=== PATIENT | male | born 1955 | race Caucasian/White ===

== ENCOUNTER 2017-06-10 15:40 | Outpatient (RCR) | payer OTHER, SELFPAY ==
[2017-06-10 17:41] LABS: Hemoglobin 15.2 g/dl (13.0-16.5); Mean Corp Hgb Conc 31.7 g/gl (32-36); Mean Corpuscular Hgb 28.7 pg (27.0-32.0); Mean Corpuscular Volume 90.6 fL (80-94); Mean Platelet Vol. 10.2 fl (6.2-12.0); Platelet Count 168 K/mm3 (150-450); RBC Distribution Width CV 14.7 % (11.6-14.6); RBC Distribution Width SD 48.6 fl (35.1-43.9); White Blood Count 10.4 K/mm3 (4.4-11.0)
[2017-06-10 17:44] LABS: Scan Indicated on CBC? Y/N NO
[2017-06-10 17:53] LABS: International Normalized Ratio 2.1
== END 2017-06-10 16:00 | disposition home or self-care (01) ==
LOC: LAB 15:40
DX: Z79.01 Long term (current) use of anticoagulants (principal)
CPT/HCPCS: 36415; 85027; 85610

== ENCOUNTER 2017-07-30 14:31 | Emergency (ER) | payer OTHER, SELFPAY ==
[2017-07-30 14:32] VITALS: BP 179/97; PULSE 70; RESP 16; TEMP 36.8; O2SAT 98; BMI 35.6
--- NOTE | 2017-07-30 15:18 | ED.DCSUM_ITS ---
- ER Visit Summary Date of Service: 07/30/17 Chief Complaint: Ear wax impaction History of Present Illness: The patient is a 62 M significant past medical history of CVA, CAD, A. fib, PE on Coumadin, cardiac stents, insulin-dependent diabetes and intermittent wax ear impactions. Patient states full of wax and at times it bothers his balance. He has is occur from time to time. He denies any pain. He denies any drainage. Physical Examination: Older male. Vital signs are stable. He is afebrile. He does not look septic or toxic. No acute distress. H EENT exam bilateral ear canals are full with wax. Nose unremarkable. Neck nontender. No lymphadenopathy. Lungs clear to auscultation bilaterally. Heart regular rhythm. No murmur. Abdomen soft nontender. Moving all 4 extremities. Neurologically awake and alert. No focal motor deficits. Test Results: None Emergency Department Course and Treatment: Nurse was able to irrigate a large wax plug out of his right ear and also wax out of his left ear. He is already using eardrops at home. And he will be instructed to follow-up with ENT for further evaluation. Treatment Plan: [] Disposition: dc Impression: Bilateral wax impaction This note was generated with [employer] dictation software. It may contain incorrect words, spelling, and punctuation that were not noted in review of the chart prior to signing ED Disposition - Plan for ED Patient: Chief Complaint: Ear Problem [facility] [facility] [[facility] Care Provider] -
--- NOTE | 2017-07-30 15:27 | ED.DEP ---
ED Disposition - Plan for ED Patient: Disposition: Home or Assisted Living Chief Complaint: Ear Problem Instructions: ED Cerumen Impaction Treated [facility]errals[facility] [Primary Care Provider] - As Needed German Bal MD [STAFF PHYSICIAN] - As Needed Additional Instructions: You use eardrops to keep wax buildup down. Follow-up with ENT as needed.
== END 2017-07-30 15:36 | disposition home or self-care (01) ==
PROVIDERS: Emergency Provider Emergency Medicine
DX: H61.23 Impacted cerumen, bilateral (principal); E11.9 Type 2 diabetes mellitus without complications; I25.10 Atherosclerotic heart disease of native coronary artery without angina pectoris; I48.91 Unspecified atrial fibrillation; I10 Essential (primary) hypertension; Z79.4 Long term (current) use of insulin; Z86.73 Personal history of transient ischemic attack (TIA), and cerebral infarction without residual deficits; Z79.01 Long term (current) use of anticoagulants; Z86.711 Personal history of pulmonary embolism
CPT/HCPCS: 99283

== ENCOUNTER 2017-09-04 15:53 | Outpatient (RCR) | payer OTHER, SELFPAY ==
[2016-07-29 04:04] VITALS: BMI 36.0
[2016-07-29 05:35] VITALS: BP 148/75
[2017-09-04 16:58] LABS: International Normalized Ratio 1.9; Prothrombin Time (Protime)PT. 21.7 SECONDS (11.7-14.9)
== END 2017-09-04 16:00 | disposition home or self-care (01) ==
LOC: LAB 15:53
DX: Z79.01 Long term (current) use of anticoagulants (principal)
CPT/HCPCS: 36415; 85610

== ENCOUNTER 2018-04-16 14:32 | Observation (INO) | payer OTHER, SELFPAY ==
[2018-04-16] VITALS (13 sets, daily range): BP systolic 154–195; BP diastolic 71–114; PULSE 27–54; RESP 10–18; TEMP 36.3–36.6; O2SAT 95–97; BMI 36.1; BMI 37.9
--- NOTE | 2018-04-16 15:19 | RAD_ITS ---
STUDY: X-RAY CHEST REASON FOR EXAM: Male, 63 years old. Chest pain. TECHNIQUE: Single AP portable view of the chest. COMPARISON: Comparison is made with prior study dated July 29, 2016. FINDINGS: EKG lead congestion. The lungs are clear and expanded. There is no demonstrated pleural abnormality. Sternal cerclage wires and vascular clips are present from a prior sternotomy and coronary artery bypass graft procedure (CABG). Moderate cardiomegaly. Normal mediastinum and adithya. Normal visualized pulmonary arteries. Normal visualized aortic arch and descending thoracic aorta. Normal visualized thoracic spine. Normal visualized ribs, clavicles, and shoulders. There is no demonstrated abnormality of the visualized soft tissue structures of the upper abdomen. RAD/Chest 1 View (Portable) IMPRESSION: Cardiomegaly. No acute abnormality is seen. Electronically Signed: Edvin Juarez MD at 15:44 EST Tel [phone], Service support ,
--- NOTE | 2018-04-16 15:19 | EKG12_ITS ---
Test Reason : CP Blood Pressure : / mmHG Vent. Rate : 045 BPM Atrial Rate : 036 BPM P-R Int : 000 ms QRS Dur : 096 ms QT Int : 510 ms P-R-T Axes : 000 095 134 degrees QTc Int : 441 ms Atrial fibrillation with slow ventricular response Rightward axis Nonspecific T wave abnormality Abnormal ECG Confirmed by DAISHA GARCIA, MAURICE ([id number]), medical transcription editor SHAQUILLE LUCERO ([id number]) on 04/20/2018 2:31:36 PM Referred By: HEBER/JIMMY Confirmed By:MAURICE ASHTON MD
--- NOTE | 2018-04-16 15:25 | ED.VISSUMM ---
- ER Visit Summary Date of Service: 04/16/18 Chief Complaint: [] chest pain shortness of breath dyspnea on exertion History of Present Illness: The patient is a 63 M [] CABG, A. fib, CHF, seen at [facility], reports for about 2 days he has had increasing shortness of breath and chest pain worse today comes in for evaluation. No fever no cough has chronic leg edema, he has had no change in bowel or bladder habits other than the report he is been constipated, his urinary habits been normal, he is taking all his medications, chest pain shortness of breath would not go away, he also reports exertional dyspnea he can only walk a few steps across his home he came to the hospital his cardiac status has in general been stable Physical Examination: [] 165/85, his heart rate is 40, he is afebrile General, no distress resting comfortably HEENT is generally unremarkable The neck is supple no adenopathy Cardiovascular, iregular rate and rhythm rate 40-50 Lungs, clear bilateral but diminished Abdomen, soft nontender Extremities, no clubbing cyanosis, chronic edema symmetric he is wearing support stockings with a zipper on them Neurologic, awake alert answering questions appropriately moving all 4 extremities Test Results: [] Emergency Department Course and Treatment: [] All the above screening labs EKG shows A. fib rate about 40 no acute injury pattern The patient's lab studies are generally unremarkable please see those reports, on reevaluation he remained stable in the department, given his chest pain shortness of breath his risk factors the bradycardia I have asked the hospitalist see him for admission and further management Treatment Plan: [] Disposition: [] Admit stable Impression: [] Chest pain, CHF, bradycardia bradycardia A. fib This note was generated with [employer] dictation software. It may contain incorrect words, spelling, and punctuation that were not noted in review of the chart prior to signing ED Disposition - Plan for ED Patient: Chief Complaint: Chest Pain Referrals: [facility] [Primary Care Provider] -
--- NOTE | 2018-04-16 15:28 | ED.DCSUM_ITS ---
- ER Visit Summary Date of Service: 04/16/18 Chief Complaint: [] chest pain shortness of breath dyspnea on exertion History of Present Illness: The patient is a 63 M [] CABG, A. fib, CHF, seen at [facility], reports for about 2 days he has had increasing shortness of breath and chest pain worse today comes in for evaluation. No fever no cough has chronic leg edema, he has had no change in bowel or bladder habits other than the report he is been constipated, his urinary habits been normal, he is taking all his medications, chest pain shortness of breath would not go away, he also reports exertional dyspnea he can only walk a few steps across his home he came to the hospital his cardiac status has in general been stable Physical Examination: [] 165/85, his heart rate is 40, he is afebrile General, no distress resting comfortably HEENT is generally unremarkable The neck is supple no adenopathy Cardiovascular, iregular rate and rhythm rate 40-50 Lungs, clear bilateral but diminished Abdomen, soft nontender Extremities, no clubbing cyanosis, chronic edema symmetric he is wearing support stockings with a zipper on them Neurologic, awake alert answering questions appropriately moving all 4 extremities Test Results: [] Emergency Department Course and Treatment: [] All the above screening labs EKG shows A. fib rate about 40 no acute injury pattern The patient's lab studies are generally unremarkable please see those reports, on reevaluation he remained stable in the department, given his chest pain shortness of breath his risk factors the bradycardia I have asked the hospitalist see him for admission and further management Treatment Plan: [] Disposition: [] Admit stable Impression: [] Chest pain, CHF, bradycardia bradycardia A. fib This note was generated with [employer] dictation software. It may contain incorrect words, spelling, and punctuation that were not noted in review of the chart prior to signing ED Disposition - Plan for ED Patient: Chief Complaint: Chest Pain Referrals: [facility] [Primary Care Provider] -
[2018-04-16 15:40] LABS: Absolute Lymphocyte Count 1.63 X10^3/ul (0.83-4.51); Absolute Neutrophil Count 5.6 X10^3/uL (2.0-7.7); Basophil# 0.04 X10^3/uL; Basophil% 0.5 % (0-1); Eosinophils% 3.6 % (0-5); Hematocrit 43.8 % (40-54); Hemoglobin 13.6 g/dl (13.0-16.5); Lymphocyte # 1.63 X10^3/ul (4.0); Lymphocyte % 19.5 % (19-41); Mean Corp Hgb Conc 31.1 g/gl (32-36); Mean Corpuscular Hgb 28.2 pg (27.0-32.0); Mean Corpuscular Volume 90.9 fL (80-94); Mean Platelet Vol. 9.7 fl (6.2-12.0); Monocyte# 0.79 X10^3/uL; Monocyte% 9.5 % (0-10); Neutrophil # 5.57 X10^3/uL (2.7-7.7); Neutrophil % 66.7 % (47-70); Platelet Count 158 K/mm3 (150-450); RBC Distribution Width CV 16.1 % (11.6-14.6); RBC Distribution Width SD 53.4 fl (35.1-43.9); Red Blood Count 4.82 M/mm3 (4.6-6.2); White Blood Count 8.4 K/mm3 (4.4-11.0)
[2018-04-16] MEDS: morphine 8 MG/ML Syringe IV (15:40)
[2018-04-16] MEDS: Aspirin 81 MG TAB.CHEW 324 MG PO (15:40)
[2018-04-16 15:41] LABS: POSITIVE COUNT NO; POSITIVE DIFFERENTIAL NO; POSITIVE MORPHOLOGY NO
[2018-04-16 15:51] LABS: Prothrombin Time (Protime)PT. 40.2 SECONDS (11.7-14.9)
[2018-04-16 15:55] LABS: Anion Gap 5 (5-15); BUN 30 mg/dL (7-18); BUN/Creat Ratio 20.8 RATIO (10-20); Calcium,Total 8.7 mg/dL (8.5-10.1); Chloride 107 mmol/L (98-107); Creatinine, Serum 1.44 mg/dL (0.70-1.30); EST Glomerular Filtration Rate 53 mL/min (>60); Est Glom Filt Rate - Afr Amer 64 mL/min (>60); Estimated Creatinine Clearance 61.94 ml/min; Glucose 103 mg/dL (74-106); Potassium 4.2 mmol/L (3.5-5.1); Sodium Level 140 mmol/L (136-145)
[2018-04-16 16:06] LABS: BNP,B-Type NATRIURETIC PEPTIDE 104.2 pg/mL (0-100); International Normalized Ratio 4.1
[2018-04-16] MEDS: amLODIPine 10 MG Tablet PO (16:52)
--- NOTE | 2018-04-16 17:49 | PCM.HP.STD ---
History of Present Illness Date of Admission: 04/16/18 Chief Complaint: shortness of breath, chest pain The patient is a 63 year old M with an extensive past medical history which includes diabetes, CAD status post CABG for triple bypass and stents, hyperlipidemia as well as A. fib. He was admitted through the ED on 04/16/2018 with complaint of worsening shortness of breath for the past couple of weeks. Shortness of breath had progressively worsened and he had associated orthopnea and PND. He had assisted mild chest pain which he said was like a baby son gripping his chest. He denied any fever or chills but admitted some lightheadedness but denied dizziness. Should he denied any abdominal pain, diarrhea vomiting. Review of systems otherwise negative. In the ED was noted to have elevated blood pressure with systolic in the 180s but pulse rate of 45. CBC was essentially unremarkable and BMP showed creatinine of 1.44 with a BNP of 104.2. Initial troponin was 0.031. EKG showed afib with rate of 40. He is been admitted to be managed for new onset bradycardia [] Past Medical History Past Medical History (Chronic Problems): Chronic Problems Afib (Chronic) Anticoagulant long-term use (Chronic) CKD (chronic kidney disease) stage 3, GFR 30-59 ml/min (Chronic) CAD (coronary artery disease) (Chronic) stents x 2 cabg x 3 PVD (peripheral vascular disease) (Chronic) s/p bypass bilateral Diabetes (Chronic) Hypertension (Chronic) Obesity (BMI 35.0-39.9 without comorbidity) (Chronic) Allergies No Known Allergies Allergy (Verified 04/16/18 14:36) Home Medications: Ambulatory Orders Medication Instructions Recorded Aspirin E.C. [Ecotrin] 81 mg PO DAILY@0800 04/22/14 Insulin Aspart [Novolog Flexpen] 0 units SC PRN PRN 04/22/14 Isosorbide Mononitrate [Imdur] 120 mg PO DAILY 04/22/14 Metoprolol Tartrate [Lopressor 50 mg PO BID 04/22/14 (beta cosmo)] Warfarin [Coumadin] 5 mg PO MOWEFRSA 04/22/14 Warfarin [Coumadin] 7.5 mg PO SUTUTH 04/22/14 traMADol [Ultram] 50 mg PO Q6H PRN PRN 07/30/17 Amlodipine [Norvasc] 10 mg PO DAILY 04/16/18 Atorvastatin Calcium [Lipitor] mg PO DAILY 04/16/18 Insulin Glargine,Hum.rec.anlog 50 unit SQ BID 04/16/18 [Lantus] Ramipril [Altace] mg PO BID 04/16/18 Surgical History: cholecystectomy, coronary bypass surgery Lives: Spouse/ Significant Other Smoking Status: Never smoker Alcohol: Occasional - *Family History Maternal History Items: - - ESRD, staghorn stone Paternal History Items: No pertinent history Sibling History Items: - - colon cancer in brother, breast cancer is sisters Review of Systems Constitutional: Denies: Chills, Fever, Weight Change Eyes: Denies: Blurred vision HEENT: Denies: Head Aches, Sinus Congestion, Sinus Drainage Cardiovascular: Reports: Chest Pain, Chest Tightness, Heaviness, Orthopnea, Paroxysmal Noc. Dyspnea. Denies: Chest Pressure, Edema Respiratory: Reports: Shortness of Breath, Shortness of breath at rest, Shortness of breath upon exertion. Denies: Cough, Sputum production, Wheezing Gastrointestinal: Denies: Abdominal Pain, Nausea, Vomiting Genitourinary: Denies: Dysuria Musculoskeletal: Denies: Joint Pain, Joint Tenderness Skin: Denies: Rash, Wounds Neurological: Denies: Numbness, Tingling, Focal weakness Psychiatric: Denies: Anxiety, Depression, Homicidal Ideations, Suicidal Ideations Hematologic/ Lymphatic: Denies: Easy Bruising, Easy Bleeding VTE Information - Inpt Only VTE Present on Admission: No - Physical Exam General: Alert, Oriented x3, Cooperative, No apparent distress HEENT: Atraumatic, PERRLA, EOMI, Normocephalic Oral: Moist Mucosa Neck: Supple, No JVD, Negative Carotid Bruits Lungs: - - decreased breath sounds bibasally with very few fine crackles. On 2L of oxygen Cardiovascular: Normal S1, Normal S2, Bradycardic, Irregular Rate Abdomen: Bowel Sounds Present, Soft, Non Tender Extremities: No clubbing, No cyanosis, No edema, Capillary Refill Less than 3 Seconds Skin: No rashes, No breakdown Musculoskeletal: No Tenderness to Palpation of Joints or Extremities Lymphatic: No Cervical, Supraclavicular, or Inguinal Adenopathy Neurological: Cranial nerves II-XII grossly intact Psych/Mental Status: Normal Affect, Appropriate, Alert and oriented to time, place, person, mood and affect Vital Signs Temp Pulse Resp BP Pulse Ox 97.3 F L 45 L 16 185/101 H 96 04/16/18 14:34 04/16/18 17:00 04/16/18 17:00 04/16/18 17:00 04/16/18 17:00 Oxygen Flow Rate (L/min) 2 Oxygen Delivery Method Nasal Cannula Weight: 289 lb Body Mass Index (BMI) 36.1 Finger Stick Blood Glucose 184 Laboratory Tests Past 24 Hrs 04/16/18 04/16/18 04/16/18 14:55 14:55 14:55 WBC 8.4 RBC 4.82 Hgb 13.6 Hct 43.8 MCV 90.9 MCH 28.2 MCHC 31.1 L RDW 16.1 H RDW Differential 53.4 H Plt Count 158 MPV 9.7 Immature Gran % (Auto) 0.200 Neut % (Auto) 66.7 Lymph % (Auto) 19.5 [place] % (Auto) 9.5 Eos % (Auto) 3.6 Baso % (Auto) 0.5 Absolute Neuts (auto) 5.6 Absolute Lymphs (auto) 1.63 Total Counted Not Reportable PT INR Sodium 140 Potassium 4.2 Chloride 107 Carbon Dioxide 28.0 Anion Gap 5 BUN 30 H Creatinine 1.44 H Estim Creat Clear Calc 61.94 Est GFR (MDRD) Af Amer 64 Est GFR (MDRD) Non-Af 53 L BUN/Creatinine Ratio 20.8 H Glucose 103 Calcium 8.7 Troponin I 0.031 B-Natriuretic Peptide 104.2 H 04/16/18 14:55 WBC RBC Hgb Hct MCV MCH MCHC RDW RDW Differential Plt Count MPV Immature Gran % (Auto) Neut % (Auto) Lymph % (Auto) [place] % (Auto) Eos % (Auto) Baso % (Auto) Absolute Neuts (auto) Absolute Lymphs (auto) Total Counted PT 40.2 H INR 4.1 H* Sodium Potassium Chloride Carbon Dioxide Anion Gap BUN Creatinine Estim Creat Clear Calc Est GFR (MDRD) Af Amer Est GFR (MDRD) Non-Af BUN/Creatinine Ratio Glucose Calcium Troponin I B-Natriuretic Peptide 04/16/18 15:19 12 Lead EKG [CVS] Stat Chest 1 View (Portable) [RAD] Stat Assessment/Plan 63 y/o male admitted with a complaint of SOB and chest pain 1. Chest pain and SOB, to rule out ACS Redness of breath has been progressively worsening persistent mild chest pain. Initial troponin is negative but EKG showed new onset bradycardia. Admit to PCU with telemetry Consult cardiology as patient is very high risk and may therefore benefit from a cath. Sublingual nitroglycerin as needed. P.o. aspirin 81 mg daily. Hold metoprolol for now on account of bradycardia. 2. CAD status post stents and CABG (triple bypass) On aspirin, statin and Imdur. Metoprolol held as above. 3. Diabetes mellitus: On insulin Levemir 32 units twice daily. Accu-Cheks AC at bedtime. Insulin sliding scale. 4. A. fib: Currently bradycardic and so metoprolol held. On Coumadin. INR is 4.1. Will hold Coumadin until INR is within therapeutic range of 2-3. 5. Bradycardia: as under 4. metoprolol held 6. CKD 3: Creatinine is 1.44 which is just around his baseline of 1.2-1.4. Will monitor. 7. ASHKAN: on CPAP qhs. 8. Supratherapeutic INR: as under 4. 9. Hypertension: poorly controlled. BP in the 180s on admission. on amlodipine, lisinopril and metoprolol. Metoprolol on hold as above. Hydralazine as needed Prophylaxis: INR was supratherapeutic at 4.1. Will therefore defer prophylaxis for now as he is on Coumadin. Code Status: Full code. Patient and counseled extensively about different types of CODE STATUS including full code, DNR CCA and DNR CCA. Patient elects to be full code. Total [id number] time 17 minutes. Code Visit Inpatient E&M: 35162 Init Hosp L3 Procedures: 46544 Advncd Care Plan 30 Min
--- NOTE | 2018-04-16 17:53 | HP.PCM_ITS ---
History of Present Illness Date of Admission: 04/16/18 Chief Complaint: shortness of breath, chest pain The patient is a 63 year old M with an extensive past medical history which includes diabetes, CAD status post CABG for triple bypass and stents, hyperlipidemia as well as A. fib. He was admitted through the ED on 04/16/2018 with complaint of worsening shortness of breath for the past couple of weeks. Shortness of breath had progressively worsened and he had associated orthopnea and PND. He had assisted mild chest pain which he said was like a baby son gripping his chest. He denied any fever or chills but admitted some lightheadedness but denied dizziness. Should he denied any abdominal pain, hayley rrhea vomiting. Review of systems otherwise negative. In the ED was noted to have elevated blood pressure with systolic in the 180s but pulse rate of 45. CBC was essentially unremarkable and BMP showed creatinine of 1.44 with a BNP of 104.2. Initial troponin was 0.031. EKG showed afib with rate of 40. He is been admitted to be managed for new onset bradycardia [] Past Medical History Past Medical History (Chronic Problems): Chronic Problems Afib (Chronic) Anticoagulant long-term use (Chronic) CKD (chronic kidney disease) stage 3, GFR 30-59 ml/min (Chronic) CAD (coronary artery disease) (Chronic) stents x 2 cabg x 3 PVD (peripheral vascular disease) (Chronic) s/p bypass bilateral Diabetes (Chronic) Hypertension (Chronic) Obesity (BMI 35.0-39.9 without comorbidity) (Chronic) Allergies No Known Allergies Allergy (Verified 04/16/18 14:36) Home Medications: Ambulatory Orders Medication Instructions Recorded Aspirin E.C. [Ecotrin] 81 mg PO DAILY@0800 04/22/14 Insulin Aspart [Novolog Flexpen] 0 units SC PRN PRN 04/22/14 Isosorbide Mononitrate [Imdur] 120 mg PO DAILY 04/22/14 Metoprolol Tartrate [Lopressor 50 mg PO BID 04/22/14 (beta cosmo)] Warfarin [Coumadin] 5 mg PO MOWEFRSA 04/22/14 Warfarin [Coumadin] 7.5 mg PO SUTUTH 04/22/14 traMADol [Ultram] 50 mg PO Q6H PRN PRN 07/30/17 Amlodipine [Norvasc] 10 mg PO DAILY 04/16/18 Atorvastatin Calcium [Lipitor] mg PO DAILY 04/16/18 Insulin Glargine,Hum.rec.anlog 50 unit SQ BID 04/16/18 [Lantus] Ramipril [Altace] mg PO BID 04/16/18 Surgical History: cholecystectomy, coronary bypass surgery Lives: Spouse/ Significant Other Smoking Status: Never smoker Alcohol: Occasional - *Family History Maternal History Items: - - ESRD, staghorn stone Paternal History Items: No pertinent history Sibling History Items: - - colon cancer in brother, breast cancer is sisters Review of Systems Constitutional: Denies: Chills, Fever, Weight Change Eyes: Denies: Blurred vision HEENT: Denies: Head Aches, Sinus Congestion, Sinus Drainage Cardiovascular: Reports: Chest Pain, Chest Tightness, Heaviness, Orthopnea, Paroxysmal Noc. Dyspnea. Denies: Chest Pressure, Edema Respiratory: Reports: Shortness of Breath, Shortness of breath at rest, Shortness of breath upon exertion. Denies: Cough, Sputum production, Wheezing Gastrointestinal: Denies: Abdominal Pain, Nausea, Vomiting Genitourinary: Denies: Dysuria Musculoskeletal: Denies: Joint Pain, Joint Tenderness Skin: Denies: Rash, Wounds Neurological: Denies: Numbness, Tingling, Focal weakness Psychiatric: Denies: Anxiety, Depression, Homicidal Ideations, Suicidal Ideations Hematologic/ Lymphatic: Denies: Easy Bruising, Easy Bleeding VTE Information - Inpt Only VTE Present on Admission: No - Physical Exam General: Alert, Oriented x3, Cooperative, No apparent distress HEENT: Atraumatic, PERRLA, EOMI, Normocephalic Oral: Moist Mucosa Neck: Supple, No JVD, Negative Carotid Bruits Lungs: - - decreased breath sounds bibasally with very few fine crackles. On 2L of oxygen Cardiovascular: Normal S1, Normal S2, Bradycardic, Irregular Rate Abdomen: Bowel Sounds Present, Soft, Non Tender Extremities: No clubbing, No cyanosis, No edema, Capillary Refill Less than 3 Seconds Skin: No rashes, No breakdown Musculoskeletal: No Tenderness to Palpation of Joints or Extremities Lymphatic: No Cervical, Supraclavicular, or Inguinal Adenopathy Neurological: Cranial nerves II-XII grossly intact Psych/Mental Status: Normal Affect, Appropriate, Alert and oriented to time, place, person, mood and affect Vital Signs Temp Pulse Resp BP Pulse Ox 97.3 F L 45 L 16 185/101 H 96 04/16/18 14:34 04/16/18 17:00 04/16/18 17:00 04/16/18 17:00 04/16/18 17:00 Oxygen Flow Rate (L/min) 2 Oxygen Delivery Method Nasal Cannula Weight: 289 lb Body Mass Index (BMI) 36.1 Finger Stick Blood Glucose 184 Laboratory Tests Past 24 Hrs 04/16/18 04/16/18 04/16/18 14:55 14:55 14:55 WBC 8.4 RBC 4.82 Hgb 13.6 Hct 43.8 MCV 90.9 MCH 28.2 MCHC 31.1 L RDW 16.1 H RDW Differential 53.4 H Plt Count 158 MPV 9.7 Immature Gran % (Auto) 0.200 Neut % (Auto) 66.7 Lymph % (Auto) 19.5 [place] % (Auto) 9.5 Eos % (Auto) 3.6 Baso % (Auto) 0.5 Absolute Neuts (auto) 5.6 Absolute Lymphs (auto) 1.63 Total Counted Not Reportable PT INR Sodium 140 Potassium 4.2 Chloride 107 Carbon Dioxide 28.0 Anion Gap 5 BUN 30 H Creatinine 1.44 H Estim Creat Clear Calc 61.94 Est GFR (MDRD) Af Amer 64 Est GFR (MDRD) Non-Af 53 L BUN/Creatinine Ratio 20.8 H Glucose 103 Calcium 8.7 Troponin I 0.031 B-Natriuretic Peptide 104.2 H 04/16/18 14:55 WBC RBC Hgb Hct MCV MCH MCHC RDW RDW Differential Plt Count MPV Immature Gran % (Auto) Neut % (Auto) Lymph % (Auto) [place] % (Auto) Eos % (Auto) Baso % (Auto) Absolute Neuts (auto) Absolute Lymphs (auto) Total Counted PT 40.2 H INR 4.1 H* Sodium Potassium Chloride Carbon Dioxide Anion Gap BUN Creatinine Estim Creat Clear Calc Est GFR (MDRD) Af Amer Est GFR (MDRD) Non-Af BUN/Creatinine Ratio Glucose Calcium Troponin I B-Natriuretic Peptide 04/16/18 15:19 12 Lead EKG [CVS] Stat Chest 1 View (Portable) [RAD] Stat Assessment/Plan 63 y/o male admitted with a complaint of SOB and chest pain 1. Chest pain and SOB, to rule out ACS * Redness of breath has been progressively worsening persistent mild chest pain. * Initial troponin is negative but EKG showed new onset bradycardia. * Admit to PCU with telemetry * Consult cardiology as patient is very high risk and may therefore benefit from a cath. * Sublingual nitroglycerin as needed. P.o. aspirin 81 mg daily. * Hold metoprolol for now on account of bradycardia. * 2. CAD status post stents and CABG (triple bypass) * On aspirin, statin and Imdur. Metoprolol held as above. * 3. Diabetes mellitus: On insulin Levemir 32 units twice daily. Accu-Cheks AC at bedtime. Insulin sliding scale. 4. A. fib: Currently bradycardic and so metoprolol held. On Coumadin. INR is 4.1. Will hold Coumadin until INR is within therapeutic range of 2-3. 5. Bradycardia: as under 4. metoprolol held 6. CKD 3: Creatinine is 1.44 which is just around his baseline of 1.2-1.4. Will monitor. 7. ASHKAN: on CPAP qhs. 8. Supratherapeutic INR: as under 4. 9. Hypertension: * poorly controlled. BP in the 180s on admission. * on amlodipine, lisinopril and metoprolol. Metoprolol on hold as above. * Hydralazine as needed * Prophylaxis: INR was supratherapeutic at 4.1. Will therefore defer prophylaxis for now as he is on Coumadin. Code Status: Full code. Patient and counseled extensively about different types of CODE STATUS including full code, DNR CCA and DNR CCA. Patient elects to be full code. Total [id number] time 17 minutes. Code Visit Inpatient E&M: 31370 Init Hosp L3 Procedures: 30710 Advncd Care Plan 30 Min
--- NOTE | 2018-04-16 17:57 | ECHOCS_ITS ---
Reason For Study: CHF Procedure This was a 2D Doppler, Color Flow transthoracic echocardiogram. The study was technically difficult. Due to body habitus. Contrast injection was performed. Exam performed in department. Left Ventricle Normal LV size. Mild concentric left ventricular hypertrophy. The estimated ejection fraction is 40 %. No regional wall motion abnormalities noted. Right Ventricle Normal RV size. Normal systolic function. Atria The left atrium is mildly enlarged. The right atrium is mildly enlarged. Mitral Valve Mitral valve not well visualized. Tricuspid Valve The tricuspid valve is not well visualized. Moderate (2+) tricuspid valve insufficiency. Pulmonary artery systolic pressure is 56 mmHg. Moderate pulmonary hypertension. Aortic Valve Trisinus/trileaflet aortic valve. Pulmonic Valve Normal pulmonic valve. Great Vessels Normal aortic root. The pulmonary artery is normal size. Normal inferior vena cava. Pericardium/Pleural No pericardial effusion. Medication Diluted definity 2.0ml given slow IV push to enhance endocardial definition. MMode/2D Measurements & Calculations LVIDd: 5.2 cm IVSd: 1.3 cm Ao root diam: 3.7 cm LVIDs: 4.0 cm LVPWd: 1.3 cm RVDd: 4.1 cm FS: 21.9 % LAV(MOD-bp): 71.4 ml LA A4 area: 21.9 cm2 LA dimension(2D): 5.6 cm LAV(MOD-bp) Indexed: 27.9 ml/m2 LAV(MOD-sp2): 75.0 ml LAV(MOD-sp4): 65.8 ml RA A4 area: 20.9 cm2 Doppler Measurements & Calculations MV E max bernadine: 126.5 cm/sec Ao V2 max: 86.9 cm/sec PA V2 max: 76.0 cm/sec Ao max P.0 mmHg TR max bernadine: 358.2 cm/sec TR max P.3 mmHg Interpretation Summary Normal LV size. Mild concentric left ventricular hypertrophy. The estimated ejection fraction is 40 %. Pulmonary artery systolic pressure is 56 mmHg. Moderate pulmonary hypertension. Contrast injection was performed. Ordering Physician: Fermin Lozada Referring Physician: [facility] Performed By: Amy Dawn RDCS, RVT
--- NOTE | 2018-04-16 17:59 | PCM.CONS.C ---
Reason for Consult Date of Consultation: 04/16/18 Reason for Consultation: Shortness of breath and chest pain History of Present Illness: The patient is a 63 year old M with an extensive past medical history which includes diabetes, CAD status post CABG for triple bypass and stents, hyperlipidemia as well as A. fib. He was admitted through the ED on 04/16/2018 with complaint of worsening shortness of breath for the past couple of weeks. Shortness of breath had progressively worsened and he had associated orthopnea and paroxysmal nocturnal dyspnea. He had assisted mild chest pain which he said was like a someone gripping his chest. He had undergone a cardiac catheterization at the [facility] within the last 6-9 months which demonstrated an occluded vessel but to bypass grafts were noted to be patent. Medical therapy was apparently recommended. He denied any fever or chills but admitted some lightheadedness but denied dizziness. He also denied any abdominal discomfort. He has had some neck discomfort no mark syncope or presyncope. He was evaluated in the emergency room he was noted to be hypertensive, and EKG was evaluated to be demonstrated atrial fibrillation with a rate of approximately 45 bpm no acute changes were noted. Troponin was minimally elevated and natruretic peptide was also minimally elevated at 104. He usually receives all his care at the [facility]. Past Medical History Allergies/Adverse Reactions: Allergies No Known Allergies Allergy (Verified 04/16/18 14:36) Home Medications: Ambulatory Orders Medication Instructions Recorded Aspirin E.C. [Ecotrin] 81 mg PO DAILY@0800 04/22/14 Insulin Aspart [Novolog Flexpen] 0 units SC PRN PRN 04/22/14 Isosorbide Mononitrate [Imdur] 120 mg PO DAILY 04/22/14 Metoprolol Tartrate [Lopressor 50 mg PO BID 04/22/14 (beta cosmo)] Warfarin [Coumadin] 5 mg PO MOWEFRSA 04/22/14 Warfarin [Coumadin] 7.5 mg PO SUTUTH 04/22/14 Amlodipine [Norvasc] 10 mg PO DAILY #30 tablet 04/26/14 Atorvastatin Calcium [Lipitor] 40 mg PO DAILY@2200 #30 tablet 01/11/15 Insulin Detemir [Levemir FlexPen] 32 units SC BID 01/11/15 Oxycodone HCl/Acetaminophen 1 tablet PO Q6H PRN PRN #10 tablet 07/29/16 [Percocet 5/325] traMADol [Ultram] 50 mg PO Q6H PRN PRN 07/30/17 Past Medical History (Chronic Problems): Chronic Problems Afib (Chronic) Anticoagulant long-term use (Chronic) CKD (chronic kidney disease) stage 3, GFR 30-59 ml/min (Chronic) CAD (coronary artery disease) (Chronic) stents x 2 cabg x 3 PVD (peripheral vascular disease) (Chronic) s/p bypass bilateral Diabetes (Chronic) Hypertension (Chronic) Obesity (BMI 35.0-39.9 without comorbidity) (Chronic) Surgical History: cholecystectomy, coronary bypass surgery - *Family History Maternal History Items: - - ESRD, staghorn stone Paternal History Items: No pertinent history Sibling History Items: - - colon cancer in brother, breast cancer is sisters Lives: Spouse/ Significant Other Smoking Status: Never smoker Alcohol: Occasional Drugs: None Review of Systems - Review of Systems General: Denies: Fever, Night Sweats, Fatigue HEENT: Denies: Vision Change Cardiovascular: Reports: Chest Discomfort, Chest Discomfort with Exertion, Shortness of Breath. Denies: Orthopnea, PND, Peripheral Edema, Palpitations, Lightheadedness, Dizziness, Near Syncope, Syncope Respiratory: Denies: Cough Gastrointestinal: Denies: Indigestion Genitourinary: Denies: Dysuria, Hematuria Muscoloskeletal: Denies: Myalgias Skin: Denies: Rash Neurological: Denies: Dizziness Psychiatric: Denies: Anxiety Endocrine: Denies: Heat Intolerance Hematologic/ Lymphatic: Denies: Lymph Node Enlargement Subjectve: Pleasant gentleman in no apparent distress Objective: Vital Signs Temp Pulse Resp BP Pulse Ox 97.3 F L 45 L 16 185/101 H 96 04/16/18 14:34 04/16/18 17:00 04/16/18 17:00 04/16/18 17:00 04/16/18 17:00 Oxygen Flow Rate (L/min) 2 Oxygen Delivery Method Nasal Cannula Weight: 289 lb Body Mass Index (BMI) 36.1 Finger Stick Blood Glucose 184 General: Awake, Alert, Oriented x 3 HEENT: PERRL, EOMI, Sclera Non Icteric Neck: Supple, Good ROM, No Lymph Node Enlargement Lungs: Clear to auscultation Cardiovascular: Irregular Rhythm, Normal S1, Normal S2, No Murmurs, No Rubs, No Gallops Vascular: No Carotid Bruits, Normal Femoral Pulses, Normal Radial Pulses, Normal Dorsalis Pedal Pulse, Normal Posterior Tibial Pulses Abdomen: Bowel Sounds Present, Soft, Non Tender, No HSM, No Organomegaly Extremities: No Cyanosis, No Clubbing, No edema Musculoskeletal: No Muscle Wasting Skin: No Rashes Lymphatic: No Lymph Node Enlargement Neurological: No Focal Motor or Sensory Deficit Psych/Mental Status: Appropriate 04/16/18 14:55: WBC 8.4, RBC 4.82, Hgb 13.6, Hct 43.8, MCV 90.9, MCH 28.2, MCHC 31.1 L, RDW 16.1 H, RDW Differential 53.4 H, Plt Count 158, MPV 9.7, Immature Gran % (Auto) 0.200, Neut % (Auto) 66.7, Lymph % (Auto) 19.5, [place] % (Auto) 9.5, Eos % (Auto) 3.6, Baso % (Auto) 0.5, Absolute Neuts (auto) 5.6, Total Counted Not Reportable 04/16/18 14:55: Sodium 140, Potassium 4.2, Chloride 107, Carbon Dioxide 28.0, Anion Gap 5, BUN 30 H, Creatinine 1.44 H, Est GFR (MDRD) Af Amer 64, Est GFR (MDRD) Non-Af 53 L, BUN/Creatinine Ratio 20.8 H, Glucose 103, Calcium 8.7, Troponin I 0.031 04/16/18 14:55: B-Natriuretic Peptide 104.2 H 04/16/18 14:55: PT 40.2 H, INR 4.1 H* Rhythm: EKG: Atrial fibrillation with a controlled ventricular response rate of 45 bpm. Assessment/Plan 1. 1. Chest pain and SOB, to rule out ACS Patient has chest discomfort which is concerning for an acute coronary syndrome. He recently underwent a cardiac catheterization and would attempt to obtain those films. Would continue cardiac enzyme profile Obtain echocardiogram in a.m. to assess left ventricular function Recommend a pharmacologic myocardial perfusion stress test. Depending on the results of that test further recommendations will be made. This is especially because patient has known coronary artery disease and medical therapy was recommended. Depending on the results of the above further recommendations will be made. 2. CAD status post stents and CABG (triple bypass) On aspirin, statin and Imdur. Metoprolol held as above. May need to restart the beta-cosmo at a lower dose 3. Atrial fibrillation He appears to have atrial fibrillation which is chronic especially since he is anticoagulated. His rate is well controlled albeit some what slow. He is super anticoagulated and his warfarin will be adjusted appropriately 4. Hypertension: poorly controlled. BP in the 180s on admission. on amlodipine, lisinopril and metoprolol. Metoprolol on hold as above. Hydralazine as needed Thank you for allowing me to participate in the care of your patient. Please don't hesitate to call if any issues arise
--- NOTE | 2018-04-16 18:03 | CON.PCM_ITS ---
Reason for Consult Date of Consultation: 04/16/18 Reason for Consultation: Shortness of breath and chest pain History of Present Illness: The patient is a 63 year old M with an extensive past medical history which includes diabetes, CAD status post CABG for triple bypass and stents, h yperlipidemia as well as A. fib. He was admitted through the ED on 04/16/2018 with complaint of worsening shortness of breath for the past couple of weeks. Shortness of breath had progressively worsened and he had associated orthopnea and paroxysmal nocturnal dyspnea. He had assisted mild chest pain which he said was like a someone gripping his chest. He had undergone a cardiac catheterization at the [facility] within the last 6-9 months which demonstrated an occluded vessel but to bypass grafts were noted to be patent. Medical therapy was apparently recommended. He denied any fever or chills but admitted some lightheadedness but denied dizziness. He also denied any abdominal discomfort. He has had some neck discomfort no mark syncope or presyncope. He was evaluated in the emergency room he was noted to be hypertensive, and EKG was evaluated to be demonstrated atrial fibrillation with a rate of approximately 45 bpm no acute changes were noted. Troponin was minimally elevated and natruretic peptide was also minimally elevated at 104. He usually receives all his care at the [facility]. Past Medical History Allergies/Adverse Reactions: Allergies No Known Allergies Allergy (Verified 04/16/18 14:36) Home Medications: Ambulatory Orders Medication Instructions Recorded Aspirin E.C. [Ecotrin] 81 mg PO DAILY@0800 04/22/14 Insulin Aspart [Novolog Flexpen] 0 units SC PRN PRN 04/22/14 Isosorbide Mononitrate [Imdur] 120 mg PO DAILY 04/22/14 Metoprolol Tartrate [Lopressor 50 mg PO BID 04/22/14 (beta cosmo)] Warfarin [Coumadin] 5 mg PO MOWEFRSA 04/22/14 Warfarin [Coumadin] 7.5 mg PO SUTUTH 04/22/14 Amlodipine [Norvasc] 10 mg PO DAILY #30 tablet 04/26/14 Atorvastatin Calcium [Lipitor] 40 mg PO DAILY@2200 #30 tablet 01/11/15 Insulin Detemir [Levemir FlexPen] 32 units SC BID 01/11/15 Oxycodone HCl/Acetaminophen 1 tablet PO Q6H PRN PRN #10 tablet 03/20/17 [Percocet 5/325] traMADol [Ultram] 50 mg PO Q6H PRN PRN 07/30/17 Past Medical History (Chronic Problems): Chronic Problems Afib (Chronic) Anticoagulant long-term use (Chronic) CKD (chronic kidney disease) stage 3, GFR 30-59 ml/min (Chronic) CAD (coronary artery disease) (Chronic) stents x 2 cabg x 3 PVD (peripheral vascular disease) (Chronic) s/p bypass bilateral Diabetes (Chronic) Hypertension (Chronic) Obesity (BMI 35.0-39.9 without comorbidity) (Chronic) Surgical History: cholecystectomy, coronary bypass surgery - *Family History Maternal History Items: - - ESRD, staghorn stone Paternal History Items: No pertinent history Sibling History Items: - - colon cancer in brother, breast cancer is sisters Lives: Spouse/ Significant Other Smoking Status: Never smoker Alcohol: Occasional Drugs: None Review of Systems - Review of Systems General: Denies: Fever, Night Sweats, Fatigue HEENT: Denies: Vision Change Cardiovascular: Reports: Chest Discomfort, Chest Discomfort with Exertion, Shortness of Breath. Denies: Orthopnea, PND, Peripheral Edema, Palpitations, Lightheadedness, Dizziness, Near Syncope, Syncope Respiratory: Denies: Cough Gastrointestinal: Denies: Indigestion Genitourinary: Denies: Dysuria, Hematuria Muscoloskeletal: Denies: Myalgias Skin: Denies: Rash Neurological: Denies: Dizziness Psychiatric: Denies: Anxiety Endocrine: Denies: Heat Intolerance Hematologic/ Lymphatic: Denies: Lymph Node Enlargement Subjectve: Pleasant gentleman in no apparent distress Objective: Vital Signs Temp Pulse Resp BP Pulse Ox 97.3 F L 45 L 16 185/101 H 96 04/16/18 14:34 04/16/18 17:00 04/16/18 17:00 04/16/18 17:00 04/16/18 17:00 Oxygen Flow Rate (L/min) 2 Oxygen Delivery Method Nasal Cannula Weight: 289 lb Body Mass Index (BMI) 36.1 Finger Stick Blood Glucose 184 General: Awake, Alert, Oriented x 3 HEENT: PERRL, EOMI, Sclera Non Icteric Neck: Supple, Good ROM, No Lymph Node Enlargement Lungs: Clear to auscultation Cardiovascular: Irregular Rhythm, Normal S1, Normal S2, No Murmurs, No Rubs, No Gallops Vascular: No Carotid Bruits, Normal Femoral Pulses, Normal Radial Pulses, Normal Dorsalis Pedal Pulse, Normal Posterior Tibial Pulses Abdomen: Bowel Sounds Present, Soft, Non Tender, No HSM, No Organomegaly Extremities: No Cyanosis, No Clubbing, No edema Musculoskeletal: No Muscle Wasting Skin: No Rashes Lymphatic: No Lymph Node Enlargement Neurological: No Focal Motor or Sensory Deficit Psych/Mental Status: Appropriate 04/16/18 14:55: WBC 8.4, RBC 4.82, Hgb 13.6, Hct 43.8, MCV 90.9, MCH 28.2, MCHC 31.1 L, RDW 16.1 H, RDW Differential 53.4 H, Plt Count 158, MPV 9.7, Immature Gran % (Auto) 0.200, Neut % (Auto) 66.7, Lymph % (Auto) 19.5, [place] % (Auto) 9.5, Eos % (Auto) 3.6, Baso % (Auto) 0.5, Absolute Neuts (auto) 5.6, Total Counted Not Reportable 04/16/18 14:55: Sodium 140, Potassium 4.2, Chloride 107, Carbon Dioxide 28.0, Anion Gap 5, BUN 30 H, Creatinine 1.44 H, Est GFR (MDRD) Af Amer 64, Est GFR (MDRD) Non-Af 53 L, BUN/Creatinine Ratio 20.8 H, Glucose 103, Calcium 8.7, Troponin I 0.031 04/16/18 14:55: B-Natriuretic Peptide 104.2 H 04/16/18 14:55: PT 40.2 H, INR 4.1 H* Rhythm: EKG: Atrial fibrillation with a controlled ventricular response rate of 45 bpm. Assessment/Plan 1. 1. Chest pain and SOB, to rule out ACS * Patient has chest discomfort which is concerning for an acute coronary syndrome. He recently underwent a cardiac catheterization and would attempt to obtain those films. * Would continue cardiac enzyme profile * Obtain echocardiogram in a.m. to assess left ventricular function * Recommend a pharmacologic myocardial perfusion stress test. Depending on the results of that test further recommendations will be made. This is especially because patient has known coronary artery disease and medical therapy was re commended. * Depending on the results of the above further recommendations will be made. 2. CAD status post stents and CABG (triple bypass) * On aspirin, statin and Imdur. Metoprolol held as above. * May need to restart the beta-cosmo at a lower dose 3. Atrial fibrillation * He appears to have atrial fibrillation which is chronic especially since he is anticoagulated. * His rate is well controlled albeit some what slow. * He is super anticoagulated and his warfarin will be adjusted appropriately 4. Hypertension: * poorly controlled. BP in the 180s on admission. * on amlodipine, lisinopril and metoprolol. Metoprolol on hold as above. * Hydralazine as needed * Thank you for allowing me to participate in the care of your patient. Please don't hesitate to call if any issues arise
[2018-04-16] MEDS: oxyCODONE 5 MG Tablet PO (20:13)
[2018-04-16 21:58] LABS: Hemoglobin A1c 8.3 % (4.2-6.3)
[2018-04-16] MEDS: Atorvastatin Calcium 40 MG Tablet PO (22:15)
[2018-04-16 22:20] LABS: Bedside Glucose 108 mg/dL (70-110)
[2018-04-17] VITALS (16 sets, daily range): BP systolic 111–152; BP diastolic 49–112; PULSE 29–64; RESP 16–18; TEMP 36.4–36.9; O2SAT 93–98
--- NOTE | 2018-04-17 00:23 | NURSING ---
Report given to Michelle Olvera RN. She will resume care of pt.
[2018-04-17 03:56] LABS: Absolute Lymphocyte Count 1.44 X10^3/ul (0.83-4.51); Absolute Neutrophil Count 5.8 X10^3/uL (2.0-7.7); Basophil# 0.05 X10^3/uL; Basophil% 0.6 % (0-1); Eosinophil# 0.28 X10^3/uL; Eosinophils% 3.3 % (0-5); Hematocrit 41.3 % (40-54); Hemoglobin 13.2 g/dl (13.0-16.5); Lymphocyte # 1.44 X10^3/ul (4.0); Lymphocyte % 16.7 % (19-41); Mean Corpuscular Hgb 28.9 pg (27.0-32.0); Mean Corpuscular Volume 90.6 fL (80-94); Monocyte# 0.99 X10^3/uL; Monocyte% 11.5 % (0-10); Neutrophil # 5.81 X10^3/uL (2.7-7.7); Neutrophil % 67.6 % (47-70); Platelet Count 148 K/mm3 (150-450); RBC Distribution Width CV 15.9 % (11.6-14.6); RBC Distribution Width SD 52.2 fl (35.1-43.9); Red Blood Count 4.56 M/mm3 (4.6-6.2); White Blood Count 8.6 K/mm3 (4.4-11.0)
--- NOTE | 2018-04-17 04:00 | EKG12_ITS ---
Test Reason : AM EKG Blood Pressure : / mmHG Vent. Rate : 047 BPM Atrial Rate : 300 BPM P-R Int : 000 ms QRS Dur : 098 ms QT Int : 524 ms P-R-T Axes : 000 100 150 degrees QTc Int : 463 ms Atrial fibrillation with slow ventricular response Rightward axis Septal infarct , age undetermined Abnormal ECG When compared with ECG of 16-APR-2018 14:43, MANUAL COMPARISON REQUIRED, DATA IS UNCONFIRMED Confirmed by DAISHA GARCIA, MAURICE ([id number]), development editor SHAQUILLE LUCERO ([id number]) on 04/20/2018 2:54:11 PM Referred By: CARO Confirmed By:MAURICE ASHTON MD
[2018-04-17 04:01] LABS: Prothrombin Time (Protime)PT. 41.7 SECONDS (11.7-14.9)
[2018-04-17 04:02] LABS: Partial Thromboplast Time 53.7 Seconds (24.1-36.2)
[2018-04-17 04:06] LABS: POSITIVE COUNT NO; POSITIVE DIFFERENTIAL NO; POSITIVE MORPHOLOGY NO
[2018-04-17 04:07] LABS: Anion Gap 6 (5-15); BUN 28 mg/dL (7-18); BUN/Creat Ratio 22.4 RATIO (10-20); Calcium,Total 8.3 mg/dL (8.5-10.1); Chloride 106 mmol/L (98-107); Creatinine, Serum 1.25 mg/dL (0.70-1.30); EST Glomerular Filtration Rate 62 mL/min (>60); Est Glom Filt Rate - Afr Amer 75 mL/min (>60); Estimated Creatinine Clearance 71.36 ml/min; Glucose 134 mg/dL (74-106); Sodium Level 137 mmol/L (136-145)
[2018-04-17 04:10] LABS: International Normalized Ratio 4.3
[2018-04-17] MEDS: oxyCODONE 5 MG Tablet PO ×2 (05:43→11:49)
[2018-04-17] MEDS: Aspirin E.C. 81 MG Tablet PO (05:43)
[2018-04-17] MEDS: amLODIPine 5 MG Tablet PO (05:44)
[2018-04-17 06:55] LABS: Bedside Glucose 115 mg/dL (70-110)
--- NOTE | 2018-04-17 10:47 | STRESSREP ---
Stress Test Report Pharmacologic myocardial perfusion stress test. 63-year-old man with a history of known coronary artery disease and atrial fibrillation. Stress protocol: Resting EKG demonstrates atrial fibrillation with a rate of 54 bpm blood pressure 188/111 mmHg. 0.4 mg of regadenoson was infused per usual protocol followed by rapid intravenous saline flush injection continuous EKG monitoring was performed. The patient maintained atrial fibrillation throughout the recording. The maximum heart rate attained was 64 bpm which was 41% of maximum predicted heart rate the maximum workload was 1 metabolic equivalent. At rest there were no ST or T wave changes noted suggest abnormal flow reserve at peak infusion no ST or T wave changes were noted suggest abnormal flow reserve. The resting blood pressure was 188/111 with a final blood pressure 180/86. Myocardial perfusion protocol. 13.0 mCi of technetium 99m sestamibi was injected at rest. 0.4 mg of regadenoson was infused per usual protocol peak infusion 42.8 mCi of technetium 99m sestamibi was injected stress images were obtained stress and rest images were reconstructed and compared in the short axis vertical long horizontal long axis. Gated images were also obtained Perfusion SPECT analysis. Review of the stress images demonstrate a normal cardiac silhouette size. The septum appears to be well perfused on the stress imaging. There is mild reduction of perfusion noted in the distal anterolateral wall, which appears to mildly improved on the resting images. The lateral wall appears to be well perfused on the stress and resting images to a similar extent. The apex has a small defect which is persistent. The inferior wall has moderately reduced perfusion on the stress and resting images with minimal improvement on the resting images. The above is suggestive of mild anterolateral ischemia and a previous inferior infarct with mild inferior ischemia. Gated SPECT analysis: Gated ejection fraction is 41% with segmental wall motion abnormalities with severe hypokinesis of the mid inferior wall and the mid anterior wall. Conclusion: Abnormal myocardial perfusion stress test with evidence of mild distal anterolateral ischemia. Mild mid inferior ischemia. Previous inferior infarct. Mild cardiomyopathy.
--- NOTE | 2018-04-17 10:59 | PN.CARD_ITS ---
Subjectve: Patient seen and evaluated. Appears to be stable this morning. Objective: Vital Signs Temp Pulse Resp BP Pulse Ox 97.6 F L 52 L 18 152/83 H 94 04/17/18 05:37 04/17/18 07:02 04/17/18 08:25 04/17/18 05:37 04/17/18 06:45 Oxygen Flow Rate (L/min) 2 Oxygen Delivery Method Room Air Weight: 303 lb 9.224 oz Body Mass Index (BMI) 37.9 Finger Stick Blood Glucose 184 Intake and Output for Last 24 Hours 04/15/18 04/16/18 04/17/18 23:59 23:59 23:59 Intake Total 200 / 200 Output Total 300 / 300 350 / 350 Balance -100 / -100 -350 / -350 General: Awake, Alert, Oriented x 3 HEENT: PERRL, EOMI, Sclera Non Icteric Neck: Supple, Good ROM, No Lymph Node Enlargement Lungs: Clear to auscultation Cardiovascular: Regular Rhythm, Normal S1, Normal S2, No Murmurs, No Rubs, No Gallops Vascular: No Carotid Bruits, Normal Femoral Pulses, Normal Radial Pulses, Normal Dorsalis Pedal Pulse, Normal Posterior Tibial Pulses Abdomen: Bowel Sounds Present, Soft, Non Tender, No HSM, No Organomegaly Extremities: No Cyanosis, No Clubbing, No edema Lymphatic: No Lymph Node Enlargement Neurological: No Focal Motor or Sensory Deficit Psych/Mental Status: Appropriate 04/16/18 14:55: WBC 8.4, RBC 4.82, Hgb 13.6, Hct 43.8, MCV 90.9, MCH 28.2, MCHC 31.1 L, RDW 16.1 H, RDW Differential 53.4 H, Plt Count 158, MPV 9.7, Immature Gran % (Auto) 0.200, Neut % (Auto) 66.7, Lymph % (Auto) 19.5, [place] % (Auto) 9.5, Eos % (Auto) 3.6, Baso % (Auto) 0.5, Absolute Neuts (auto) 5.6, Total Counted Not Reportable 04/16/18 14:55: Sodium 140, Potassium 4.2, Chloride 107, Carbon Dioxide 28.0, Anion Gap 5, BUN 30 H, Creatinine 1.44 H, Est GFR (MDRD) Af Amer 64, Est GFR (MDRD) Non-Af 53 L, BUN/Creatinine Ratio 20.8 H, Glucose 103, Calcium 8.7, Troponin I 0.031 04/16/18 14:55: B-Natriuretic Peptide 104.2 H 04/16/18 14:55: PT 40.2 H, INR 4.1 H* 04/16/18 18:50: Troponin I 0.038 04/16/18 21:21: Hemoglobin A1c 8.3 H 04/16/18 21:21: Troponin I 0.034 04/17/18 03:44: Sodium 137, Potassium 4.0, Chloride 106, Carbon Dioxide 25.0, Anion Gap 6, BUN 28 H, Creatinine 1.25, Est GFR (MDRD) Af Amer 75, Est GFR (MDRD) Non-Af 62, BUN/Creatinine Ratio 22.4 H, Glucose 134 H, Calcium 8.3 L 04/17/18 03:44: WBC 8.6, RBC 4.56 L, Hgb 13.2, Hct 41.3, MCV 90.6, MCH 28.9, MCHC 32.0, RDW 15.9 H, RDW Differential 52.2 H, Plt Count 148 L, MPV 10.0, Immature Gran % (Auto) 0.300, Neut % (Auto) 67.6, Lymph % (Auto) 16.7 L, [place] % (Auto) 11.5 H, Eos % (Auto) 3.3, Baso % (Auto) 0.6, Absolute Neuts (auto) 5.8, Total Counted Not Reportable 04/17/18 03:44: PT 41.7 H, INR 4.3 H*, APTT 53.7 H Rhythm: EKG: ECHO: Stress Test: Cardiac Cath: PCI: CT Surgery: Holter monitor: EPS: PPM: CXR: Chest CT Scan: Medical Necessity - Tobacco Use Smoking Status: Never smoker Assessment/Plan 1. 1. Chest pain and SOB, to rule out ACS * Patient has chest discomfort which is concerning for an acute coronary syndrome. He recently underwent a cardiac catheterization and would attempt to obtain those films. * Would continue cardiac enzyme profile * Obtain echocardiogram in a.m. to assess left ventricular function * His myocardial perfusion stress test this morning demonstrated mild distal anterolateral ischemia as well as mild mid inferior ischemia. We will obtain the last cardiac catheterization from the [facility] to determine whether the patient will be a candidate for a repeat cardiac catheterization. 2. CAD status post stents and CABG (triple bypass) * On aspirin, statin and Imdur. Metoprolol held as above. * May need to restart the beta-cosmo at a lower dose 3. Atrial fibrillation * He appears to have atrial fibrillation which is chronic especially since he is anticoagulated. * His rate is well controlled albeit some what slow. * He is super anticoagulated and his warfarin will be adjusted appropriately 4. Hypertension: * poorly controlled. BP in the 180s on admission. * on amlodipine, lisinopril and metoprolol. * Will resume metoprolol at a lower dose * * Addendum Cardiac catheterization report reviewed from the [facility]. It demonstrated the following: Normal left main coronary artery. Left anterior descending artery which is totally occluded. Left internal mammary artery to the left anterior descending artery which is patent with moderate to severe distal disease in the left anterior descending artery. Left circumflex artery and 100% occluded Right coronary artery 100% occluded Saphenous vein graft to the posterior descending artery 100% occluded. Saphenous vein graft to obtuse marginal branch mild disease. Appears that the stress test today corroborated the above findings. It demonstrates mild distal anterolateral ischemia as well as mild mid inferior ischemia. Based on the above I do not think that there is a reason to repeat a cardiac catheterization at this time. As noted previously would maximize medical therapy and have patient follow-up at the [facility]. Thank you for allowing me to participate in the care of your patient. Please don't hesitate to call if any issues arise
--- NOTE | 2018-04-17 11:00 | CASEMGMT ---
Addendum entered by Flaquita Terry 04/17/18 11:51: Message left for [facility] at this time to make them aware of pt admission. Leandro BUSCH CM Original Note: Updated clinicals [facility] transfer [facility] at [facility] time. Leandro BUSCH CM
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
[2018-04-17] MEDS: amLODIPine 10 MG Tablet PO (11:49)
[2018-04-17] MEDS: Isosorbide Mononitrate 60 MG Tablet 90 MG PO (11:49)
[2018-04-17] MEDS: Lisinopril 40 MG Tablet PO (11:49)
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
[2018-04-17 12:06] LABS: Bedside Glucose 132 mg/dL (70-110)
--- NOTE | 2018-04-17 13:13 | CASEMGMT ---
Pt verifies to this RN CM that [facility] at this time. SStaten RN CM
[2018-04-17 16:21] LABS: Bedside Glucose 220 mg/dL (70-110)
[2018-04-17] MEDS: Insulin Lispro 100 UNIT/ML INSULN.PEN SQ ×2 (16:56→21:39)
[2018-04-17] MEDS: Metoprolol Tartrate 25 MG Tablet PO (21:41)
[2018-04-17] MEDS: Atorvastatin Calcium 40 MG Tablet PO (21:41)
[2018-04-17 21:55] LABS: Bedside Glucose 216 mg/dL (70-110)
--- NOTE | 2018-04-17 23:54 | CPS ---
pt declined use of hospital cpap, said he's woken up all night and only will sleep an hour, o2 via cannula 2l made available to pt.
[2018-04-18] VITALS (11 sets, daily range): BP systolic 141–153; BP diastolic 65–79; PULSE 28–60; RESP 18–20; TEMP 36.3–37.1; O2SAT 92–96
--- NOTE | 2018-04-18 02:39 | NURSING ---
Pt woke c/o SOB, was placed on 2L NC sats at 94%. Patient has hx of sleep apnea but refused hospital CPAP as he did not bring his own. After pt rested his dyspnea improved. Pt then agreed to have RT place on CPAP.
[2018-04-18] MEDS: oxyCODONE 5 MG Tablet PO (04:09)
--- NOTE | 2018-04-18 04:24 | NURSING ---
RN in to check on patient, he was found to be awake in bed without CPAP on. Pt had removed it himself and turned off machine himself. Currently he denies the need for CPAP and denies being dyspneic or SOB while on RA.
[2018-04-18 06:26] LABS: Absolute Lymphocyte Count 1.26 X10^3/ul (0.83-4.51); Absolute Neutrophil Count 6.5 X10^3/uL (2.0-7.7); Basophil# 0.04 X10^3/uL; Basophil% 0.4 % (0-1); Eosinophil# 0.24 X10^3/uL; Eosinophils% 2.6 % (0-5); Hematocrit 40.5 % (40-54); Hemoglobin 12.8 g/dl (13.0-16.5); Lymphocyte # 1.26 X10^3/ul (4.0); Lymphocyte % 13.9 % (19-41); Mean Corp Hgb Conc 31.6 g/gl (32-36); Mean Corpuscular Hgb 28.6 pg (27.0-32.0); Mean Corpuscular Volume 90.6 fL (80-94); Mean Platelet Vol. 9.9 fl (6.2-12.0); Monocyte# 1.03 X10^3/uL; Monocyte% 11.3 % (0-10); Neutrophil # 6.47 X10^3/uL (2.7-7.7); Neutrophil % 71.4 % (47-70); Platelet Count 156 K/mm3 (150-450); RBC Distribution Width CV 16.1 % (11.6-14.6); Red Blood Count 4.47 M/mm3 (4.6-6.2); White Blood Count 9.1 K/mm3 (4.4-11.0)
[2018-04-18 06:29] LABS: POSITIVE COUNT NO; POSITIVE DIFFERENTIAL NO; POSITIVE MORPHOLOGY NO
--- NOTE | 2018-04-18 06:38 | CPS ---
pt states cpap is too loud, cpap removed per pt
[2018-04-18 06:45] LABS: Anion Gap 9 (5-15); BUN 26 mg/dL (7-18); Calcium,Total 8.4 mg/dL (8.5-10.1); Chloride 107 mmol/L (98-107); Cholesterol 70 mg/dL (200); EST Glomerular Filtration Rate 59 mL/min (>60); Est Glom Filt Rate - Afr Amer 71 mL/min (>60); Estimated Creatinine Clearance 68.61 ml/min; Glucose 144 mg/dL (74-106); High Density Lipoprotein 35 mg/dL; Potassium 4.4 mmol/L (3.5-5.1); Sodium Level 140 mmol/L (136-145); Triglycerides 64 mg/dL; Very Low Density Lipoprotein 13 mg/dL (5-40)
[2018-04-18 06:55] LABS: Bedside Glucose 121 mg/dL (70-110)
[2018-04-18] MEDS: Aspirin E.C. 81 MG Tablet PO (08:21)
[2018-04-18] MEDS: Isosorbide Mononitrate 60 MG Tablet 90 MG PO (08:22)
[2018-04-18] MEDS: Lisinopril 40 MG Tablet PO (08:23)
[2018-04-18] MEDS: amLODIPine 10 MG Tablet PO (08:23)
--- NOTE | 2018-04-18 10:21 | PCM.PN.CARD ---
Subjectve: Patient seen and evaluated. Apparently developed some shortness of breath in the night and required BiPAP treatment Objective: Vital Signs Temp Pulse Resp BP Pulse Ox 98.7 F 28 L 18 141/79 H 94 04/18/18 02:23 04/18/18 07:45 04/18/18 02:36 04/18/18 02:23 04/18/18 08:11 Oxygen Flow Rate (L/min) 2 Oxygen Delivery Method Nasal Cannula Weight: 303 lb 9.224 oz Body Mass Index (BMI) 37.9 Finger Stick Blood Glucose 184 Intake and Output for Last 24 Hours 04/16/18 04/17/18 04/18/18 23:59 23:59 23:59 Intake Total 200 / 200 840 / 840 Output Total 300 / 300 350 / 350 Balance -100 / -100 490 / 490 General: Awake, Alert, Oriented x 3 HEENT: PERRL, EOMI, Sclera Non Icteric Neck: Supple, Good ROM, No Lymph Node Enlargement Lungs: Diminished Elijah Bases Cardiovascular: Irregular Rhythm, Normal S1, Normal S2, No Murmurs, No Rubs, No Gallops Vascular: No Carotid Bruits, Normal Femoral Pulses, Normal Radial Pulses, Normal Dorsalis Pedal Pulse, Normal Posterior Tibial Pulses Abdomen: Bowel Sounds Present, Soft, Non Tender, No HSM, No Organomegaly Extremities: No Cyanosis, No Clubbing, No edema Lymphatic: No Lymph Node Enlargement Neurological: No Focal Motor or Sensory Deficit Psych/Mental Status: Appropriate 04/17/18 03:44: Magnesium 2.0 04/18/18 05:40: WBC 9.1, RBC 4.47 L, Hgb 12.8 L, Hct 40.5, MCV 90.6, MCH 28.6, MCHC 31.6 L, RDW 16.1 H, RDW Differential 52.0 H, Plt Count 156, MPV 9.9, Immature Gran % (Auto) 0.400, Neut % (Auto) 71.4 H, Lymph % (Auto) 13.9 L, [place] % (Auto) 11.3 H, Eos % (Auto) 2.6, Baso % (Auto) 0.4, Absolute Neuts (auto) 6.5, Total Counted Not Reportable 04/18/18 05:40: Sodium 140, Potassium 4.4, Chloride 107, Carbon Dioxide 24.0, Anion Gap 9, BUN 26 H, Creatinine 1.30, Est GFR (MDRD) Af Amer 71, Est GFR (MDRD) Non-Af 59 L, BUN/Creatinine Ratio 20.0, Glucose 144 H, Calcium 8.4 L, Triglycerides 64, Cholesterol 70, LDL Cholesterol 22, VLDL Cholesterol 13, HDL Cholesterol 35 L Rhythm: EKG: ECHO: Stress Test: Cardiac Cath: PCI: CT Surgery: Holter monitor: EPS: PPM: CXR: Chest CT Scan: Medical Necessity - Tobacco Use Smoking Status: Never smoker Assessment/Plan 1. 1. Chest pain and SOB, to rule out ACS Patient has chest discomfort which is concerning for an acute coronary syndrome. Cardiac catheterization report reviewed from the [facility]. It demonstrated the following: Normal left main coronary artery. Left anterior descending artery which is totally occluded. Left internal mammary artery to the left anterior descending artery which is patent with moderate to severe distal disease in the left anterior descending artery. Left circumflex artery and 100% occluded Right coronary artery 100% occluded Saphenous vein graft to the posterior descending artery 100% occluded. Saphenous vein graft to obtuse marginal branch mild disease. His myocardial perfusion stress test this morning demonstrated mild distal anterolateral ischemia as well as mild mid inferior ischemia. Appears that the stress test today corroborated the above findings. It demonstrates mild distal anterolateral ischemia as well as mild mid inferior ischemia. Based on the above I do not think that there is a reason to repeat a cardiac catheterization at this time. As noted previously would maximize medical therapy and have patient follow-up at the [facility]. 2. CAD status post stents and CABG (triple bypass) On aspirin, statin and Imdur. Metoprolol held as above. May need to restart the beta-cosmo at a lower dose 3. Atrial fibrillation He appears to have atrial fibrillation which is chronic especially since he is anticoagulated. His rate is well controlled albeit some what slow. He is super anticoagulated and his warfarin will be adjusted appropriately 4. Hypertension: poorly controlled. BP in the 180s on admission. on amlodipine, lisinopril and metoprolol. Will resume metoprolol at a lower dose 5. Shortness of breath He appears to have developed congestive heart failure overnight the etiology is not entirely clear. He had been bradycardic as well and this may have contributed. Start Lasix 40 mg twice a day Will recommend observation in the hospital overnight at least
--- NOTE | 2018-04-18 10:25 | PN.CARD_ITS ---
Subjectve: Patient seen and evaluated. Apparently developed some shortness of breath in the night and required BiPAP treatment Objective: Vital Signs Temp Pulse Resp BP Pulse Ox 98.7 F 28 L 18 141/79 H 94 04/18/18 02:23 04/18/18 07:45 04/18/18 02:36 04/18/18 02:23 04/18/18 08:11 Oxygen Flow Rate (L/min) 2 Oxygen Delivery Method Nasal Cannula Weight: 303 lb 9.224 oz Body Mass Index (BMI) 37.9 Finger Stick Blood Glucose 184 Intake and Output for Last 24 Hours 04/16/18 04/17/18 04/18/18 23:59 23:59 23:59 Intake Total 200 / 200 840 / 840 Output Total 300 / 300 350 / 350 Balance -100 / -100 490 / 490 General: Awake, Alert, Oriented x 3 HEENT: PERRL, EOMI, Sclera Non Icteric Neck: Supple, Good ROM, No Lymph Node Enlargement Lungs: Diminished Elijah Bases Cardiovascular: Irregular Rhythm, Normal S1, Normal S2, No Murmurs, No Rubs, No Gallops Vascular: No Carotid Bruits, Normal Femoral Pulses, Normal Radial Pulses, Normal Dorsalis Pedal Pulse, Normal Posterior Tibial Pulses Abdomen: Bowel Sounds Present, Soft, Non Tender, No HSM, No Organomegaly Extremities: No Cyanosis, No Clubbing, No edema Lymphatic: No Lymph Node Enlargement Neurological: No Focal Motor or Sensory Deficit Psych/Mental Status: Appropriate 04/17/18 03:44: Magnesium 2.0 04/18/18 05:40: WBC 9.1, RBC 4.47 L, Hgb 12.8 L, Hct 40.5, MCV 90.6, MCH 28.6, MCHC 31.6 L, RDW 16.1 H, RDW Differential 52.0 H, Plt Count 156, MPV 9.9, Immature Gran % (Auto) 0.400, Neut % (Auto) 71.4 H, Lymph % (Auto) 13.9 L, [place] % (Auto) 11.3 H, Eos % (Auto) 2.6, Baso % (Auto) 0.4, Absolute Neuts (auto) 6.5, Total Counted Not Reportable 04/18/18 05:40: Sodium 140, Potassium 4.4, Chloride 107, Carbon Dioxide 24.0, Anion Gap 9, BUN 26 H, Creatinine 1.30, Est GFR (MDRD) Af Amer 71, Est GFR (MDRD) Non-Af 59 L, BUN/Creatinine Ratio 20.0, Glucose 144 H, Calcium 8.4 L, Triglycerides 64, Cholesterol 70, LDL Cholesterol 22, VLDL Cholesterol 13, HDL Cholesterol 35 L Rhythm: EKG: ECHO: Stress Test: Cardiac Cath: PCI: CT Surgery: Holter monitor: EPS: PPM: CXR: Chest CT Scan: Medical Necessity - Tobacco Use Smoking Status: Never smoker Assessment/Plan 1. 1. Chest pain and SOB, to rule out ACS * Patient has chest discomfort which is concerning for an acute coronary syndrome. Cardiac catheterization report reviewed from the [facility]. It demonstrated the following: Normal left main coronary artery. Left anterior descending artery which is totally occluded. Left internal mammary artery to the left anterior descending artery which is patent with moderate to severe distal disease in the left anterior descending artery. Left circumflex artery and 100% occluded Right coronary artery 100% occluded Saphenous vein graft to the posterior descending artery 100% occluded. Saphenous vein graft to obtuse marginal branch mild disease. * His myocardial perfusion stress test this morning demonstrated mild distal anterolateral ischemia as well as mild mid inferior ischemia. Appears that the stress test today corroborated the above findings. It demonstrates mild distal anterolateral ischemia as well as mild mid inferior ischemia. Based on the above I do not think that there is a reason to repeat a cardiac catheterization at this time. As noted previously would maximize medical therapy and have patient follow-up at the [facility]. 2. CAD status post stents and CABG (triple bypass) * On aspirin, statin and Imdur. Metoprolol held as above. * May need to restart the beta-cosmo at a lower dose 3. Atrial fibrillation * He appears to have atrial fibrillation which is chronic especially since he is anticoagulated. * His rate is well controlled albeit some what slow. * He is super anticoagulated and his warfarin will be adjusted appropriately 4. Hypertension: * poorly controlled. BP in the 180s on admission. * on amlodipine, lisinopril and metoprolol. * Will resume metoprolol at a lower dose * * 5. Shortness of breath * He appears to have developed congestive heart failure overnight the etiology is not entirely clear. He had been bradycardic as well and this may have contributed. * Start Lasix 40 mg twice a day * * Will recommend observation in the hospital overnight at least
--- NOTE | 2018-04-18 11:28 | PCM.DC ---
- Discharge Diagnoses Current Active Problems: (1) Chest Pain, Pressure, Dyspnea, RULED OUT ACS, Likely secondary to underlying CAD w/ medical management route w/ recent cardiac catheterization [place] (2) PAF w/ Supratherapeutic INR (recommended hold on coumadin 04/18/18 and repeat INR 12. (3) CAD s/p CABG x 3, PCI x 2 (4) Diabetes mellitus type II (5) Hypertension, Uncontrolled (6) Hyperlipidemia (7) CKD stage III (8) Central Sleep Apnea (9) PVD You will use the following diet at home:: Calorie/Carbohydrate Controlled (specify 1200, 1400, etc) - 1800 ADA/cardiac diet encouraged. Your food should be the consistency of: Regular Your liquids should be the consistency of: Regular/Thin Discharge Activity: - - Advise continued mild to moderate activity only until re-evaluation per your primary care/cardiology [place]. Weight Bearing Status: Weight bearing as tolerated Call your doctor if you observe: Fever of 101 or Higher, Inability to urinate, Inability to have a bowel movement, Shortness of breath, Dizziness, Fainting spells, Chest pain, Uncontrolled pain Instructions: Understanding Coronary Artery Disease (CAD), What Is High Blood Pressure? Additional Instructions: During the admission your cardiac stress testing performed had abnormal findings that were consistent per Cardiology review with your most recent cardiac catheterization. Dr. Lozada, Cardiology, felt repeat cardiac catheterization was not appropriate at this time and recommended continued medical management only. Your shortness of breath was felt likely secondary to the recent metoprolol higher dose regimen as initially upon admission your beta-cosmo therapy was though to be higher. The metoprolol regimen was decreased to 12.5 mg daily. If you have continued dyspnea we recommend consideration for primary care directed pulmonary function testing. Your blood pressure was elevated during admission, therefore new medications have been added and your ACEI increased. Please have repeat basic metabolic panel testing at follow-up with your primary care physician given these regimen changes that can affect renal function. Please hold restart off your coumadin, which has been decreased to 5 mg daily from prior regimen until INR <2.5 with then continued INR close trending and further coumadin regimen changes as needed. Please also have re-assessment of your CPAP machine to assure appropriate function including face mask replacement. Allergies/Adverse Reactions: Allergies No Known Allergies Allergy (Verified 04/16/18 14:36) Medications to take at Discharge Isosorbide Mononitrate [Imdur] 90 mg PO DAILY 04/22/14 traMADol [Ultram] 50 mg PO TID PRN 07/30/17 Rosuvastatin Calcium [Crestor] 40 mg PO DAILY 04/16/18 Amlodipine [Norvasc] 10 mg PO DAILY #30 tab 04/18/18 Aspirin E.C. [Ecotrin] 81 mg PO DAILY@0800 #30 tab 04/18/18 Furosemide [Lasix] 40 mg PO BID@1000,1800 #60 tab 04/18/18 Insulin Glargine [Lantus SoloStar Pen] 25 units SUBCUT BID #1 pen 04/18/18 Lisinopril [Zestril] 40 mg PO DAILY #30 tab 04/18/18 Metoprolol Tartrate [Lopressor (beta cosmo)] 12.5 mg PO DAILY #30 tab 04/18/18 Warfarin [Coumadin ([facility])] 5 mg PO DAILY #30 tab 04/18/18 The following prescriptions were given: Amlodipine [Norvasc] 10 mg PO DAILY #30 tab Aspirin E.C. [Ecotrin] 81 mg PO DAILY@0800 #30 tab Furosemide [Lasix] 40 mg PO BID@1000,1800 #60 tab Lisinopril [Zestril] 40 mg PO DAILY #30 tab Metoprolol Tartrate [Lopressor (beta cosmo)] 12.5 mg PO DAILY #30 tab Insulin Glargine [Lantus SoloStar Pen] 25 units SUBCUT BID #1 pen Primary Care Physician: [facility] [Primary Care Provider] - Please follow up with your Primary Care Physician in: Follow-up within 2-3 days, repeat INR in interim. Test Results: Test results from this visit will be discussed in further detail at your follow-up appointment, if applicable. Please Follow Up With: [facility] - Dr. Lozada office [phone] When: Follow-up / [facility] in 1-[address] Lozada office if issue Proposed Discharge Date: 04/18/18
--- NOTE | 2018-04-18 11:34 | DCINST_ITS ---
- Discharge Diagnoses Current Active Problems: (1) Chest Pain, Pressure, Dyspnea, RULED OUT ACS, Likely secondary to underlying CAD w/ medical management route w/ recent cardiac catheterization [place] (2) PAF w/ Supratherapeutic INR (recommended hold on coumadin 04/18/18 and repeat INR 12. (3) CAD s/p CABG x 3, PCI x 2 (4) Diabetes mellitus type II (5) Hypertension, Uncontrolled (6) Hyperlipidemia (7) CKD stage III (8) Central Sleep Apnea (9) PVD You will use the following diet at home:: Calorie/Carbohydrate Controlled ( specify 1200, 1400, etc) - 1800 ADA/cardiac diet encouraged. Your food should be the consistency of: Regular Your liquids should be the consistency of: Regular/Thin Discharge Activity: - - Advise continued mild to moderate activity only until re-evaluation per your primary care/cardiology at [place]. Weight Bearing Status: Weight bearing as tolerated Call your doctor if you observe: Fever of 101 or Higher, Inability to urinate, Inability to have a bowel movement, Shortness of breath, Dizziness, Fainting spells, Chest pain, Uncontrolled pain Instructions: Understanding Coronary Artery Disease (CAD), What Is High Blood Pressure? Additional Instructions: During the admission your cardiac stress testing performed had abnormal findings that were consistent per Cardiology review with your most recent cardiac catheterization. Dr. Lozada, Cardiology, felt repeat cardiac catheterization was not appropriate at this time and recommended continued medical management only. Your shortness of breath was felt likely secondary to the recent metoprolol higher dose regimen as initially upon admission your beta-cosmo therapy was though to be higher. The metoprolol regimen was decreased to 12.5 mg daily. If you have continued dyspnea we recommend consideration for primary care directed pulmonary function testing. Your blood pressure was elevated during admission, therefore new medications have been added and your ACEI increased. Please have repeat basic metabolic panel testing at follow-up with your primary care physician given these regimen changes that can affect renal function. Please hold restart off your coumadin, which has been decreased to 5 mg daily from prior regimen until INR <2.5 with then continued INR close trending and further coumadin regimen changes as needed. Please also have re-assessment of your CPAP machine to assure appropriate function including face mask replacement. Allergies/Adverse Reactions: Allergies No Known Allergies Allergy (Verified 04/16/18 14:36) Medications to take at Discharge Isosorbide Mononitrate [Imdur] 90 mg PO DAILY 04/22/14 traMADol [Ultram] 50 mg PO TID PRN 07/30/17 Rosuvastatin Calcium [Crestor] 40 mg PO DAILY 04/16/18 Amlodipine [Norvasc] 10 mg PO DAILY #30 tab 04/18/18 Aspirin E.C. [Ecotrin] 81 mg PO DAILY@0800 #30 tab 04/18/18 Furosemide [Lasix] 40 mg PO BID@1000,1800 #60 tab 04/18/18 Insulin Glargine [Lantus SoloStar Pen] 25 units SUBCUT BID #1 pen 04/18/18 Lisinopril [Zestril] 40 mg PO DAILY #30 tab 04/18/18 Metoprolol Tartrate [Lopressor (beta cosmo)] 12.5 mg PO DAILY #30 tab 04/18/18 Warfarin [Coumadin ([facility])] 5 mg PO DAILY #30 tab 04/18/18 The following prescriptions were given: Amlodipine [Norvasc] 10 mg PO DAILY #30 tab Aspirin E.C. [Ecotrin] 81 mg PO DAILY@0800 #30 tab Furosemide [Lasix] 40 mg PO BID@1000,1800 #60 tab Lisinopril [Zestril] 40 mg PO DAILY #30 tab Metoprolol Tartrate [Lopressor (beta cosmo)] 12.5 mg PO DAILY #30 tab Insulin Glargine [Lantus SoloStar Pen] 25 units SUBCUT BID #1 pen [facility] Care Physician: [facility] [Primary Care Provider] - Please follow up with your Primary Care Physician in: Follow-up within 2-3 days, repeat INR in interim. Test Results: Test results from this visit will be discussed in further detail at your follow- up appointment, if applicable. Please Follow Up With: [place] [facility] - Dr. Lozada office [phone] When: Follow-up / [place] [facility] in 1-[address] Lozada office if issue Proposed Discharge Date: 04/18/18
[2018-04-18 11:39] LABS: International Normalized Ratio 2.9; Prothrombin Time (Protime)PT. 30.7 SECONDS (11.7-14.9)
[2018-04-18] MEDS: Metoprolol Tartrate 25 MG Tablet 12.5 MG PO (11:40)
[2018-04-18] MEDS: 0.9% NaCl Peripheral Flush Adult/Peds IV (11:41)
[2018-04-18] MEDS: Furosemide 40 MG/4 ML Vial IV (11:41)
--- NOTE | 2018-04-18 11:51 | PCM.DC.SUM ---
Discharge Date and Diagnosis Date of Admission: 04/16/18 Date of Discharge: 04/18/18 - Primary Discharge Diagnosis (1) Chest Pain, Pressure, Dyspnea, RULED OUT ACS, Likely secondary to underlying CAD w/ medical management route w/ recent cardiac catheterization [place] (2) PAF w/ Supratherapeutic INR (recommended hold on coumadin 04/18/18 and repeat INR <2.5, INR 2.9 on day of discharge). (3) CAD s/p CABG x 3, PCI x 2 (4) Diabetes mellitus type II (5) Hypertension, Uncontrolled (6) Hyperlipidemia (7) CKD stage III (8) Central Sleep Apnea (9) Bradycardia, medication related (10) PVD - Secondary Discharge Diagnosis Chronic Problems Afib (Chronic) Anticoagulant long-term use (Chronic) CKD (chronic kidney disease) stage 3, GFR 30-59 ml/min (Chronic) CAD (coronary artery disease) (Chronic) stents x 2 cabg x 3 PVD (peripheral vascular disease) (Chronic) s/p bypass bilateral Diabetes (Chronic) Hypertension (Chronic) Obesity (BMI 35.0-39.9 without comorbidity) (Chronic) Hospital Course and Treatment Dr. Lozada Cardiology Operations: None Procedures: 2-D Echocardiogram, EKG, Stress test Summary of Care Provided: The patient is a 63 y/o M w/ PMHx: PAF, CAD s/p CABG x 3 and PCI x 2, CKD stage III, PVD, Obesity, Diabetes mellitus type II, HTN, HLD who presented to the [facility] ED on 04/16/18 with ongoing progressively worsening dyspnea, orthopnea and PND with additionally mild chest discomfort, described as pressure with associated lightheadedness. EKG in ED with notable bradycardia, CXR w/ cardiomegaly, no evidence congestion, initial trop 0.031. Admitted to PCU, placed on a monitored bed to assure no acute myocardial infarction with serial cardiac enzymes and EKGs. Cardiac enzymes remain stable, 0.031-->0.038-->0.034. BNP 104.2, minimally elevated. Nuclear stress testing 04/17/18 AM abnormal w/ mild distal anterolateral ischemia as well as mild mid inferior ischemia which corroborated the most recent cardiac catheterization performed at the [place] normal left main coronary artery, LAD totally occluded, L internal mammary artery to the LAD artery patent with moderate to severe distal disease in the LAD, L circumflex artery and 100% occluded, RCA 100% occluded, Saphenous vein graft to the posterior descending artery 100% occluded, Saphenous vein graft to obtuse marginal branch mild disease. Given these findings decision for continued medical management w/ medication optimization at discharge w/ increase ACEI, decrease BB given bradycardia and dyspnea, increase norvasc, addition lasix with requested PCP, Cardiology follow-up upon discharge in addition to repeat INR in 1 day with restart decreased coumadin if < 2.5 as supratherapeutic upon presentation. Admission BUN/Cr 30/1.44, 04/18/18 repeat function 26/1.30, baseline Cr 1.3-1.5, stable. Requested repeat BMP with PCP follow-up given changes to his BP regimen w/ increased ACEI, additional lasix. Additionally, encouraged follow-up for CPAP and mask re-assessment to improve usage. DAY OF DISCHARGE PROGRESS NOTE: Subjective: Patient without acute event overnight per self and nursing report aside noted bradycardia on telemetry. He did note increased dyspnea suspected secondary to patient increased BB therapy as initially upon admission reconciliation with metoprolol 50 mg BID decreased to 25 mg BID, but had been on 12.5 mg, thus Cardiology recommended reduction BB to prior and felt dyspnea likely associated. Patient denies fever, chills, nausea, emesis, abdominal pain, chest pain. Patient agreeable to discharge to home w/ medication changes as noted. Patient will be discharged with follow-up with primary care physician within 3-5 days in addition to [facility] within 1-2 weeks. Objective: T 98.7, heart rate 54, BP 141/79, respiratory rate 18, 96% on 2 L nasal cannula. Physical Examination: General: awake, alert, oriented x 3 and cooperative, seated upright in bed in no apparent distress. Skin: normal color, turgor, no icterus, cyanosis except notable BL LE chronic venous stasis skin changes. HEENT: AT/NC, EOMI, PERRLA, MMM. Lungs: CTA bilaterally, moderate effort, mild decrease BL bases, no rales, ronchi or wheezing. Heart: Bradycardic; no gallop, rub audible. Abdomen: soft, obese, NTTP, ND, normal BS. Extremities: no cyanosis, clubbing, see skin, BL LE pedal to distal lyles 1+ edema. Neurological: patient awake, alert, oriented x 3; cognitive function intact; pupils equally reactive to light and accomodation; cranial nerves II-XII grossly normal, moving all 4 extremities, no focal deficits, strength mildly globally decreased. Psychiatric: affect appears normal, no acute evidence of depressive or anxiety feelings. Assessment and Plan: Please see hospital summary above. - Physical Exam Vital Signs Temp Pulse Resp BP Pulse Ox 98.7 F 50 L 18 141/79 H 94 04/18/18 02:23 04/18/18 11:40 04/18/18 02:36 04/18/18 02:23 04/18/18 08:11 Oxygen Flow Rate (L/min) 2 Oxygen Delivery Method Nasal Cannula Weight: 303 lb 9.224 oz Body Mass Index (BMI) 37.9 Finger Stick Blood Glucose 184 Intake and Output for Last 24 Hours 04/16/18 04/17/18 04/18/18 23:59 23:59 23:59 Intake Total 200 / 200 840 / 840 Output Total 300 / 300 350 / 350 Balance -100 / -100 490 / 490 Laboratory Tests Past 24 Hrs 04/17/18 04/18/18 04/18/18 03:44 05:40 05:40 WBC 9.1 RBC 4.47 L Hgb 12.8 L Hct 40.5 MCV 90.6 MCH 28.6 MCHC 31.6 L RDW 16.1 H RDW Differential 52.0 H Plt Count 156 MPV 9.9 Immature Gran % (Auto) 0.400 Neut % (Auto) 71.4 H Lymph % (Auto) 13.9 L [place] % (Auto) 11.3 H Eos % (Auto) 2.6 Baso % (Auto) 0.4 Absolute Neuts (auto) 6.5 Absolute Lymphs (auto) 1.26 Total Counted Not Reportable PT INR Sodium 140 Potassium 4.4 Chloride 107 Carbon Dioxide 24.0 Anion Gap 9 BUN 26 H Creatinine 1.30 Estim Creat Clear Calc 68.61 Est GFR (MDRD) Af Amer 71 Est GFR (MDRD) Non-Af 59 L BUN/Creatinine Ratio 20.0 Glucose 144 H Calcium 8.4 L Magnesium 2.0 Triglycerides 64 Cholesterol 70 LDL Cholesterol 22 VLDL Cholesterol 13 HDL Cholesterol 35 L 04/18/18 11:25 WBC RBC Hgb Hct MCV MCH MCHC RDW RDW Differential Plt Count MPV Immature Gran % (Auto) Neut % (Auto) Lymph % (Auto) [place] % (Auto) Eos % (Auto) Baso % (Auto) Absolute Neuts (auto) Absolute Lymphs (auto) Total Counted PT 30.7 H INR 2.9 Sodium Potassium Chloride Carbon Dioxide Anion Gap BUN Creatinine Estim Creat Clear Calc Est GFR (MDRD) Af Amer Est GFR (MDRD) Non-Af BUN/Creatinine Ratio Glucose Calcium Magnesium Triglycerides Cholesterol LDL Cholesterol VLDL Cholesterol HDL Cholesterol POC Glucose 04/18/18 04/17/18 04/17/18 06:48 21:37 16:11 POC Glucose 121 H 216 H 220 H 04/17/18 11:54 POC Glucose 132 H Discharge Activity: - - Advise continued mild to moderate activity only until re-evaluation per your primary care/cardiology at [place]. Weight Bearing Status: Weight bearing as tolerated Call your doctor if you observe: Fever of 101 or Higher, Inability to urinate, Inability to have a bowel movement, Shortness of breath, Dizziness, Fainting spells, Chest pain, Uncontrolled pain Home Medications: Medications to take at Discharge Isosorbide Mononitrate [Imdur] 90 mg PO DAILY 04/22/14 traMADol [Ultram] 50 mg PO TID PRN 07/30/17 Rosuvastatin Calcium [Crestor] 40 mg PO DAILY 04/16/18 Amlodipine [Norvasc] 10 mg PO DAILY #30 tab 04/18/18 Aspirin E.C. [Ecotrin] 81 mg PO DAILY@0800 #30 tab 04/18/18 Furosemide [Lasix] 40 mg PO BID@1000,1800 #60 tab 04/18/18 Insulin Glargine [Lantus ([facility])] 35 units SUBCUT BID #1 pen 04/18/18 Lisinopril [Zestril] 40 mg PO DAILY #30 tab 04/18/18 Metoprolol Tartrate [Lopressor (beta cosmo)] 12.5 mg PO DAILY #30 tab 04/18/18 Warfarin [Coumadin ([facility])] 5 mg PO DAILY #30 tab 04/18/18 Following Prescrptions Were Given to Patient: Amlodipine [Norvasc] 10 mg PO DAILY #30 tab Aspirin E.C. [Ecotrin] 81 mg PO DAILY@0800 #30 tab Furosemide [Lasix] 40 mg PO BID@1000,1800 #60 tab Lisinopril [Zestril] 40 mg PO DAILY #30 tab Metoprolol Tartrate [Lopressor (beta cosmo)] 12.5 mg PO DAILY #30 tab Warfarin [Coumadin ([facility])] 5 mg PO DAILY #30 tab Insulin Glargine [Lantus ([facility])] 35 units SUBCUT BID #1 pen Primary Care Physician: [facility] [Primary Care Provider] - Please follow up with your Primary Care Physician in: Follow-up within 2-3 days, repeat INR in interim. Please Follow Up With: [place] [facility] - Dr. Lozada office [phone] When: Follow-up w/ [facility] in 1-[address] Lozada office if issue Patient Instructions: Understanding Coronary Artery Disease (CAD), What Is High Blood Pressure? Disposition: Home Minutes spent on discharge:: 35 Patient Condition:: Fair Medical Necessity - Tobacco Use Smoking Status: Never smoker Meaningful Use Info Meaningful Use Diagnoses (Choose all that apply): None applicable Code Visit Inpatient E&M: 44929 Disch Hosp
[2018-04-18 11:56] LABS: Bedside Glucose 204 mg/dL (70-110)
--- NOTE | 2018-04-18 12:01 | DS.PCM_ITS ---
Discharge Date and Diagnosis Date of Admission: 04/16/18 Date of Discharge: 04/18/18 - Primary Discharge Diagnosis (1) Chest Pain, Pressure, Dyspnea, RULED OUT ACS, Likely secondary to underlying CAD w/ medical management route w/ recent cardiac catheterization [place] (2) PAF w/ Supratherapeutic INR (recommended hold on coumadin 04/18/18 and repeat INR <2.5, INR 2.9 on day of discharge). (3) CAD s/p CABG x 3, PCI x 2 (4) Diabetes mellitus type II (5) Hypertension, Uncontrolled (6) Hyperlipidemia (7) CKD stage III (8) Central Sleep Apnea (9) Bradycardia, medication related (10) PVD - Secondary Discharge Diagnosis Chronic Problems Afib (Chronic) Anticoagulant long-term use (Chronic) CKD (chronic kidney disease) stage 3, GFR 30-59 ml/min (Chronic) CAD (coronary artery disease) (Chronic) stents x 2 cabg x 3 PVD (peripheral vascular disease) (Chronic) s/p bypass bilateral Diabetes (Chronic) Hypertension (Chronic) Obesity (BMI 35.0-39.9 without comorbidity) (Chronic) Hospital Course and Treatment Dr. Lozada Cardiology Operations: None Procedures: 2-D Echocardiogram, EKG, Stress test Summary of Care Provided: The patient is a 63 y/o M w/ PMHx: PAF, CAD s/p CABG x 3 and PCI x 2, CKD stage III, PVD, Obesity, Diabetes mellitus type II, HTN, HLD who presented to the [facility] ED on 04/16/18 with ongoing progressively worsening dyspnea, orthopnea and PND with additionally mild chest discomfort, described as pressure with associated lightheadedness. EKG in ED with notable bradycardia, CXR w/ cardiomegaly, no evidence congestion, initial trop 0.031. Admitted to PCU, placed on a monitored bed to assure no acute myocardial infarction with serial cardiac enzymes and EKGs. Cardiac enzymes remain stable, 0.031-->0.038-->0.034. BNP 104.2, minimally elevated. Nuclear stress testing 04/17/18 AM abnormal w/ mild distal anterolateral ischemia as well as mild mid inferior ischemia which corroborated the most recent cardiac catheterization performed at the [place] normal left main coronary artery, LAD totally occluded, L internal mammary artery to the LAD artery patent with moderate to severe distal disease in the LAD, L circumflex artery and 100% occluded, RCA 100% occluded, Saphenous vein graft to the posterior descending artery 100% occluded, Saphenous vein graft to obtuse marginal branch mild disease. Given these findings decision for continued m edical management w/ medication optimization at discharge w/ increase ACEI, decrease BB given bradycardia and dyspnea, increase norvasc, addition lasix with requested PCP, Cardiology follow-up upon discharge in addition to repeat INR in 1 day with restart decreased coumadin if < 2.5 as supratherapeutic upon presentation. Admission BUN/Cr 30/1.44, 04/18/18 repeat function 26/1.30, baseline Cr 1.3-1.5, stable. Requested repeat BMP with PCP follow-up given changes to his BP regimen w/ increased ACEI, additional lasix. Additionally, encouraged follow-up for CPAP and mask re-assessment to improve usage. DAY OF DISCHARGE PROGRESS NOTE: Subjective: Patient without acute event overnight per self and nursing report aside noted bradycardia on telemetry. He did note increased dyspnea suspected secondary to patient increased BB therapy as initially upon admission reconciliation with metoprolol 50 mg BID decreased to 25 mg BID, but had been on 12.5 mg, thus Cardiology recommended reduction BB to prior and felt dyspnea likely associated. Patient denies fever, chills, nausea, emesis, abdominal pain, chest pain. Patient agreeable to discharge to home w/ medication changes as noted. Patient will be discharged with follow-up with primary care physician within 3-5 days [facility]. Objective: T 98.7, heart rate 54, BP 141/79, respiratory rate 18, 96% on 2 L na naif cannula. Physical Examination: General: awake, alert, oriented x 3 and cooperative, seated upright in bed in no apparent distress. Skin: normal color, turgor, no icterus, cyanosis except notable BL LE chronic venous stasis skin changes. HEENT: AT/NC, EOMI, PERRLA, MMM. Lungs: CTA bilaterally, moderate effort, mild decrease BL bases, no rales, ronchi or wheezing. Heart: Bradycardic; no gallop, rub audible. Abdomen: soft, obese, NTTP, ND, normal BS. Extremities: no cyanosis, clubbing, see skin, BL LE pedal to distal lyles 1+ edema. Neurological: patient awake, alert, oriented x 3; cognitive function intact; pupils equally reactive to light and accomodation; cranial nerves II-XII grossly normal, moving all 4 extremities, no focal deficits, strength mildly globally decreased. Psychiatric: affect appears normal, no acute evidence of depressive or anxiety feelings. Assessment and Plan: Please see hospital summary above. - Physical Exam Vital Signs Temp Pulse Resp BP Pulse Ox 98.7 F 50 L 18 141/79 H 94 04/18/18 02:23 04/18/18 11:40 04/18/18 02:36 04/18/18 02:23 04/18/18 08:11 Oxygen Flow Rate (L/min) 2 Oxygen Delivery Method Nasal Cannula Weight: 303 lb 9.224 oz Body Mass Index (BMI) 37.9 Finger Stick Blood Glucose 184 Intake and Output for Last 24 Hours 04/16/18 04/17/18 04/18/18 23:59 23:59 23:59 Intake Total 200 / 200 840 / 840 Output Total 300 / 300 350 / 350 Balance -100 / -100 490 / 490 Laboratory Tests Past 24 Hrs 04/17/18 04/18/18 04/18/18 03:44 05:40 05:40 WBC 9.1 RBC 4.47 L Hgb 12.8 L Hct 40.5 MCV 90.6 MCH 28.6 MCHC 31.6 L RDW 16.1 H RDW Differential 52.0 H Plt Count 156 MPV 9.9 Immature Gran % (Auto) 0.400 Neut % (Auto) 71.4 H Lymph % (Auto) 13.9 L [place] % (Auto) 11.3 H Eos % (Auto) 2.6 Baso % (Auto) 0.4 Absolute Neuts (auto) 6.5 Absolute Lymphs (auto) 1.26 Total Counted Not Reportable PT INR Sodium 140 Potassium 4.4 Chloride 107 Carbon Dioxide 24.0 Anion Gap 9 BUN 26 H Creatinine 1.30 Estim Creat Clear Calc 68.61 Est GFR (MDRD) Af Amer 71 Est GFR (MDRD) Non-Af 59 L BUN/Creatinine Ratio 20.0 Glucose 144 H Calcium 8.4 L Magnesium 2.0 Triglycerides 64 Cholesterol 70 LDL Cholesterol 22 VLDL Cholesterol 13 HDL Cholesterol 35 L 04/18/18 11:25 WBC RBC Hgb Hct MCV MCH MCHC RDW RDW Differential Plt Count MPV Immature Gran % (Auto) Neut % (Auto) Lymph % (Auto) [place] % (Auto) Eos % (Auto) Baso % (Auto) Absolute Neuts (auto) Absolute Lymphs (auto) Total Counted PT 30.7 H INR 2.9 Sodium Potassium Chloride Carbon Dioxide Anion Gap BUN Creatinine Estim Creat Clear Calc Est GFR (MDRD) Af Amer Est GFR (MDRD) Non-Af BUN/Creatinine Ratio Glucose Calcium Magnesium Triglycerides Cholesterol LDL Cholesterol VLDL Cholesterol HDL Cholesterol POC Glucose 04/18/18 04/17/18 04/17/18 06:48 21:37 16:11 POC Glucose 121 H 216 H 220 H 04/17/18 11:54 POC Glucose 132 H Discharge Activity: - - Advise continued mild to moderate activity only until re-evaluation per your primary care/cardiology at [place]. Weight Bearing Status: Weight bearing as tolerated Call your doctor if you observe: Fever of 101 or Higher, Inability to urinate, Inability to have a bowel movement, Shortness of breath, Dizziness, Fainting spells, Chest pain, Uncontrolled pain Home Medications: Medications to take at Discharge Isosorbide Mononitrate [Imdur] 90 mg PO DAILY 04/22/14 traMADol [Ultram] 50 mg PO TID PRN 07/30/17 Rosuvastatin Calcium [Crestor] 40 mg PO DAILY 04/16/18 Amlodipine [Norvasc] 10 mg PO DAILY #30 tab 04/18/18 Aspirin E.C. [Ecotrin] 81 mg PO DAILY@0800 #30 tab 04/18/18 Furosemide [Lasix] 40 mg PO BID@1000,1800 #60 tab 04/18/18 Insulin Glargine [Lantus (BKC)] 35 units SUBCUT BID #1 pen 04/18/18 Lisinopril [Zestril] 40 mg PO DAILY #30 tab 04/18/18 Metoprolol Tartrate [Lopressor (beta cosmo)] 12.5 mg PO DAILY #30 tab 04/18/18 Warfarin [Coumadin (PBKC)] 5 mg PO DAILY #30 tab 04/18/18 Following Prescrptions Were Given to Patient: Amlodipine [Norvasc] 10 mg PO DAILY #30 tab Aspirin E.C. [Ecotrin] 81 mg PO DAILY@0800 #30 tab Furosemide [Lasix] 40 mg PO BID@1000,1800 #60 tab Lisinopril [Zestril] 40 mg PO DAILY #30 tab Metoprolol Tartrate [Lopressor (beta cosmo)] 12.5 mg PO DAILY #30 tab Warfarin [Coumadin (PBKC)] 5 mg PO DAILY #30 tab Insulin Glargine [Lantus (BKC)] 35 units SUBCUT BID #1 pen [facility] [[facility] - Please follow up with your Primary Care Physician in: Follow-up within 2-3 days, repeat INR in interim. Please Follow Up With: [place] [facility] - Dr. Lozada office [phone] When: Follow-up w/ [place] [facility] in 1-[address] Lozada office if issue Patient Instructions: Understanding Coronary Artery Disease (CAD), What Is High Blood Pressure? Disposition: Home Minutes spent on discharge:: 35 Patient Condition:: Fair Medical Necessity - Tobacco Use Smoking Status: Never smoker Meaningful Use Info Meaningful Use Diagnoses (Choose all that apply): None applicable Code Visit Inpatient E&M: 76900 Disch Hosp
[2018-04-18] MEDS: Insulin Lispro 100 UNIT/ML INSULN.PEN SQ (12:48)
== END 2018-04-18 11:40 | disposition home or self-care (01) ==
LOC: ED 16:04 → PCU 18:06
PROVIDERS: Admitting Provider Student in an Organized Health Care Education/Training Program; Emergency Provider Emergency Medicine; Visit Provider Family Medicine
DX: R07.89 Other chest pain (principal); R06.00 Dyspnea, unspecified; I48.0 Paroxysmal atrial fibrillation; Z79.899 Other long term (current) drug therapy; Z79.01 Long term (current) use of anticoagulants; Z79.4 Long term (current) use of insulin; I25.10 Atherosclerotic heart disease of native coronary artery without angina pectoris; Z95.1 Presence of aortocoronary bypass graft; G47.31 Primary central sleep apnea; E11.22 Type 2 diabetes mellitus with diabetic chronic kidney disease; I13.0 Hypertensive heart and chronic kidney disease with heart failure and stage 1 through stage 4 chronic kidney disease, or unspecified chronic kidney disease; I50.9 Heart failure, unspecified; N18.3 Chronic kidney disease, stage 3 (moderate); E78.5 Hyperlipidemia, unspecified; I73.9 Peripheral vascular disease, unspecified; E66.9 Obesity, unspecified; Z68.37 Body mass index [BMI] 37.0-37.9, adult; Z71.3 Dietary counseling and surveillance
CPT/HCPCS: 36415; 71045; 78452; 80048; 80061; 82962; 83036; 83735; 83880; 84484; 85025; 85610; 85730; 93005; 93017; 93306; 94660; 96374; 96376; 99218; 99284; A9500; Q9957; A4216; C8929; G0378; J1940; J2405; J2785

== ENCOUNTER → 2018-05-07 10:14 | Outpatient (CLI) | payer OTHER, SELFPAY ==
[2018-04-16 18:19] VITALS: BMI 37.9
[2018-05-07 10:46] LABS: Hemoglobin 13.9 g/dl (13.0-16.5); Mean Corp Hgb Conc 31.6 g/gl (32-36); Mean Corpuscular Hgb 28.4 pg (27.0-32.0); Mean Corpuscular Volume 89.8 fL (80-94); Mean Platelet Vol. 9.8 fl (6.2-12.0); Platelet Count 165 K/mm3 (150-450); RBC Distribution Width CV 15.7 % (11.6-14.6); RBC Distribution Width SD 51.1 fl (35.1-43.9); White Blood Count 8.1 K/mm3 (4.4-11.0)
[2018-05-07 10:48] LABS: Scan Indicated on CBC? Y/N NO
[2018-05-07 10:55] LABS: International Normalized Ratio 1.2; Prothrombin Time (Protime)PT. 14.7 SECONDS (11.7-14.9)
== END ==
DX: Z79.01 Long term (current) use of anticoagulants (principal)
CPT/HCPCS: 36415; 85027; 85610

== ENCOUNTER → 2018-06-23 13:24 | Outpatient (CLI) | payer OTHER, SELFPAY ==
[2018-04-16 18:19] VITALS: BMI 37.9
[2018-06-23 15:16] LABS: International Normalized Ratio 2.8; Prothrombin Time (Protime)PT. 29.4 SECONDS (11.7-14.9)
== END ==
DX: Z79.01 Long term (current) use of anticoagulants (principal)
CPT/HCPCS: 36415; 85610

== ENCOUNTER 2018-11-09 12:54 | Outpatient (RCR) | payer OTHER, SELFPAY ==
[2018-04-16 18:19] VITALS: BMI 37.9
[2018-11-09 13:21] LABS: Hematocrit 42.8 % (40-54); Hemoglobin 13.6 g/dl (13.0-16.5); Mean Corp Hgb Conc 31.8 g/gl (32-36); Mean Corpuscular Hgb 28.9 pg (27.0-32.0); Mean Corpuscular Volume 91.1 fL (80-94); Mean Platelet Vol. 10.4 fl (6.2-12.0); Platelet Count 168 K/mm3 (150-450); RBC Distribution Width CV 15.5 % (11.6-14.6); RBC Distribution Width SD 51.7 fl (35.1-43.9); Scan Indicated on CBC? Y/N NO; White Blood Count 8.9 K/mm3 (4.4-11.0)
[2018-11-09 13:40] LABS: International Normalized Ratio 1.4
== END 2018-12-09 17:51 | disposition home or self-care (01) ==
LOC: LAB 12:54
DX: Z79.01 Long term (current) use of anticoagulants (principal)
CPT/HCPCS: 36415; 85027; 85610

== ENCOUNTER 2018-11-10 15:26 | Inpatient (IN) | payer MEDICARE, OTHER, SELFPAY ==
[2018-04-16 18:19] VITALS: BMI 37.9
[2018-11-10] VITALS (10 sets, daily range): BP systolic 156–187; BP diastolic 71–91; PULSE 54–67; RESP 16–24; TEMP 36.5–36.8; O2SAT 95–97; BMI 41.0; BMI 38.2; BMI 38.3
--- NOTE | 2018-11-10 15:44 | EKG12_ITS ---
Test Reason : CP AND SOB Blood Pressure : / mmHG Vent. Rate : 062 BPM Atrial Rate : 060 BPM P-R Int : 000 ms QRS Dur : 094 ms QT Int : 388 ms P-R-T Axes : 000 103 216 degrees QTc Int : 393 ms Atrial fibrillation Rightward axis Septal infarct (cited on or before 17-APR-2018), age undetermined Abnormal ECG Confirmed by ABISAI PETERSEN ([id number]), primer expeditor and drier TATIANA DU ([id number]) on 11/16/2018 1:03:33 PM Referred By: MR Confirmed By:ABISAI PETERSEN
--- NOTE | 2018-11-10 15:44 | RAD_ITS ---
STUDY: X-RAY CHEST REASON FOR EXAM: Male, 63 years old. Chest pain and shortness of breath for one week. TECHNIQUE: Single AP portable view of the chest. COMPARISON: April 16, 2018. FINDINGS: The lungs are mildly hypoexpanded. There is no new infiltrate or mass. Left cardiophrenic angle is poorly visualized due to cardiomegaly and a pleural effusion cannot be definitively ruled out. The heart is mildly moderately enlarged. There is evidence of median sternotomy. Normal mediastinum and adithya. Normal visualized pulmonary arteries. Normal visualized aortic arch and descending thoracic aorta. The thoracic spine is obscured by the mediastinum. Normal visualized ribs, clavicles, and shoulders. There is no demonstrated abnormality of the visualized soft tissue structures of the upper abdomen. RAD/Chest 1 View (Portable) IMPRESSION: Cardiomegaly with evidence of median sternotomy. There is no acute pulmonary disease or interval change. Electronically Signed: Ishmael Paiz DO at 16:11 EDT Tel [phone], Service support ,
--- NOTE | 2018-11-10 15:45 | ED.DCSUM_ITS ---
- ER Visit Summary Date of Service: 11/10/18 Chief Complaint: Cough pain no shortness of breath History of Present Illness: The patient is a 63 M who presents with comes on with any activity of breath resolved with complete rest. Patient admits to a slight cough and some postnasal drainage. Patient also admits to some lightheadedness with sitting and standing. Patient states the pain is a stabbing pain over both sides of his chest. Patient does have a history of coronary artery disease with stents and bypass. Patient also has a history of diabetes and hypertension. Denies any nausea or vomiting. Patient denies any diaphoresis. Patient denies any PE risk factors. Physical Examination: Vital signs are stable. Patient is afebrile. Patient is in no acute distress. Oromucosa is pink and moist. Neck is supple. Trachea is midline. There is no JVD noted. Heart was irregularly irregular. Lungs are clear and equal bilaterally. Abdomen is soft. Bowel sounds are normal. There is no tenderness. Extremities are intact. There is trace edema of the lower extremities bilaterally. Cranial nerves II through XII are intact. There are no focal motor or sensory deficits noted. Test Results: EKG showed atrial fibrillation with a rate of 62. There are no acute ST or T wave changes noted. Chest x-ray does not show any acute cardiopulmonary process. CBC showed platelets were slightly low at 140. INR was 1.5. Troponin was 0.053. Emergency Department Course and Treatment: Patient was given aspirin here. Patient is pain-free on reevaluation. Patient was advised of his lab results. This was discussed with Dr. Grigsby, hospitalist. Patient will be admitted for observation to the PCU. Patient understood and was agreeable with the plan. All questions were answered. Disposition: Admit for observation Impression: 1. Chest pain 2. Elevated troponin This note was generated with [employer] dictation software. It may contain incorrect words, spelling, and punctuation that were not noted in review of the chart prior to signing ED Disposition - Plan for ED Patient: Disposition: Home or Assisted Living Diagnosis: Chest pain, Elevated troponin [facility]: [facility] [[facility] Care Provider] -
[2018-11-10] MEDS: Aspirin 81 MG TAB.CHEW 324 MG PO (15:59)
[2018-11-10] MEDS: Acetaminophen 500 MG Tablet 1000 MG PO (16:10)
[2018-11-10 16:14] LABS: Absolute Lymphocyte Count 1.31 X10^3/ul (0.83-4.51); Absolute Neutrophil Count 5.8 X10^3/uL (2.0-7.7); Basophil# 0.02 X10^3/uL; Basophil% 0.2 % (0-1); Eosinophil# 0.21 X10^3/uL; Eosinophils% 2.6 % (0-5); Hematocrit 41.5 % (40-54); Hemoglobin 13.2 g/dl (13.0-16.5); Lymphocyte # 1.31 X10^3/ul (4.0); Mean Corp Hgb Conc 31.8 g/gl (32-36); Mean Corpuscular Hgb 28.7 pg (27.0-32.0); Mean Corpuscular Volume 90.2 fL (80-94); Mean Platelet Vol. 9.4 fl (6.2-12.0); Monocyte# 0.81 X10^3/uL; Monocyte% 9.9 % (0-10); Neutrophil # 5.83 X10^3/uL (2.7-7.7); Neutrophil % 70.9 % (47-70); Platelet Count 140 K/mm3 (150-450); RBC Distribution Width CV 15.3 % (11.6-14.6); RBC Distribution Width SD 50.6 fl (35.1-43.9); White Blood Count 8.2 K/mm3 (4.4-11.0)
[2018-11-10 16:18] LABS: POSITIVE COUNT NO; POSITIVE DIFFERENTIAL NO; POSITIVE MORPHOLOGY NO
[2018-11-10 16:31] LABS: Anion Gap 6 (5-15); BUN 23 mg/dL (7-18); BUN/Creat Ratio 17.7 RATIO (10-20); Calcium,Total 8.5 mg/dL (8.5-10.1); Chloride 105 mmol/L (98-107); EST Glomerular Filtration Rate 59 mL/min (>60); Est Glom Filt Rate - Afr Amer 71 mL/min (>60); Estimated Creatinine Clearance 68.61 ml/min; Glucose 187 mg/dL (74-106); Potassium 3.8 mmol/L (3.5-5.1); Sodium Level 138 mmol/L (136-145)
[2018-11-10 16:44] LABS: International Normalized Ratio 1.5; Prothrombin Time (Protime)PT. 18.4 SECONDS (11.7-14.9)
--- NOTE | 2018-11-10 18:17 | HP.PCM_ITS ---
Problem List (1) Exertional angina Status: Acute History of Present Illness Date of Admission: 11/10/18 Chief Complaint: chest pain The patient is a 63 year old M who was in his normal state of health up until yesterday where he started having midsternal chest pain. Said the chest pain was more exertional and when he would stop and rest, it would resolve. Associated with that, patient was also having shortness of breath. Patient presented to the emergency room for evaluation. He had a troponin that was 0.05. The hospital service was asked to evaluate this patient for admission for further chest pain evaluation. [] Past Medical History Past Medical History (Chronic Problems): Chronic Problems Afib (Chronic) Anticoagulant long-term use (Chronic) CKD (chronic kidney disease) stage 3, GFR 30-59 ml/min (Chronic) CAD (coronary artery disease) (Chronic) stents x 2 cabg x 3 PVD (peripheral vascular disease) (Chronic) s/p bypass bilateral Diabetes (Chronic) Hypertension (Chronic) Obesity (BMI 35.0-39.9 without comorbidity) (Chronic) Allergies perfume Adverse Reaction (Verified 11/10/18 15:29) Shortness of breath Home Medications: Ambulatory Orders Medication Instructions Recorded traMADol [Ultram] 50 mg PO TID PRN 07/30/17 Aspirin E.C. [Ecotrin] 81 mg PO DAILY@0800 #30 tab 04/18/18 Amlodipine [Norvasc] 5 mg PO DAILY 11/10/18 Insulin Aspart [Novolog Flexpen 0 units SUBCUT TIDCM 11/10/18 ([facility])] Insulin Glargine,Hum.rec.anlog 45 unit SQ BID 11/10/18 [Lantus Solostar] Isosorbide Mononitrate [Imdur] 30 mg PO DAILY 11/10/18 Ramipril 2.5 mg PO BID 11/10/18 Warfarin [Coumadin (PBKC)] 2.5 mg PO SUTUTH 11/10/18 Warfarin [Coumadin (PBKC)] 5 mg PO DAILY 11/10/18 Surgical History: cholecystectomy, coronary bypass surgery Psychiatric History: No pertinent psych hx Smoking Status: Never smoker - *Family History Maternal History Items: - - ESRD, staghorn stone Paternal History Items: No pertinent history Sibling History Items: - - colon cancer in brother, breast cancer is sisters Review of Systems Constitutional: Denies: Chills, Fever, Weight Change Eyes: Reports: Blurred vision - Has impaired vision in his left eye due to retinal injury. Has slightly decreased vision in his right eye which she has a follow-up appointment soon.. Denies: Double vision HEENT: Denies: Head Aches, Sinus Congestion, Sinus Drainage Cardiovascular: Reports: Chest Pain, Edema Respiratory: Denies: Cough, Shortness of breath at rest, Sputum production Gastrointestinal: Denies: Abdominal Pain, Nausea, Vomiting Genitourinary: Denies: Dysuria Musculoskeletal: Denies: Joint Pain, Joint Tenderness Skin: Denies: Rash, Wounds Neurological: Reports: Blurred vision. Denies: Balance problems Psychiatric: Denies: Anxiety, Depression Endocrine: Reports: Change in Body Habitus - Recent weight change the patient is not weighing himself daily. Hematologic/ Lymphatic: Denies: Easy Bruising, Easy Bleeding, Hx of blood clot Comment: A 10 point review systems otherwise negative except for as mentioned above and review of systems as well as in the HPI. VTE Information - Inpt Only VTE Present on Admission: No VTE Mechan Device Prophylaxis: None VTE Pharm Prophylaxis ordered?: No Reason prophylaxis not ordered:: Procedure Not Indicated Patient Problems: Active and Suspected Problems Chest pain (Acute) Elevated troponin (Acute) Exertional angina (Acute) - Physical Exam General: Alert, Cooperative, No apparent distress HEENT: Atraumatic, Normocephalic Oral: Moist Mucosa, No Gingival or Mucosal Lesions/ Ulcerations Neck: No Nodes, Thyroid Normal Size and Texture Lungs: Clear to auscultation, Normal air movement, No rhonchi, No wheeze, No rales Cardiovascular: Regular rate, Regular Rhythm, Normal S1, Normal S2 Abdomen: Bowel Sounds Present, Soft, Non Tender, Non-Distended, No Hepato- splenomegaly, Obese Extremities: No Calf Tenderness, Edema Skin: No rashes, No breakdown Musculoskeletal: No Tenderness to Palpation of Joints or Extremities, No Muscle Wasting Neurological: Muscle tone normal, Sensory exam intact to light touch and pain, Coordination normal Psych/Mental Status: Normal Affect, Appropriate Vital Signs Temp Pulse Resp BP Pulse Ox 36.8 C 60 16 170/82 H 95 11/10/18 15:27 11/10/18 15:58 11/10/18 15:58 11/10/18 16:00 07/02/19 15:58 Oxygen Delivery Method Room Air Weight: 149 kg Body Mass Index (BMI) 41.0 Finger Stick Blood Glucose 184 Laboratory Tests Past 24 Hrs 11/10/18 11/10/18 11/10/18 16:00 16:00 16:00 WBC 8.2 RBC 4.60 Hgb 13.2 Hct 41.5 MCV 90.2 MCH 28.7 MCHC 31.8 L RDW 15.3 H RDW Differential 50.6 H Plt Count 140 L MPV 9.4 Immature Gran % (Auto) 0.400 Neut % (Auto) 70.9 H Lymph % (Auto) 16.0 L [place] % (Auto) 9.9 Eos % (Auto) 2.6 Baso % (Auto) 0.2 Absolute Neuts (auto) 5.8 Absolute Lymphs (auto) 1.31 Total Counted Not Reportable PT 18.4 H INR 1.5 Sodium 138 Potassium 3.8 Chloride 105 Carbon Dioxide 27.0 Anion Gap 6 BUN 23 H Creatinine 1.30 Estim Creat Clear Calc 68.61 Est GFR (MDRD) Af Amer 71 Est GFR (MDRD) Non-Af 59 L BUN/Creatinine Ratio 17.7 Glucose 187 H Calcium 8.5 Troponin I 0.053 H Assessment/Plan All Active Problems Chest pain (Acute) Elevated troponin (Acute) Exertional angina (Acute) 1. Angina * Concern for being cardiac given the patient's symptoms and so elevated troponin * Heart score of 6, NATE score of 4 * Cycle troponins * Chemical nuclear scan on the third * If troponins do go up considerably, then would hold off on stress test and co nsult cardiology 2. Atrial fibrillation * Chronic * Continue Coumadin 3. Diabetes mellitus type 2 * Continue his basal insulin as well as sliding scale 4. VTE prophylaxis: Not indicated as patient is currently observation status anticipate length of stay is less than 24 hours 5. Advanced care planning: Discussed with the patient about CPR, intubation and PEG tube. Patient would want those if became medically necessary. Therefore, patient is full CODE STATUS. Patient stating that he prefers to stay at [facility] rather than going to the [place] for evaluation. Code Visit OBSV E&M: [id number] Initial observation care L3
--- NOTE | 2018-11-10 18:17 | CASEMGMT ---
RN CM Assessment Introduced role of RN CM to patient and sig. other Perez at bedside.? Patient is alert, oriented and able?to participate in RN CM Assessment. ?Care providers, pharmacy, and demographics verified. Presentation: CP w/activity, resolved at rest. +SOB. Lightheaded with sitting or standing. H/o CAD w/stents and bypass. Admit Dx: CP Re-Admit: No Barriers/Issues: Patient states that he is [facility], states does not wish to transfer as it is taxing on sig. other to go out that far, states told there was a new law change this past August that [facility] patients can go to any hospital and stay not requiring transfer. [facility] wants to inform everyone as last time he received a bunch of paperwork/billing that [facility]. This CM explained VA Transfer Criteria for stay to be covered and aware has not been notified of any new law changes, Cm to f/u during this hospital stay. PCP: [facility] luzmaria Harrison NP at [facility] Specialists: Ophth (Had Lt eye surgery in May 2018-retina, wears patch to help with not seeing dbl vision while watching tv/reading), Cardio, Vasc, Endo. Preferred Pharmacy: [facility] [place], [place] Insurance: [facility] Rx Benefit:?Yes-[facility] LNOK: Sig. Other Perez Echeverria LW/HPOA: No, Declines information Living Arrangements:?Lives with Sig. Other Perez in a Lower Level apartment with ramp to enter ADL?s: Ambulated with cane, Rollator or uses electric scooter. Sig. Other assists with compression stockings, otherwise can perform ADLs Independently. Transportation: Patient drives, Sig. Other to transport on DC DME: Electric Scooter, Rollator, Cane, CPAP, Shower Chair, Glucometer HHC: Past SNF: None, Does not ever want to go to SNF Goal: Home, unsure of any needs. Denies questions/concerns. Aware CM remains available for any emerging needs. DC PLAN: Home with no anticipated needs identified at this time. ROSANGELA Hdez
--- NOTE | 2018-11-10 18:36 | EKG12_ITS ---
Test Reason : AM Blood Pressure : / mmHG Vent. Rate : 056 BPM Atrial Rate : 053 BPM P-R Int : 000 ms QRS Dur : 100 ms QT Int : 452 ms P-R-T Axes : 000 097 159 degrees QTc Int : 436 ms Atrial fibrillation with slow ventricular response Rightward axis Nonspecific T wave abnormality Abnormal ECG Confirmed by ESTUARDO GARCIA, FANNY ([id number]), staff editor TATIAAN DU ([id number]) on 11/16/2018 1:53:20 PM Referred By: JOSUE Confirmed By:FANNY MARTE MD
[2018-11-10] MEDS: oxyCODONE 5 MG Tablet PO ×2 (18:53→22:58)
--- NOTE | 2018-11-10 19:42 | CPS ---
pt has own cpap machine-set up in room
[2018-11-10] MEDS: Ramipril 2.5 MG Capsule PO (21:51)
[2018-11-10 22:01] LABS: Bedside Glucose 208 mg/dL (70-110)
[2018-11-11] VITALS (14 sets, daily range): BP systolic 148–199; BP diastolic 65–94; PULSE 38–73; RESP 16–20; TEMP 36.3–36.4; O2SAT 94–96
[2018-11-11 05:13] LABS: Absolute Lymphocyte Count 1.43 X10^3/ul (0.83-4.51); Absolute Neutrophil Count 4.4 X10^3/uL (2.0-7.7); Basophil# 0.05 X10^3/uL; Basophil% 0.7 % (0-1); Eosinophil# 0.23 X10^3/uL; Eosinophils% 3.3 % (0-5); Hematocrit 42.8 % (40-54); Hemoglobin 13.6 g/dl (13.0-16.5); Lymphocyte # 1.43 X10^3/ul (4.0); Lymphocyte % 20.5 % (19-41); Mean Corp Hgb Conc 31.8 g/gl (32-36); Mean Corpuscular Hgb 28.2 pg (27.0-32.0); Mean Corpuscular Volume 88.8 fL (80-94); Mean Platelet Vol. 10.1 fl (6.2-12.0); Monocyte# 0.88 X10^3/uL; Monocyte% 12.6 % (0-10); Neutrophil # 4.36 X10^3/uL (2.7-7.7); Neutrophil % 62.5 % (47-70); Platelet Count 153 K/mm3 (150-450); RBC Distribution Width CV 15.3 % (11.6-14.6); RBC Distribution Width SD 49.9 fl (35.1-43.9); Red Blood Count 4.82 M/mm3 (4.6-6.2)
[2018-11-11 05:14] LABS: International Normalized Ratio 1.6
[2018-11-11 05:16] LABS: Anion Gap 9 (5-15); BUN 21 mg/dL (7-18); BUN/Creat Ratio 17.8 RATIO (10-20); Calcium,Total 8.5 mg/dL (8.5-10.1); Chloride 106 mmol/L (98-107); Cholesterol 75 mg/dL (200); Creatinine, Serum 1.18 mg/dL (0.70-1.30); EST Glomerular Filtration Rate 66 mL/min (>60); Est Glom Filt Rate - Afr Amer 80 mL/min (>60); Estimated Creatinine Clearance 75.59 ml/min; Glucose 102 mg/dL (74-106); High Density Lipoprotein 44 mg/dL; Partial Thromboplast Time 37.6 Seconds (24.1-36.2); Potassium 3.7 mmol/L (3.5-5.1); Sodium Level 140 mmol/L (136-145); Triglycerides 41 mg/dL; Very Low Density Lipoprotein 8 mg/dL (5-40)
[2018-11-11 05:17] LABS: POSITIVE COUNT NO; POSITIVE DIFFERENTIAL NO; POSITIVE MORPHOLOGY NO
--- NOTE | 2018-11-11 05:55 | EKG12_ITS ---
Test Reason : ADMIT Blood Pressure : / mmHG Vent. Rate : 059 BPM Atrial Rate : 312 BPM P-R Int : 000 ms QRS Dur : 100 ms QT Int : 452 ms P-R-T Axes : 000 104 264 degrees QTc Int : 447 ms Atrial fibrillation with slow ventricular response Rightward axis Septal infarct , age undetermined Abnormal ECG Confirmed by ESTUARDO GARCIA, FANNY ([id number]), desk editor TATIANA DU ([id number]) on 11/16/2018 1:54:04 PM Referred By: JOSUE Confirmed By:FANNY MARTE MD
[2018-11-11] MEDS: Aspirin E.C. 81 MG Tablet PO (06:27)
[2018-11-11] MEDS: Ramipril 2.5 MG Capsule PO ×2 (06:27→21:34)
[2018-11-11] MEDS: Dextrose 50%-Water 25 GM/50 ML DISP.SYRIN IV ×2 (06:35→11:28)
[2018-11-11 06:55] LABS: Bedside Glucose 120 mg/dL (70-110)
[2018-11-11 06:55] LABS: Bedside Glucose 63 mg/dL (70-110)
--- NOTE | 2018-11-11 08:57 | STRESSREP ---
Stress Test Report Date: Procedure: Pharmacologic stress nuclear imaging study Indications: Chest pain; CAD; PCI; CABG Consent: Per the patient Procedure: The patient underwent pharmacologic (Regadenoson) evaluation with a peak heart rate of 64 beats per minute (41 %predicted maximal heart rate) and a peak blood pressure of 150/72 mmHg. The baseline ECG demonstrated atrial fibrillation; poor R wave progression; anteroseptal VA of indeterminate age cannot be excluded. The peak pharmacologic ECG demonstrated no obvious ECG changes. There was a rare PVC during recovery. There was no complaint of chest discomfort during pharmacologic infusion or recovery. The examination was discontinued secondary to completion of protocol. Impression: 1. Pharmacologic (Regadenoson) evaluation 2. Peak pharmacologic ECG with no obvious ECG changes. 3. Was a rare PVC during recovery. 4. Nuclear images pending Myocardial perfusion imaging study: Technique: The patient was injected with 14.8 millicuries of technetium 99m Cardiolite and subsequently rest SPECT Cardiolite nuclear imaging was obtained in the horizontal long, vertical long, and short axis views. The patient underwent pharmacologic (Regadenoson) evaluation with a peak heart rate of 64 beats per minute (41 % percent predicted maximal heart rate) and a peak blood pressure of 150/72 mmHg. The patient was injected with 44.7 millicuries of technetium 99m Cardiolite and subsequently stress SPECT Cardiolite nuclear imaging was obtained in the horizontal long, vertical long, and short axis views. A gated Cardiolite study at peak stress was obtained. Interpretation: Rest and stress SPECT Cardiolite nuclear imaging status post realignment, normalization, and attenuation correction demonstrate areas of diminished myocardial perfusion/tracer uptake in portions of the basal to mid inferoseptal and inferior segments and status post stress small area diminished myocardial perfusion/tracer uptake in portions of the inferior apical segment. There is diminished end systolic thickening and brightening in the aforementioned areas. The gated Cardiolite study demonstrates myocardial thickening and inward wall motion. The reported LVEF is 42 %. Impression: 1. Rest and stress SPECT currently nuclear imaging demonstrate myocardial perfusion changes appearing compatible with an area of previous myocardial injury/infarction involving portions of the basal to mid inferior septal and inferior segments with post stress myocardial perfusion changes appearing compatible with an area of mild lexie-infarct related myocardial ischemia in the inferior apical segments. 2. The gated Cardiolite study reports an LVEF of 42 %. This note was generated with Dick or [employer]ation software. It may contain incorrect words, spelling, and punctuation that were not noted in checking the note before signing.
--- NOTE | 2018-11-11 10:03 | PCM.PN.HOSP ---
Patient Problems: Active and Suspected Problems Chest pain (Acute) Elevated troponin (Acute) Exertional angina (Acute) Subjective: Patient is a 63-year-old gentleman with past medical history significant for coronary artery disease with previous CABG and subsequent stent placement who presented with dyspnea chest pain and dyspnea. Patient underwent nuclear stress test on 11/11/2018 which demonstrated reversible ischemia in the inferior regions. Consult subsequently placed cardiology Objective: GENERAL: cooperative HEENT: Atraumatic; EYES; Anicteric, Normal Conjunctiva NECK; supple, normal thyroid, RESPIRATORY: Diminished to auscultation CARDIOVASCULAR: Regular S1 S2, GI: soft, non-tender, normoactive bowel sounds, : No Renal angle tenderness; EXTREMITIES: No edema, no clubbing, MUSCULOSKELETAL: No Joint Tenderness; NEURO: Awake; no lateralizing signs. SKIN: No Rash PSYCH; Normal affect Vitals/I&O's: Vital Signs Temp Pulse Resp BP Pulse Ox 97.4 F L 56 L 18 157/80 H 95 11/11/18 06:17 11/11/18 06:17 11/11/18 06:17 11/11/18 06:17 11/11/18 06:17 Oxygen Delivery Method Room Air Weight: 138.9 kg Body Mass Index (BMI) 38.2 Finger Stick Blood Glucose 184 Intake and Output for Last 24 Hours 11/09/18 11/10/18 11/11/18 23:59 23:59 23:59 Intake Total 720 / 720 Output Total 425 / 425 Balance 295 / 295 Laboratory Results 11/10/18 16:00: WBC 8.2, RBC 4.60, Hgb 13.2, Hct 41.5, MCV 90.2, MCH 28.7, MCHC 31.8 L, RDW 15.3 H, RDW Differential 50.6 H, Plt Count 140 L, MPV 9.4, Immature Gran % (Auto) 0.400, Neut % (Auto) 70.9 H, Lymph % (Auto) 16.0 L, [place] % (Auto) 9.9, Eos % (Auto) 2.6, Baso % (Auto) 0.2, Absolute Neuts (auto) 5.8, Absolute Lymphs (auto) 1.31, Total Counted Not Reportable 11/10/18 16:00: PT 18.4 H, INR 1.5 11/10/18 16:00: Sodium 138, Potassium 3.8, Chloride 105, Carbon Dioxide 27.0, Anion Gap 6, BUN 23 H, Creatinine 1.30, Estim Creat Clear Calc 68.61, Est GFR (MDRD) Af Amer 71, Est GFR (MDRD) Non-Af 59 L, BUN/Creatinine Ratio 17.7, Glucose 187 H, Calcium 8.5, Troponin I 0.053 H 11/10/18 19:17: Troponin I 0.048 H 11/10/18 21:44: POC Glucose 208 H 11/10/18 23:14: Troponin I 0.041 11/11/18 04:40: Sodium 140, Potassium 3.7, Chloride 106, Carbon Dioxide 25.0, Anion Gap 9, BUN 21 H, Creatinine 1.18, Estim Creat Clear Calc 75.59, Est GFR (MDRD) Af Amer 80, Est GFR (MDRD) Non-Af 66, BUN/Creatinine Ratio 17.8, Glucose 102, Calcium 8.5, Triglycerides 41, Cholesterol 75, LDL Cholesterol 23, VLDL Cholesterol 8, HDL Cholesterol 44 11/11/18 04:40: PT 19.0 H, INR 1.6, APTT 37.6 H 11/11/18 04:40: WBC 7.0, RBC 4.82, Hgb 13.6, Hct 42.8, MCV 88.8, MCH 28.2, MCHC 31.8 L, RDW 15.3 H, RDW Differential 49.9 H, Plt Count 153, MPV 10.1, Immature Gran % (Auto) 0.400, Neut % (Auto) 62.5, Lymph % (Auto) 20.5, [place] % (Auto) 12.6 H, Eos % (Auto) 3.3, Baso % (Auto) 0.7, Absolute Neuts (auto) 4.4, Absolute Lymphs (auto) 1.43, Total Counted Not Reportable 11/11/18 06:28: POC Glucose 63 L 11/11/18 06:47: POC Glucose 120 H Current Medications Acetaminophen (Tylenol) 650 mg PO Q6H PRN PRN PRN Reason: Mild pain 1-3/Temp > 100.7 F Amlodipine Besylate (Norvasc) 5 mg PO DAILY [facility] Aspirin (Ecotrin) 81 mg PO DAILY@0800 [facility] Last Admin: 11/11/18 06:27 Dose: 81 mg Documented by: Dextrose (D50w Syringe) 0 gm IV X1 PRN; Protocol PRN Reason: Hypoglycemia Last Admin: 11/11/18 06:35 Dose: 12.5 gm Documented by: Glucagon () 1 mg IM .X1 PRN PRN Reason: Hypoglycemia Insulin Glargine (Lantus (Bk)) 45 units SC BID [facility] Last Admin: 11/10/18 21:51 Dose: 45 u Documented by: Insulin Human Lispro (Humalog Kwikpen ([facility])) 0 unit SC TIDAC [facility]; Protocol Last Admin: 11/11/18 07:18 Dose: Not Given Documented by: Isosorbide Mononitrate (Imdur) 30 mg PO DAILY [facility] Melatonin (Melatonin) 3 mg PO QHS PRN PRN PRN Reason: INSOMNIA Morphine Sulfate () 2 mg IV Q3H PRN PRN PRN Reason: Severe Pain (7-10/10) Nitroglycerin (Nitrostat) 0.4 mg SUBLINGUAL Q5M PRN PRN Reason: CARDIAC/CHEST PAIN Ondansetron HCl (Zofran) 4 mg IV Q8H PRN PRN PRN Reason: NAUSEA/VOMITING Oxycodone HCl (Oxyir) 5 mg PO Q4H PRN PRN PRN Reason: Moderate Pain (4-6/10) Last Admin: 11/10/18 22:58 Dose: 5 mg Documented by: Ramipril (Altace) 2.5 mg PO BID [facility] Last Admin: 11/11/18 06:27 Dose: 2.5 mg Documented by: Sodium Chloride () 10 - 40 ml IV UD PRN PRN Reason: SALINE FLUSH Tramadol HCl (Ultram) 50 mg PO TID PRN PRN PRN Reason: PAIN Warfarin Sodium (Coumadin (Pbkc)) 2.5 mg PO SuTuTh@1700 [facility] Warfarin Sodium (Coumadin (Pbkc)) 5 mg PO DAILY@1700 [facility] Medical Necessity - Tobacco Use Smoking Status: Never smoker Tobacco Use: Non-smoker Assessment/Plan All Active Problems Chest pain (Acute) Elevated troponin (Acute) Exertional angina (Acute) Patient is a 63-year-old gentleman with past medical history significant for coronary artery disease with previous CABG and subsequent stent placement who presented with dyspnea chest pain and dyspnea. Patient underwent nuclear stress test on 11/11/2018 which demonstrated reversible ischemia in the inferior regions. Consult subsequently placed cardiology 1. Exertional chest pain and dyspnea with a positive stress test. Given patient's exam past cardiac history consultation was placed to radiology Dr. Elias Case was discussed with him recommended for patient to be started on Brilinta 180 mg with possible plans for patient to undergo diagnostic cardiac catheterization 2. Coronary artery disease with previous CABG and subsequent stent placement 3. Paroxysmal atrial fibrillation patient is on Coumadin INR was subtherapeutic on admission 4. Hypertension-blood pressure controlled, home medications continued with dose adjustment as needed 5. Peripheral arterial disease with previous lower extremity bypass and toe amputations 6. Diabetes mellitus type 2: We will continue with home dose of long-acting insulin in addition to Accu-Cheks before meals and at bedtime with correction sliding scale 7. Obstructive sleep apnea: On CPAP at night 8. Dyslipidemia managed with diet 9. Obesity with BMI of 30.3 weight loss advised 10. DVT prophylaxis patient is on systemic anticoagulation no additional measures warranted Active Medications Acetaminophen (Tylenol) 650 mg PO Q6H PRN PRN PRN Reason: Mild pain 1-3/Temp > 100.7 F Last Admin: 11/11/18 10:41 Dose: 650 mg Documented by: Aspirin (Ecotrin) 81 mg PO DAILY@0800 [facility] Last Admin: 11/11/18 06:27 Dose: 81 mg Documented by: Dextrose (D50w Syringe) 0 gm IV X1 PRN; Protocol PRN Reason: Hypoglycemia Last Admin: 11/11/18 06:35 Dose: 12.5 gm Documented by: Enoxaparin Sodium (Lovenox) 70 mg SC Q12@0600,1800 [facility] Furosemide (Lasix) 40 mg IV BID@1000,1800 [facility] Glucagon () 1 mg IM .X1 PRN PRN Reason: Hypoglycemia Insulin Glargine (Lantus (Bkc)) 45 units SC BID [facility] Last Admin: 11/11/18 10:32 Dose: Not Given Documented by: Insulin Human Lispro (Humalog Kwikpen (Bkc)) 0 unit SC TIDAC [facility]; Protocol Last Admin: 11/11/18 10:44 Dose: Not Given Documented by: Isosorbide Mononitrate (Imdur) 30 mg PO BID [facility] Melatonin (Melatonin) 3 mg PO QHS PRN PRN PRN Reason: INSOMNIA Morphine Sulfate () 2 mg IV Q3H PRN PRN PRN Reason: Severe Pain (7-10/10) Nitroglycerin (Nitrostat) 0.4 mg SUBLINGUAL Q5M PRN PRN Reason: CARDIAC/CHEST PAIN Ondansetron HCl (Zofran) 4 mg IV Q8H PRN PRN PRN Reason: NAUSEA/VOMITING Oxycodone HCl (Oxyir) 5 mg PO Q4H PRN PRN PRN Reason: Moderate Pain (4-6/10) Last Admin: 11/11/18 10:41 Dose: 5 mg Documented by: Ramipril (Altace) 2.5 mg PO BID [facility] Last Admin: 11/11/18 06:27 Dose: 2.5 mg Documented by: Sodium Chloride () 10 - 40 ml IV UD PRN PRN Reason: SALINE FLUSH Spironolactone (Aldactone) 25 mg PO DAILY [facility] Tramadol HCl (Ultram) 50 mg PO TID PRN PRN PRN Reason: PAIN Code Visit OBSV E&M: 19473 Subsequent observation care L3
[2018-11-11] MEDS: oxyCODONE 5 MG Tablet PO (10:41)
[2018-11-11] MEDS: Acetaminophen 325 MG Tablet 650 MG PO (10:41)
[2018-11-11] MEDS: amLODIPine 5 MG Tablet PO (10:41)
[2018-11-11] MEDS: Isosorbide Mononitrate 30 MG Tablet PO ×2 (10:41→21:34)
[2018-11-11] MEDS: TICAGRELOR 90 MG TABLET 180 MG PO (10:54)
[2018-11-11 11:01] LABS: Bedside Glucose 96 mg/dL (70-110)
--- NOTE | 2018-11-11 12:18 | CON.PCM_ITS ---
Problem List (1) Chest pain Status: Acute (2) Elevated troponin Status: Acute (3) Exertional angina Status: Acute (4) Afib Status: Chronic (5) CKD (chronic kidney disease) stage 3, GFR 30-59 ml/min Status: Chronic (6) CAD (coronary artery disease) Status: Chronic Comment: stents x 2 cabg x 3 (7) PVD (peripheral vascular disease) Status: Chronic Comment: s/p bypass bilateral (8) Diabetes Status: Chronic (9) Hypertension Status: Chronic (10) Obesity (BMI 35.0-39.9 without comorbidity) Status: Chronic Reason for Consult Date of Consultation: 11/11/18 Reason for Consultation: Dyspnea on exertion, coronary artery disease status pos t bypass, peripheral vascular disease, hypertension, diabetes, obesity, obstructive sleep apnea, chronic renal insufficiency. History of Present Illness: The patient is a 63 year old M with obesity, hypertension, hypercholesterolemia, obstructive sleep apnea, chronic atrial fibrillation on Coumadin therapy, unknown pulmonary pressures, coronary artery disease status post three-vessel bypass surgery 1993 at the [facility]. His most recent catheterization he believes took place in the last 1 to 2 years at the [facility] at which time they told him at 2 out of his 3 bypass grafts were open and the third graft had some disease in it but it was not amenable to PCI. In addition he has had subsequent stents in 1998 in 2000, the location of which is unknown. In addition the patient has chronic renal insufficiency, peripheral vascular disease status post right lower extremity bypass surgery x2, first with a Rupert- David graft, and then later with his right radial artery. He is also had subsequent amputations of several toes on both feet. Patient was admitted in April 2018 with shortness of breath and dyspnea on exertion as well as substernal chest pressure similar to his previous anginal symptoms. His catheterization report from the [facility] most recently is as follows: Normal left main coronary artery. Left anterior descending artery which is totally occluded. Left internal mammary artery to the left anterior descending artery which is patent with moderate to severe distal disease in the left anterior descending artery. Left circumflex artery and 100% occluded Right coronary artery 100% occluded Saphenous vein graft to the posterior descending artery 100% occluded. Saphenous vein graft to obtuse marginal branch mild disease. At that time he underwent a non-walking nuclear stress test and was seen by Dr. Lozada. The results are as follows: His myocardial perfusion stress test this morning demonstrated mild distal anterolateral ischemia as well as mild mid inferior ischemia. Appears that the stress test corroborated the above findings and based on the above it was felt that the patient would not benefit from repeat peak catheterization. In addition he underwent an echocardiogram on 04/18/2018 which showed the following: Interpretation Summary Normal LV size. Mild concentric left ventricular hypertrophy. The estimated ejection fraction is 40 %. Pulmonary artery systolic pressure is 56 mmHg. Moderate pulmonary hypertension. Contrast injection was performed. Patient did okay over the winter, until around 2 weeks ago when he developed recurrent dyspnea on exertion, shortness of breath, and substernal chest pressure. He states that he cannot walk between his bathroom in his front porch without becoming severely short of breath with dyspnea. Patient sought medical attention at [facility]. His peak troponin was 0.048. EKG showed atrial fibrillation with controlled ventricular response, old anteroseptal wall myocardial infarction, no acute changes. 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 He is never been evaluated for asbestosis. He reports that he is taking and tolerating his medicines well. His INR today is 1.6. Telemetry has been negative except for A. fib with controlled ventricular response. Patient had yet another non-walking nuclear imaging test today 11/11/2018 which showed the followin. Rest and stress SPECT currently nuclear imaging demonstrate myocardial perfusion changes appearing compatible with an area of previous myocardial injury/infarction involving portions of the basal to mid inferior septal and inferior segments with post stress myocardial perfusion changes appearing compatible with an area of mild lexie-infarct related myocardial ischemia in the inferior apical segments. 2. The gated Cardiolite study reports an LVEF of 42 %. In addition the patient is very concerned about healthcare cost with respect to [facility], but he is very concerned that his cannot travel on the free[place] to visit him [place] should he be transferred there. Patient is currently stable and convalescing well. Past Medical History Allergies/Adverse Reactions: Allergies perfume Adverse Reaction (Verified 11/10/18 15:29) Shortness of breath Home Medications: Ambulatory Orders Medication Instructions Recorded traMADol [Ultram] 50 mg PO TID PRN 07/30/17 Aspirin E.C. [Ecotrin] 81 mg PO DAILY@0800 #30 tab 04/18/18 Amlodipine [Norvasc] 5 mg PO DAILY 11/10/18 Insulin Aspart [Novolog Flexpen 0 units SUBCUT TIDCM 11/10/18 ([facility])] Insulin Glargine,Hum.rec.anlog 45 unit SQ BID 11/10/18 [Lantus Solostar] Isosorbide Mononitrate [Imdur] 30 mg PO DAILY 11/10/18 Ramipril 2.5 mg PO BID 11/10/18 Warfarin [Coumadin (PBKC)] 2.5 mg PO SUTUTH 11/10/18 Warfarin [Coumadin (PBKC)] 5 mg PO DAILY 11/10/18 Past Medical History (Chronic Problems): Chronic Problems Afib (Chronic) Anticoagulant long-term use (Chronic) CKD (chronic kidney disease) stage 3, GFR 30-59 ml/min (Chronic) CAD (coronary artery disease) (Chronic) stents x 2 cabg x 3 PVD (peripheral vascular disease) (Chronic) s/p bypass bilateral Diabetes (Chronic) Hypertension (Chronic) Obesity (BMI 35.0-39.9 without comorbidity) (Chronic) Surgical History: cholecystectomy, coronary bypass surgery Psychiatric History: No pertinent psych hx - *Family History Maternal History Items: - - ESRD, staghorn stone Paternal History Items: No pertinent history Sibling History Items: - - colon cancer in brother, breast cancer is sisters Smoking Status: Never smoker Tobacco Use: Non-smoker Review of Systems - Review of Systems General: Denies: Fever, Night Sweats, Fatigue Cardiovascular: Reports: Chest Discomfort, Chest Discomfort at Rest, Chest Discomfort with Exertion, Shortness of Breath, Shortness of Breath at Rest, Shortness of Breath with Exertion, Peripheral Edema. Denies: Orthopnea, PND, Palpitations, Lightheadedness, Dizziness, Near Syncope, Syncope Respiratory: Denies: Cough, Sputum Production, Hemoptysis Gastrointestinal: Denies: Hematemesis, Hematochezia, Melena Genitourinary: Denies: Dysuria, Hematuria Skin: Denies: Rash Subjectve: Patient laying in bed, no acute distress. Objective: Vital Signs Temp Pulse Resp BP Pulse Ox 97.5 F L 73 19 H 185/76 H 95 07/03/19 10:36 11/11/18 11:57 11/11/18 10:36 11/11/18 10:36 11/11/18 10:36 Oxygen Delivery Method Room Air Weight: 306 lb 3.553 oz Body Mass Index (BMI) 38.2 Finger Stick Blood Glucose 184 Intake and Output for Last 24 Hours 11/09/18 11/10/18 11/11/18 23:59 23:59 23:59 Intake Total 970 / 970 Output Total 425 / 425 Balance 545 / 545 General: Awake, Alert, Oriented x 3 HEENT: PERRL, EOMI, Sclera Non Icteric Neck: Supple, Good ROM, No Lymph Node Enlargement Lungs: Clear to auscultation Cardiovascular: Regular Rhythm, Normal S1, Normal S2, No Murmurs, No Rubs, No Gallops 11/10/18 16:00: WBC 8.2, RBC 4.60, Hgb 13.2, Hct 41.5, MCV 90.2, MCH 28.7, MCHC 31.8 L, RDW 15.3 H, RDW Differential 50.6 H, Plt Count 140 L, MPV 9.4, Immature Gran % (Auto) 0.400, Neut % (Auto) 70.9 H, Lymph % (Auto) 16.0 L, [place] % (Auto) 9.9, Eos % (Auto) 2.6, Baso % (Auto) 0.2, Absolute Neuts (auto) 5.8, Total Counted Not Reportable 11/10/18 16:00: PT 18.4 H, INR 1.5 11/10/18 16:00: Sodium 138, Potassium 3.8, Chloride 105, Carbon Dioxide 27.0, Anion Gap 6, BUN 23 H, Creatinine 1.30, Est GFR (MDRD) Af Amer 71, Est GFR (MDRD) Non-Af 59 L, BUN/Creatinine Ratio 17.7, Glucose 187 H, Calcium 8.5, Troponin I 0.053 H 11/10/18 19:17: Troponin I 0.048 H 11/10/18 23:14: Troponin I 0.041 11/11/18 04:40: Sodium 140, Potassium 3.7, Chloride 106, Carbon Dioxide 25.0, Anion Gap 9, BUN 21 H, Creatinine 1.18, Est GFR (MDRD) Af Amer 80, Est GFR (MDRD) Non-Af 66, BUN/Creatinine Ratio 17.8, Glucose 102, Calcium 8.5, Triglycerides 41, Cholesterol 75, LDL Cholesterol 23, VLDL Cholesterol 8, HDL Cholesterol 44 11/11/18 04:40: PT 19.0 H, INR 1.6, APTT 37.6 H 11/11/18 04:40: WBC 7.0, RBC 4.82, Hgb 13.6, Hct 42.8, MCV 88.8, MCH 28.2, MCHC 31.8 L, RDW 15.3 H, RDW Differential 49.9 H, Plt Count 153, MPV 10.1, Immature Gran % (Auto) 0.400, Neut % (Auto) 62.5, Lymph % (Auto) 20.5, [place] % (Auto) 12.6 H, Eos % (Auto) 3.3, Baso % (Auto) 0.7, Absolute Neuts (auto) 4.4, Total Counted Not Reportable Rhythm: EKG: ECHO: Stress Test: Cardiac Cath: PCI: CT Surgery: Holter monitor: EPS: PPM: CXR: Chest CT Scan: Assessment/Plan 1. Dyspnea on exertion: The patient has several reasons for dyspnea on exertion including possible pulmonary hypertension which is under appreciated and not diagnosed, obesity, coronary artery disease, significant systemic hypertension which is not well controlled, as well as atrial fibrillation with slow ventricular response. Patient has had an extensive work-up in the last 6 months with several stress test, and previous catheterization at the [facility] which showed severe multivessel coronary disease, occluded saphenous vein grafts, and patent PALACIO to the LAD with diffuse LAD disease distally after the touchdown site. His EF is estimated to be between 40 and 45%, with at least moderate 1 hypertension with an RVSP of 56 mmHg. In addition the patient has significant peripheral vascular disease making access via the right radial and possible as it was used for right lower extremity bypass, making access in the right groin area somewhat problematic given his previous bypass, as well as his chronic renal insufficiency. In addition the patient is concerned about possibly incurring a large medical bill versus going to the [facility] in [facility]. At this point I would recommend obtaining the actual catheterization films from the [facility] from his last catheterization. This will assist us as to what his burden of disease is at that was at that time, and guide us with repeat catheterization therapy. Should catheterization be performed I would recommend view of the left femoral artery. In addition I would recommend a right heart catheterization to confirm/deny the presence of significant pulmonary hypertension. In the meantime I recommended the patient continue baby aspirin, Brilinta 90 mg p.o. twice daily in the event that he may require a diagnostic coronary angiogram possible intervention, holding his Coumadin therapy until he received his cath film or at least his report, starting him on Lasix 40 mg IV twice daily for gentle diuresis. In addition we will start him on spironolactone 25 mg p.o. daily. In addition I recommend discontinuation of his amlodipine as this may be making his lower extremity edema worse. In its place I would increase Imdur to 30 mg p.o. twice daily and titrate up from there, he is not a good candidate for beta- blockers given his baseline bradycardia. In addition we will asked social work to see whether the patient can undergo a left heart catheterization and angioplasty here at our facility or he would need to be transferred up to [facility]. We do not wish to incur a large medical bill burden on the patient. 2. Atrial fibrillation: The patient was on previous Coumadin therapy was subtherapeutic. Recommend bridging him with Lovenox 70 mg subcu twice daily. 3. Obstructive sleep apnea: Continue CPAP mask provided by the patient. 4. Peripheral vascular disease: The patient has a significant amount of peripheral vascular disease with several toes which have been amputated in 2 right lower extremity bypasses. The patient has excellent pulses in bilateral groins, but would recommend left groin access as he appears to have had no bypasses on that side. 5. Hyperlipidemia: His LDL and HDL cholesterol appear to be well controlled on no antilipid therapy. 6. Thank you very much for the opportunity to participate in the cardiac care of your patient. Patient may eat this afternoon while we are accumulating data with respect to his coronary artery disease. Discussed with Dr. Scott. Code Visit Inpatient E&M: 07850 Init Hosp L3
--- NOTE | 2018-11-11 12:37 | CASEMGMT ---
JO-ANN SANCHEZ NOTE: Stress test has been completed and is positive. Dr Elias, cardiology, has been consulted. Clinical information including H/P, updated clinicals, labs, vs's, and medications all faxed to [facility]. To room to talk with pt to discuss transfer to [facility] if a bed is available as there is no insurance listed for pt except having [facility] benefits. Pt states he does not want to be transferred, that he wishes to stay @ [facility]. Pt states he has MCR A and he gave this JO-ANN SANCHEZ MCR A card. Card faxed to Registration. Pt signed [facility] Declination to Transfer form and form faxed to [facility]. Pt given original and copy of form placed on chart. Call placed to Namrata @ [facility]/Transfer Center line and she was made aware of above. Kulwant MANRIQUE RN, CM
--- NOTE | 2018-11-11 12:56 | CASEMGMT ---
JO-ANN Note: Call to barbie Couch to notify pt has MCR benefits, part A. Iza verified pt does have MCR A benefits. If pt is Observation, billing would be under [place] [facility] Benefits. Jayleen MANRIQUE RN AC
--- NOTE | 2018-11-11 15:29 | EKG12_ITS ---
Test Reason : CP Blood Pressure : / mmHG Vent. Rate : 064 BPM Atrial Rate : 066 BPM P-R Int : 000 ms QRS Dur : 094 ms QT Int : 446 ms P-R-T Axes : 000 098 162 degrees QTc Int : 460 ms Atrial fibrillation with premature ventricular or aberrantly conducted complexes Rightward axis Septal infarct , age undetermined Abnormal ECG Confirmed by ESTUARDO GARCIA, FANNY ([id number]), assistant film editor SHAQUILLE LUCERO ([id number]) on 11/19/2018 1:24:38 PM Referred By: JOSUE Confirmed By:FANNY MARTE MD
[2018-11-11] MEDS: Nitroglycerin (INPATIENT USE) 0.4 MG TAB.SUBL SUBLINGUAL ×3 (15:33→15:44)
[2018-11-11 15:35] LABS: Bedside Glucose 171 mg/dL (70-110)
[2018-11-11] MEDS: Morphine 2 MG/ML Syringe IV ×3 (16:06→22:40)
[2018-11-11] MEDS: Furosemide 40 MG/4 ML Vial IV (16:07)
[2018-11-11] MEDS: 0.9% NaCl Peripheral Flush Adult/Peds IV ×3 (16:14→22:40)
[2018-11-11] MEDS: Enoxaparin 80 MG/0.8 ML Syringe 70 MG SC (17:00)
[2018-11-11] MEDS: Insulin Lispro 100 UNIT/ML INSULN.PEN SC (17:01)
[2018-11-11 17:11] LABS: Bedside Glucose 203 mg/dL (70-110)
[2018-11-11 22:06] LABS: Bedside Glucose 213 mg/dL (70-110)
[2018-11-12] VITALS (14 sets, daily range): BP systolic 155–170; BP diastolic 71–108; PULSE 46–69; RESP 16–20; TEMP 36.5–36.8; O2SAT 94–98
[2018-11-12] MEDS: Enoxaparin 80 MG/0.8 ML Syringe 70 MG SC ×2 (06:20→17:18)
[2018-11-12] MEDS: Insulin Lispro 100 UNIT/ML INSULN.PEN SC ×3 (06:21→17:46)
[2018-11-12] MEDS: Acetaminophen 325 MG Tablet 650 MG PO ×2 (06:36→22:36)
[2018-11-12] MEDS: Morphine 2 MG/ML Syringe IV ×3 (06:36→20:41)
[2018-11-12 06:55] LABS: Bedside Glucose 163 mg/dL (70-110)
[2018-11-12] MEDS: Aspirin E.C. 81 MG Tablet PO (08:37)
[2018-11-12] MEDS: Isosorbide Mononitrate 30 MG Tablet PO (08:37)
[2018-11-12] MEDS: Ramipril 2.5 MG Capsule PO ×2 (08:37→20:48)
[2018-11-12] MEDS: Spironolactone 25 MG Tablet PO (08:38)
[2018-11-12] MEDS: Furosemide 40 MG/4 ML Vial IV ×2 (08:38→17:14)
[2018-11-12] MEDS: 0.9% NaCl Peripheral Flush Adult/Peds IV ×3 (08:39→20:42)
--- NOTE | 2018-11-12 09:28 | PN_ITS ---
Patient Problems: Active and Suspected Problems Chest pain (Acute) Elevated troponin (Acute) Exertional angina (Acute) Subjective: Patient seen continues to experience intermittent chest pain. Patient was seen in consultation by Dr. Elias with cardiology patient old records regarding his [facility] Patient was started on Lasix breathing is improved. He complains of being constipated Objective: GENERAL: cooperative HEENT: Atraumatic; EYES; Anicteric, Normal Conjunctiva NECK; supple, normal thyroid, RESPIRATORY: Diminished to auscultation CARDIOVASCULAR: Regular S1 S2, GI: soft, non-tender, normoactive bowel sounds, : No Renal angle tenderness; EXTREMITIES: Bilateral stasis dermatitis with some edema MUSCULOSKELETAL: No Joint Tenderness; NEURO: Awake; no lateralizing signs. SKIN: No Rash PSYCH; Normal affect Vitals/I&O's: Vital Signs Temp Pulse Resp BP Pulse Ox 97.7 F L 61 17 170/79 H 98 11/12/18 08:23 11/12/18 08:23 11/12/18 08:23 11/12/18 08:23 11/12/18 08:23 Oxygen Flow Rate (L/min) 2 Oxygen Delivery Method Room Air Weight: 136 kg Body Mass Index (BMI) 38.2 Finger Stick Blood Glucose 184 Intake and Output for Last 24 Hours 11/10/18 11/11/18 11/12/18 23:59 23:59 23:59 Intake Total 1420 / 1640 280 / 280 Output Total 1025 / 2575 2750 / 2750 Balance 395 / -935 -2470 / -2470 Laboratory Results 11/11/18 10:44: POC Glucose 96 11/11/18 15:30: POC Glucose 171 H 11/11/18 16:58: POC Glucose 203 H 11/11/18 21:34: POC Glucose 213 H 11/12/18 06:18: POC Glucose 163 H Current Medications Acetaminophen (Tylenol) 650 mg PO Q6H PRN PRN PRN Reason: Mild pain 1-3/Temp > 100.7 F Last Admin: 11/12/18 06:36 Dose: 650 mg Documented by: Aspirin (Ecotrin) 81 mg PO DAILY@0800 [facility] Last Admin: 11/12/18 08:37 Dose: 81 mg Documented by: Dextrose (D50w Syringe) 0 gm IV X1 PRN; Protocol PRN Reason: Hypoglycemia Last Admin: 11/11/18 06:35 Dose: 12.5 gm Documented by: Enoxaparin Sodium (Lovenox) 70 mg SC Q12@0600,1800 [facility] Last Admin: 11/12/18 06:20 Dose: 70 mg Documented by: Furosemide (Lasix) 40 mg IV BID@1000,1800 [facility] Last Admin: 11/12/18 08:38 Dose: 40 mg Documented by: Glucagon () 1 mg IM .X1 PRN PRN Reason: Hypoglycemia Insulin Glargine (Lantus (Bk)) 45 units SC BID [facility] Last Admin: 11/12/18 08:39 Dose: 45 u Documented by: Insulin Human Lispro (Humalog Kwikpen ([facility])) 0 unit SC TIDAC [facility]; Protocol Last Admin: 11/12/18 06:21 Dose: 1 units Documented by: Isosorbide Mononitrate (Imdur) 30 mg PO BID [facility] Last Admin: 11/12/18 08:37 Dose: 30 mg Documented by: Melatonin (Melatonin) 3 mg PO QHS PRN PRN PRN Reason: INSOMNIA Morphine Sulfate () 2 mg IV Q3H PRN PRN PRN Reason: Severe Pain (7-10/10) Last Admin: 11/12/18 06:36 Dose: 2 mg Documented by: Nitroglycerin (Nitrostat) 0.4 mg SUBLINGUAL Q5M PRN PRN Reason: CARDIAC/CHEST PAIN Last Admin: 11/11/18 15:44 Dose: 1 tab Documented by: Ondansetron HCl (Zofran) 4 mg IV Q8H PRN PRN PRN Reason: NAUSEA/VOMITING Oxycodone HCl (Oxyir) 5 mg PO Q4H PRN PRN PRN Reason: Moderate Pain (4-6/10) Last Admin: 11/11/18 10:41 Dose: 5 mg Documented by: Ramipril (Altace) 2.5 mg PO BID [facility] Last Admin: 11/12/18 08:37 Dose: 2.5 mg Documented by: Sodium Chloride () 10 - 40 ml IV UD PRN PRN Reason: SALINE FLUSH Last Admin: 11/12/18 08:39 Dose: 10 ml Documented by: Spironolactone (Aldactone) 25 mg PO DAILY [facility] Last Admin: 11/12/18 08:38 Dose: 25 mg Documented by: Tramadol HCl (Ultram) 50 mg PO TID PRN PRN PRN Reason: PAIN Medical Necessity - Tobacco Use Smoking Status: Never smoker Tobacco Use: Non-smoker Assessment/Plan All Active Problems Chest pain (Acute) Elevated troponin (Acute) Exertional angina (Acute) Patient is a 63-year-old gentleman with past medical history significant for coronary artery disease with previous CABG and subsequent stent placement who presented with dyspnea chest pain and dyspnea. Patient underwent nuclear stress test on 11/11/2018 which demonstrated reversible ischemia in the inferior regions. Consult subsequently placed cardiology 1. Exertional chest pain and dyspnea with a positive stress test. Given patient's exam past cardiac history consultation was placed to radiology Dr. Elias Case was discussed with him recommended for patient to be started on Brilinta 180 mg with possible plans for patient to undergo diagnostic cardiac catheterization ~11/12/2018: Patient continues to experience intermittent chest pain. Management as discussed above. Cardiology was consulted the day prior. Patient was seen by Dr. Elias who requested for old records from [facility] prior to any possible intervention 2. Acute congestive heart failure with induced ejection fraction. Echocardiogram obtained on 04/17/2018 demonstrated EF of 40 to 45% started on lasix 3. Coronary artery disease with previous CABG and subsequent stent placement old records requested from [place] prior to any intervention 4. Pulmonary hypertension with an RVSP of 56 mmHg. 5. Paroxysmal atrial fibrillation patient is on Coumadin INR was subtherapeutic on admission 6. Hypertension-blood pressure controlled, home medications continued with dose adjustment as needed 7. Peripheral arterial disease with previous lower extremity bypass and toe amputations 8. Diabetes mellitus type 2: continued with home dose of long-acting insulin in addition to Accu-Cheks before meals and at bedtime with correction sliding scale 9. Obstructive sleep apnea: On CPAP at night 10. Dyslipidemia managed with diet 11. Obesity with BMI of 30.3 weight loss advised 12. DVT prophylaxis patient is on systemic anticoagulation no additional measures warranted Code Visit Inpatient E&M: 84410 [facility] L3
[2018-11-12 10:48] LABS: Absolute Lymphocyte Count 1.23 X10^3/ul (0.83-4.51); Absolute Neutrophil Count 5.1 X10^3/uL (2.0-7.7); Basophil# 0.03 X10^3/uL; Basophil% 0.4 % (0-1); Eosinophil# 0.23 X10^3/uL; Hematocrit 46.4 % (40-54); Hemoglobin 14.7 g/dl (13.0-16.5); Lymphocyte # 1.23 X10^3/ul (4.0); Lymphocyte % 16.2 % (19-41); Mean Corp Hgb Conc 31.7 g/gl (32-36); Mean Corpuscular Hgb 27.8 pg (27.0-32.0); Mean Corpuscular Volume 87.9 fL (80-94); Mean Platelet Vol. 9.9 fl (6.2-12.0); Monocyte# 0.93 X10^3/uL; Monocyte% 12.3 % (0-10); Neutrophil # 5.13 X10^3/uL (2.7-7.7); Neutrophil % 67.7 % (47-70); POSITIVE COUNT NO; POSITIVE DIFFERENTIAL NO; POSITIVE MORPHOLOGY NO; Platelet Count 176 K/mm3 (150-450); RBC Distribution Width CV 15.1 % (11.6-14.6); RBC Distribution Width SD 49.1 fl (35.1-43.9); Red Blood Count 5.28 M/mm3 (4.6-6.2); White Blood Count 7.6 K/mm3 (4.4-11.0)
[2018-11-12 10:56] LABS: International Normalized Ratio 1.5; Prothrombin Time (Protime)PT. 17.5 SECONDS (11.7-14.9)
[2018-11-12 10:59] LABS: Anion Gap 3 (5-15); BUN 23 mg/dL (7-18); BUN/Creat Ratio 15.2 RATIO (10-20); Calcium,Total 8.7 mg/dL (8.5-10.1); Chloride 103 mmol/L (98-107); Creatinine, Serum 1.51 mg/dL (0.70-1.30); EST Glomerular Filtration Rate 50 mL/min (>60); Est Glom Filt Rate - Afr Amer 60 mL/min (>60); Estimated Creatinine Clearance 59.07 ml/min; Glucose 160 mg/dL (74-106); Potassium 3.9 mmol/L (3.5-5.1); Sodium Level 136 mmol/L (136-145)
[2018-11-12] MEDS: Magnesium Citrate 300 ML 150 ML PO (11:28)
[2018-11-12] MEDS: Senna Tablet 1 TABLET PO (11:29)
[2018-11-12 11:40] LABS: Bedside Glucose 173 mg/dL (70-110)
--- NOTE | 2018-11-12 11:56 | ECHOCS_ITS ---
Reason For Study: CAD/ASHD Procedure This was a 2D Doppler, Color Flow transthoracic echocardiogram. The study was technically difficult. Contrast injection was performed. Exam performed portable in patient room. Left Ventricle Normal LV size. Mild concentric left ventricular hypertrophy. Mild segmental systolic dysfunction (see wall motion). The estimated ejection fraction is 45 %. Unable to assess diastolic dysfunction. Posterior-Basal: Hypokinetic. Infero-Basal: Hypokinetic. Basal inferoseptal: Hypokinetic. Mid- Lateral : Hypokinetic. Mid-Posterior: Hypokinetic. Mid-Inferior: Hypokinetic. Mid-inferoseptal : Hypokinetic. Lateral [place] : Hypokinetic. Right Ventricle Normal RV size. Normal systolic function. Atria The left atrium is mildly enlarged. Normal right atrium. No doppler evidence for ASD. Mitral Valve There is no mitral annular calcification. Mild focal mitral valve calcification, bileaflet. Trivial mitral valve insufficiency. Tricuspid Valve Normal tricuspid valve. Trivial tricuspid valve insufficiency. Unable to estimate RV systolic pressure/pulmonary artery pressure due to technically difficult study. Aortic Valve Trisinus/trileaflet aortic valve. Mild focal aortic valve calcification. Pulmonic Valve The pulmonic valve is not well visualized. Great Vessels The aortic root is not well visualized. Pericardium/Pleural No pericardial effusion. Medication Diluted definity 4ml given slow IV push to enhance endocardial definition. MMode/2D Measurements & Calculations LVIDd: 4.9 cm IVSd: 1.7 cm LA dimension: 5.0 cm LVIDs: 4.1 cm LVPWd: 1.3 cm FS: 16.4 % Time Measurements MV dec time: 0.21 sec Doppler Measurements & Calculations MV E max tony: 121.5 cm/sec Lat Peak E' Tony: 7.7 cm/sec Med Peak E' Tony: 5.1 cm/sec MV A max tony: 32.7 cm/sec E/E' lat: 15.7 E/E' med: 23.8 MV E/A: 3.7 Ao V2 max: 96.4 cm/sec LV V1 max: 93.3 cm/sec PA V2 max: 85.7 cm/sec Ao max P.7 mmHg LV V1 max P.5 mmHg Interpretation Summary The study was technically difficult. Contrast injection was performed. Mild segmental systolic dysfunction (see wall motion). The estimated ejection fraction is 45 %. Mild concentric left ventricular hypertrophy. The left atrium is mildly enlarged. Mild focal mitral valve calcification, bileaflet. Trivial mitral valve insufficiency. Trivial tricuspid valve insufficiency. Mild focal aortic valve calcification. Unable to estimate RV systolic pressure/pulmonary artery pressure due to technically difficult study. Unable to assess diastolic dysfunction. Ordering Physician: Saleem Hubbard Performed By: Dale Bullock RCS
--- NOTE | 2018-11-12 11:57 | PCM.PN.CARD ---
Subjectve: The patient is awake and alert. He states overall he is feeling better with respect to his breathing. Objective: Vital Signs Temp Pulse Resp BP Pulse Ox 97.9 F 60 16 168/77 H 97 11/12/18 11:18 11/12/18 11:18 11/12/18 11:18 11/12/18 11:18 11/12/18 11:18 Oxygen Flow Rate (L/min) 2 Oxygen Delivery Method Room Air Weight: 299 lb 13.259 oz Body Mass Index (BMI) 38.2 Finger Stick Blood Glucose 184 Intake and Output for Last 24 Hours 11/10/18 11/11/18 11/12/18 23:59 23:59 23:59 Intake Total 1420 / 1640 760 / 760 Output Total 1025 / 2575 3450 / 3450 Balance 395 / -935 -2690 / -2690 General: Awake, Alert, Oriented x 3, Cooperative, No Acute Distress, Obese HEENT: Atraumatic, Normocephalic, PERRL, EOMI, Sclera Non Icteric Oral: Moist Mucosa Neck: Supple, Good ROM Lungs: Diminished Elijah Bases - Mild Cardiovascular: Irregular Rhythm, Normal S1, Normal S2 Abdomen: Bowel Sounds Present, Soft, Non Tender Psych/Mental Status: Appropriate 11/12/18 10:25: WBC 7.6, RBC 5.28, Hgb 14.7, Hct 46.4, MCV 87.9, MCH 27.8, MCHC 31.7 L, RDW 15.1 H, RDW Differential 49.1 H, Plt Count 176, MPV 9.9, Immature Gran % (Auto) 0.400, Neut % (Auto) 67.7, Lymph % (Auto) 16.2 L, Bibb % (Auto) 12.3 H, Eos % (Auto) 3.0, Baso % (Auto) 0.4, Absolute Neuts (auto) 5.1, Total Counted Not Reportable 11/12/18 10:25: PT 17.5 H, INR 1.5 11/12/18 10:25: Sodium 136, Potassium 3.9, Chloride 103, Carbon Dioxide 30.0, Anion Gap 3 L, BUN 23 H, Creatinine 1.51 H, Est GFR (MDRD) Af Amer 60, Est GFR (MDRD) Non-Af 50 L, BUN/Creatinine Ratio 15.2, Glucose 160 H, Calcium 8.7 Rhythm: Atrial fibrillation; PVCs Medical Necessity - Tobacco Use Smoking Status: Never smoker Tobacco Use: Non-smoker Assessment/Plan 1. Atrial fibrillation The present time the patient will continue to have his cardiac rate and rhythm monitored. He has not been on rate limiting medication because of concerns of slow ventricular response. He has been on anticoagulant therapy which is being adjusted at this time in anticipation of the need for a possible cardiac catheterization procedure. 2. CAD status post CABG status post PCI The patient has undergone previous invasive evaluation. He is undergone revascularization therapy as noted above. At the present time there is concern as to whether or not he may need a repeat cardiac catheterization performed and if so is this to be performed locally or at the [facility]. In the meantime he is continuing medical management. 3. Cardiomyopathy The patient has been described as having diminished LV systolic function in the past. It may not be unreasonable to reassess his left ventricular wall motion and systolic function with a follow-up transthoracic echocardiogram. This may assist in guiding further evaluation and care. In the meantime he will continue medical management as he is able. 4. CHF: Chronic systolic There is been concerns of the patient's symptoms being related to volume overload. This may be related to findings of diminished LV systolic function/LVEF and chronic systolic mediated CHF. At the present time he is being treated medically. This is included diuretic therapy. He appears to be improved overall. He will continue medical management and follow-up. 5. Hyperlipidemia He will continue lipid-lowering therapy as tolerated. 6. Hypertension He is not on beta-cosmo therapy secondary to concerns of slow ventricular response. His amlodipine therapy was discontinued secondary to any concerns of it retaining fluid. It may be reasonable to advance his nitrate therapy and add other medications that do not necessarily interfere with renal function such as hydralazine. Hopefully this will help with his blood pressure control. 7. Diabetes mellitus He will continue under the care of internal medicine. 8. Renal insufficiency His renal function will be followed. His medications will have to be adjusted appropriately. Comment: The patient's case was discussed and reviewed with Dr. Scott. This note was generated using a voice recognition system and there may be incorrect words, spelling or punctuation that were not noted when reviewing the office note prior to saving.
[2018-11-12] MEDS: hydrALAZINE 25 MG Tablet PO ×2 (13:33→20:48)
[2018-11-12 16:51] LABS: Bedside Glucose 248 mg/dL (70-110)
[2018-11-12] MEDS: Isosorbide Mononitrate 60 MG Tablet PO (20:48)
[2018-11-12 20:56] LABS: Bedside Glucose 204 mg/dL (70-110)
[2018-11-13] VITALS (15 sets, daily range): BP systolic 121–160; BP diastolic 65–75; PULSE 37–75; RESP 16–20; TEMP 36.3–36.9; O2SAT 93–98
[2018-11-13] MEDS: Morphine 2 MG/ML Syringe IV ×4 (02:53→22:13)
[2018-11-13] MEDS: 0.9% NaCl Peripheral Flush Adult/Peds IV ×5 (02:53→22:13)
[2018-11-13 05:34] LABS: Absolute Lymphocyte Count 1.74 X10^3/ul (0.83-4.51); Absolute Neutrophil Count 4.8 X10^3/uL (2.0-7.7); Basophil# 0.04 X10^3/uL; Basophil% 0.5 % (0-1); Eosinophil# 0.26 X10^3/uL; Eosinophils% 3.3 % (0-5); Hematocrit 42.5 % (40-54); Hemoglobin 13.9 g/dl (13.0-16.5); Lymphocyte # 1.74 X10^3/ul (4.0); Lymphocyte % 22.3 % (19-41); Mean Corp Hgb Conc 32.7 g/gl (32-36); Mean Corpuscular Hgb 28.7 pg (27.0-32.0); Mean Corpuscular Volume 87.8 fL (80-94); Mean Platelet Vol. 9.8 fl (6.2-12.0); Monocyte# 0.96 X10^3/uL; Monocyte% 12.3 % (0-10); Neutrophil # 4.77 X10^3/uL (2.7-7.7); Neutrophil % 61.2 % (47-70); Platelet Count 165 K/mm3 (150-450); RBC Distribution Width CV 15.2 % (11.6-14.6); RBC Distribution Width SD 49.1 fl (35.1-43.9); Red Blood Count 4.84 M/mm3 (4.6-6.2); White Blood Count 7.8 K/mm3 (4.4-11.0)
[2018-11-13 05:38] LABS: POSITIVE COUNT NO; POSITIVE DIFFERENTIAL NO; POSITIVE MORPHOLOGY NO
[2018-11-13 05:43] LABS: International Normalized Ratio 1.4
[2018-11-13 05:48] LABS: Anion Gap 9 (5-15); BUN 30 mg/dL (7-18); BUN/Creat Ratio 20.1 RATIO (10-20); Calcium,Total 8.8 mg/dL (8.5-10.1); Chloride 103 mmol/L (98-107); Creatinine, Serum 1.49 mg/dL (0.70-1.30); EST Glomerular Filtration Rate 50 mL/min (>60); Est Glom Filt Rate - Afr Amer 61 mL/min (>60); Estimated Creatinine Clearance 59.86 ml/min; Glucose 147 mg/dL (74-106); Magnesium 2.2 mg/dL (1.6-2.6); Potassium 3.6 mmol/L (3.5-5.1); Sodium Level 139 mmol/L (136-145)
[2018-11-13] MEDS: hydrALAZINE 25 MG Tablet PO ×3 (06:40→22:12)
[2018-11-13 06:45] LABS: Bedside Glucose 127 mg/dL (70-110)
--- NOTE | 2018-11-13 07:20 | PCM.PN.HOSP ---
Patient Problems: Active and Suspected Problems Chest pain (Acute) Elevated troponin (Acute) Exertional angina (Acute) Subjective: Patient seen his breathing status continues to improve. Case was discussed with cardiology Dr. Elias who recommended optimization of medical therapy at this point with no plans for intervention Objective: GENERAL: cooperative HEENT: Atraumatic; EYES; Anicteric, Normal Conjunctiva NECK; supple, normal thyroid, RESPIRATORY: Diminished to auscultation CARDIOVASCULAR: Regular S1 S2, GI: soft, non-tender, normoactive bowel sounds, : No Renal angle tenderness; EXTREMITIES: Bilateral stasis dermatitis with some edema MUSCULOSKELETAL: No Joint Tenderness; NEURO: Awake; no lateralizing signs. SKIN: No Rash PSYCH; Normal affect Vitals/I&O's: Vital Signs Temp Pulse Resp BP Pulse Ox 98.3 F 75 16 131/65 H 98 11/13/18 02:40 11/13/18 06:40 11/13/18 02:40 11/13/18 06:40 11/13/18 02:40 Oxygen Flow Rate (L/min) 2 Oxygen Delivery Method Room Air Weight: 133.4 kg Body Mass Index (BMI) 38.2 Finger Stick Blood Glucose 184 Intake and Output for Last 24 Hours 11/11/18 11/12/18 11/13/18 23:59 23:59 23:59 Intake Total 1420 / 1640 1812 / 1812 60 / 60 Output Total 1025 / 2575 5075 / 5075 225 / 225 Balance 395 / -935 -3263 / -3263 -165 / -165 Laboratory Results 11/12/18 10:25: WBC 7.6, RBC 5.28, Hgb 14.7, Hct 46.4, MCV 87.9, MCH 27.8, MCHC 31.7 L, RDW 15.1 H, RDW Differential 49.1 H, Plt Count 176, MPV 9.9, Immature Gran % (Auto) 0.400, Neut % (Auto) 67.7, Lymph % (Auto) 16.2 L, Andrews % (Auto) 12.3 H, Eos % (Auto) 3.0, Baso % (Auto) 0.4, Absolute Neuts (auto) 5.1, Absolute Lymphs (auto) 1.23, Total Counted Not Reportable 11/12/18 10:25: PT 17.5 H, INR 1.5 11/12/18 10:25: Sodium 136, Potassium 3.9, Chloride 103, Carbon Dioxide 30.0, Anion Gap 3 L, BUN 23 H, Creatinine 1.51 H, Estim Creat Clear Calc 59.07, Est GFR (MDRD) Af Amer 60, Est GFR (MDRD) Non-Af 50 L, BUN/Creatinine Ratio 15.2, Glucose 160 H, Calcium 8.7 11/12/18 11:20: POC Glucose 173 H 11/12/18 16:40: POC Glucose 248 H 11/12/18 20:46: POC Glucose 204 H 11/13/18 05:24: WBC 7.8, RBC 4.84, Hgb 13.9, Hct 42.5, MCV 87.8, MCH 28.7, MCHC 32.7, RDW 15.2 H, RDW Differential 49.1 H, Plt Count 165, MPV 9.8, Immature Gran % (Auto) 0.400, Neut % (Auto) 61.2, Lymph % (Auto) 22.3, Andrews % (Auto) 12.3 H, Eos % (Auto) 3.3, Baso % (Auto) 0.5, Absolute Neuts (auto) 4.8, Absolute Lymphs (auto) 1.74, Total Counted Not Reportable 11/13/18 05:24: PT 17.0 H, INR 1.4 11/13/18 05:24: Sodium 139, Potassium 3.6, Chloride 103, Carbon Dioxide 27.0, Anion Gap 9, BUN 30 H, Creatinine 1.49 H, Estim Creat Clear Calc 59.86, Est GFR (MDRD) Af Amer 61, Est GFR (MDRD) Non-Af 50 L, BUN/Creatinine Ratio 20.1 H, Glucose 147 H, Calcium 8.8, Magnesium 2.2 11/13/18 06:39: POC Glucose 127 H Current Medications Acetaminophen (Tylenol) 650 mg PO Q6H PRN PRN PRN Reason: Mild pain 1-3/Temp > 100.7 F Last Admin: 11/12/18 22:36 Dose: 650 mg Documented by: Aspirin (Ecotrin) 81 mg PO DAILY@0800 [facility] Last Admin: 11/12/18 08:37 Dose: 81 mg Documented by: Dextrose (D50w Syringe) 0 gm IV X1 PRN; Protocol PRN Reason: Hypoglycemia Last Admin: 11/11/18 06:35 Dose: 12.5 gm Documented by: Enoxaparin Sodium (Lovenox) 70 mg SC Q12@0600,1800 [facility] Last Admin: 11/12/18 17:18 Dose: 70 mg Documented by: Furosemide (Lasix) 40 mg IV BID@1000,1800 [facility] Last Admin: 11/12/18 17:14 Dose: 40 mg Documented by: Glucagon () 1 mg IM .X1 PRN PRN Reason: Hypoglycemia Hydralazine HCl (Apresoline) 25 mg PO TID [facility] Last Admin: 11/13/18 06:40 Dose: 25 mg Documented by: Insulin Glargine (Lantus ([facility])) 45 units SC BID [facility] Last Admin: 11/12/18 20:48 Dose: 45 u Documented by: Insulin Human Lispro (Humalog Kwikpen ([facility])) 0 unit SC TIDAC [facility]; Protocol Last Admin: 11/13/18 06:39 Dose: Not Given Documented by: Isosorbide Mononitrate (Imdur) 60 mg PO BID [facility] Last Admin: 11/12/18 20:48 Dose: 60 mg Documented by: Melatonin (Melatonin) 3 mg PO QHS PRN PRN PRN Reason: INSOMNIA Morphine Sulfate () 2 mg IV Q3H PRN PRN PRN Reason: Severe Pain (7-10/10) Last Admin: 11/13/18 02:53 Dose: 2 mg Documented by: Nitroglycerin (Nitrostat) 0.4 mg SUBLINGUAL Q5M PRN PRN Reason: CARDIAC/CHEST PAIN Last Admin: 11/11/18 15:44 Dose: 1 tab Documented by: Ondansetron HCl (Zofran) 4 mg IV Q8H PRN PRN PRN Reason: NAUSEA/VOMITING Oxycodone HCl (Oxyir) 5 mg PO Q4H PRN PRN PRN Reason: Moderate Pain (4-6/10) Last Admin: 11/11/18 10:41 Dose: 5 mg Documented by: Ramipril (Altace) 2.5 mg PO BID [facility] Last Admin: 11/12/18 20:48 Dose: 2.5 mg Documented by: Senna (Senokot) 1 tablet PO DAILY [facility] Last Admin: 11/12/18 11:29 Dose: 1 tablet Documented by: Sodium Chloride () 10 - 40 ml IV UD PRN PRN Reason: SALINE FLUSH Last Admin: 11/13/18 02:53 Dose: 10 ml Documented by: Spironolactone (Aldactone) 25 mg PO DAILY [facility] Last Admin: 11/12/18 08:38 Dose: 25 mg Documented by: Tramadol HCl (Ultram) 50 mg PO TID PRN PRN PRN Reason: PAIN Medical Necessity - Tobacco Use Smoking Status: Never smoker Tobacco Use: Non-smoker Assessment/Plan All Active Problems Chest pain (Acute) Elevated troponin (Acute) Exertional angina (Acute) Patient is a 63-year-old gentleman with past medical history significant for coronary artery disease with previous CABG and subsequent stent placement who presented with dyspnea chest pain and dyspnea. Patient underwent nuclear stress test on 11/11/2018 which demonstrated reversible ischemia in the inferior regions. Consult subsequently placed cardiology 1. Exertional chest pain and dyspnea with a positive stress test. Given patient's exam past cardiac history consultation was placed to radiology Dr. Elias Case was discussed with him recommended for patient to be started on Brilinta 180 mg with possible plans for patient to undergo diagnostic cardiac catheterization ~11/12/2018: Patient continues to experience intermittent chest pain. Management as discussed above. Cardiology was consulted the day prior. Patient was seen by Dr. Elias who requested for old records from [place] [facility] prior to any possible intervention ~11/13/2018 Case was discussed with Dr. Elias; do plan to continue with optimization of medical therapy with no plans for intervention at this point 2. Acute congestive heart failure with induced ejection fraction. Echocardiogram obtained on 04/17/2018 demonstrated EF of 40 to 45% started on lasix patient appears to be responding to treatment 3. Coronary artery disease with previous CABG and subsequent stent placement old records requested from [place] prior to any intervention 4. Pulmonary hypertension with an RVSP of 56 mmHg. 5. Paroxysmal atrial fibrillation patient is on Coumadin INR was subtherapeutic on admission 6. Hypertension-blood pressure controlled, home medications continued with dose adjustment as needed 7. Peripheral arterial disease with previous lower extremity bypass and toe amputations 8. Diabetes mellitus type 2: continued with home dose of long-acting insulin in addition to Accu-Cheks before meals and at bedtime with correction sliding scale 9. Obstructive sleep apnea: On CPAP at night 10. Dyslipidemia managed with diet 11. Obesity with BMI of 30.3 weight loss advised 12. DVT prophylaxis patient is on systemic anticoagulation no additional measures warranted Code Visit Inpatient E&M: 47564 Subs Hosp L2
--- NOTE | 2018-11-13 09:39 | PCM.PN.CARD ---
Subjectve: Patient feels remarkably better with IV diuresis. He is lost approximately 3.6 L since IV administration. He is doing fairly well. His edema has improved but has not quite completely normalized. Telemetry showed atrial fibrillation with controlled ventricular response. Objective: Vital Signs Temp Pulse Resp BP Pulse Ox 98.3 F 59 L 16 131/65 H 98 11/13/18 02:40 11/13/18 07:20 11/13/18 02:40 11/13/18 06:40 11/13/18 02:40 Oxygen Flow Rate (L/min) 2 Oxygen Delivery Method Room Air Weight: 294 lb 1.546 oz Body Mass Index (BMI) 38.2 Finger Stick Blood Glucose 184 Intake and Output for Last 24 Hours 11/11/18 11/12/18 11/13/18 23:59 23:59 23:59 Intake Total 1420 / 1640 1812 / 1812 60 / 60 Output Total 1025 / 2575 5075 / 5075 225 / 225 Balance 395 / -935 -3263 / -3263 -165 / -165 General: Awake, Alert, Oriented x 3 HEENT: PERRL, EOMI, Sclera Non Icteric Neck: Supple, Good ROM, No Lymph Node Enlargement Lungs: Clear to auscultation Cardiovascular: Irregular Rhythm, Normal S1, Normal S2, No Rubs, No Gallops Murmur Murmur: Grade 2/6, Holosystolic Vascular: No Carotid Bruits, Normal Femoral Pulses, Normal Radial Pulses, Normal Dorsalis Pedal Pulse, Normal Posterior Tibial Pulses Abdomen: Bowel Sounds Present, Soft, Non Tender, No HSM, No Organomegaly Extremities: No Cyanosis, No Clubbing, No edema Neurological: No Focal Motor or Sensory Deficit 11/12/18 10:25: WBC 7.6, RBC 5.28, Hgb 14.7, Hct 46.4, MCV 87.9, MCH 27.8, MCHC 31.7 L, RDW 15.1 H, RDW Differential 49.1 H, Plt Count 176, MPV 9.9, Immature Gran % (Auto) 0.400, Neut % (Auto) 67.7, Lymph % (Auto) 16.2 L, [place] % (Auto) 12.3 H, Eos % (Auto) 3.0, Baso % (Auto) 0.4, Absolute Neuts (auto) 5.1, Total Counted Not Reportable 11/12/18 10:25: PT 17.5 H, INR 1.5 11/12/18 10:25: Sodium 136, Potassium 3.9, Chloride 103, Carbon Dioxide 30.0, Anion Gap 3 L, BUN 23 H, Creatinine 1.51 H, Est GFR (MDRD) Af Amer 60, Est GFR (MDRD) Non-Af 50 L, BUN/Creatinine Ratio 15.2, Glucose 160 H, Calcium 8.7 11/13/18 05:24: WBC 7.8, RBC 4.84, Hgb 13.9, Hct 42.5, MCV 87.8, MCH 28.7, MCHC 32.7, RDW 15.2 H, RDW Differential 49.1 H, Plt Count 165, MPV 9.8, Immature Gran % (Auto) 0.400, Neut % (Auto) 61.2, Lymph % (Auto) 22.3, [place] % (Auto) 12.3 H, Eos % (Auto) 3.3, Baso % (Auto) 0.5, Absolute Neuts (auto) 4.8, Total Counted Not Reportable 11/13/18 05:24: PT 17.0 H, INR 1.4 11/13/18 05:24: Sodium 139, Potassium 3.6, Chloride 103, Carbon Dioxide 27.0, Anion Gap 9, BUN 30 H, Creatinine 1.49 H, Est GFR (MDRD) Af Amer 61, Est GFR (MDRD) Non-Af 50 L, BUN/Creatinine Ratio 20.1 H, Glucose 147 H, Calcium 8.8, Magnesium 2.2 Rhythm: EKG: ECHO: From April 2018 showed an EF around 40%, RVSP of 56 mmHg. Stress Test: Cardiac Cath: PCI: CT Surgery: Holter monitor: EPS: PPM: CXR: Chest CT Scan: Medical Necessity - Tobacco Use Smoking Status: Never smoker Tobacco Use: Non-smoker Assessment/Plan 1. Dyspnea on exertion: The patient has several reasons for dyspnea on exertion including possible pulmonary hypertension which is under appreciated and not diagnosed, obesity, coronary artery disease, significant systemic hypertension which is not well controlled, as well as atrial fibrillation with slow ventricular response. Patient has had an extensive work-up in the last 6 months with several stress test, and previous catheterization at the NH which showed severe multivessel coronary disease, occluded saphenous vein grafts, and patent PALACIO to the LAD with diffuse LAD disease distally after the touchdown site. His EF is estimated to be between 40 and 45%, with at least moderate 1 hypertension with an RVSP of 56 mmHg. In addition the patient has significant peripheral vascular disease making access via the right radial and possible as it was used for right lower extremity bypass, making access in the right groin area somewhat problematic given his previous bypass, as well as his chronic renal insufficiency. In addition the patient is concerned about possibly incurring a large medical bill [facility]. At this point I would recommend obtaining the actual catheterization films from the NH from his last catheterization. This will assist us as to what his burden of disease is at that was at that time, and guide us with repeat catheterization therapy. Should catheterization be performed I would recommend view of the left femoral artery. In addition I would recommend a right heart catheterization to confirm/deny the presence of significant pulmonary hypertension. In the meantime I recommended the patient continue baby aspirin, switch patient from Brilinta to Plavix 75 mg p.o. daily for both his coronary artery disease as well as his peripheral vascular disease. In addition we will start him on spironolactone 25 mg p.o. daily. In addition I recommend discontinuation of his amlodipine as this may be making his lower extremity edema worse. In its place I would increase Imdur to 30 mg p.o. twice daily and titrate up from there, he is not a good candidate for beta-blockers given his baseline bradycardia. In addition we will asked social work to see whether the patient can undergo a left heart catheterization and angioplasty here at our facility or he would need to be transferred up to NH. We do not wish to incur a large medical bill burden on the patient. I would recommend 1 more day of IV Lasix as the patient is approaching his dry weight. His creatinine is remained stable, and his sodium has not worsened. 2. Atrial fibrillation: As we are going to hold off on catheterization at this time, recommend restarting his Coumadin at previous dosage. Continue Lovenox overlap therapy. 3. Obstructive sleep apnea: Continue CPAP mask provided by the patient. 4. Peripheral vascular disease: The patient has a significant amount of peripheral vascular disease with several toes which have been amputated in 2 right lower extremity bypasses. The patient has excellent pulses in bilateral groins, but would recommend left groin access as he appears to have had no bypasses on that side. We will DC Brilinta and start Plavix for PVD. 5. Hyperlipidemia: His LDL and HDL cholesterol appear to be well controlled on no antilipid therapy. 6. Thank you very much for the opportunity to participate in the cardiac care of your patient. We will keep patient 1 more day as we transition to p.o. Lasix. Discussed with Dr. Scott. Code Visit Inpatient E&M: 40098 Subs Hosp L2
[2018-11-13] MEDS: Enoxaparin 80 MG/0.8 ML Syringe 70 MG SC ×2 (10:00→18:14)
[2018-11-13] MEDS: Ramipril 2.5 MG Capsule PO ×2 (10:02→22:12)
[2018-11-13] MEDS: Senna Tablet 1 TABLET PO (10:02)
[2018-11-13] MEDS: Isosorbide Mononitrate 60 MG Tablet PO ×2 (10:02→22:12)
[2018-11-13] MEDS: Aspirin E.C. 81 MG Tablet PO (10:03)
[2018-11-13] MEDS: Spironolactone 25 MG Tablet PO (10:03)
[2018-11-13] MEDS: Furosemide 40 MG/4 ML Vial IV ×2 (10:03→18:08)
[2018-11-13 11:31] LABS: Bedside Glucose 222 mg/dL (70-110)
[2018-11-13] MEDS: Insulin Lispro 100 UNIT/ML INSULN.PEN SC ×2 (12:24→17:18)
--- NOTE | 2018-11-13 16:37 | NURSING ---
This nurse just saw that Dr. Scott completed patients Fluid Restriction
[2018-11-13 17:25] LABS: Bedside Glucose 208 mg/dL (70-110)
[2018-11-13 22:41] LABS: Bedside Glucose 201 mg/dL (70-110)
[2018-11-14 03:05] VITALS: PULSE 57
[2018-11-14 04:55] VITALS: BP 152/72; PULSE 63; RESP 15; TEMP 36.4; O2SAT 96
[2018-11-14 05:05] VITALS: PULSE 63
[2018-11-14] MEDS: hydrALAZINE 25 MG Tablet PO (05:05)
[2018-11-14] MEDS: Enoxaparin 80 MG/0.8 ML Syringe 70 MG SC (05:05)
[2018-11-14 06:32] LABS: Absolute Lymphocyte Count 1.73 X10^3/ul (0.83-4.51); Absolute Neutrophil Count 4.5 X10^3/uL (2.0-7.7); Basophil# 0.06 X10^3/uL; Basophil% 0.8 % (0-1); Eosinophil# 0.33 X10^3/uL; Eosinophils% 4.2 % (0-5); Hematocrit 43.2 % (40-54); Hemoglobin 14.2 g/dl (13.0-16.5); Lymphocyte # 1.73 X10^3/ul (4.0); Lymphocyte % 21.9 % (19-41); Mean Corp Hgb Conc 32.9 g/gl (32-36); Mean Corpuscular Hgb 28.7 pg (27.0-32.0); Mean Corpuscular Volume 87.3 fL (80-94); Monocyte# 1.23 X10^3/uL; Monocyte% 15.6 % (0-10); Neutrophil # 4.51 X10^3/uL (2.7-7.7); Neutrophil % 57.1 % (47-70); Platelet Count 180 K/mm3 (150-450); RBC Distribution Width CV 15.3 % (11.6-14.6); RBC Distribution Width SD 48.7 fl (35.1-43.9); Red Blood Count 4.95 M/mm3 (4.6-6.2); White Blood Count 7.9 K/mm3 (4.4-11.0)
[2018-11-14 06:36] LABS: International Normalized Ratio 1.3; POSITIVE COUNT NO; POSITIVE DIFFERENTIAL NO; POSITIVE MORPHOLOGY NO; Prothrombin Time (Protime)PT. 15.9 SECONDS (11.7-14.9)
[2018-11-14] MEDS: Acetaminophen 325 MG Tablet 650 MG PO (06:50)
[2018-11-14 06:51] LABS: Bedside Glucose 82 mg/dL (70-110)
[2018-11-14] MEDS: 0.9% NaCl Peripheral Flush Adult/Peds IV (06:51)
[2018-11-14] MEDS: Morphine 2 MG/ML Syringe IV (06:51)
[2018-11-14 07:07] LABS: Anion Gap 9 (5-15); BUN 35 mg/dL (7-18); BUN/Creat Ratio 22.7 RATIO (10-20); Calcium,Total 8.9 mg/dL (8.5-10.1); Chloride 102 mmol/L (98-107); Creatinine, Serum 1.54 mg/dL (0.70-1.30); EST Glomerular Filtration Rate 49 mL/min (>60); Est Glom Filt Rate - Afr Amer 59 mL/min (>60); Estimated Creatinine Clearance 57.92 ml/min; Glucose 71 mg/dL (74-106); Potassium 3.5 mmol/L (3.5-5.1); Sodium Level 139 mmol/L (136-145)
[2018-11-14 07:29] VITALS: PULSE 56
--- NOTE | 2018-11-14 09:30 | DCINST_ITS ---
- Discharge Diagnoses Current Active Problems: Current Active and Chronic Problems Chest pain (Acute) Elevated troponin (Acute) Exertional angina (Acute) You will use the following diet at home:: Calorie/Carbohydrate Controlled (specify 1200, 1400, etc), Cardiac, Fluid restricted (specify 2000 mls, 1500 mls) - 1999 Instructions: CHEST PAIN, NonCardiac Allergies/Adverse Reactions: Allergies perfume Adverse Reaction (Verified 11/10/18 15:29) Shortness of breath Medications to take at Discharge traMADol [Ultram] 50 mg PO TID PRN 07/30/17 Aspirin E.C. [Ecotrin] 81 mg PO DAILY@0800 #30 tab 04/18/18 Insulin Aspart [Novolog Flexpen] 0 units SUBCUT TIDCM 11/10/18 Insulin Glargine,Hum.rec.anlog [Lantus Solostar] 45 unit SQ BID 11/10/18 Ramipril 2.5 mg PO BID 11/10/18 Warfarin [Coumadin] 2.5 mg PO SUTUTH 11/10/18 Warfarin [Coumadin] 5 mg PO DAILY 11/10/18 Docusate Sodium [Colace] 100 mg PO DAILY 11/12/18 Atorvastatin Calcium [Lipitor] 40 mg PO QHS #60 tab 11/14/18 Clopidogrel Bisulfate [Plavix] 75 mg PO DAILY #60 tab 11/14/18 Furosemide [Lasix] 40 mg PO DAILY #60 tab 11/14/18 Isosorbide Mononitrate [Imdur] 60 mg PO BID #120 tab 11/14/18 Pantoprazole Sodium [Protonix] 40 mg PO DAILY #60 tab 11/14/18 Spironolactone [Aldactone] 25 mg PO DAILY #60 tab 11/14/18 hydrALAZINE [Apresoline] 25 mg PO TID #180 tab 11/14/18 The following prescriptions were given: Spironolactone [Aldactone] 25 mg PO DAILY #60 tab Prescription Printed hydrALAZINE [Apresoline] 25 mg PO TID #180 tab Prescription Printed Isosorbide Mononitrate [Imdur] 60 mg PO BID #120 tab Prescription Printed Furosemide [Lasix] 40 mg PO DAILY #60 tab Prescription Printed Atorvastatin Calcium [Lipitor] 40 mg PO QHS #60 tab Prescription Printed Clopidogrel Bisulfate [Plavix] 75 mg PO DAILY #60 tab Prescription Printed Pantoprazole Sodium [Protonix] 40 mg PO DAILY #60 tab Prescription Printed Primary Care Physician: [facility] [Primary Care Provider] - Please follow up with your Primary Care Physician in: in 1-2 weeks Test Results: Test results from this visit will be discussed in further detail at your follow- up appointment, if applicable. Please Follow Up With: Orlin Elias MD When: in 2-4 weeks Proposed Discharge Date: 11/14/18
--- NOTE | 2018-11-14 09:32 | DS.PCM_ITS ---
Discharge Date and Diagnosis - Problem List Patient Problems: Active and Suspected Problems Acute systolic (congestive) heart failure (Acute) Chest pain (Acute) Elevated troponin (Acute) Exertional angina (Acute) Date of Admission: 11/10/18 Date of Discharge: 11/14/18 - Primary Discharge Diagnosis Active and Suspected Problems Acute systolic (congestive) heart failure (Acute) Chest pain (Acute) Elevated troponin (Acute) Exertional angina (Acute) - Secondary Discharge Diagnosis Chronic Problems Afib (Chronic) Anticoagulant long-term use (Chronic) CKD (chronic kidney disease) stage 3, GFR 30-59 ml/min (Chronic) CAD (coronary artery disease) (Chronic) stents x 2 cabg x 3 PVD (peripheral vascular disease) (Chronic) s/p bypass bilateral Diabetes (Chronic) Hypertension (Chronic) Obesity (BMI 35.0-39.9 without comorbidity) (Chronic) Hospital Course and Treatment Imaging Results: Clinical Impression(s) from Imaging Studies Chest X-Ray 11/10/18 15:44 IMPRESSION: Cardiomegaly with evidence of median sternotomy. There is no acute pulmonary disease or interval change. Electronically Signed: Ishmael Paiz DO at 16:11 EDT Tel [phone], Service support , This was a 2D Doppler, Color Flow transthoracic echocardiogram. The study was technically difficult. Contrast injection was performed. Exam performed portable in patient room. Left Ventricle Normal LV size. Mild concentric left ventricular hypertrophy. Mild segmental systolic dysfunction (see wall motion). The estimated ejection fraction is 45 %. Unable to assess diastolic dysfunction. Posterior-Basal: Hypokinetic. Infero-Basal: Hypokinetic. Basal inferoseptal: Hypokinetic. Mid- Lateral : Hypokinetic. Mid-Posterior: Hypokinetic. Mid-Inferior: Hypokinetic. Mid-inferoseptal : Hypokinetic. Lateral [place] : Hypokinetic. Right Ventricle Normal RV size. Normal systolic function. Atria The left atrium is mildly enlarged. Normal right atrium. No doppler evidence for ASD. Mitral Valve There is no mitral annular calcification. Mild focal mitral valve calcification, bileaflet. Trivial mitral valve insufficiency. Tricuspid Valve Normal tricuspid valve. Trivial tricuspid valve insufficiency. Unable to estimate RV systolic pressure/pulmonary artery pressure due to technically difficult study. Aortic Valve Trisinus/trileaflet aortic valve. Mild focal aortic valve calcification. Pulmonic Valve The pulmonic valve is not well visualized. Great Vessels The aortic root is not well visualized. Pericardium/Pleural No pericardial effusion. Medication Diluted definity 4ml given slow IV push to enhance endocardial definition. MMode/2D Measurements & Calculations LVIDd: 4.9 cm IVSd: 1.7 cm LA dimension: 5.0 cm LVIDs: 4.1 cm LVPWd: 1.3 cm FS: 16.4 % Time Measurements MV dec time: 0.21 sec Doppler Measurements & Calculations MV E max tony: 121.5 cm/sec Lat Peak E' Tony: 7.7 cm/sec Med Peak E' Tony: 5.1 cm/sec MV A max tony: 32.7 cm/sec E/E' lat: 15.7 E/E' med: 23.8 MV E/A: 3.7 Ao V2 max: 96.4 cm/sec LV V1 max: 93.3 cm/sec PA V2 max: 85.7 cm/sec Ao max P.7 mmHg LV V1 max P.5 mmHg Interpretation Summary The study was technically difficult. Contrast injection was performed. Mild segmental systolic dysfunction (see wall motion). The estimated ejection fraction is 45 %. Mild concentric left ventricular hypertrophy. The left atrium is mildly enlarged. Mild focal mitral valve calcification, bileaflet. Trivial mitral valve insufficiency. Trivial tricuspid valve insufficiency. Mild focal aortic valve calcification. Unable to estimate RV systolic pressure/pulmonary artery pressure due to technically difficult study. Unable to assess diastolic dysfunction. Operations: None Summary of Care Provided: Patient is a 63-year-old gentleman with past medical history significant for coronary artery disease with previous CABG and subsequent stent placement who presented with dyspnea chest pain and dyspnea. Patient underwent nuclear stress test on 11/11/2018 which demonstrated reversible ischemia in the inferior regions. Consult subsequently placed cardiology 1. Exertional chest pain and dyspnea with a positive stress test. Given patient's exam past cardiac history consultation was placed to radiology Dr. Elias Case was discussed with him recommended optimization of medical therapy with no plans for intervention at this point 2. Acute congestive heart failure with induced ejection fraction. Echocardiogram obtained on 04/17/2018 demonstrated EF of 40 to 45% started on lasix patient responded to treatment 3. Coronary artery disease with previous CABG and subsequent stent placement old records requested from [place] prior to any intervention 4. Pulmonary hypertension with an RVSP of 56 mmHg. 5. Paroxysmal atrial fibrillation patient is on Coumadin INR was subtherapeutic on admission 6. Hypertension-blood pressure controlled, home medications continued with dose adjustment as needed 7. Peripheral arterial disease with previous lower extremity bypass and toe amputations 8. Diabetes mellitus type 2: continued with home dose of long-acting insulin in addition to Accu-Cheks before meals and at bedtime with correction sliding scale 9. Obstructive sleep apnea: On CPAP at night 10. Dyslipidemia managed with diet 11. Obesity with BMI of 30.3 weight loss advised 12. DVT prophylaxis patient is on systemic anticoagulation no additional measures warranted Patient Problems: Active and Suspected Problems Acute systolic (congestive) heart failure (Acute) Chest pain (Acute) Elevated troponin (Acute) Exertional angina (Acute) Objective: GENERAL: cooperative HEENT: Atraumatic; EYES; Anicteric, Normal Conjunctiva NECK; supple, normal thyroid, RESPIRATORY: Diminished to auscultation CARDIOVASCULAR: Regular S1 S2, GI: soft, non-tender, normoactive bowel sounds, : No Renal angle tenderness; EXTREMITIES: Bilateral stasis dermatitis with some edema MUSCULOSKELETAL: No Joint Tenderness; NEURO: Awake; no lateralizing signs. SKIN: No Rash PSYCH; Normal affect - Physical Exam Vital Signs Temp Pulse Resp BP Pulse Ox 97.6 F L 56 L 15 152/72 H 96 11/14/18 04:55 11/14/18 07:29 11/14/18 04:55 11/14/18 04:55 11/14/18 04:55 Oxygen Flow Rate (L/min) 2 Oxygen Delivery Method Room Air Weight: 133.2 kg Body Mass Index (BMI) 38.2 Finger Stick Blood Glucose 184 Intake and Output for Last 24 Hours 11/12/18 11/13/18 11/14/18 23:59 23:59 23:59 Intake Total 1812 / 1812 1270 / 1270 240 / 240 Output Total 5075 / 5075 1875 / 1875 225 / 225 Balance -3263 / -3263 -605 / -605 Laboratory Tests Past 24 Hrs 11/14/18 11/14/18 11/14/18 05:50 05:50 05:50 WBC 7.9 RBC 4.95 Hgb 14.2 Hct 43.2 MCV 87.3 MCH 28.7 MCHC 32.9 RDW 15.3 H RDW Differential 48.7 H Plt Count 180 MPV 10.0 Immature Gran % (Auto) 0.400 Neut % (Auto) 57.1 Lymph % (Auto) 21.9 [place] % (Auto) 15.6 H Eos % (Auto) 4.2 Baso % (Auto) 0.8 Absolute Neuts (auto) 4.5 Absolute Lymphs (auto) 1.73 Total Counted Not Reportable PT 15.9 H INR 1.3 Sodium 139 Potassium 3.5 Chloride 102 Carbon Dioxide 28.0 Anion Gap 9 BUN 35 H Creatinine 1.54 H Estim Creat Clear Calc 57.92 Est GFR (MDRD) Af Amer 59 L Est GFR (MDRD) Non-Af 49 L BUN/Creatinine Ratio 22.7 H Glucose 71 L Calcium 8.9 POC Glucose 11/14/18 11/13/18 11/13/18 06:43 22:08 17:16 POC Glucose 82 201 H 208 H 11/13/18 11:23 POC Glucose 222 H Discharge Diet: Low fat/ Low Cholesterol, 1800 Calorie Control Diet, 8 Cup Fluid Restriciton, 2000 mg Sodium Diet Home Medications: Medications to take at Discharge traMADol [Ultram] 50 mg PO TID PRN 07/30/17 Aspirin E.C. [Ecotrin] 81 mg PO DAILY@0800 #30 tab 04/18/18 Insulin Aspart [Novolog Flexpen] 0 units SUBCUT TIDCM 11/10/18 Insulin Glargine,Hum.rec.anlog [Lantus Solostar] 45 unit SQ BID 11/10/18 Ramipril 2.5 mg PO BID 11/10/18 Warfarin [Coumadin] 2.5 mg PO SUTUTH 11/10/18 Warfarin [Coumadin] 5 mg PO DAILY 11/10/18 Docusate Sodium [Colace] 100 mg PO DAILY 11/12/18 Atorvastatin Calcium [Lipitor] 40 mg PO QHS #60 tab 11/14/18 Clopidogrel Bisulfate [Plavix] 75 mg PO DAILY #60 tab 11/14/18 Furosemide [Lasix] 40 mg PO DAILY #60 tab 11/14/18 Isosorbide Mononitrate [Imdur] 60 mg PO BID #120 tab 11/14/18 Pantoprazole Sodium [Protonix] 40 mg PO DAILY #60 tab 11/14/18 Spironolactone [Aldactone] 25 mg PO DAILY #60 tab 11/14/18 hydrALAZINE [Apresoline] 25 mg PO TID #180 tab 11/14/18 Following Prescrptions Were Given to Patient: Spironolactone [Aldactone] 25 mg PO DAILY #60 tab Prescription Printed hydrALAZINE [Apresoline] 25 mg PO TID #180 tab Prescription Printed Isosorbide Mononitrate [Imdur] 60 mg PO BID #120 tab Prescription Printed Furosemide [Lasix] 40 mg PO DAILY #60 tab Prescription Printed Atorvastatin Calcium [Lipitor] 40 mg PO QHS #60 tab Prescription Printed Clopidogrel Bisulfate [Plavix] 75 mg PO DAILY #60 tab Prescription Printed Pantoprazole Sodium [Protonix] 40 mg PO DAILY #60 tab Prescription Printed [facility] Physician[facility] [Primary Care Provider] - Please follow up with your Primary Care Physician in: in 1-2 weeks Please Follow Up With: Orlin Elias MD When: in 2-4 weeks Patient Instructions: CHEST PAIN, NonCardiac Disposition: Home Minutes spent on discharge:: 45 Patient Condition:: Stable Medical Necessity - Tobacco Use Smoking Status: Never smoker Tobacco Use: Non-smoker Meaningful Use Info Meaningful Use Diagnoses (Choose all that apply): CHF - CHF REGINO/ARB ordered at discharge?: No Reason REGINO/ARB not ordered?: Worsening renal disease Documented LVEF (%): 45 Code Visit Inpatient E&M: 20255 Disch Hosp
[2018-11-14] MEDS: Aspirin E.C. 81 MG Tablet PO (09:59)
[2018-11-14] MEDS: Ramipril 2.5 MG Capsule PO (10:00)
[2018-11-14] MEDS: Isosorbide Mononitrate 60 MG Tablet PO (10:00)
[2018-11-14] MEDS: Spironolactone 25 MG Tablet PO (10:00)
[2018-11-14] MEDS: Senna Tablet 1 TABLET PO (10:01)
[2018-11-14] MEDS: Furosemide 40 MG/4 ML Vial IV (10:01)
[2018-11-14 10:55] VITALS: BP 137/78; PULSE 87; RESP 18; TEMP 36.7; O2SAT 97
--- NOTE | 2018-11-16 15:09 | CASEMGMT ---
JO-ANN CM Discharge Follow-up Phone Call: TANNER: Fortino Strata: 3 Call Date: 11/16/18 Discharge Date: 11/14/18 Time of Call: 1510 Duration: 0 ? Admitting Diagnosis: Acute Systolic CHF Follow-up DC call attempted. No answer received. Voicemail message left requesting a return call. Zeus Crawford RN
--- NOTE | 2018-11-17 14:13 | CASEMGMT ---
JO-ANN DC PHONE CALL DC DATE: 11/17/18 DC Disposition: Home Diagnosis on Discharge: Home LACE/STRATA: 03/14 Attempted call to patient's home. No answer. Jayleen MANRIQUE RN AC
== END 2018-11-14 14:39 | disposition home or self-care (01) | DRG 291 ==
LOC: ED 17:57 → PCU 18:13
PROVIDERS: Emergency Provider Emergency Medicine; Visit Provider Internal Medicine
DX: I13.0 Hypertensive heart and chronic kidney disease with heart failure and stage 1 through stage 4 chronic kidney disease, or unspecified chronic kidney disease (principal); I50.21 Acute systolic (congestive) heart failure; I25.118 Atherosclerotic heart disease of native coronary artery with other forms of angina pectoris; I48.0 Paroxysmal atrial fibrillation; G47.33 Obstructive sleep apnea (adult) (pediatric); E78.5 Hyperlipidemia, unspecified; E66.9 Obesity, unspecified; I73.9 Peripheral vascular disease, unspecified; I27.20 Pulmonary hypertension, unspecified; Z95.5 Presence of coronary angioplasty implant and graft; N18.3 Chronic kidney disease, stage 3 (moderate); Z95.1 Presence of aortocoronary bypass graft; E11.22 Type 2 diabetes mellitus with diabetic chronic kidney disease; Z79.01 Long term (current) use of anticoagulants; Z79.4 Long term (current) use of insulin; Z68.35 Body mass index [BMI] 35.0-35.9, adult
CPT/HCPCS: 36415; 71045; 78452; 80048; 80061; 82962; 83735; 84484; 85025; 85610; 85730; 93005; 93017; 93306; 99283; A9500; Q9957; A4216; C8929; J1940; J2785

== ENCOUNTER 2019-02-12 13:23 | Outpatient (RCR) | payer MEDICARE, SELFPAY ==
[2018-12-09 17:51] VITALS: BMI 41.0
[2019-02-12 14:57] LABS: Hematocrit 45.4 % (40-54); Hemoglobin 14.1 g/dL (13.0-16.5); Mean Corp Hgb Conc 31.1 g/dL (32-36); Mean Corpuscular Hgb 28.8 pg (27.0-32.0); Mean Corpuscular Volume 92.7 fL (80-94); Mean Platelet Vol. 10.2 fl (6.2-12.0); Platelet Count 152 K/mm3 (150-450); RBC Distribution Width CV 15.3 % (11.6-14.6); RBC Distribution Width SD 51.9 fl (35.1-43.9)
[2019-02-12 14:58] LABS: Scan Indicated on CBC? Y/N NO
[2019-02-12 15:22] LABS: International Normalized Ratio 2.9; Prothrombin Time (Protime)PT. 30.8 SECONDS (11.7-14.9)
== END 2019-02-12 18:00 | disposition home or self-care (01) ==
LOC: LAB 13:23
DX: Z79.01 Long term (current) use of anticoagulants (principal)
CPT/HCPCS: 36415; 85027; 85610

== ENCOUNTER 2019-04-02 12:03 | Outpatient (RCR) | payer MEDICARE, SELFPAY ==
[2018-12-09 17:51] VITALS: BMI 41.0
[2019-04-02 12:58] LABS: Prothrombin Time (Protime)PT. 31.1 SECONDS (11.7-14.9)
== END 2019-04-02 18:00 | disposition home or self-care (01) ==
LOC: LAB 12:03
DX: Z79.01 Long term (current) use of anticoagulants (principal)
CPT/HCPCS: 36415; 85610

== ENCOUNTER 2019-05-03 10:10 | Outpatient (RCR) | payer MEDICARE, SELFPAY ==
[2018-12-09 17:51] VITALS: BMI 41.0
[2019-05-03 11:26] LABS: International Normalized Ratio 2.3; Prothrombin Time (Protime)PT. 25.2 SECONDS (11.7-14.9)
== END 2019-05-03 18:00 | disposition home or self-care (01) ==
LOC: LAB 10:10
DX: Z79.01 Long term (current) use of anticoagulants (principal)
CPT/HCPCS: 36415; 85610

== ENCOUNTER 2019-06-29 11:24 | Outpatient (RCR) | payer MEDICARE, SELFPAY ==
[2018-12-09 17:51] VITALS: BMI 41.0
[2019-06-29 12:23] LABS: International Normalized Ratio 2.8; Prothrombin Time (Protime)PT. 29.8 SECONDS (11.7-14.9)
== END 2019-06-29 18:00 | disposition home or self-care (01) ==
LOC: LAB 11:24
DX: Z79.01 Long term (current) use of anticoagulants (principal)
CPT/HCPCS: 36415; 85610

== ENCOUNTER 2019-07-29 13:28 | Outpatient (RCR) | payer MEDICARE, SELFPAY ==
[2018-12-09 17:51] VITALS: BMI 41.0
[2019-07-29 14:33] LABS: International Normalized Ratio 3.3; Prothrombin Time (Protime)PT. 33.7 SECONDS (11.7-14.9)
== END 2019-07-29 18:00 | disposition home or self-care (01) ==
LOC: LAB 13:28
DX: Z79.01 Long term (current) use of anticoagulants (principal)
CPT/HCPCS: 36415; 85610

== ENCOUNTER 2019-08-26 14:28 | Outpatient (RCR) | payer MEDICARE, SELFPAY ==
[2018-12-09 17:51] VITALS: BMI 41.0
[2019-08-26 14:53] LABS: International Normalized Ratio 2.8; Prothrombin Time (Protime)PT. 28.9 SECONDS (11.7-14.9)
== END 2019-09-09 18:00 | disposition home or self-care (01) ==
LOC: LAB 14:28
DX: Z79.01 Long term (current) use of anticoagulants (principal)
CPT/HCPCS: 36415; 85610

== ENCOUNTER 2019-10-02 11:45 | Outpatient (RCR) | payer MEDICARE, SELFPAY ==
[2018-12-09 17:51] VITALS: BMI 41.0
[2019-10-02 12:13] LABS: International Normalized Ratio 3.3
== END 2019-10-02 18:00 | disposition home or self-care (01) ==
LOC: LAB 11:45
DX: Z79.01 Long term (current) use of anticoagulants (principal)
CPT/HCPCS: 36415; 85610

== ENCOUNTER 2019-11-01 14:52 | Outpatient (RCR) | payer MEDICARE, SELFPAY ==
[2018-12-09 17:51] VITALS: BMI 41.0
[2019-10-15 17:29] LABS: Prothrombin Time (Protime)PT. 38.7 SECONDS (11.7-14.9)
[2019-11-01 15:55] LABS: Prothrombin Time (Protime)PT. 35.6 SECONDS (11.7-14.9)
[2019-11-01 16:52] LABS: International Normalized Ratio 3.6
== END 2019-11-01 18:00 | disposition home or self-care (01) ==
LOC: LAB 14:52
DX: Z79.01 Long term (current) use of anticoagulants (principal)
CPT/HCPCS: 36415; 85610

== ENCOUNTER 2019-11-18 12:09 | Outpatient (RCR) | payer MEDICARE, SELFPAY ==
[2018-12-09 17:51] VITALS: BMI 41.0
[2019-11-18 12:47] LABS: Hematocrit 44.7 % (40-54); Hemoglobin 13.7 g/dL (13.0-16.5); Mean Corp Hgb Conc 30.6 g/dL (32-36); Mean Corpuscular Hgb 28.1 pg (27.0-32.0); Mean Corpuscular Volume 91.8 fL (80-94); Platelet Count 154 K/mm3 (150-450); RBC Distribution Width CV 15.3 % (11.6-14.6); RBC Distribution Width SD 51.4 fl (35.1-43.9); Red Blood Count 4.87 M/mm3 (4.6-6.2); White Blood Count 9.1 K/mm3 (4.4-11.0)
[2019-11-18 13:12] LABS: International Normalized Ratio 2.7; Prothrombin Time (Protime)PT. 27.9 SECONDS (11.7-14.9)
== END 2019-11-18 18:00 | disposition home or self-care (01) ==
LOC: LAB 12:09
DX: Z79.01 Long term (current) use of anticoagulants (principal)
CPT/HCPCS: 36415; 85027; 85610

== ENCOUNTER 2020-01-11 15:12 | Outpatient (RCR) | payer MEDICARE, SELFPAY ==
[2018-12-09 17:51] VITALS: BMI 41.0
[2020-01-11 16:48] LABS: International Normalized Ratio 2.2; Prothrombin Time (Protime)PT. 23.7 SECONDS (11.7-14.9)
== END 2020-01-11 18:00 | disposition home or self-care (01) ==
LOC: LAB 15:12
DX: Z79.01 Long term (current) use of anticoagulants (principal)
CPT/HCPCS: 36415; 85610

== ENCOUNTER 2020-03-06 15:46 | Outpatient (RCR) | payer MEDICARE, SELFPAY ==
[2018-12-09 17:51] VITALS: BMI 41.0
[2020-02-14 15:14] LABS: International Normalized Ratio 3.4; Prothrombin Time (Protime)PT. 33.8 SECONDS (11.7-14.9)
[2020-03-06 16:38] LABS: Hematocrit 45.2 % (40-54); Hemoglobin 14.2 g/dL (13.0-16.5); Mean Corp Hgb Conc 31.4 g/dL (32-36); Mean Corpuscular Hgb 28.1 pg (27.0-32.0); Mean Corpuscular Volume 89.5 fL (80-94); Platelet Count 163 K/mm3 (150-450); RBC Distribution Width CV 16.1 % (11.6-14.6); RBC Distribution Width SD 53.1 fl (35.1-43.9); Red Blood Count 5.05 M/mm3 (4.6-6.2); White Blood Count 8.5 K/mm3 (4.4-11.0)
[2020-03-06 16:42] LABS: International Normalized Ratio 3.3; Prothrombin Time (Protime)PT. 33.5 SECONDS (11.7-14.9)
== END 2020-03-06 18:00 | disposition home or self-care (01) ==
LOC: LAB 15:46
DX: Z79.01 Long term (current) use of anticoagulants (principal)
CPT/HCPCS: 36415; 85027; 85610

== ENCOUNTER 2020-04-10 20:01 | Inpatient (IN) | payer OTHER, MEDICARE, SELFPAY ==
[2018-12-09 17:51] VITALS: BMI 41.0
[2020-04-10] VITALS (7 sets, daily range): BP systolic 124–139; BP diastolic 35–68; PULSE 79–88; RESP 16–24; TEMP 36.1–36.8; O2SAT 94–99; BMI 37.8
--- NOTE | 2020-04-10 20:17 | EKG12_ITS ---
Test Reason : GI BLEED Blood Pressure : / mmHG Vent. Rate : 078 BPM Atrial Rate : 064 BPM P-R Int : 000 ms QRS Dur : 094 ms QT Int : 412 ms P-R-T Axes : 000 085 181 degrees QTc Int : 469 ms Atrial fibrillation Septal infarct , age undetermined Nonspecific ST and T wave abnormality Abnormal ECG Confirmed by ESTUARDO GARCIA, SALEEM ([id number]), clinical editor TATIANA DU ([id number]) on 04/12/2020 9:40:02 AM Referred By: Saleem Rodriguez Confirmed By:SALEEM MARTE MD
--- NOTE | 2020-04-10 20:19 | ED.DCSUM_ITS ---
History of Present Illness Chief Complaint: GI Bleed Informant: Patient Onset: Days Context: Gradual Onset Current Severity: Mild Maximum Severity: Moderate Narrative: Patient presents with generalized fatigue and dark stools for the past 5 or 6 days. He reports dark stools look like tar. He denies abdominal pain. He states he just feels very fatigued and weak. Today he did have a syncopal episode after standing at bedside to urinate. He denied chest pain or palpitations. Patient is currently on Coumadin for A. fib. He denies ever having a prior colonoscopy and does report that his brother has a history of colon cancer. He states the AR will check his stool for blood routinely and this was last performed approximately 1 year ago. - Past Medical History (1) Afib Status: Chronic (2) Anticoagulant long-term use Status: Chronic (3) CAD (coronary artery disease) Status: Chronic Comment: stents x 2 cabg x 3 (4) CKD (chronic kidney disease) stage 3, GFR 30-59 ml/min Status: Chronic (5) Diabetes Status: Chronic (6) Hypertension Status: Chronic (7) PVD (peripheral vascular disease) Status: Chronic Comment: s/p bypass bilateral Past Medical History - Allergies and Home Meds Allergies/Adverse Reactions: Allergies perfume Adverse Reaction (Verified 04/10/20 20:03) Shortness of breath Prior records reviewed: Yes Surgical History: cholecystectomy, coronary bypass surgery Lives: Spouse/ Significant Other Smoking Status: Never smoker - Family History Maternal Family History: Reports: - - ESRD, staghorn stone Paternal Family History: Reports: No pertinent history Sibling Family History: Reports: - - colon cancer in brother, breast cancer is sisters Review of Systems General: Denies: Chills, Fever Eyes: Denies: Visual changes - bilaterally ENT: Denies: Bilateral ear pain Cardiovascular: Denies: Chest pain Respiratory: Denies: Dyspnea Gastrointestinal: Reports: Melena. Denies: Abdominal pain Genitourinary: Denies: Dysuria Musculoskeletal: Denies: Extremity Pain Neurological: Reports: Weakness - Generalized weakness Hematologic: Denies: Easy bruising, Easy bleeding Allergy: Denies: Uticaria Physical Exam Vital Signs/Narrative: Vital Signs Temp Pulse Resp BP Pulse Ox 04/10/20 20:07 88 20 H 124/35 H 98 04/10/20 20:03 98.2 F Inital Vital Signs reviewed: Yes General: Well nourished, Well developed Head: Normocephalic ENT: Moist mucous membranes Neck: Supple Cardiovascular: Regular rate, Regular rhythm Respiratory: No distress, CTA bilaterally Abdomen: Soft, Nontender Back: Nontender Extremities: Edema - 2+ bilateral lower extremity edema. Skin: Pallor Neurological: Alert, Oriented x3 Psychological: Normal affect Diagnostic/Tx/Re-eval 04/10/20 20:20 Mucosa - Nose SARS-CoV-2 Antigen (Rapid) - Final 04/10/20 20:10 Stool Stool Occult Blood (MADDIE) - Final Occult Blood Positive Laboratory Results 04/10/20 04/10/20 04/10/20 20:10 20:10 20:10 WBC 13.0 H RBC 2.58 L Hgb 7.6 L Hct 24.7 L MCV 95.7 H MCH 29.5 MCHC 30.8 L RDW Std Deviation 60.6 H RDW Coeff of [place] 18.3 H Plt Count 192 MPV 10.5 Immature Gran % (Auto) 3.600 H Neut % (Auto) 68.7 Lymph % (Auto) 15.7 L [place] % (Auto) 10.6 H Eos % (Auto) 0.8 Baso % (Auto) 0.6 Absolute Neuts (auto) 8.9 H Absolute Lymphs (auto) 2.05 Nucleated RBC % 0.4 PT > 120.0 H INR > 19.5 H* Sodium 138 Potassium 4.5 Chloride 108 H Carbon Dioxide 22.0 Anion Gap 8 BUN 54 H Creatinine 1.67 H Estim Creat Clear Calc 52.00 Est GFR (MDRD) Af Amer 53 L Est GFR (MDRD) Non-Af 44 L BUN/Creatinine Ratio 32.3 H Glucose 316 H Calcium 7.9 L Troponin I 0.051 H - EKG Initial EKG Interpretation: Atrial Fibrillation - A. fib at [address] depression. This is a slight change when compared to prior study of November 2018. - Medical Decision Making Test results are discussed with the patient. Hemoglobin is down to 7.6 from fourteen 1 month ago. His INR is being read at greater than 19. Patient states that on his INR was 3.2. Vitamin K and FFP have been ordered, however I am redrawing the INR for verification. I did speak with Dr Gonzalez, who will see the patient for a colonoscopy and EGD as needed. Abdelrahman ubrnham will be discussed with the hospitalist. ED Disposition - Plan for ED Patient: Disposition: Acute Care Hospital [facility] Diagnosis: GI bleed
[2020-04-10 20:26] LABS: Absolute Lymphocyte Count 2.05 X10^3/uL (0.83-4.51); Absolute Neutrophil Count 8.9 X10^3/uL (2.0-7.7); Basophil# 0.08 X10^3/uL; Basophil% 0.6 % (0-1); Eosinophil# 0.11 X10^3/uL; Eosinophils% 0.8 % (0-5); Hematocrit 24.7 % (40-54); Hemoglobin 7.6 g/dL (13.0-16.5); Lymphocyte # 2.05 X10^3/ul (4.0); Lymphocyte % 15.7 % (19-41); Mean Corp Hgb Conc 30.8 g/dL (32-36); Mean Corpuscular Hgb 29.5 pg (27.0-32.0); Mean Corpuscular Volume 95.7 fL (80-94); Mean Platelet Vol. 10.5 fl (6.2-12.0); Monocyte# 1.38 X10^3/uL; Monocyte% 10.6 % (0-10); NRBC Flagged by Analyzer 0.4 % (0-5); Neutrophil # 8.94 X10^3/uL (2.7-7.7); Neutrophil % 68.7 % (47-70); Platelet Count 192 K/mm3 (150-450); RBC Distribution Width CV 18.3 % (11.6-14.6); RBC Distribution Width SD 60.6 fl (35.1-43.9); Red Blood Count 2.58 M/mm3 (4.6-6.2)
[2020-04-10 20:50] LABS: Anion Gap 8 (5-15); BUN 54 mg/dL (7-18); BUN/Creat Ratio 32.3 RATIO (10-20); Calcium,Total 7.9 mg/dL (8.5-10.1); Chloride 108 mmol/L (98-107); Creatinine, Serum 1.67 mg/dL (0.70-1.30); EST Glomerular Filtration Rate 44 mL/min (>60); Est Glom Filt Rate - Afr Amer 53 mL/min (>60); Glucose 316 mg/dL (74-106); Potassium 4.5 mmol/L (3.5-5.1); Sodium Level 138 mmol/L (136-145)
[2020-04-10] MEDS: Morphine 4 MG/ML Syringe IV (21:33)
[2020-04-10] MEDS: Ondansetron 4 MG/2 ML Vial IV (21:33)
[2020-04-10 21:56] LABS: International Normalized Ratio > 19.5; Prothrombin Time (Protime)PT. > 120.0 SECONDS (11.7-14.9)
[2020-04-10] MEDS: Phytonadione (Vit K1) 5 MG TABLET 10 MG PO (22:46)
--- NOTE | 2020-04-10 22:51 | PCM.HP.STD ---
Problem List (1) Supratherapeutic INR Status: Acute (2) GI bleed Status: Acute (3) Acute systolic (congestive) heart failure Status: Chronic (4) Chest pain Status: Chronic (5) Elevated troponin Status: Chronic (6) Exertional angina Status: Chronic (7) Afib Status: Chronic (8) Anticoagulant long-term use Status: Chronic (9) CKD (chronic kidney disease) stage 3, GFR 30-59 ml/min Status: Chronic (10) PVD (peripheral vascular disease) Status: Chronic Comment: s/p bypass bilateral (11) Diabetes Status: Chronic (12) Hypertension Status: Chronic (13) Obesity (BMI 35.0-39.9 without comorbidity) Status: Chronic History of Present Illness Date of Admission: 04/10/20 Chief Complaint: dizzyness and dark stool The patient is a 65 year old male patient with a significant past medical history of cardiovascular disease, atrial fibrillation, elevated troponin chronic, obesity, peripheral neuropathy who presents the emergency room after 5 to 6 days of increased dizziness and lightheadedness along with dark bowel movements. The patient states he is on Coumadin for his atrial fibrillation and last checked it approximately 1 week ago and it was 3.2 at home. Initial INR here in the emergency room was greater than 19.5 therefore a repeat lab was drawn and is pending at this time. Covid testing was negative. The patient states he has had trouble sleeping since Friday and was concerned about chronic pain and for which he takes tramadol. Apparently on further history the patient has taken some medication that may be an NSAID by his own accord for chronic arthritis. Current hemoglobin is 7.6. Patient will be admitted to general medical floor managed for gastrointestinal bleed and supratherapeutic INR. Past Medical History Past Medical History (Chronic Problems): Chronic Problems Acute systolic (congestive) heart failure (Chronic) Chest pain (Chronic) Elevated troponin (Chronic) Exertional angina (Chronic) Afib (Chronic) Anticoagulant long-term use (Chronic) CKD (chronic kidney disease) stage 3, GFR 30-59 ml/min (Chronic) CAD (coronary artery disease) (Chronic) stents x 2 cabg x 3 PVD (peripheral vascular disease) (Chronic) s/p bypass bilateral Diabetes (Chronic) Hypertension (Chronic) Obesity (BMI 35.0-39.9 without comorbidity) (Chronic) Allergies perfume Adverse Reaction (Verified 04/10/20 20:03) Shortness of breath Home Medications: Ambulatory Orders Medication Instructions Recorded traMADol [Ultram] 50 mg PO TID PRN 07/30/17 Aspirin E.C. [Ecotrin] 81 mg PO DAILY@0800 #30 tab 04/18/18 Insulin Aspart [Novolog Flexpen] 0 units SUBCUT TIDCM 11/10/18 Insulin Glargine,Hum.rec.anlog 45 unit SQ BID 11/10/18 [Lantus Solostar] Ramipril 2.5 mg PO BID 11/10/18 Warfarin [Coumadin] 2.5 mg PO SA 11/10/18 Warfarin [Coumadin] 5 mg PO DAILY 11/10/18 Docusate Sodium [Colace] 100 mg PO DAILY PRN 11/12/18 Clopidogrel Bisulfate [Plavix] 75 mg PO DAILY #60 tab 11/14/18 Isosorbide Mononitrate [Imdur] 60 mg PO BID #120 tab 11/14/18 hydrALAZINE [Apresoline] 25 mg PO TID #180 tab 11/14/18 Furosemide [Lasix] 40 mg PO DAILY PRN 04/10/20 Rosuvastatin Calcium [Crestor] 40 mg PO DAILY 04/10/20 Surgical History: cholecystectomy, coronary bypass surgery Psychiatric History: No pertinent psych hx Lives: Spouse/ Significant Other Smoking Status: Never smoker - *Family History Maternal History Items: - - ESRD, staghorn stone Paternal History Items: No pertinent history Sibling History Items: - - colon cancer in brother, breast cancer is sisters Review of Systems Constitutional: Reports: Weakness. Denies: Chills, Fever, Weight Change HEENT: Denies: Head Aches, Sinus Congestion, Sinus Drainage Cardiovascular: Denies: Chest Pain, Palpitations Respiratory: Denies: Cough, Shortness of breath at rest, Sputum production Gastrointestinal: Reports: Melena. Denies: Abdominal Pain, Nausea, Vomiting Genitourinary: Denies: Dysuria Musculoskeletal: Denies: Joint Pain, Joint Tenderness Skin: Denies: Rash, Wounds Neurological: Denies: Numbness, Tingling, Focal weakness Psychiatric: Denies: Anxiety, Depression, Homicidal Ideations, Suicidal Ideations Hematologic/ Lymphatic: Denies: Easy Bruising, Easy Bleeding VTE Information - Inpt Only VTE Present on Admission: No VTE Mechan Device Prophylaxis: SCD's VTE Pharm Prophylaxis ordered?: No Patient Problems: Active and Suspected Problems GI bleed (Acute) - Physical Exam Vitals/I&O's: Vital Signs Temp Pulse Resp BP Pulse Ox 97.7 F L 83 18 125/56 H 96 04/10/20 22:49 04/10/20 22:49 04/10/20 22:49 04/10/20 22:49 04/10/20 22:49 Oxygen Delivery Method Room Air Weight: 302 lb 7.587 oz Body Mass Index (BMI) 37.8 Finger Stick Blood Glucose 184 Intake and Output for Last 24 Hours 04/08/20 04/09/20 04/10/20 23:59 23:59 23:59 Intake Total 110 / 110 Balance 110 / 110 General: Alert, Oriented x3, Cooperative HEENT: Atraumatic, Normocephalic Neck: Supple Lungs: Clear to auscultation, Normal air movement Cardiovascular: Regular rate, No murmurs Abdomen: Bowel Sounds Present, Soft, Non Tender Extremities: No edema Skin: No rashes Musculoskeletal: No Tenderness to Palpation of Joints or Extremities Neurological: Neuro grossly intact Psych/Mental Status: Normal Affect, Appropriate Microbiology Past 72 Hours 04/10/20 20:20 Mucosa - Nose SARS-CoV-2 Antigen (Rapid) - Final 04/10/20 20:10 Stool Stool Occult Blood (MADDIE) - Final Occult Blood Positive Laboratory Results 04/10/20 20:10: WBC 13.0 H, RBC 2.58 L, Hgb 7.6 L, Hct 24.7 L, MCV 95.7 H, MCH 29.5, MCHC 30.8 L, RDW Std Deviation 60.6 H, RDW Coeff of Zulay 18.3 H, Plt Count 192, MPV 10.5, Immature Gran % (Auto) 3.600 H, Neut % (Auto) 68.7, Lymph % (Auto) 15.7 L, [place] % (Auto) 10.6 H, Eos % (Auto) 0.8, Baso % (Auto) 0.6, Absolute Neuts (auto) 8.9 H, Absolute Lymphs (auto) 2.05, Nucleated RBC % 0.4 04/10/20 20:10: PT > 120.0 H, INR > 19.5 H* 04/10/20 20:10: Sodium 138, Potassium 4.5, Chloride 108 H, Carbon Dioxide 22.0, Anion Gap 8, BUN 54 H, Creatinine 1.67 H, Estim Creat Clear Calc 52.00, Est GFR (MDRD) Af Amer 53 L, Est GFR (MDRD) Non-Af 44 L, BUN/Creatinine Ratio 32.3 H, Glucose 316 H, Calcium 7.9 L, Troponin I 0.051 H 04/10/20 20:10: Blood Type A NEGATIVE, Antibody Screen NEGATIVE, Crossmatch See Detail 04/10/20 22:25: PT Pending, INR Pending Assessment/Plan All Active Problems GI bleed (Acute) Supratherapeutic INR (Acute) Chronic Problems Acute systolic (congestive) heart failure (Chronic) Chest pain (Chronic) Elevated troponin (Chronic) Exertional angina (Chronic) Afib (Chronic) Anticoagulant long-term use (Chronic) CKD (chronic kidney disease) stage 3, GFR 30-59 ml/min (Chronic) CAD (coronary artery disease) (Chronic) stents x 2 cabg x 3 PVD (peripheral vascular disease) (Chronic) s/p bypass bilateral Diabetes (Chronic) Hypertension (Chronic) Obesity (BMI 35.0-39.9 without comorbidity) (Chronic) Plan 1. Acute gastrointestinal bleed secondary to supratherapeutic INR?admit patient to general medical floor, check H&H every 4 hours, n.p.o., consult Dr. Gonzalez, will add IV Protonix,make NPO 2. Atrial fibrillation?hold Coumadin, vitamin K and FFP may be initiated if repeat INR is verified 3. Chronic kidney disease?repeat BMP 4. Diabetes?continue routine home medications 5. Hypertension?continue routine home medications 6. DVT prophylaxis?SCDs due to GI bleed Inpatient E&M: 35838 Init Hosp L3
[2020-04-10 23:18] LABS: International Normalized Ratio > 19.5; Prothrombin Time (Protime)PT. > 120.0 SECONDS (11.7-14.9)
[2020-04-11] VITALS (24 sets, daily range): BP systolic 128–160; BP diastolic 61–106; PULSE 64–81; RESP 17–20; TEMP 36.1–37; O2SAT 94–98; BMI 35.9
[2020-04-11] MEDS: traMADol 50 MG Tablet PO ×2 (02:15→22:38)
[2020-04-11 03:09] LABS: Hematocrit 26.4 % (40-54)
[2020-04-11] MEDS: 0.9% Saline Lock 10 ML Syringe IV ×2 (04:07→22:47)
[2020-04-11 06:40] LABS: Absolute Lymphocyte Count 2.05 X10^3/uL (0.83-4.51); Absolute Neutrophil Count 9.3 X10^3/uL (2.0-7.7); Basophil# 0.09 X10^3/uL; Basophil% 0.7 % (0-1); Eosinophil# 0.04 X10^3/uL; Eosinophils% 0.3 % (0-5); Hematocrit 25.2 % (40-54); Hemoglobin 7.8 g/dL (13.0-16.5); Lymphocyte # 2.05 X10^3/ul (4.0); Lymphocyte % 15.3 % (19-41); Mean Corpuscular Hgb 29.8 pg (27.0-32.0); Mean Corpuscular Volume 96.2 fL (80-94); Mean Platelet Vol. 10.4 fl (6.2-12.0); Monocyte# 1.43 X10^3/uL; Monocyte% 10.7 % (0-10); NRBC Flagged by Analyzer 0.4 % (0-5); Neutrophil # 9.34 X10^3/uL (2.7-7.7); Neutrophil % 69.9 % (47-70); Platelet Count 169 K/mm3 (150-450); RBC Distribution Width CV 18.6 % (11.6-14.6); RBC Distribution Width SD 62.4 fl (35.1-43.9); Red Blood Count 2.62 M/mm3 (4.6-6.2); White Blood Count 13.4 K/mm3 (4.4-11.0)
[2020-04-11 06:55] LABS: Prothrombin Time (Protime)PT. 60.6 SECONDS (11.7-14.9)
[2020-04-11 06:57] LABS: International Normalized Ratio 6.9
[2020-04-11 07:03] LABS: Anion Gap 7 (5-15); BUN 62 mg/dL (7-18); BUN/Creat Ratio 34.6 RATIO (10-20); Calcium,Total 7.7 mg/dL (8.5-10.1); Chloride 106 mmol/L (98-107); Creatinine, Serum 1.79 mg/dL (0.70-1.30); EST Glomerular Filtration Rate 41 mL/min (>60); Est Glom Filt Rate - Afr Amer 49 mL/min (>60); Estimated Creatinine Clearance 48.52 ml/min; Glucose 326 mg/dL (74-106); Potassium 4.6 mmol/L (3.5-5.1); Sodium Level 135 mmol/L (136-145)
--- NOTE | 2020-04-11 07:14 | CON.PCM_ITS ---
Problem List (1) GI bleed Status: Acute Qualifiers: GI bleed type/associated pathology: unspecified gastrointestinal hemorrhage type Qualified Code(s): K92.2 - Gastrointestinal hemorrhage, unspecified (2) Supratherapeutic INR Status: Acute Reason for Consult Date of Consultation: 04/11/20 Reason for Consultation: GI bleed History of Present Illness: The patient is a 65 year old M presented to the emergency room with dizziness and severe fatigue. The patient reports he has been having fatigue and dizziness for the last 2 to 3 days. He is also having a lot of black tarry stools. He is not having any abdominal pain. He is on Coumadin and presented with a supratherapeutic INR. Patient reports no bloody bowel movements overnight. He had no nausea or vomiting. Past Medical History Past Medical History (Chronic Problems): Chronic Problems Acute systolic (congestive) heart failure (Chronic) Chest pain (Chronic) Elevated troponin (Chronic) Exertional angina (Chronic) Afib (Chronic) Anticoagulant long-term use (Chronic) CKD (chronic kidney disease) stage 3, GFR 30-59 ml/min (Chronic) CAD (coronary artery disease) (Chronic) stents x 2 cabg x 3 PVD (peripheral vascular disease) (Chronic) s/p bypass bilateral Diabetes (Chronic) Hypertension (Chronic) Obesity (BMI 35.0-39.9 without comorbidity) (Chronic) Allergies perfume Adverse Reaction (Verified 04/10/20 20:03) Shortness of breath Home Medications: Ambulatory Orders Medication Instructions Recorded traMADol [Ultram] 50 mg PO Q4H PRN 07/30/17 Aspirin E.C. [Ecotrin] 81 mg PO DAILY@0800 #30 tab 04/18/18 Insulin Aspart [Novolog Flexpen] 0 units SUBCUT TIDCM PRN 11/10/18 Insulin Glargine,Hum.rec.anlog 45 unit SQ BID 11/10/18 [Lantus Solostar] Ramipril 2.5 mg PO BID 11/10/18 Warfarin [Coumadin] 5 mg PO DAILY 11/10/18 Warfarin [Coumadin] 7.5 mg PO SA 11/10/18 Clopidogrel Bisulfate [Plavix] 75 mg PO DAILY #60 tab 11/14/18 Isosorbide Mononitrate [Imdur] 60 mg PO BID #120 tab 11/14/18 Furosemide [Lasix] 40 mg PO DAILY PRN 04/10/20 Rosuvastatin Calcium [Crestor] 40 mg PO QHS 04/10/20 Surgical History: cholecystectomy, coronary bypass surgery Psychiatric History: No pertinent psych hx Lives: Spouse/ Significant Other Smoking Status: Never smoker - *Family History Maternal History Items: - - ESRD, staghorn stone Paternal History Items: No pertinent history Sibling History Items: - - colon cancer in brother, breast cancer is sisters Review of Systems Constitutional: Reports: Fatigue. Denies: Anorexia, Fever HEENT: Denies: Difficulty Swallowing Cardiovascular: Denies: Chest Pain Respiratory: Denies: Cough Gastrointestinal: Reports: Melena. Denies: Abdominal Pain, Constipation, Nausea, Vomiting Psychiatric: Denies: Anxiety Hematologic/ Lymphatic: Denies: Anemia Patient Problems: Active and Suspected Problems GI bleed (Acute) Supratherapeutic INR (Acute) - Physical Exam Vitals/I&O's: Vital Signs Temp Pulse Resp BP Pulse Ox 98.3 F 74 20 H 151/78 H 95 04/11/20 07:10 04/11/20 07:10 04/11/20 07:10 04/11/20 07:10 04/11/20 07:10 Oxygen Delivery Method Room Air Weight: 287 lb 7.724 oz Body Mass Index (BMI) 35.9 Finger Stick Blood Glucose 184 Intake and Output for Last 24 Hours 04/09/20 04/10/20 04/11/20 23:59 23:59 23:59 Intake Total 110 / 110 630 / 630 Balance 110 / 110 630 / 630 General: Alert, Oriented x3 Neck: No JVD Lungs: Normal air movement Cardiovascular: Regular rate, Regular Rhythm Abdomen: Soft, Non Tender, Non-Distended Musculoskeletal: No Muscle Wasting Microbiology Past 72 Hours 04/10/20 20:20 Mucosa - Nose SARS-CoV-2 Antigen (Rapid) - Final 04/10/20 20:10 Stool Stool Occult Blood (MADDIE) - Final Occult Blood Positive Laboratory Results 04/10/20 20:10: WBC 13.0 H, RBC 2.58 L, Hgb 7.6 L, Hct 24.7 L, MCV 95.7 H, MCH 29.5, MCHC 30.8 L, RDW Std Deviation 60.6 H, RDW Coeff of Zulay 18.3 H, Plt Count 192, MPV 10.5, Immature Gran % (Auto) 3.600 H, Neut % (Auto) 68.7, Lymph % (Auto) 15.7 L, [place] % (Auto) 10.6 H, Eos % (Auto) 0.8, Baso % (Auto) 0.6, Absolute Neuts (auto) 8.9 H, Absolute Lymphs (auto) 2.05, Nucleated RBC % 0.4 04/10/20 20:10: PT > 120.0 H, INR > 19.5 H* 04/10/20 20:10: Sodium 138, Potassium 4.5, Chloride 108 H, Carbon Dioxide 22.0, Anion Gap 8, BUN 54 H, Creatinine 1.67 H, Estim Creat Clear Calc 52.00, Est GFR (MDRD) Af Amer 53 L, Est GFR (MDRD) Non-Af 44 L, BUN/Creatinine Ratio 32.3 H, Glucose 316 H, Calcium 7.9 L, Troponin I 0.051 H 04/10/20 20:10: Blood Type A NEGATIVE, Antibody Screen NEGATIVE, Crossmatch See Detail 04/10/20 22:25: PT > 120.0 H, INR > 19.5 H* 04/11/20 03:00: Hgb 8.0 L, Hct 26.4 L 04/11/20 06:32: Sodium 135 L, Potassium 4.6, Chloride 106, Carbon Dioxide 22.0, Anion Gap 7, BUN 62 H, Creatinine 1.79 H, Estim Creat Clear Calc 48.52, Est GFR (MDRD) Af Amer 49 L, Est GFR (MDRD) Non-Af 41 L, BUN/Creatinine Ratio 34.6 H, Glucose 326 H, Calcium 7.7 L 04/11/20 06:32: WBC 13.4 H, RBC 2.62 L, Hgb 7.8 L, Hct 25.2 L, MCV 96.2 H, MCH 29.8, MCHC 31.0 L, RDW Std Deviation 62.4 H, RDW Coeff of Zulay 18.6 H, Plt Count 169, MPV 10.4, Immature Gran % (Auto) 3.100 H, Neut % (Auto) 69.9, Lymph % (Auto) 15.3 L, [place] % (Auto) 10.7 H, Eos % (Auto) 0.3, Baso % (Auto) 0.7, Absolute Neuts (auto) 9.3 H, Absolute Lymphs (auto) 2.05, Nucleated RBC % 0.4 04/11/20 06:32: PT 60.6 H, INR 6.9 H* 04/11/20 06:32: Total Bilirubin Pending, Direct Bilirubin Pending, AST Pending, ALT Pending, Alkaline Phosphatase Pending, Total Protein Pending, Albumin Pending Current Medications Pantoprazole Sodium 40 mg/ (Sodium Chloride) 110 mls @ 330 mls/hr IV Q12 CAROL Sodium Chloride () 250 mls @ 15 mls/hr IV .[id number] PRN PRN Reason: Saline Flush Sodium Chloride () 250 mls @ 15 mls/hr IV .[id number] PRN PRN Reason: Additional IVPB Infusion Influenza Virus Vaccine Quadrival (Influenza Vaccine (6mos+)/Pf 0.5 Ml Syringe) 0.5 ml IM .ONCE ONE Stop: 04/11/20 10:01 Morphine Sulfate (Morphine 2 Mg/Ml Syringe) 2 mg IV Q3H PRN PRN PRN Reason: Pain Score 6-10 Ondansetron HCl (Ondansetron 4 Mg/2 Ml Vial) 4 mg IV Q8H PRN PRN PRN Reason: NAUSEA/VOMITING Sodium Chloride (0.9% Saline Lock 10 Ml Syringe) 10 - 40 ml IV UD PRN PRN Reason: SALINE FLUSH Last Admin: 04/11/20 04:07 Dose: 10 ml Documented by: Tramadol HCl (Tramadol 50 Mg Tablet) 50 mg PO TID PRN PRN PRN Reason: Pain Score 6-10 Last Admin: 04/11/20 02:15 Dose: 50 mg Documented by: Assessment/Plan All Active Problems GI bleed (Acute) Supratherapeutic INR (Acute) 65-year-old male with upper GI bleed and melena 1. The patient had a supratherapeutic INR in the emergency room yesterday. It is down to 6.9 today after some plasma. I recommend continuing to get the INR normalized. I will perform an EGD once the INR returns to normal. This will likely not be tomorrow so I will give him clear liquids today and make him n.p.o. after midnight. Plan for EGD tomorrow. Continue to monitor hemoglobin and transfuse as needed. Continue PPI. 2. I explained endoscopy in detail to the patient. I explained the risks including but not limited to stroke or heart attack with anesthesia, perforation of the GI tract, bleeding, infection. I explained that any of these could necessitate further emergency surgery. The patient understands and all questions were answered sufficiently. The patient wishes to proceed with p rocedure. William Gonzalez MD Pager: [facility] [address] [place] [address], [address] [place] [address] Office:
--- NOTE | 2020-04-11 07:21 | NURSING ---
Pt states he takes a white powder stool softener; unsure of the name.
[2020-04-11 08:03] LABS: AST(SGOT) 21 U/L (15-37); Alanine Aminotransfer ALT/SGPT 25 U/L (16-61); Albumin, Serum 2.9 g/dL (3.2-5.0); Alkaline Phosphatase 119 U/L (45-117); Bilirubin, Direct 0.57 mg/dL (0.00-0.30); Globulin 2.7 g/dL (2.2-4.2); Protein, Total 5.6 g/dL (6.4-8.2)
--- NOTE | 2020-04-11 12:32 | NURSING ---
RNCM initial assessment: Patient admitted for Acute GIB, subtherapeutic INR. Insurance: [facility] A/B, [facility] [id number] and [id number]- Called patient bedside in attempt to complete initial assessment. No answer. Called patient listed cell phone both times with no answer- no VM left. Patient NOK (Significant other Perez Echeverria cell number the same as patient's cell number listed). RNCM will continue to follow for initial assessment completion and care coordination needs. ROSANGELA Hdez
[2020-04-11 13:16] LABS: Bedside Glucose 342 mg/dL (70-110)
--- NOTE | 2020-04-11 14:00 | PN_ITS ---
Patient Problems: Active and Suspected Problems GI bleed (Acute) Supratherapeutic INR (Acute) Subjective: Patient seen and examined. He was admitted with a complaint of dizziness and dark stools. He was found to be anemic and also found to have supratherapeutic INR with INR more than 19.5. He received vitamin K and FFP's; General surgery consulted. Feels better today he states his dizziness has gotten better. He denies any abdominal pain, lightheadedness, palpitations, nausea vomiting. Patient states that he started taking some [id number] pain meds which he thinks may have been ibuprofen or something similar for arthritis. On admission, hemoglobin was 7.67.8 this morning. Review of systems otherwise negative. Vitals/I&O's: Vital Signs Temp Pulse Resp BP Pulse Ox 97.5 F L 66 18 158/72 H 98 04/11/20 10:40 04/11/20 10:40 04/11/20 10:40 04/11/20 10:40 04/11/20 10:40 Oxygen Delivery Method Room Air Weight: 287 lb 7.724 oz Body Mass Index (BMI) 35.9 Finger Stick Blood Glucose 184 Intake and Output for Last 24 Hours 04/09/20 04/10/20 04/11/20 23:59 23:59 23:59 Intake Total 110 / 110 1100 / 1100 Output Total 100 / 100 Balance 110 / 110 1000 / 1000 General: Alert, Oriented x3, Cooperative, No apparent distress HEENT: Atraumatic, PERRLA, EOMI, Normocephalic Oral: Dry Mucosa Neck: Supple, No JVD, Negative Carotid Bruits Lungs: Clear to auscultation, Normal air movement, No rhonchi, No wheeze, No rales Cardiovascular: Regular rate, Regular Rhythm, Normal S1, Normal S2, No murmurs Abdomen: Bowel Sounds Present, Soft, Non Tender Extremities: No clubbing, No cyanosis, No edema, Capillary Refill Less than 3 Seconds Skin: No rashes, No breakdown Musculoskeletal: No Tenderness to Palpation of Joints or Extremities Lymphatic: No Cervical, Supraclavicular, or Inguinal Adenopathy Neurological: Cranial nerves II-XII grossly intact, Neuro grossly intact, Motor Exam 5/5 strength throughout Psych/Mental Status: Normal Affect, Appropriate, Alert and oriented to time, place, person, mood and affect Microbiology Past 72 Hours 04/10/20 20:20 Mucosa - Nose SARS-CoV-2 Antigen (Rapid) - Final 04/10/20 20:10 Stool Stool Occult Blood (MADDIE) - Final Occult Blood Positive Laboratory Results 04/10/20 20:10: WBC 13.0 H, RBC 2.58 L, Hgb 7.6 L, Hct 24.7 L, MCV 95.7 H, MCH 29.5, MCHC 30.8 L, RDW Std Deviation 60.6 H, RDW Coeff of Zulay 18.3 H, Plt Count 192, MPV 10.5, Immature Gran % (Auto) 3.600 H, Neut % (Auto) 68.7, Lymph % (Auto) 15.7 L, [place] % (Auto) 10.6 H, Eos % (Auto) 0.8, Baso % (Auto) 0.6, Absolute Neuts (auto) 8.9 H, Absolute Lymphs (auto) 2.05, Nucleated RBC % 0.4 04/10/20 20:10: PT > 120.0 H, INR > 19.5 H* 04/10/20 20:10: Sodium 138, Potassium 4.5, Chloride 108 H, Carbon Dioxide 22.0, Anion Gap 8, BUN 54 H, Creatinine 1.67 H, Estim Creat Clear Calc 52.00, Est GFR (MDRD) Af Amer 53 L, Est GFR (MDRD) Non-Af 44 L, BUN/Creatinine Ratio 32.3 H, Glucose 316 H, Calcium 7.9 L, Troponin I 0.051 H 04/10/20 20:10: Blood Type A NEGATIVE, Antibody Screen NEGATIVE, Crossmatch See Detail 04/10/20 22:25: PT > 120.0 H, INR > 19.5 H* 04/11/20 03:00: Hgb 8.0 L, Hct 26.4 L 04/11/20 06:32: Sodium 135 L, Potassium 4.6, Chloride 106, Carbon Dioxide 22.0, Anion Gap 7, BUN 62 H, Creatinine 1.79 H, Estim Creat Clear Calc 48.52, Est GFR (MDRD) Af Amer 49 L, Est GFR (MDRD) Non-Af 41 L, BUN/Creatinine Ratio 34.6 H, Glucose 326 H, Calcium 7.7 L 04/11/20 06:32: WBC 13.4 H, RBC 2.62 L, Hgb 7.8 L, Hct 25.2 L, MCV 96.2 H, MCH 29.8, MCHC 31.0 L, RDW Std Deviation 62.4 H, RDW Coeff of Zulay 18.6 H, Plt Count 169, MPV 10.4, Immature Gran % (Auto) 3.100 H, Neut % (Auto) 69.9, Lymph % (Auto) 15.3 L, [place] % (Auto) 10.7 H, Eos % (Auto) 0.3, Baso % (Auto) 0.7, Absolute Neuts (auto) 9.3 H, Absolute Lymphs (auto) 2.05, Nucleated RBC % 0.4 04/11/20 06:32: PT 60.6 H, INR 6.9 H* 04/11/20 06:32: Total Bilirubin 3.20 H, Direct Bilirubin 0.57 H, AST 21, ALT 25, Alkaline Phosphatase 119 H, Total Protein 5.6 L, Albumin 2.9 L, Globulin 2.7 04/11/20 12:30: POC Glucose 342 H Current Medications Pantoprazole Sodium 40 mg/ (Sodium Chloride) 110 mls @ 330 mls/hr IV Q12 CAROL Last Infusion: 04/11/20 11:22 Dose: Infused Documented by: Sodium Chloride () 250 mls @ 15 mls/hr IV .[id number] PRN PRN Reason: Saline Flush Sodium Chloride () 250 mls @ 15 mls/hr IV .[id number] PRN PRN Reason: Additional IVPB Infusion Morphine Sulfate (Morphine 2 Mg/Ml Syringe) 2 mg IV Q3H PRN PRN PRN Reason: Pain Score 6-10 Ondansetron HCl (Ondansetron 4 Mg/2 Ml Vial) 4 mg IV Q8H PRN PRN PRN Reason: NAUSEA/VOMITING Sodium Chloride (0.9% Saline Lock 10 Ml Syringe) 10 - 40 ml IV UD PRN PRN Reason: SALINE FLUSH Last Admin: 04/11/20 04:07 Dose: 10 ml Documented by: Tramadol HCl (Tramadol 50 Mg Tablet) 50 mg PO TID PRN PRN PRN Reason: Pain Score 6-10 Last Admin: 04/11/20 02:15 Dose: 50 mg Documented by: STROKE Vital Signs/Narrative: Vital Signs Temp Pulse Resp BP Pulse Ox 04/11/20 10:40 97.5 F L 66 18 158/72 H 98 04/11/20 10:27 97.4 F L 70 18 142/88 H 98 Medical Necessity - Tobacco Use Smoking Status: Never smoker Assessment/Plan All Active Problems GI bleed (Acute) Supratherapeutic INR (Acute) # Acute Gi bleed * Hb today is 7.8. * on IV protonix 40mg bid * general surgery on board; for EGD tomorrow * coumadin and aspirin on hold * INR was also supratherapeutic at >19.5, and is now down to 6.9; received vitamin K and FFPs. Recheck INR * # Supratherapeutic INR: as above #Afib * coumadin on hold. #Indeterminate troponin: initial troponin was 0.051. Opponent was not cycled. We will cycle troponin to see if there is any upward trend. #Hypertension: on ramipril. #Hyperlipidemia: on statin #CAD s/p stents: aspirin and imdur on hold. #Type 2 diabetes mellitus: on lantus 45units bid. hold for now. ISS. ACCuchecks ACHS #CKD 3: Cr is 1.79. Baseluine iS ~ 1.5 from November 2018. DVT prophylaxis: Not indicated as INR supratherapeutic GI prophylaxis: On PPI Inpatient E&M: 89730 Subs Hosp L3
[2020-04-11 15:35] LABS: International Normalized Ratio 3.3; Prothrombin Time (Protime)PT. 33.3 SECONDS (11.7-14.9)
[2020-04-11 16:55] LABS: Bedside Glucose 329 mg/dL (70-110)
[2020-04-11 20:17] LABS: Hematocrit 29.3 % (40-54); Hemoglobin 9.2 g/dL (13.0-16.5)
[2020-04-11] MEDS: Phytonadione (Vit K1) 5 MG TABLET 2.5 MG PO (22:38)
[2020-04-11] MEDS: Ramipril 2.5 MG Capsule PO (22:39)
[2020-04-11] MEDS: Isosorbide Mononitrate 60 MG Tablet PO (22:39)
[2020-04-11] MEDS: Atorvastatin Calcium 80 MG Tablet PO (22:39)
[2020-04-11] MEDS: Insulin Lispro 100 UNIT/ML INSULN.PEN SC (22:44)
[2020-04-12] VITALS (20 sets, daily range): BP systolic 122–162; BP diastolic 55–93; PULSE 54–76; RESP 15–18; TEMP 36.4–37.2; O2SAT 96–98; BMI 36.8
[2020-04-12 01:56] LABS: Bedside Glucose 316 mg/dL (70-110)
[2020-04-12 05:38] LABS: Absolute Lymphocyte Count 1.83 X10^3/uL (0.83-4.51); Absolute Neutrophil Count 9.6 X10^3/uL (2.0-7.7); Basophil# 0.08 X10^3/uL; Basophil% 0.6 % (0-1); Eosinophil# 0.14 X10^3/uL; Hematocrit 26.1 % (40-54); Hemoglobin 8.2 g/dL (13.0-16.5); Lymphocyte # 1.83 X10^3/ul (4.0); Lymphocyte % 13.1 % (19-41); Mean Corp Hgb Conc 31.4 g/dL (32-36); Mean Corpuscular Hgb 29.9 pg (27.0-32.0); Mean Corpuscular Volume 95.3 fL (80-94); Mean Platelet Vol. 10.6 fl (6.2-12.0); Monocyte# 1.62 X10^3/uL; Monocyte% 11.6 % (0-10); NRBC Flagged by Analyzer 0.5 % (0-5); Neutrophil # 9.64 X10^3/uL (2.7-7.7); Neutrophil % 69.1 % (47-70); POSITIVE DIFFERENTIAL YES; Platelet Count 168 K/mm3 (150-450); RBC Distribution Width CV 18.9 % (11.6-14.6); RBC Distribution Width SD 61.8 fl (35.1-43.9); Red Blood Count 2.74 M/mm3 (4.6-6.2)
[2020-04-12 05:49] LABS: Partial Thromboplast Time 47.9 Seconds (24.1-36.2)
[2020-04-12 05:50] LABS: Differential Indicated SCAN CRITERIA MET
[2020-04-12 06:13] LABS: AST(SGOT) 53 U/L (15-37); Alanine Aminotransfer ALT/SGPT 53 U/L (16-61); Albumin, Serum 2.9 g/dL (3.2-5.0); Alkaline Phosphatase 110 U/L (45-117); Anion Gap 7 (5-15); BUN 60 mg/dL (7-18); BUN/Creat Ratio 32.3 RATIO (10-20); Calcium,Total 7.5 mg/dL (8.5-10.1); Chloride 101 mmol/L (98-107); Creatinine, Serum 1.86 mg/dL (0.70-1.30); EST Glomerular Filtration Rate 39 mL/min (>60); Est Glom Filt Rate - Afr Amer 47 mL/min (>60); Estimated Creatinine Clearance 46.69 ml/min; Globulin 2.8 g/dL (2.2-4.2); Glucose 281 mg/dL (74-106); Potassium 4.1 mmol/L (3.5-5.1); Protein, Total 5.7 g/dL (6.4-8.2); Sodium Level 133 mmol/L (136-145)
[2020-04-12 07:00] LABS: Bedside Glucose 276 mg/dL (70-110)
--- NOTE | 2020-04-12 07:33 | ECHOCS_ITS ---
Reason For Study: DYSPNEA/SOB Procedure This was a 2D Doppler, Color Flow transthoracic echocardiogram. Exam performed portable in patient room. Left Ventricle Normal LV size. The estimated ejection fraction is 45 %. There is mild global hypokinesis of the left ventricle. Right Ventricle Normal RV size. Normal systolic function. Atria The left atrium is moderately enlarged. The right atrium is mildly enlarged. Mitral Valve Normal mitral valve. Tricuspid Valve Normal tricuspid valve. Mild (1+) tricuspid valve insufficiency. Pulmonary artery systolic pressure is 34 mmHg. Aortic Valve Trisinus/trileaflet aortic valve. Mild focal aortic valve calcification. Pulmonic Valve Normal pulmonic valve. Great Vessels Normal aortic root. The pulmonary artery is normal size. Normal inferior vena cava. Pericardium/Pleural No pericardial effusion. Medication Diluted definity 3ml given slow IV push to enhance endocardial definition. MMode/2D Measurements & Calculations LVIDd: 5.1 cm IVSd: 1.1 cm Ao root diam: 3.4 cm LVIDs: 3.9 cm LVPWd: 1.3 cm FS: 23.3 % LAV(MOD-bp): 85.5 ml LVAd ap4: 34.5 cm2 SV(MOD-sp4): 52.5 ml LAV(MOD-bp) Indexed: 33.1 ml/m2 EDV(MOD-sp4): 121.7 ml LAV(MOD-sp2): 79.3 ml EDV(sp4-el): 126.6 ml LAV(MOD-sp4): 87.7 ml LVAs ap4: 25.0 cm2 ESV(MOD-sp4): 69.2 ml ESV(sp4-el): 71.7 ml EF(MOD-sp4): 43.2 % EF(sp4-el): 43.3 % SV(sp4-el): 54.9 ml LA A4 area: 27.1 cm2 LA dimension(2D): 5.8 cm RA A4 area: 22.8 cm2 Doppler Measurements & Calculations MV E max bernadine: 142.2 cm/sec Ao V2 max: 129.5 cm/sec LV V1 max: 90.4 cm/sec Ao max P.8 mmHg LV V1 max P.3 mmHg PA V2 max: 84.4 cm/sec TR max bernadine: 275.2 cm/sec TR max P.3 mmHg Interpretation Summary Normal LV size. The estimated ejection fraction is 45 %. The left atrium is moderately enlarged. Pulmonary artery systolic pressure is 34 mmHg. Contrast injection was performed. Compared to prior study, there is no significant change. Ordering Physician: Lakia Zeng Referring Physician: Saleem Rodriguez Performed By: Alecia Bearden RDCS
[2020-04-12] MEDS: 0.9% Saline Lock 10 ML Syringe IV ×2 (10:20→15:37)
[2020-04-12 10:48] LABS: Hemoglobin A1c 6.2 % (3.8-5.6)
[2020-04-12 11:06] LABS: Bedside Glucose 265 mg/dL (70-110)
[2020-04-12] MEDS: Lactated Ringers 1,000 ML 100 ML IV (11:31)
--- NOTE | 2020-04-12 12:07 | PN.SURG_ITS ---
Patient Problems: Active and Suspected Problems GI bleed (Acute) Supratherapeutic INR (Acute) Subjective: Patient reported no bloody bowel movements overnight or no abdominal pain. - Physical Exam Vitals/I&O's: Vital Signs Temp Pulse Resp BP Pulse Ox 97.5 F L 69 18 156/77 H 98 04/12/20 10:15 04/12/20 10:15 04/12/20 10:15 04/12/20 10:15 04/12/20 10:20 Oxygen Delivery Method Room Air Weight: 294 lb 15.656 oz Body Mass Index (BMI) 36.8 Finger Stick Blood Glucose 184 Intake and Output for Last 24 Hours 04/10/20 04/11/20 04/12/20 23:59 23:59 23:59 Intake Total 110 / 110 1810 / 1810 130 / 130 Output Total 425 / 425 1200 / 1200 Balance 110 / 110 1385 / 1385 -1070 / -1070 General: Alert, Oriented x3 Cardiovascular: Regular rate Abdomen: Bowel Sounds Present, Soft, Non Tender, Non-Distended Microbiology Past 72 Hours 04/10/20 20:20 Mucosa - Nose SARS-CoV-2 Antigen (Rapid) - Final 04/10/20 20:10 Stool Stool Occult Blood (MADDIE) - Final Occult Blood Positive Laboratory Results 04/10/20 20:10: Blood Type A NEGATIVE, Antibody Screen NEGATIVE, Crossmatch See Detail 04/11/20 12:30: POC Glucose 342 H 04/11/20 14:28: Troponin I 0.174 H 04/11/20 14:58: PT 33.3 H, INR 3.3 04/11/20 16:34: POC Glucose 329 H 04/11/20 17:28: Troponin I 0.216 H 04/11/20 20:06: Hgb 9.2 L, Hct 29.3 L 04/11/20 20:06: Troponin I 0.268 H 04/11/20 22:42: POC Glucose 316 H 04/12/20 00:40: Troponin I 0.383 H 04/12/20 05:10: PT 31.0 H, INR 3.0, APTT 47.9 H 04/12/20 05:10: WBC 14.0 H, RBC 2.74 L, Hgb 8.2 L, Hct 26.1 L, MCV 95.3 H, MCH 29.9, MCHC 31.4 L, RDW Std Deviation 61.8 H, RDW Coeff of Zulay 18.9 H, Plt Count 168, MPV 10.6, Immature Gran % (Auto) 4.600 H, Neut % (Auto) 69.1, Lymph % (Auto) 13.1 L, [place] % (Auto) 11.6 H, Eos % (Auto) 1.0, Baso % (Auto) 0.6, Absolute Neuts (auto) 9.6 H, Absolute Lymphs (auto) 1.83, Nucleated RBC % 0.5, Diff Path Review September04/12/20 05:10: Hemoglobin A1c 6.2 H 04/12/20 05:10: Sodium 133 L, Potassium 4.1, Chloride 101, Carbon Dioxide 25.0, Anion Gap 7, BUN 60 H, Creatinine 1.86 H, Estim Creat Clear Calc 46.69, Est GFR (MDRD) Af Amer 47 L, Est GFR (MDRD) Non-Af 39 L, BUN/Creatinine Ratio 32.3 H, Glucose 281 H, Calcium 7.5 L, Total Bilirubin 4.50 H, Direct Bilirubin 0.90 H, AST 53 H, ALT 53, Alkaline Phosphatase 110, Troponin I 0.428 H, Total Protein 5.7 L, Albumin 2.9 L, Globulin 2.8 04/12/20 06:55: POC Glucose 276 H 04/12/20 09:49: Troponin I 0.443 H 04/12/20 11:01: POC Glucose 265 H Current Medications Atorvastatin Calcium (Atorvastatin Calcium 80 Mg Tablet) 80 mg PO QHS [facility] Last Admin: 04/11/20 22:39 Dose: 80 mg Documented by: Furosemide (Furosemide 40 Mg Tablet) 40 mg PO DAILY PRN PRN Reason: edema Pantoprazole Sodium 40 mg/ (Sodium Chloride) 110 mls @ 330 mls/hr IV Q12 [facility] Last Infusion: 04/12/20 10:45 Dose: Infused Documented by: Sodium Chloride () 250 mls @ 15 mls/hr IV .[id number] PRN PRN Reason: Saline Flush Sodium Chloride () 250 mls @ 15 mls/hr IV .[id number] PRN PRN Reason: Additional IVPB Infusion Lactated Ringer's () 1,000 mls @ 100 mls/hr IV .Q10H [facility] Last Admin: 04/12/20 11:31 Dose: 100 mls/hr Documented by: Insulin Glargine (Insulin Glargine 100 Units/Ml Pen) 45 units SC BID [facility] Last Admin: 04/11/20 22:44 Dose: 45 u Documented by: Insulin Human Lispro (Insulin Lispro 100 Unit/Ml Insuln.Pen) 0 unit SC ACHS [facility]; Protocol Last Admin: 04/12/20 00:02 Dose: Not Given Documented by: Isosorbide Mononitrate (Isosorbide Mononitrate 60 Mg Tablet) 60 mg PO BID [facility] Last Admin: 04/11/20 22:39 Dose: 60 mg Documented by: Morphine Sulfate (Morphine 2 Mg/Ml Syringe) 2 mg IV Q3H PRN PRN PRN Reason: Pain Score 6-10 Ondansetron HCl (Ondansetron 4 Mg/2 Ml Vial) 4 mg IV Q8H PRN PRN PRN Reason: NAUSEA/VOMITING Ramipril (Ramipril 2.5 Mg Capsule) 2.5 mg PO BID [facility] Last Admin: 04/11/20 22:39 Dose: 2.5 mg Documented by: Sodium Chloride (0.9% Saline Lock 10 Ml Syringe) 10 - 40 ml IV UD PRN PRN Reason: SALINE FLUSH Last Admin: 04/12/20 10:20 Dose: 10 ml Documented by: Tramadol HCl (Tramadol 50 Mg Tablet) 50 mg PO TID PRN PRN PRN Reason: Pain Score 6-10 Last Admin: 04/11/20 22:38 Dose: 50 mg Documented by: Medical Necessity - Tobacco Use Smoking Status: Never smoker Assessment/Plan All Active Problems GI bleed (Acute) Supratherapeutic INR (Acute) 65-year-old male with upper GI bleed 1. The patient's hemoglobin did decrease a small amount, the patient reports no bloody bowel movements or abdominal pain. I had planned on performing EGD today but anesthesia is concerned for his slightly elevating troponins. The patient is going to receive blood and we will reattempt EGD tomorrow. The patient may have clear liquids and remain n.p.o. after midnight. The plan was discussed with primary service as well as anesthesia. William Gonzalez MD Pager: [facility] [address] [place] [address], [facility] [address] [place] [address] Office:
[2020-04-12] MEDS: Isosorbide Mononitrate 60 MG Tablet PO ×2 (12:28→21:07)
[2020-04-12] MEDS: Ramipril 2.5 MG Capsule PO ×2 (12:28→21:06)
[2020-04-12] MEDS: Insulin Lispro 100 UNIT/ML INSULN.PEN SC ×2 (12:28→16:36)
[2020-04-12 12:30] LABS: Bedside Glucose 270 mg/dL (70-110)
--- NOTE | 2020-04-12 13:06 | PN_ITS ---
Patient Problems: Active and Suspected Problems GI bleed (Acute) Supratherapeutic INR (Acute) Subjective: Patient seen and examined. He had no complaints this morning. He denied any chest pain, palpitations, dizziness, nausea vomiting or diarrhea. Review of symptoms otherwise negative. He has remained hemodynamically stable. Plan was for him to have EGD today; however, anesthesia wants to postpone EGD till tomorrow o/a of patient's troponins, for patient to be transfused with blood, as anesthesia was concerned about further stressing patient's heart during the EGD. He has remained hemodynamically stable. Vitals/I&O's: Vital Signs Temp Pulse Resp BP Pulse Ox 97.7 F L 65 18 137/88 H 97 04/12/20 12:25 04/12/20 12:25 04/12/20 12:25 04/12/20 12:25 04/12/20 12:25 Oxygen Delivery Method Room Air Weight: 294 lb 15.656 oz Body Mass Index (BMI) 36.8 Finger Stick Blood Glucose 184 Intake and Output for Last 24 Hours 04/10/20 04/11/20 04/12/20 23:59 23:59 23:59 Intake Total 110 / 110 1810 / 1810 130 / 130 Output Total 425 / 425 1200 / 1200 Balance 110 / 110 1385 / 1385 -1070 / -1070 General: Alert, Oriented x3, Cooperative, No apparent distress HEENT: Atraumatic, PERRLA, EOMI, Normocephalic Oral: Dry Mucosa Neck: Supple, No JVD, Negative Carotid Bruits Lungs: Clear to auscultation, Normal air movement, No rhonchi, No wheeze, No rales Cardiovascular: Regular rate, Regular Rhythm, Normal S1, Normal S2, No murmurs Abdomen: Bowel Sounds Present, Soft, Non Tender Extremities: No clubbing, No cyanosis, No edema, Capillary Refill Less than 3 Seconds Skin: No rashes, No breakdown Musculoskeletal: No Tenderness to Palpation of Joints or Extremities Lymphatic: No Cervical, Supraclavicular, or Inguinal Adenopathy Neurological: Cranial nerves II-XII grossly intact, Neuro grossly intact, Motor Exam 5/5 strength throughout Psych/Mental Status: Normal Affect, Appropriate, Alert and oriented to time, place, person, mood and affect Microbiology Past 72 Hours 04/10/20 20:20 Mucosa - Nose SARS-CoV-2 Antigen (Rapid) - Final 04/10/20 20:10 Stool Stool Occult Blood (MADDIE) - Final Occult Blood Positive Laboratory Results 04/10/20 20:10: Blood Type A NEGATIVE, Antibody Screen NEGATIVE, Crossmatch See Detail 04/10/20 20:10: Crossmatch See Detail 04/11/20 12:30: POC Glucose 342 H 04/11/20 14:28: Troponin I 0.174 H 04/11/20 14:58: PT 33.3 H, INR 3.3 04/11/20 16:34: POC Glucose 329 H 04/11/20 17:28: Troponin I 0.216 H 04/11/20 20:06: Hgb 9.2 L, Hct 29.3 L 04/11/20 20:06: Troponin I 0.268 H 04/11/20 22:42: POC Glucose 316 H 04/12/20 00:40: Troponin I 0.383 H 04/12/20 05:10: PT 31.0 H, INR 3.0, APTT 47.9 H 04/12/20 05:10: WBC 14.0 H, RBC 2.74 L, Hgb 8.2 L, Hct 26.1 L, MCV 95.3 H, MCH 29.9, MCHC 31.4 L, RDW Std Deviation 61.8 H, RDW Coeff of Zulay 18.9 H, Plt Count 168, MPV 10.6, Immature Gran % (Auto) 4.600 H, Neut % (Auto) 69.1, Lymph % (Auto) 13.1 L, [place] % (Auto) 11.6 H, Eos % (Auto) 1.0, Baso % (Auto) 0.6, Absolute Neuts (auto) 9.6 H, Absolute Lymphs (auto) 1.83, Nucleated RBC % 0.5, Diff Path Review September04/12/20 05:10: Hemoglobin A1c 6.2 H 04/12/20 05:10: Sodium 133 L, Potassium 4.1, Chloride 101, Carbon Dioxide 25.0, Anion Gap 7, BUN 60 H, Creatinine 1.86 H, Estim Creat Clear Calc 46.69, Est GFR (MDRD) Af Amer 47 L, Est GFR (MDRD) Non-Af 39 L, BUN/Creatinine Ratio 32.3 H, Glucose 281 H, Calcium 7.5 L, Total Bilirubin 4.50 H, Direct Bilirubin 0.90 H, AST 53 H, ALT 53, Alkaline Phosphatase 110, Troponin I 0.428 H, Total Protein 5.7 L, Albumin 2.9 L, Globulin 2.8 04/12/20 06:55: POC Glucose 276 H 04/12/20 09:49: Troponin I 0.443 H 04/12/20 11:01: POC Glucose 265 H 04/12/20 12:23: POC Glucose 270 H Current Medications Atorvastatin Calcium (Atorvastatin Calcium 80 Mg Tablet) 80 mg PO QHS [facility] Last Admin: 04/11/20 22:39 Dose: 80 mg Documented by: Furosemide (Furosemide 40 Mg Tablet) 40 mg PO DAILY PRN PRN Reason: edema Pantoprazole Sodium 40 mg/ (Sodium Chloride) 110 mls @ 330 mls/hr IV Q12 [facility] Last Infusion: 04/12/20 10:45 Dose: Infused Documented by: Sodium Chloride () 250 mls @ 15 mls/hr IV .[id number] PRN PRN Reason: Saline Flush Sodium Chloride () 250 mls @ 15 mls/hr IV .[id number] PRN PRN Reason: Additional IVPB Infusion Lactated Ringer's () 1,000 mls @ 100 mls/hr IV .Q10H [facility] Last Admin: 04/12/20 11:31 Dose: 100 mls/hr Documented by: Insulin Glargine (Insulin Glargine 100 Units/Ml Pen) 45 units SC BID [facility] Last Admin: 04/12/20 10:00 Dose: Not Given Documented by: Insulin Human Lispro (Insulin Lispro 100 Unit/Ml Insuln.Pen) 0 unit SC [facility]; Protocol Last Admin: 04/12/20 12:28 Dose: 4 u Documented by: Isosorbide Mononitrate (Isosorbide Mononitrate 60 Mg Tablet) 60 mg PO BID [facility] Last Admin: 04/12/20 12:28 Dose: 60 mg Documented by: Morphine Sulfate (Morphine 2 Mg/Ml Syringe) 2 mg IV Q3H PRN PRN PRN Reason: Pain Score 6-10 Ondansetron HCl (Ondansetron 4 Mg/2 Ml Vial) 4 mg IV Q8H PRN PRN PRN Reason: NAUSEA/VOMITING Ramipril (Ramipril 2.5 Mg Capsule) 2.5 mg PO BID [facility] Last Admin: 04/12/20 12:28 Dose: 2.5 mg Documented by: Sodium Chloride (0.9% Saline Lock 10 Ml Syringe) 10 - 40 ml IV UD PRN PRN Reason: SALINE FLUSH Last Admin: 04/12/20 10:20 Dose: 10 ml Documented by: Tramadol HCl (Tramadol 50 Mg Tablet) 50 mg PO TID PRN PRN PRN Reason: Pain Score 6-10 Last Admin: 04/11/20 22:38 Dose: 50 mg Documented by: STROKE Vital Signs/Narrative: Vital Signs Temp Pulse Resp BP Pulse Ox 04/12/20 12:25 97.7 F L 65 18 137/88 H 97 04/12/20 10:20 98 04/12/20 10:15 97.5 F L 69 18 156/77 H 98 Medical Necessity - Tobacco Use Smoking Status: Never smoker Assessment/Plan All Active Problems GI bleed (Acute) Supratherapeutic INR (Acute) # Acute Gi bleed * Hb today is 8.2 * on IV protonix 40mg bid * general surgery on board; for EGD tomorrow * coumadin and aspirin on hold * INR today is 3 * EGD cancelled for today so patient can be transfused with PRBC, per anesthesia. * keep NPO past midnight, for EGD tomorrow * # Supratherapeutic INR: as above. INR today is 3 #Afib * coumadin on hold. rate controlled. #Elevated troponin * troponins trended up from 0.051 on admission and trended upwards to a peak of 0.443 * 2D echo showed EF of 45% with mild global hypokinesis of the left ventricle and moderately enlarged left atrium with mildly enlarged right atrium and RVSP of 34 mmHg. * likely a type 2 event due to ischemia from anemia * will consult cardiology #Hypertension: on ramipril. #Hyperlipidemia: on statin #CAD s/p stents: aspirin and imdur on hold. #Type 2 diabetes mellitus: on lantus 45units bid. hold for now. ISS. ACCuchecks ACHS #CKD 3: Cr is 1.86 today. Baseline is ~ 1.5 from November 2018. DVT prophylaxis: INR is 3 GI prophylaxis: On PPI Inpatient E&M: 15825 Subs Hosp L2
--- NOTE | 2020-04-12 13:15 | CASEMGMT ---
RN LAURA PRIMARY CLINICIAN CM to room to meet with patient for initial transition planning/care coordination assessment. JO-ANN SANCHEZ introduced self and role at [facility]. Pt voices understanding and consents to assessment at this time. Pt resting in bed in no distress at this time. Pt is A/O at this time and answers all questions appropriately. Care providers, pharmacy, and demographics verified/updated at this time. [facility] [place] Pt would like to get established w/new PCP locally (not through [facility]). He was provided with list of local PCP's. Specialists: Sees several specialists @ [facility] Preferred Pharmacy: [facility] for short-term prescriptions. VA for long-term Insurance: [facility], [place] benefits. Discussed option to transfer to [facility]. Pt wishes to remain @ [facility] and declines to tranfer. Declination to transfer form reviewed w/pt, pt signed form, copy made and placed on chart and original given to pt. Prescription Benefit: [facility] only Living Will/HPOA: does not have LW or HCPOA . Interested in more information but does not want to talk with SW at this time to complete paperwork. Provided information on advanced directives and given Social Service rac card with number to call if chooses in the future to utilize [facility] social work for advanced directive completion. Educated patient that, if patient so chooses, can come back to [facility] and meet with a SW as an outpatient to complete health care advanced directives. Patient expresses understanding. LNOK: Sig other, Perez. Daughter, Joy Phan. Brother, Tolu Phan. Living Arrangements: Lives w/Perez, in a lower level apartment w/ramp entrance. Independent with ADL's and manages his own medications and appts. Perez does all home mgmt tasks. They do grocery shopping together. Transportation: Pt does not drive at this time d/t cataract surgery. Perez provides transportation. DME: has the following DME: Hospital bed, lift chair, electric scooter, rollator, quad cane, CPAP, shower chair, glucometer. HHC/SNF: Hx HHC in the past but does not remember name of agency. No hx of SNF. Pt wishes to return home and has no concerns with going home at time of discharge. He denies need for HHC. Pt made aware, if in the future, he would like HHC or therapy, to discuss this with his PCP or [facility]. He voices understanding. Pt states he and Perez just got a new cell phone and that Perez does not know how to use it well or how to retrieve messages. Pt asks for JO-ANN SANCHEZ to call their friend, Danya Roach, who is also the traveling secretary of the sabian[employer] they go to and who lives nearby, to ask her to contact Perez to give her his phone number to his room so she can call him when she is available/able to. Pt also asks this RN LAURA to inform Danya that his procedure has been postponed until tomorrow. JO-ANN SANCHEZ offered to pt to place the call for him from his room so he can talk to Danya but he states he is too tired at this time. He did agree to have RN LAURA place the call to Perez at this time so he could talk to her briefly, but there was no answer. JO-ANN SANCHEZ spoke with Danya per pt's request and she was notified of the above. Danya provided w/direct phone number to pt's room. She states she will talk to Perez and give her this information. Pt voices no further concerns/needs at this time. Advised pt to ask for CM if any further questions/concerns/needs arise. Voices understanding. PLAN: Home w/signif otherPerez, and discharge plans in place. Kulwant MANRIQUE RN, CM
[2020-04-12 13:51] LABS: Pathologist Review Reviewed
--- NOTE | 2020-04-12 16:01 | CHAPLAIN ---
Type of Pastoral Visit _x__ Initial Visit ___ Follow-up Visit ___ On-call Visit ___ General Patient Visit ___ Spiritual Assessment ___ Family Conference ___ Bereavement ___ Rapid Response ___ Code Blue ___ Other (describe below) Pastoral Care Referral From _x__ Patient ___ Family ___ Nurse ___ Physician ___ Concrete Puddler ___ Cut Out Operator ___ Other (describe below) Sacrament/Intervention _x__ Active listening ___ Anointing ___ Yazidi ___ Bereavement ___ Communion ___ Ana María exploration ___ _x__ Life review _x__ Prayer ___ Reconciliation ___ Sacrament of Sick _x__ Supportive presence ___ Wedding ___ Other (describe below) Pastoral Comments
[2020-04-12 16:45] LABS: Bedside Glucose 275 mg/dL (70-110)
--- NOTE | 2020-04-12 17:19 | CON.PCM_ITS ---
Reason for Consult Date of Consultation: 04/12/20 Reason for Consultation: Abnormal cardiac enzymes History of Present Illness: The patient is a 65 year old M with an extensive cardiac history noted below who presented to the emergency room with dizziness and generalized weakness. Abdelrahman burnham had apparently been having dark stools. Was noted to be in atrial fibrillation with a controlled ventricular response rate and severely anemic. During the hospitalization cardiac enzymes were noted to be abnormal and cardiology was called for further evaluation and management. His history includes coronary artery disease with severe multivessel disease with occluded saphenous vein grafts, and a patent PALACIO to the LAD with diffuse disease distally. His estimated ejection fraction has been between 40 and 45%. He also has a history of pulmonary hypertension. He has been on anticoagulation for his atrial fibrillation and he was noted to be rather supratherapeutic when he came in. He was also noted to be short of breath. He has had no dizziness or diaphoresis near syncope or syncope. [] Past Medical History Allergies/Adverse Reactions: Allergies perfume Adverse Reaction (Verified 04/10/20 20:03) Shortness of breath Home Medications: Ambulatory Orders Medication Instructions Recorded traMADol [Ultram] 50 mg PO Q4H PRN 07/30/17 Aspirin E.C. [Ecotrin] 81 mg PO DAILY@0800 #30 tab 04/18/18 Insulin Aspart [Novolog Flexpen] 0 units SUBCUT TIDCM PRN 11/10/18 Insulin Glargine,Hum.rec.anlog 45 unit SQ BID 11/10/18 [Lantus Solostar] Ramipril 2.5 mg PO BID 11/10/18 Warfarin [Coumadin] 5 mg PO DAILY 11/10/18 Warfarin [Coumadin] 7.5 mg PO SA 11/10/18 Clopidogrel Bisulfate [Plavix] 75 mg PO DAILY #60 tab 11/14/18 Isosorbide Mononitrate [Imdur] 60 mg PO BID #120 tab 11/14/18 Furosemide [Lasix] 40 mg PO DAILY PRN 04/10/20 Rosuvastatin Calcium [Crestor] 40 mg PO QHS 04/10/20 Past Medical History (Chronic Problems): Chronic Problems Acute systolic (congestive) heart failure (Chronic) Chest pain (Chronic) Elevated troponin (Chronic) Exertional angina (Chronic) Afib (Chronic) Anticoagulant long-term use (Chronic) CKD (chronic kidney disease) stage 3, GFR 30-59 ml/min (Chronic) CAD (coronary artery disease) (Chronic) stents x 2 cabg x 3 PVD (peripheral vascular disease) (Chronic) s/p bypass bilateral Diabetes (Chronic) Hypertension (Chronic) Obesity (BMI 35.0-39.9 without comorbidity) (Chronic) Surgical History: cholecystectomy, coronary bypass surgery Psychiatric History: No pertinent psych hx - *Family History Maternal History Items: - - ESRD, staghorn stone Paternal History Items: No pertinent history Sibling History Items: - - colon cancer in brother, breast cancer is sisters Lives: Spouse/ Significant Other Smoking Status: Never smoker Alcohol: None Drugs: None Review of Systems - Review of Systems General: Reports: Fatigue, Malaise. Denies: Fever, Night Sweats Cardiovascular: Denies: Chest Discomfort, Shortness of Breath, Orthopnea, PND, Peripheral Edema, Palpitations, Lightheadedness, Dizziness, Near Syncope, Syncope Respiratory: Denies: Cough, Sputum Production, Hemoptysis Gastrointestinal: Reports: Melena. Denies: Hematemesis, Hematochezia Genitourinary: Denies: Dysuria, Hematuria Skin: Denies: Rash Neurological: Denies: Dizziness Psychiatric: Denies: Anxiety Hematologic/ Lymphatic: Reports: Anemia Subjectve: Pleasant middle-aged man looking older than his stated age Objective: Vital Signs Temp Pulse Resp BP Pulse Ox 98.4 F 57 L 18 155/55 H 96 04/12/20 15:45 04/12/20 15:45 04/12/20 15:45 04/12/20 15:45 04/12/20 15:45 Oxygen Delivery Method Room Air Weight: 294 lb 15.656 oz Body Mass Index (BMI) 36.8 Finger Stick Blood Glucose 184 Intake and Output for Last 24 Hours 04/10/20 04/11/20 04/12/20 23:59 23:59 23:59 Intake Total 110 / 110 1810 / 1810 130 / 130 Output Total 425 / 425 1200 / 1200 Balance 110 / 110 1385 / 1385 -1070 / -1070 General: Awake, Alert, Oriented x 3 HEENT: PERRL, EOMI, Sclera Non Icteric Neck: Supple, Good ROM, No Lymph Node Enlargement Lungs: Diminished Elijah Bases Cardiovascular: Irregular Rhythm, Normal S1, Normal S2, No Murmurs, No Rubs, No Gallops Vascular: No Carotid Bruits, Normal Femoral Pulses, Normal Radial Pulses, Normal Dorsalis Pedal Pulse, Normal Posterior Tibial Pulses Abdomen: Bowel Sounds Present, Soft, Non Tender, No HSM, No Organomegaly Extremities: No Cyanosis, No Clubbing, Bilateral Edema +1 Skin: No Breakdown Lymphatic: No Lymph Node Enlargement Neurological: No Focal Motor or Sensory Deficit 04/11/20 17:28: Troponin I 0.216 H 04/11/20 20:06: Hgb 9.2 L, Hct 29.3 L 04/11/20 20:06: Troponin I 0.268 H 04/12/20 00:40: Troponin I 0.383 H 04/12/20 05:10: PT 31.0 H, INR 3.0, APTT 47.9 H 04/12/20 05:10: WBC 14.0 H, RBC 2.74 L, Hgb 8.2 L, Hct 26.1 L, MCV 95.3 H, MCH 29.9, MCHC 31.4 L, Plt Count 168, MPV 10.6, Immature Gran % (Auto) 4.600 H, Neut % (Auto) 69.1, Lymph % (Auto) 13.1 L, [place] % (Auto) 11.6 H, Eos % (Auto) 1.0, Baso % (Auto) 0.6, Absolute Neuts (auto) 9.6 H, Nucleated RBC % 0.5 04/12/20 05:10: Hemoglobin A1c 6.2 H 04/12/20 05:10: Sodium 133 L, Potassium 4.1, Chloride 101, Carbon Dioxide 25.0, Anion Gap 7, BUN 60 H, Creatinine 1.86 H, Est GFR (MDRD) Af Amer 47 L, Est GFR (MDRD) Non-Af 39 L, BUN/Creatinine Ratio 32.3 H, Glucose 281 H, Calcium 7.5 L, Total Bilirubin 4.50 H, Direct Bilirubin 0.90 H, Troponin I 0.428 H 04/12/20 09:49: Troponin I 0.443 H Rhythm: EKG: Atrial fibrillation with a controlled ventricular response rate ECHO: Left ventricular systolic dysfunction with apical akinetic zone. Unchanged from previous estimated EF 40 to 45% Stress Test: Cardiac Cath: PCI: CT Surgery: Holter monitor: EPS: PPM: CXR: Chest CT Scan: Assessment/Plan 1. Abnormal cardiac enzymes * Patient has known coronary artery disease as noted above with previously occ luded grafts. At this time the cardiac enzyme pattern suggest likely demand ischemia. His echocardiogram does not demonstrate any significant change from before and therefore I would recommend continued medical management. * Agree with blood transfusion to optimize medical therapy. I do not necessarily see any contraindications with him undergoing an EGD. * 2. Coronary artery disease * Patient has known coronary artery disease status post coronary bypass surgery. He does have renal insufficiency. He was previously evaluated and the decision was to pursue medical therapy. At this juncture I do not think that there are any plans to pursue invasive therapy. * 3. Atrial fibrillation * Patient has atrial fibrillation with a controlled ventricular response rate. He has been on anticoagulation and has been anemic. At this time the Coumadin has been discontinued as patient had a supratherapeutic INR. With appropriate transfusion and evaluation with an EGD we can further assess continued use of anticoagulation. * * 4. Hypertension * Blood pressure appears to be under good control at this particular time I would not recommend we make any changes. * Thank you for allowing me to participate in the care of your patient. Please don't hesitate to call if any issues arise.
[2020-04-12] MEDS: Atorvastatin Calcium 80 MG Tablet PO (21:07)
[2020-04-12 21:25] LABS: Bedside Glucose 224 mg/dL (70-110)
[2020-04-13] VITALS (17 sets, daily range): BP systolic 98–154; BP diastolic 46–89; PULSE 57–146; RESP 16–18; TEMP 36.2–36.9; O2SAT 94–98; BMI 36.8
[2020-04-13] MEDS: Ondansetron 4 MG/2 ML Vial IV (01:08)
[2020-04-13] MEDS: 0.9% Saline Lock 10 ML Syringe IV ×3 (01:08→15:33)
[2020-04-13 01:40] LABS: Bedside Glucose 191 mg/dL (70-110)
--- NOTE | 2020-04-13 05:55 | EKG12_ITS ---
Test Reason : AM EKG Blood Pressure : / mmHG Vent. Rate : 063 BPM Atrial Rate : 197 BPM P-R Int : 000 ms QRS Dur : 100 ms QT Int : 434 ms P-R-T Axes : 000 098 185 degrees QTc Int : 444 ms Atrial fibrillation with premature ventricular or aberrantly conducted complexes and with ventricular escape complexes Nonspecific ST and T wave abnormality Abnormal ECG Confirmed by ESTUARDO GARCIA, SALEEM ([id number]), food expeditor TATIANA DU ([id number]) on 04/19/2020 1:38:12 PM Referred By: Saleem Rodriguez Confirmed By:SALEEM MARTE MD
[2020-04-13 06:45] LABS: Bedside Glucose 158 mg/dL (70-110)
[2020-04-13 06:54] LABS: Absolute Lymphocyte Count 1.63 X10^3/uL (0.83-4.51); Absolute Neutrophil Count 9.5 X10^3/uL (2.0-7.7); Basophil# 0.08 X10^3/uL; Basophil% 0.6 % (0-1); Eosinophil# 0.19 X10^3/uL; Eosinophils% 1.4 % (0-5); Hematocrit 29.6 % (40-54); Hemoglobin 9.1 g/dL (13.0-16.5); Lymphocyte # 1.63 X10^3/ul (4.0); Lymphocyte % 12.3 % (19-41); Mean Corp Hgb Conc 30.7 g/dL (32-36); Mean Corpuscular Hgb 29.5 pg (27.0-32.0); Mean Corpuscular Volume 96.1 fL (80-94); Mean Platelet Vol. 10.8 fl (6.2-12.0); Monocyte# 1.45 X10^3/uL; NRBC Flagged by Analyzer 0.4 % (0-5); Neutrophil # 9.47 X10^3/uL (2.7-7.7); Neutrophil % 71.8 % (47-70); Platelet Count 174 K/mm3 (150-450); RBC Distribution Width CV 18.6 % (11.6-14.6); RBC Distribution Width SD 59.4 fl (35.1-43.9); Red Blood Count 3.08 M/mm3 (4.6-6.2); White Blood Count 13.2 K/mm3 (4.4-11.0)
[2020-04-13 07:01] LABS: International Normalized Ratio 2.3; Prothrombin Time (Protime)PT. 24.7 SECONDS (11.7-14.9)
[2020-04-13 07:22] LABS: AST(SGOT) 89 U/L (15-37); Alanine Aminotransfer ALT/SGPT 83 U/L (16-61); Alkaline Phosphatase 118 U/L (45-117); Anion Gap 6 (5-15); BUN 50 mg/dL (7-18); BUN/Creat Ratio 30.5 RATIO (10-20); Bilirubin, Direct 1.44 mg/dL (0.00-0.30); Calcium,Total 7.8 mg/dL (8.5-10.1); Chloride 105 mmol/L (98-107); Creatinine, Serum 1.64 mg/dL (0.70-1.30); EST Glomerular Filtration Rate 45 mL/min (>60); Est Glom Filt Rate - Afr Amer 54 mL/min (>60); Estimated Creatinine Clearance 52.96 ml/min; Globulin 2.8 g/dL (2.2-4.2); Glucose 152 mg/dL (74-106); Magnesium 2.2 mg/dL (1.6-2.6); Potassium 3.6 mmol/L (3.5-5.1); Protein, Total 5.8 g/dL (6.4-8.2); Sodium Level 137 mmol/L (136-145)
--- NOTE | 2020-04-13 09:08 | PCM.PN.BLA ---
Progress Note Performed EGD. no bleeding in stomach or old blood. No ulcers or masses identified. Will start on regular diet and recommend resuming coumadin. If pt can get to theraputic level without bleeding he can be discharged and I will perform outpatient colonoscopy as I feel lower GI bleed was a less likely source and he currently is having no active bleeding. William Gonzalez MD STROKE Vital Signs/Narrative: Vital Signs Temp Pulse Resp BP Pulse Ox 04/13/20 06:46 68 04/13/20 06:35 98.4 F 69 16 142/82 H 96
--- NOTE | 2020-04-13 09:13 | OP.EGD_ITS ---
Patient Name: Chase Phan Procedure Date: 04/13/2020 8:54 AM Date of : 1955 Age: 65 Procedure: Upper GI endoscopy Indications: Acute post hemorrhagic anemia, Melena Providers: William Gonzalez MD Referring MD: Saleem Rodriguez MD Medicines: Monitored Anesthesia Care Patient Profile: This is a 65 year old male. Refer to note in patient chart for documentation of history and physical. Complications: No immediate complications. Procedure: Pre-Anesthesia Assessment: - Prior to the procedure, a History and Physical was performed, and patient medications and allergies were reviewed. The patient's tolerance of previous anesthesia was also reviewed. The risks and benefits of the procedure and the sedation options and risks were discussed with the patient. All questions were answered, and informed consent was obtained. Prior Anticoagulants: The patient has taken Coumadin (warfarin), last dose was 5 days prior to procedure. After reviewing the risks and benefits, the patient was deemed in satisfactory condition to undergo the procedure. After obtaining informed consent, the endoscope was passed under direct vision. Throughout the procedure, the patient's blood pressure, pulse, and oxygen saturations were monitored continuously. The gastroscope was introduced through the mouth, and advanced to the fourth part of duodenum. The upper GI endoscopy was accomplished without difficulty. The patient tolerated the procedure well. Scope In: 8:58:18 AM Scope Out: 9:03:08 AM Total Procedure Duration Time 0 hours 4 minutes 50 seconds Findings: The esophagus was normal. The stomach was normal. The examined duodenum was normal. Impression: - Normal esophagus. - Normal stomach. - Normal examined duodenum. - No specimens collected. Recommendation: - Return patient to hospital aceves for ongoing care. - Advance diet as tolerated. - Continue present medications. Procedure Code(s): --- Professional --- 70646, Esophagogastroduodenoscopy, flexible, transoral; diagnostic, including collection of specimen(s) by brushing or washing, when performed (separate procedure) Diagnosis Code(s): --- Professional --- D62, Acute posthemorrhagic anemia K92.1, Melena (includes Hematochezia) CPT copyright 2017 [employer]. All rights reserved. The codes documented in this report are preliminary and upon business analyst sales operations review may be revised to meet current compliance requirements. William Gonzalez MD 04/13/2020 9:13:08 AM This report has been signed electronically. Number of Addenda: 0 Note Initiated On: 04/13/2020 8:54 AM
--- NOTE | 2020-04-13 09:13 | OP.CCLET_ITS ---
04/13/2020 [facility] Re : Upper GI endoscopy procedure for [facility] This procedure was performed on April. My impressions and recommendations are as follows: Impressions : - Normal esophagus. - Normal stomach. - Normal examined duodenum. - No specimens collected. Recommendations : - Return patient to hospital aceves for ongoing care. - Advance diet as tolerated. - Continue present medications. My findings are described in the full procedure note, which is enclosed. If I can be of further assistance, please feel free to contact me at Doctor phone number(s): , Work: . Sincerely, William Gonzalez MD 04/13/2020 9:13:08 AM This report has been signed electronically.
[2020-04-13] MEDS: Isosorbide Mononitrate 60 MG Tablet PO ×2 (11:05→21:29)
[2020-04-13] MEDS: Ramipril 2.5 MG Capsule PO ×2 (11:05→21:29)
[2020-04-13] MEDS: Insulin Lispro 100 UNIT/ML INSULN.PEN SC ×2 (11:06→21:29)
[2020-04-13] MEDS: Pantoprazole Sodium 20 MG Tablet PO ×2 (11:10→21:28)
[2020-04-13 12:01] LABS: Bedside Glucose 166 mg/dL (70-110)
--- NOTE | 2020-04-13 14:41 | CT_ITS ---
STUDY: CT ABDOMEN AND PELVIS WITH CONTRAST REASON FOR EXAM: Male, 65 years old. ELEVATED LIVER ENZYMES. PATIENT HAD A ESOPHASOGASTRODUODENOSCOPY PATIENT IS NOW PASSING BLACK STOOL. HX OF GI BLEED CKD STAGE 3 DB RADIATION DOSAGE (If Supplied By Facility): CTDIvol = ( 20.40 ) mGy, DLP = ( 1409.81 ) mGycm TECHNIQUE: Transaxial images were obtained from the dome of the diaphragm to the symphysis pubis with oral contrast. Oral and amp; IV Gastrografin and amp; 75mL Isovue-300 was administered. Sagittal and coronal images were reconstructed. Individualized dose optimization techniques were used for this CT. COMPARISON: Comparison is made with prior study dated 05/12/2014. FINDINGS: Small bilateral pleural effusions with mild bibasilar atelectasis. Coronary artery calcification. Small pericardial effusion. Normal liver. The patient is status post cholecystectomy. Normal spleen. There is diffuse atrophy of the pancreas with lexie-pancreatic edema suggesting acute pancreatitis. Small amount of perihepatic fluid. Small amount of the fluid in the paracolic gutter slightly worse on the right side. Normal bilateral adrenal glands. Normal right kidney. Normal left kidney. Normal visualized stomach. Normal small intestine. There are multiple colonic diverticula consistent with diverticulosis. The appendix is visualized and appears normal. There is extensive atherosclerotic calcification of the abdominal aorta and its major visceral branches., without a demonstrated aneurysm. Normal inferior vena cava. There is borderline retroperitoneal lymphadenopathy with enlarged nodes no greater than 10mm in the short axis diameter. Normal urinary bladder. Calcification of the vas deferens. Normal abdominal wall. There are diffuse degenerative changes of the visualized lumbar spine. CT/Abdomen/Pelvis WITH Contrast IMPRESSION: Increased peripancreatic soft tissue density suggestive of pancreatitis. Small amount of ascites. Extensive atherosclerotic calcification of the abdominal aorta and the major visceral branches. Bilateral pleural effusions. Electronically Signed: Edvin Juarez, at 15:10 EST , Service support ,
[2020-04-13] MEDS: 0.9% Normal Saline 1,000 ML 75 ML IV (15:33)
--- NOTE | 2020-04-13 16:25 | PN_ITS ---
Patient Problems: Active and Suspected Problems GI bleed (Acute) Supratherapeutic INR (Acute) Subjective: Patient seen and examined. he had no complaints. Patient noted to be significantly jaundiced. He denies any abdominal pain, or any history of liver disease. He denies any dark-colored urine. He had EGD today which was compl etely negative. Plan was to discharge patient home today but in light of his jaundice and worsening liver enzymes, decision made to keep patient. He has remained hemodynamically stable. Liver enzymes trended up with bilirubin up to greater than 6 Vitals/I&O's: Vital Signs Temp Pulse Resp BP Pulse Ox 98.1 F 69 18 120/89 H 95 04/13/20 15:29 04/13/20 15:29 04/13/20 15:29 04/13/20 15:29 04/13/20 15:29 Oxygen Delivery Method Room Air Weight: 294 lb 15.656 oz Body Mass Index (BMI) 36.8 Finger Stick Blood Glucose 184 Intake and Output for Last 24 Hours 04/11/20 04/12/20 04/13/20 23:59 23:59 23:59 Intake Total 1810 / 1810 1290 / 1290 640 / 640 Output Total 425 / 425 1900 / 1900 750 / 750 Balance 1385 / 1385 -610 / -610 -110 / -110 General: Alert, Oriented x3, Cooperative, No apparent distress HEENT: Atraumatic, PERRLA, EOMI, Normocephalic, jaundiced sclera Oral: Dry Mucosa Neck: Supple, No JVD, Negative Carotid Bruits Lungs: Clear to auscultation, Normal air movement, No rhonchi, No wheeze, No rales Cardiovascular: Regular rate, Regular Rhythm, Normal S1, Normal S2, No murmurs Abdomen: Bowel Sounds Present, Soft, Non Tender Extremities: No clubbing, No cyanosis, No edema, Capillary Refill Less than 3 Seconds Skin: No rashes, No breakdown Musculoskeletal: No Tenderness to Palpation of Joints or Extremities Lymphatic: No Cervical, Supraclavicular, or Inguinal Adenopathy Neurological: Cranial nerves II-XII grossly intact, Neuro grossly intact, Motor Exam 5/5 strength throughout Psych/Mental Status: Normal Affect, Appropriate, Alert and oriented to time, place, person, mood and affect Microbiology Past 72 Hours 04/10/20 20:20 Mucosa - Nose SARS-CoV-2 Antigen (Rapid) - Final 04/10/20 20:10 Stool Stool Occult Blood (MADDIE) - Final Occult Blood Positive Laboratory Results 04/10/20 20:10: Crossmatch See Detail 04/12/20 05:10: Hepatitis A IgM Ab Pending, Hep Bs Antigen Pending, Hep B Core IgM Ab Pending, Hepatitis C Ab (EIA) Pending 04/12/20 16:36: POC Glucose 275 H 04/12/20 21:05: POC Glucose 224 H 04/13/20 01:12: POC Glucose 191 H 04/13/20 05:20: WBC 13.2 H, RBC 3.08 L, Hgb 9.1 L, Hct 29.6 L, MCV 96.1 H, MCH 29.5, MCHC 30.7 L, RDW Std Deviation 59.4 H, RDW Coeff of Zulay 18.6 H, Plt Count 174, MPV 10.8, Immature Gran % (Auto) 2.900 H, Neut % (Auto) 71.8 H, Lymph % (Auto) 12.3 L, Robertson % (Auto) 11.0 H, Eos % (Auto) 1.4, Baso % (Auto) 0.6, Absolute Neuts (auto) 9.5 H, Absolute Lymphs (auto) 1.63, Nucleated RBC % 0.4 04/13/20 05:20: Sodium 137, Potassium 3.6, Chloride 105, Carbon Dioxide 26.0, Anion Gap 6, BUN 50 H, Creatinine 1.64 H, Estim Creat Clear Calc 52.96, Est GFR (MDRD) Af Amer 54 L, Est GFR (MDRD) Non-Af 45 L, BUN/Creatinine Ratio 30.5 H, Glucose 152 H, Calcium 7.8 L, Magnesium 2.2, Total Bilirubin 6.30 H, Direct Bilirubin 1.44 H, AST 89 H, ALT 83 H, Alkaline Phosphatase 118 H, Total Protein 5.8 L, Albumin 3.0 L, Globulin 2.8 04/13/20 05:20: PT 24.7 H, INR 2.3, APTT 42.0 H 04/13/20 06:38: POC Glucose 158 H 04/13/20 11:01: POC Glucose 166 H Current Medications Atorvastatin Calcium (Atorvastatin Calcium 80 Mg Tablet) 80 mg PO QHS [facility] Last Admin: 04/12/20 21:07 Dose: 80 mg Documented by: Furosemide (Furosemide 40 Mg Tablet) 40 mg PO DAILY PRN PRN Reason: edema Sodium Chloride () 250 mls @ 15 mls/hr IV .[id number] PRN PRN Reason: Saline Flush Sodium Chloride () 250 mls @ 15 mls/hr IV .[id number] PRN PRN Reason: Additional IVPB Infusion Sodium Chloride () 1,000 mls @ 75 mls/hr IV .[id number] [facility] Stop: 04/14/20 04:19 Last Admin: 04/13/20 15:33 Dose: 75 mls/hr Documented by: Insulin Glargine (Insulin Glargine 100 Units/Ml Pen) 45 units SC BID [facility] Last Admin: 04/13/20 11:05 Dose: 45 u Documented by: Insulin Human Lispro (Insulin Lispro 100 Unit/Ml Insuln.Pen) 0 unit SC [facility]; Protocol Last Admin: 04/13/20 11:06 Dose: 1 u Documented by: Isosorbide Mononitrate (Isosorbide Mononitrate 60 Mg Tablet) 60 mg PO BID [facility] Last Admin: 04/13/20 11:05 Dose: 60 mg Documented by: Morphine Sulfate (Morphine 2 Mg/Ml Syringe) 2 mg IV Q3H PRN PRN PRN Reason: Pain Score 6-10 Ondansetron HCl (Ondansetron 4 Mg/2 Ml Vial) 4 mg IV Q8H PRN PRN PRN Reason: NAUSEA/VOMITING Last Admin: 04/13/20 01:08 Dose: 4 mg Documented by: Pantoprazole Sodium (Pantoprazole Sodium 20 Mg Tablet) 20 mg PO BID [facility] Last Admin: 04/13/20 11:10 Dose: 20 mg Documented by: Ramipril (Ramipril 2.5 Mg Capsule) 2.5 mg PO BID [facility] Last Admin: 04/13/20 11:05 Dose: 2.5 mg Documented by: Sodium Chloride (0.9% Saline Lock 10 Ml Syringe) 10 - 40 ml IV UD PRN PRN Reason: SALINE FLUSH Last Admin: 04/13/20 15:33 Dose: 10 ml Documented by: Tramadol HCl (Tramadol 50 Mg Tablet) 50 mg PO TID PRN PRN PRN Reason: Pain Score 6-10 Last Admin: 04/11/20 22:38 Dose: 50 mg Documented by: STROKE Vital Signs/Narrative: Vital Signs Temp Pulse Resp BP Pulse Ox 04/13/20 15:29 98.1 F 69 18 120/89 H 95 Medical Necessity - Tobacco Use Smoking Status: Never smoker Assessment/Plan All Active Problems GI bleed (Acute) Supratherapeutic INR (Acute) # Acute Gi bleed * This was transfusion of 2 units of packed red blood cells. Hemoglobin today is 9 * on IV protonix 40mg bid * He had EGD today which was negative. * coumadin and aspirin on hold * INR today is 2.3 * Source of bleeding is therefore not very clear may have been due to supratherapeutic INR. * Patient did not want to stay in the hospital to be prepped for colonoscopy and prefers to do colonoscopy on outpatient basis. * #Elevated liver enzymes * Patient visibly jaundiced * Bilirubin is 6.3 today and has been trending upwards. Direct bilirubin is also trended upwards to 1.44 and AST is 89 with ALT of 83. ALP is 118. These have all trended up. Patient denies any history of liver disease. * CT of the abdomen and pelvis done was negative for any liver pathology and showed the patient was s/p cholecystectomy. CT showed diffuse atrophy of the pancreas with peripancreatic edema suggesting acute pancreatitis, small amount of perihepatic fluid. * Hepatitis panel ordered. Discussed with general surgery and because of elevated liver enzymes is not really clear as patient is post cholecystectomy and does not have any abdominal pain that would point towards pancreatitis. * Will trend bilirubin also awaiting hepatic panel. * # Supratherapeutic INR: as above. INR today is 3 #Afib * coumadin on hold. rate controlled. #Elevated troponin * troponins trended up from 0.051 on admission and trended upwards to a peak of 0.443 * 2D echo showed EF of 45% with mild global hypokinesis of the left ventricle and moderately enlarged left atrium with mildly enlarged right atrium and RVSP of 34 mmHg. * likely a type 2 event due to ischemia from anemia * Cardiology on board. [facility] for now. * And also transfused with 2 units of packed red blood cells. #Hypertension: on ramipril. #Hyperlipidemia: on statin. hold Statin on account of abnormal liver enzymes. #CAD s/p stents: aspirin and imdur on hold. #Type 2 diabetes mellitus: on lantus 45units bid. hold for now. ISS. ACCaddi SAWYER #CKD 3: Cr is 1.64 today. Baseline is ~ 1.5 from November 2018. DVT prophylaxis: INR is 2.3. therefore not indicated GI prophylaxis: On PPI Inpatient E&M: 23551 Subs Hosp L2
[2020-04-13 16:55] LABS: Bedside Glucose 146 mg/dL (70-110)
[2020-04-13 17:08] LABS: Lipase 63 U/L (73-393)
[2020-04-13 22:15] LABS: Bedside Glucose 250 mg/dL (70-110)
[2020-04-14 03:00] VITALS: PULSE 67
[2020-04-14 03:11] VITALS: BP 143/48; PULSE 66; RESP 18; TEMP 36.5; O2SAT 97
[2020-04-14 05:32] LABS: Absolute Lymphocyte Count 1.83 X10^3/uL (0.83-4.51); Absolute Neutrophil Count 9.1 X10^3/uL (2.0-7.7); Basophil# 0.09 X10^3/uL; Basophil% 0.7 % (0-1); Eosinophil# 0.24 X10^3/uL; Eosinophils% 1.8 % (0-5); Hematocrit 30.8 % (40-54); Hemoglobin 9.4 g/dL (13.0-16.5); Lymphocyte # 1.83 X10^3/ul (4.0); Mean Corp Hgb Conc 30.5 g/dL (32-36); Mean Corpuscular Hgb 29.7 pg (27.0-32.0); Mean Corpuscular Volume 97.2 fL (80-94); Mean Platelet Vol. 10.6 fl (6.2-12.0); Monocyte# 1.52 X10^3/uL; Monocyte% 11.6 % (0-10); NRBC Flagged by Analyzer 0.2 % (0-5); Neutrophil # 9.13 X10^3/uL (2.7-7.7); Neutrophil % 70.1 % (47-70); POSITIVE DIFFERENTIAL YES; Platelet Count 175 K/mm3 (150-450); RBC Distribution Width CV 18.7 % (11.6-14.6); RBC Distribution Width SD 62.4 fl (35.1-43.9); Red Blood Count 3.17 M/mm3 (4.6-6.2); White Blood Count 13.1 K/mm3 (4.4-11.0)
[2020-04-14 05:42] LABS: Differential Indicated SCAN CRITERIA MET
[2020-04-14 05:48] LABS: AST(SGOT) 87 U/L (15-37); Alanine Aminotransfer ALT/SGPT 104 U/L (16-61); Albumin, Serum 3.1 g/dL (3.2-5.0); Alkaline Phosphatase 119 U/L (45-117); Anion Gap 8 (5-15); BUN 42 mg/dL (7-18); BUN/Creat Ratio 25.5 RATIO (10-20); Chloride 107 mmol/L (98-107); Creatinine, Serum 1.65 mg/dL (0.70-1.30); EST Glomerular Filtration Rate 45 mL/min (>60); Est Glom Filt Rate - Afr Amer 54 mL/min (>60); Estimated Creatinine Clearance 52.63 ml/min; Glucose 69 mg/dL (74-106); Potassium 3.5 mmol/L (3.5-5.1); Protein, Total 6.1 g/dL (6.4-8.2); Sodium Level 139 mmol/L (136-145)
[2020-04-14 06:07] LABS: HEPATITIS B SURFACE AG Negative (Negative); Hepatitis A IgM Antibody Negative (Negative); Hepatitis B Core AB IgM Negative (Negative)
[2020-04-14 07:00] VITALS: PULSE 68
[2020-04-14 07:00] LABS: Bedside Glucose 64 mg/dL (70-110)
[2020-04-14 07:06] LABS: Anisocytosis 3+; Differential Comment SCANNED; Polychromasia 2+
--- NOTE | 2020-04-14 08:01 | MRI_ITS ---
STUDY: MR MRCP WITHOUT CONTRAST REASON FOR EXAM: Male, 65 years old. Jaundice, pancreas, abnormal stool, elevated liver enzymes TECHNIQUE: Standard MRCP technique was utilized. COMPARISON: CT 04/13/2020 FINDINGS: Gall Bladder: Gall bladder is surgically absent. Cystic duct: Normal with no demonstrated fixed filling defect. Intrahepatic ducts: Normal visualized intrahepatic ducts with no demonstrated fixed filling defect, dilation or stricture. Common hepatic duct: Normal with no demonstrated fixed filling defect, dilation or stricture. Common bile duct: Normal with no demonstrated fixed filling defect, dilation or stricture. Pancreatic duct: Normal with no demonstrated fixed filling defect, dilation or stricture. MRI/MRCP Abdomen without Contrast IMPRESSION: Normal MR Cholangiopancreatography (MRCP) after cholecystectomy. Electronically Signed: Rehan Kelly MD at 10:36 EST Tel , Service support ,
[2020-04-14 09:49] LABS: Hep C Antibodies <0.1 s/co ratio (0.0-0.9)
[2020-04-14 10:43] VITALS: BP 158/59; PULSE 75; RESP 18; TEMP 36.6; O2SAT 97
[2020-04-14] MEDS: Pantoprazole Sodium 20 MG Tablet PO (10:48)
[2020-04-14] MEDS: Ramipril 2.5 MG Capsule PO (10:48)
[2020-04-14] MEDS: Isosorbide Mononitrate 60 MG Tablet PO (10:48)
[2020-04-14 11:00] LABS: Bedside Glucose 109 mg/dL (70-110)
[2020-04-14 13:30] LABS: Bacteria 0 SEEN /hpf (None Seen); Mucous, Urine 0 SEEN /hpf (<or=2+); Red Blood Cells-Urine 0 SEEN /hpf (0-5); Squamous Epithelial Cells - UA 0 SEEN /hpf (0-5); White Blood Cells 0 SEEN /hpf (0-5)
[2020-04-14 13:31] LABS: Color, Urine Yellow (Yellow); Glucose, Dipstick Normal (Normal); Ketone-Dipstick Negative (Negative); Leukocyte Esterase-Dipstick Negative /ul (Negative); Nitrite-Dipstick Negative (Negative); Occult Blood-Urine Negative /ul (Negative); Protein-Dipstick 30 mg/dl (Negative); Specific Gravity, Urine 1.015 (1.002-1.030); Urine Clarity Clear (Clear); Urine Urobilinogen 8 mg/dl (Normal)
[2020-04-14 13:36] LABS: Urine Bilirubin Dipstick 1 mg/dL (Negative)
[2020-04-14 13:51] LABS: Pathologist Review Reviewed
[2020-04-14 14:59] VITALS: BP 167/46; PULSE 72; RESP 16; TEMP 37.1; O2SAT 97
--- NOTE | 2020-04-14 15:19 | DCINST_ITS ---
- Discharge Diagnoses Current Active Problems: Current Active and Chronic Problems GI bleed (Acute) Supratherapeutic INR (Acute) Acute systolic (congestive) heart failure (Chronic) Chest pain (Chronic) Elevated troponin (Chronic) Exertional angina (Chronic) Afib (Chronic) Anticoagulant long-term use (Chronic) CKD (chronic kidney disease) stage 3, GFR 30-59 ml/min (Chronic) CAD (coronary artery disease) (Chronic) stents x 2 cabg x 3 PVD (peripheral vascular disease) (Chronic) s/p bypass bilateral Diabetes (Chronic) Hypertension (Chronic) Obesity (BMI 35.0-39.9 without comorbidity) (Chronic) You will use the following diet at home:: Cardiac Your food should be the consistency of: Regular Your liquids should be the consistency of: Regular/Thin Discharge Activity: Return to Normal Activity Weight Bearing Status: Weight bearing as tolerated Call your doctor if you observe: Fever of 101 or Higher, Shortness of breath, Dizziness, Fainting spells, Swelling in the ankles Instructions: Common Tests for Liver Disease, ED Upper GI Bleeding (Stable) Additional Instructions: to see PCP for INR check in 2-3 days, to ensure that the INR is 2-3 Allergies/Adverse Reactions: Allergies perfume Adverse Reaction (Verified 04/10/20 20:03) Shortness of breath Medications to take at Discharge traMADol [Ultram] 50 mg PO Q4H PRN 07/30/17 Aspirin E.C. [Ecotrin] 81 mg PO DAILY@0800 #30 tab 04/18/18 Insulin Aspart [Novolog Flexpen] 0 units SUBCUT TIDCM PRN 11/10/18 Insulin Glargine,Hum.rec.anlog [Lantus Solostar] 45 unit SQ BID 11/10/18 Ramipril 2.5 mg PO BID 11/10/18 Warfarin [Coumadin] 5 mg PO DAILY 11/10/18 Clopidogrel Bisulfate [Plavix] 75 mg PO DAILY #60 tab 11/14/18 Isosorbide Mononitrate [Imdur] 60 mg PO BID #120 tab 11/14/18 Furosemide [Lasix] 40 mg PO DAILY PRN 04/10/20 Rosuvastatin Calcium [Crestor] 40 mg PO QHS 04/10/20 Ferrous Sulfate 325 mg PO BID #60 tab 04/14/20 Pantoprazole Sodium [Protonix] 20 mg PO BID #60 tab 04/14/20 The following prescriptions were given: Ferrous Sulfate 325 mg PO BID #60 tab Transmission Status: Pending to [email or web address] Pantoprazole Sodium [Protonix] 20 mg PO BID #60 tab Transmission Status: Received by [email or web address] Primary Care Physician: [facility] [Primary Care Provider] - Please follow up with your Primary Care Physician in: 1-2 weeks Test Results: Test results from this visit will be discussed in further detail at your follow- up appointment, if applicable. Please Follow Up With: William Gonzalez MD When: 1-2 weeks Proposed Discharge Date: 04/14/20
--- NOTE | 2020-04-14 16:59 | DS.PCM_ITS ---
Discharge Date and Diagnosis - Problem List Patient Problems: Active and Suspected Problems GI bleed (Acute) Supratherapeutic INR (Acute) Date of Admission: 04/10/20 Date of Discharge: 04/14/20 - Primary Discharge Diagnosis Acute Problems: Active Problems GI bleed (Acute) Supratherapeutic INR (Acute) - Secondary Discharge Diagnosis Chronic Problems: Chronic Problems Acute systolic (congestive) heart failure (Chronic) Chest pain (Chronic) Elevated troponin (Chronic) Exertional angina (Chronic) Afib (Chronic) Anticoagulant long-term use (Chronic) CKD (chronic kidney disease) stage 3, GFR 30-59 ml/min (Chronic) CAD (coronary artery disease) (Chronic) stents x 2 cabg x 3 PVD (peripheral vascular disease) (Chronic) s/p bypass bilateral Diabetes (Chronic) Hypertension (Chronic) Obesity (BMI 35.0-39.9 without comorbidity) (Chronic) Hospital Course and Treatment Imaging Results: 04/14/20 08:01 MRCP Abdomen without Contrast [MRI] Urgent general surgery -Dr Gonzalez Operations: None Procedures: EGD Summary of Care Provided: The patient is a 65 year old M with a past medical history as outlined which includes atrial fibrillation, on Coumadin, CKD stage III, coronary artery disease and obesity as well as peripheral neuropathy. He was admitted through the ED on 04/10/2020 with a complaint of dizziness and lightheadedness along with dark bowel movements. Patient had checked his INR about a week prior it was 3.2. On admission, his INR was more than 19.5. Covid test was negative. Patient said he had started taking NSAIDs on account of chronic arthritis. On admission, hemoglobin was 7.6. He was admitted and managed for acute on chronic anemia due to GI bleed as well as supratherapeutic INR. Coumadin was held and he was given vitamin K and 3 units of fresh frozen plasma. He was started on IV pantoprazole. General surgery was consulted. INR gradually trended down. Troponins were cycled and trended upwards and this was thought to be due to demand ischemia from anemia. Patient was transfused with 2 units of packed red blood cells and cardiology was consulted. Cardiology advocated conservative management as was likely due to demand ischemia from anemia. 2D echo showed EF of 45% with mild global hypokinesis of the left ventricle and moderately enlarged left atrium with mildly enlarged right atrium and RVSP of 34 mmHg. Patient had EGD on 04/14/2020 which showed normal stomach and esophagus as well as normal duodenum. Patient refused to have colonoscopy was in the hospital and opted to have it on outpatient basis as he felt he needed to rest after the EGD. Of note, patient's liver enzymes were also noted to be significantly elevated with being peaking at over 6. CT of the abdomen showed increased peripancreatic soft tissue density suggestive of pancreatitis with small amount of ascites and extensive atherosclerotic calcification of the abdominal aorta and the major visceral branches with bilateral pleural effusions. Per discussion with general surgery, MRCP was ordered which was essentially normal and showed a surgically absent gallbladder. Patient's liver enzymes started trending down with total bilirubin trending down to about 5. Patient remained stable and he was therefore discharged home on 04/14/2020. He is to follow-up with general surgery for further work-up of his elevated liver enzymes and follow-up with his primary care doctor for trending of his liver enzymes. He is also to follow-up with general surgery for colonoscopy on outpatient basis. His Coumadin was decreased to 5 mg daily and he is follow-up with his PCP for INR check to maintain INR between 2 and 3. He was also discharged on p.o. pantoprazole 20 mg twice daily and ferrous sulfate 325 mg twice daily. Patient seen and examined prior to discharge. He complained of feeling tired because he had little sleep at night. Review of symptoms otherwise negative. Labs and vitals reviewed. Home medication reviewed and reconciled. O/E: [] Vital Signs Temp Pulse Resp BP Pulse Ox 98.7 F 72 16 167/46 H 97 04/14/20 14:59 04/14/20 14:59 04/14/20 14:59 04/14/20 14:59 04/14/20 14:59 General: Alert, Oriented x3, Cooperative, No apparent distress HEENT: Atraumatic, PERRLA, EOMI, Normocephalic, jaundiced sclera Oral: Dry Mucosa Neck: Supple, No JVD, Negative Carotid Bruits Lungs: Clear to auscultation, Normal air movement, No rhonchi, No wheeze, No rales Cardiovascular: Regular rate, Regular Rhythm, Normal S1, Normal S2, No murmurs Abdomen: Bowel Sounds Present, Soft, Non Tender Extremities: No clubbing, No cyanosis, No edema, Capillary Refill Less than 3 Seconds Skin: No rashes, No breakdown Musculoskeletal: No Tenderness to Palpation of Joints or Extremities Lymphatic: No Cervical, Supraclavicular, or Inguinal Adenopathy Neurological: Cranial nerves II-XII grossly intact, Neuro grossly intact, Motor Exam 5/5 strength throughout Psych/Mental Status: Normal Affect, Appropriate, Alert and oriented to time, place, person, mood and affect Plan is for discharge home today. Patient Problems: Active and Suspected Problems GI bleed (Acute) Supratherapeutic INR (Acute) - Physical Exam Vitals/I&O's: Vital Signs Temp Pulse Resp BP Pulse Ox 98.7 F 72 16 167/46 H 97 04/14/20 14:59 04/14/20 14:59 04/14/20 14:59 04/14/20 14:59 04/14/20 14:59 Oxygen Delivery Method Room Air Weight: 294 lb 15.656 oz Body Mass Index (BMI) 36.8 Finger Stick Blood Glucose 184 Intake and Output for Last 24 Hours 04/12/20 04/13/20 04/14/20 23:59 23:59 23:59 Intake Total 1290 / 1290 1360 / 1360 1240 / 1240 Output Total 1900 / 1900 1300 / 1300 275 / 275 Balance -610 / -610 60 / 60 965 / 965 Laboratory Results 04/12/20 05:10: Hepatitis A IgM Ab Negative, Hep Bs Antigen Negative, Hep B Core IgM Ab Negative, Hepatitis C Ab (EIA) <0.1 04/13/20 05:20: Lipase 63 L 04/13/20 21:27: POC Glucose 250 H 04/14/20 05:10: WBC 13.1 H, RBC 3.17 L, Hgb 9.4 L, Hct 30.8 L, MCV 97.2 H, MCH 29.7, MCHC 30.5 L, RDW Std Deviation 62.4 H, RDW Coeff of Zulay 18.7 H, Plt Count 175, MPV 10.6, Immature Gran % (Auto) 1.800 H, Neut % (Auto) 70.1 H, Lymph % (Auto) 14.0 L, [place] % (Auto) 11.6 H, Eos % (Auto) 1.8, Baso % (Auto) 0.7, Absolute Neuts (auto) 9.1 H, Absolute Lymphs (auto) 1.83, Nucleated RBC % 0.2, Differential Comment SCANNED, Diff Path Review Reviewed, Polychromasia 2+, Anisocytosis 3+ 04/14/20 05:10: Sodium 139, Potassium 3.5, Chloride 107, Carbon Dioxide 24.0, Anion Gap 8, BUN 42 H, Creatinine 1.65 H, Estim Creat Clear Calc 52.63, Est GFR (MDRD) Af Amer 54 L, Est GFR (MDRD) Non-Af 45 L, BUN/Creatinine Ratio 25.5 H, Glucose 69 L, Calcium 8.0 L, Total Bilirubin 5.00 H, AST 87 H, ALT 104 H, Alkaline Phosphatase 119 H, Total Protein 6.1 L, Albumin 3.1 L, Globulin 3.0, Albumin/Globulin Ratio 1.0 04/14/20 06:51: POC Glucose 64 L 04/14/20 10:47: POC Glucose 109 04/14/20 12:40: Urine Color Yellow, Urine Clarity Clear, Urine pH 5.0, Ur Specific [place] 1.015, Urine Protein 30 H, Urine Glucose (UA) Normal, Urine Ketones Negative, Urine Occult Blood Negative, Urine Nitrite Negative, Urine Bilirubin 1 H, Urine Urobilinogen 8 H, Ur Leukocyte Esterase Negative, Urine RBC 0 SEEN, Urine WBC 0 SEEN, Ur Squamous Epith Cells 0 SEEN, Urine Bacteria 0 SEEN, Urine Mucus 0 SEEN Current Medications Furosemide (Furosemide 40 Mg Tablet) 40 mg PO DAILY PRN PRN Reason: edema Sodium Chloride () 250 mls @ 15 mls/hr IV .[id number] PRN PRN Reason: Saline Flush Sodium Chloride () 250 mls @ 15 mls/hr IV .[id number] PRN PRN Reason: Additional IVPB Infusion Insulin Glargine (Insulin Glargine 100 Units/Ml Pen) 45 units SC BID [facility] Last Admin: 04/14/20 10:48 Dose: 45 u Documented by: Insulin Human Lispro (Insulin Lispro 100 Unit/Ml Insuln.Pen) 0 unit [facility]; Protocol Last Admin: 04/14/20 10:48 Dose: Not Given Documented by: Isosorbide Mononitrate (Isosorbide Mononitrate 60 Mg Tablet) 60 mg PO BID [facility] Last Admin: 04/14/20 10:48 Dose: 60 mg Documented by: Morphine Sulfate (Morphine 2 Mg/Ml Syringe) 2 mg IV Q3H PRN PRN PRN Reason: Pain Score 6-10 Ondansetron HCl (Ondansetron 4 Mg/2 Ml Vial) 4 mg IV Q8H PRN PRN PRN Reason: NAUSEA/VOMITING Last Admin: 04/13/20 01:08 Dose: 4 mg Documented by: Pantoprazole Sodium (Pantoprazole Sodium 20 Mg Tablet) 20 mg PO BID [facility] Last Admin: 04/14/20 10:48 Dose: 20 mg Documented by: Ramipril (Ramipril 2.5 Mg Capsule) 2.5 mg PO BID [facility] Last Admin: 04/14/20 10:48 Dose: 2.5 mg Documented by: Sodium Chloride (0.9% Saline Lock 10 Ml Syringe) 10 - 40 ml IV UD PRN PRN Reason: SALINE FLUSH Last Admin: 04/13/20 15:33 Dose: 10 ml Documented by: Tramadol HCl (Tramadol 50 Mg Tablet) 50 mg PO TID PRN PRN PRN Reason: Pain Score 6-10 Last Admin: 04/11/20 22:38 Dose: 50 mg Documented by: Discharge Diet: Low fat/ Low Cholesterol Discharge Activity: Return to Normal Activity Weight Bearing Status: Weight bearing as tolerated Call your doctor if you observe: Fever of 101 or Higher, Shortness of breath, Dizziness, Fainting spells, Swelling in the ankles Home Medications: Medications to take at Discharge traMADol [Ultram] 50 mg PO Q4H PRN 07/30/17 Aspirin E.C. [Ecotrin] 81 mg PO DAILY@0800 #30 tab 04/18/18 Insulin Aspart [Novolog Flexpen] 0 units SUBCUT TIDCM PRN 11/10/18 Insulin Glargine,Hum.rec.anlog [Lantus Solostar] 45 unit SQ BID 11/10/18 Ramipril 2.5 mg PO BID 11/10/18 Warfarin [Coumadin] 5 mg PO DAILY 11/10/18 Clopidogrel Bisulfate [Plavix] 75 mg PO DAILY #60 tab 11/14/18 Isosorbide Mononitrate [Imdur] 60 mg PO BID #120 tab 11/14/18 Furosemide [Lasix] 40 mg PO DAILY PRN 04/10/20 Rosuvastatin Calcium [Crestor] 40 mg PO QHS 04/10/20 Ferrous Sulfate 325 mg PO BID #60 tab 04/14/20 Pantoprazole Sodium [Protonix] 20 mg PO BID #60 tab 04/14/20 Following Prescriptions Were Given to Patient: Ferrous Sulfate 325 mg PO BID #60 tab Transmission Status: Received by [facility] Pantoprazole Sodium [Protonix] 20 mg PO BID #60 tab Transmission Status: Received by [facility] [Primary [facility] Provider] - Please follow up with your Primary Care Physician in: 1-2 weeks Please Follow Up With: William Gonzalez MD When: 1-2 weeks Patient Instructions: Common Tests for Liver Disease, ED Upper GI Bleeding (Stable) Disposition: Home Minutes spent on discharge:: 50 Patient Condition:: Stable Medical Necessity - Tobacco Use Smoking Status: Never smoker Meaningful Use Info Meaningful Use Diagnoses (Choose all that apply): None applicable Inpatient E&M: 82119 [facility]osp
--- NOTE | 2020-04-18 14:10 | CASEMGMT ---
JO-ANN SANCHEZ Discharge Follow-up Phone Call: TANNER: Alfredo Strata: 3 Call Date: 04/18/2020 Discharge Date: 04/14/2020 Time of Call: 1410 Admitting Diagnosis: GI Bleed, Suprtherapeutic INR Discharge follow-up call attempted but nonidentifying voicemail received. Nondescript voicemail left requesting a return call. Zeus Crawford RN CM
== END 2020-04-14 18:20 | disposition home or self-care (01) | DRG 377 ==
LOC: ED 22:28 → PCU 04-11 00:59
PROVIDERS: Anesthesiology; Hospitalist; Surgery; Admitting Provider Family Medicine; Emergency Provider Emergency Medicine; Referring Provider Family Medicine; Visit Provider Student in an Organized Health Care Education/Training Program
PROC: 0DJ08ZZ Inspection of Upper Intestinal Tract, Via Natural or Artificial Opening Endoscopic (ICD-10-PCS; CPT 43235; principal; 2020-04-13 09:25)
DX: K92.1 Melena (principal); I50.23 Acute on chronic systolic (congestive) heart failure; I48.20 Chronic atrial fibrillation, unspecified; I13.0 Hypertensive heart and chronic kidney disease with heart failure and stage 1 through stage 4 chronic kidney disease, or unspecified chronic kidney disease; I24.8 Other forms of acute ischemic heart disease; R17 Unspecified jaundice; D62 Acute posthemorrhagic anemia; R79.1 Abnormal coagulation profile; E11.22 Type 2 diabetes mellitus with diabetic chronic kidney disease; N18.30 Chronic kidney disease, stage 3 unspecified; E11.51 Type 2 diabetes mellitus with diabetic peripheral angiopathy without gangrene; I25.10 Atherosclerotic heart disease of native coronary artery without angina pectoris; E66.9 Obesity, unspecified; Z23 Encounter for immunization; Z79.01 Long term (current) use of anticoagulants; Z68.37 Body mass index [BMI] 37.0-37.9, adult; Z95.1 Presence of aortocoronary bypass graft; Z79.02 Long term (current) use of antithrombotics/antiplatelets; Z79.4 Long term (current) use of insulin; Z79.82 Long term (current) use of aspirin; Z80.0 Family history of malignant neoplasm of digestive organs; Z80.3 Family history of malignant neoplasm of breast; Z90.49 Acquired absence of other specified parts of digestive tract; Z95.5 Presence of coronary angioplasty implant and graft; M19.90 Unspecified osteoarthritis, unspecified site
CPT/HCPCS: 36415; 74177; 74181; 80048; 80053; 80074; 80076; 81001; 82274; 82962; 83036; 83690; 83735; 84484; 85014; 85018; 85025; 85610; 85730; 86850; 86900; 86901; 86920; 86922; 87426; 93005; 93306; 99285; G0008; J7030; J7040; J7050; J7120; P9016; P9017; Q9957; Q9967; 90686; A4216; C8929; J2405

== ENCOUNTER 2020-05-09 14:05 | Outpatient (RCR) | payer MEDICARE, SELFPAY ==
[2018-12-09 17:51] VITALS: BMI 41.0
[2020-04-13 03:29] VITALS: BMI 36.8
[2020-05-09 14:40] LABS: International Normalized Ratio 3.1; Prothrombin Time (Protime)PT. 31.6 SECONDS (11.7-14.9)
== END 2020-05-09 18:00 | disposition home or self-care (01) ==
LOC: LAB 14:05
DX: Z79.01 Long term (current) use of anticoagulants (principal)
CPT/HCPCS: 36415; 85610

== ENCOUNTER 2020-06-06 13:53 | Outpatient (RCR) | payer MEDICARE, SELFPAY ==
[2020-06-06 15:02] LABS: Hematocrit 42.1 % (40-54); Mean Corp Hgb Conc 30.9 g/dL (32-36); Mean Corpuscular Hgb 27.5 pg (27.0-32.0); Mean Corpuscular Volume 89.2 fL (80-94); Mean Platelet Vol. 9.7 fl (6.2-12.0); Platelet Count 223 K/mm3 (150-450); RBC Distribution Width CV 15.7 % (11.6-14.6); RBC Distribution Width SD 51.4 fl (35.1-43.9); Red Blood Count 4.72 M/mm3 (4.6-6.2); White Blood Count 8.5 K/mm3 (4.4-11.0)
[2020-06-06 15:13] LABS: International Normalized Ratio 2.6; Prothrombin Time (Protime)PT. 27.5 SECONDS (11.7-14.9)
== END 2020-06-06 18:00 | disposition home or self-care (01) ==
LOC: LAB 13:53
DX: Z79.01 Long term (current) use of anticoagulants (principal)
CPT/HCPCS: 36415; 85027; 85610

== ENCOUNTER 2020-07-18 13:36 | Outpatient (RCR) | payer MEDICARE, SELFPAY ==
[2020-04-13 03:29] VITALS: BMI 36.8
[2020-07-18] MEDS: COVID-19 VACC, MRNA(PFIZER)/PF 30 MCG/0.3 ML SYRINGE IM (12:48)
[2020-08-08] MEDS: COVID-19 VACC, MRNA(PFIZER)/PF 30 MCG/0.3 ML SYRINGE IM (12:31)
== END 2020-09-14 23:59 ==
LOC: IMMUN 13:36
PROVIDERS: Referring Provider Family Medicine; Visit Provider Family Medicine
DX: Z23 Encounter for immunization (principal)
CPT/HCPCS: 0001A; 0002A; 91300

== ENCOUNTER 2020-08-02 11:49 | Outpatient (RCR) | payer MEDICARE, SELFPAY ==
[2020-07-13 15:17] LABS: Prothrombin Time (Protime)PT. 43.2 SECONDS (11.7-14.9)
[2020-07-13 16:43] LABS: International Normalized Ratio 4.6
[2020-07-18 13:46] LABS: Prothrombin Time (Protime)PT. 46.7 SECONDS (11.7-14.9)
[2020-08-02 12:29] LABS: International Normalized Ratio 3.5; Prothrombin Time (Protime)PT. 34.5 SECONDS (11.7-14.9)
== END 2020-08-02 18:00 | disposition home or self-care (01) ==
LOC: LAB 11:49
DX: Z79.01 Long term (current) use of anticoagulants (principal)
CPT/HCPCS: 36415; 85610

== ENCOUNTER 2020-09-01 13:07 | Outpatient (RCR) | payer MEDICARE, SELFPAY ==
[2020-09-01 15:08] LABS: International Normalized Ratio 2.3; Prothrombin Time (Protime)PT. 24.3 SECONDS (11.7-14.9)
== END 2020-09-01 18:00 | disposition home or self-care (01) ==
LOC: LAB 13:07
DX: Z79.01 Long term (current) use of anticoagulants (principal)
CPT/HCPCS: 36415; 85610

== ENCOUNTER 2020-09-05 20:52 | Inpatient (IN) | payer OTHER, MEDICARE, SELFPAY ==
[2020-09-05] VITALS (9 sets, daily range): BP systolic 129–192; BP diastolic 56–106; PULSE 74–95; RESP 18–30; TEMP 37.1–37.3; O2SAT 92–96; BMI 34.9
--- NOTE | 2020-09-05 21:08 | EKG12_ITS ---
Test Reason : SOB Blood Pressure : / mmHG Vent. Rate : 090 BPM Atrial Rate : 079 BPM P-R Int : 000 ms QRS Dur : 098 ms QT Int : 386 ms P-R-T Axes : 000 105 -82 degrees QTc Int : 472 ms Atrial Fibrillation/Flutter Septal FL, age undetermined, cannot be excluded Nonspecific ST and T wave abnormality Confirmed by ESTUARDO GARCIA, FANNY ([id number]), news copy editor TATIANA DU ([id number]) on 09/07/2020 9:15:10 AM Referred By: JOLIE Confirmed By:FANNY MARTE MD
--- NOTE | 2020-09-05 21:09 | EDS_ITS ---
HPI <Dr. Jose Cole DO - Last Filed: 09/05/20 23:15> History of Present Illness Chief Complaint: Shortness of Breath Informant: patient Narrative Narrative: 65-year-old male with extensive past medical history including atrial fibrillation, heart failure, coronary artery disease, diabetes, hypertension presents with concern for multiple complaints. Patient states that he has swelling in his lower extremities that has been worsening over the past 4 days. States he is short of breath. Worse on exertion. States he is very fatigued. States that he feels like he has been watching his salt intake but in the past this has been the culprit of his swelling. Patient has been taking his Lasix as prescribed. Patient also complaining of right shoulder, right hip, low back pain. States this is chronic but worsening over the past few days. Denies any fever, chills, chest pain, nausea, vomiting, abdominal pain, urinary symptoms. COUNT INCLUDES THE [facility] <Dr. Jose Cole DO - Last Filed: 09/05/20 23:15> COUNT INCLUDES THE [facility] Medical History (Updated 09/05/20 @ 23:[address] Jose Cole, ) Acute systolic (congestive) heart failure Afib Anticoagulant long-term use CAD (coronary artery disease) Chest pain CKD (chronic kidney disease) stage 3, GFR 30-59 ml/min Diabetes Elevated troponin Exertional angina GI bleed Hypertension Obesity (BMI 35.0-39.9 without comorbidity) PVD (peripheral vascular disease) Supratherapeutic INR Home Medications tramadol 50 mg PO Q4H PRN 07/30/17 [History Last Taken 04/04/20] aspirin 81 mg PO DAILY@0800 #30 tab 04/18/18 [Rx Last Taken 04/10/20] insulin aspart U-100 0 units SUBCUT TIDCM PRN 11/10/18 [History Last Taken 04/10/20] insulin glargine 45 unit SQ BID 11/10/18 [History Last Taken 04/10/20] ramipril 2.5 mg PO BID 11/10/18 [History Last Taken 04/10/20] warfarin 5 mg PO DAILY 11/10/18 [History Last Taken 04/10/20] clopidogrel 75 mg PO DAILY #60 tab 11/14/18 [Rx Last Taken 04/10/20] isosorbide mononitrate 60 mg PO BID #120 tab 11/14/18 [Rx Last Taken 04/10/20] furosemide 40 mg PO DAILY PRN 04/10/20 [History Last Taken 04/09/20] rosuvastatin 40 mg PO QHS 04/10/20 [History Last Taken 04/10/20] Allergy/AdvReac Type Severity Reaction Status Date / Time perfume AdvReac Shortness Verified 09/05/20 20:55 of breath Social History Smoking Status: Never smoker ROS <Dr. oJse Cole DO - Last Filed: 09/05/20 23:15> ROS ED Constitutional Constitutional ED: Denies chills, fever(s) or sweats Eyes Eyes: Denies blurry vision, change in vision or diplopia ENT ENT ED: Denies rhinorrhea or sore throat Cardiovascular Cardiovascular: Denies chest pain, orthopnea, palpitations or racing heartbeat Respiratory/Chest Respiratory/Chest: Reports dyspnea; Denies cough, dyspnea on exertion, orthopnea or sputum Gastrointestinal Gastrointestinal: Denies abdominal pain, constipation, diarrhea, melena, nausea or vomiting Genitourinary Genitourinary ED: Denies dysuria, hematuria or urinary frequency Musculoskeletal Musculoskeletal: Reports arthralgias and myalgias; Denies neck pain Integumentary Denies rash Neurologic Neurologic: Reports weakness; Denies headache(s) or paresthesias Psychiatric Psychiatric: Denies anxiety or depression Hematologic/Lymphatic Hematologic/Lymphatic: Denies easy bleeding or easy bruising Allergic/Immunologic Allergic/Immunologic ED: Denies mouth swelling or tongue swelling EXAM <Dr. Jose Cole, - Last Filed: 09/05/20 23:15> Physical Exam Const Vital Signs: 09/05/20 20:53 09/05/20 21:31 09/05/20 21:34 Temperature 99.2 F H 99.1 F Temperature Source Temporal Oral Pulse Rate 82 95 95 Respiratory Rate 20 H 23 H 23 H Respiratory Effort Blood Pressure 192/106 H 144/79 H 144/79 H Blood Pressure Mean 134 100 100 Pulse Ox 94 96 94 Oxygen Delivery Method Room Air Room Air Room Air 09/05/20 21:37 09/05/20 22:19 Temperature 98.7 F Temperature Source Oral Pulse Rate 94 Respiratory Rate 30 H Respiratory Effort Short of Breath Blood Pressure 144/79 H Blood Pressure Mean 100 Pulse Ox 94 Oxygen Delivery Method Room Air Room Air Positive well nourished and well developed General Appearance ED: well developed HEENT Reports TM's clear and moist mucous membranes normocephalic and atraumatic Tympanic Membrane ED: Yes TM's clear Eyes PERRL and EOMs intact bilaterally Neck no lymphadenopathy, supple and no JVD Chest Wall inspection of chest normal Resp normal respiratory effort and clear to auscultation bilaterally Cardio regular rate, S1 normal heart sound, S2 normal heart sound and no murmurs Peripheral Pulses: pulses 2+ throughout GI soft to palpation, non-tender and non-distended Back/Spine no CVA tenderness and no thoracic nor lumbar tenderness Extremity normal to inspection Extremity Narrative: Chronic venous stasis changes with 1-2+ pitting edema. General Extremety ED: Yes edema; Negative for tenderness General Extremity: edema Neuro oriented x3, CN's II-XII intact bilaterally and no sensory deficits noted Sensorium / Orientation: alert Motor Exam: strength 5/5 throughout Psych mental status grossly normal Skin no rashes or lesions noted <Dr. Mehul Saab MD - Last Filed: 09/05/20 21:15> Physical Exam Const Vital Signs: 09/05/20 20:53 09/05/20 21:31 09/05/20 21:34 Temperature 99.2 F H 99.1 F Temperature Source Temporal Oral Pulse Rate 82 95 95 Respiratory Rate 20 H 23 H 23 H Respiratory Effort Blood Pressure 192/106 H 144/79 H 144/79 H Blood Pressure Mean 134 100 100 Pulse Ox 94 96 94 Oxygen Delivery Method Room Air Room Air Room Air 09/05/20 21:37 09/05/20 22:19 Temperature 98.7 F Temperature Source Oral Pulse Rate 94 Respiratory Rate 30 H Respiratory Effort Short of Breath Blood Pressure 144/79 H Blood Pressure Mean 100 Pulse Ox 94 Oxygen Delivery Method Room Air Room Air MDM <Dr. Jose Cole DO - Last Filed: 09/05/20 23:15> [facility] Narrative Medical decision making narrative: Patient appears well and nontoxic. Initially tachypneic upon arrival. Fine crackles in the bilateral bases. Chest x-ray shows cardiomegaly without infiltrate. Interpreted by myself. Radiology concurs. EKG shows atrial fibrillation with nonspecific changes. Lab work positive for leukocytosis as well as hyponatremia and acute renal insufficiency. Patient also has an elevated troponin with a slightly elevated BNP. INR within normal limits. Lactic acid negative. Patient was given 40 mg of Lasix as well as aspirin. Patient will be admitted for further treatment and evaluation of his CHF exacerbation. Stable at time of admission. Lab Data Attestation: I reviewed the patient's lab results. Labs: Laboratory Results - last 24 hr 09/05/20 09/05/20 09/05/20 21:30 21:30 21:30 WBC 16.2 H RBC 4.98 Hgb 13.7 Hct 43.5 MCV 87.3 MCH 27.5 MCHC 31.5 L RDW Std Deviation 56.7 H RDW Coeff of Zulay 17.7 H Plt Count 164 MPV 10.5 Immature Gran % (Auto) 0.700 Neut % (Auto) 83.4 H Lymph % (Auto) 5.1 L [place] % (Auto) 10.4 H Eos % (Auto) 0.2 Baso % (Auto) 0.2 Absolute Neuts (auto) 13.5 H Absolute Lymphs (auto) 0.83 Nucleated RBC % 0 PT INR Sodium 131 L Potassium 3.8 Chloride 97 L Carbon Dioxide 25.0 Anion Gap 9 BUN 41 H Creatinine 2.10 H Estim Creat Clear Calc 41.36 Est GFR (MDRD) Af Amer 41 L Est GFR (MDRD) Non-Af 34 L BUN/Creatinine Ratio 19.5 Glucose 285 H Lactic Acid Calcium 8.4 L Magnesium 2.3 Troponin I 0.067 H B-Natriuretic Peptide 152.0 H 09/05/20 09/05/20 21:30 21:30 WBC RBC Hgb Hct MCV MCH MCHC RDW Std Deviation RDW Coeff of Zulay Plt Count MPV Immature Gran % (Auto) Neut % (Auto) Lymph % (Auto) [place] % (Auto) Eos % (Auto) Baso % (Auto) Absolute Neuts (auto) Absolute Lymphs (auto) Nucleated RBC % PT 27.1 H INR 2.6 Sodium Potassium Chloride Carbon Dioxide Anion Gap BUN Creatinine Estim Creat Clear Calc Est GFR (MDRD) Af Amer Est GFR (MDRD) Non-Af BUN/Creatinine Ratio Glucose Lactic Acid 1.9 Calcium Magnesium Troponin I B-Natriuretic Peptide Radiography Chest X-Ray - ED: 1 View, Read by ED Physician, Read by Radiologist and Cardiomegaly Diagnostic Testing: Radiology Impression Chest X-Ray 09/05/20 21:43 IMPRESSION: No acute findings. Mild cardiomegaly. Electronically Signed: Shamar Alberts MD at 22:39 EDT Tel , Service support , Rhythm Strip Rhythm Strip: A-fib Rate: 90 Ectopy: PAC(s) EKG Initial EKG: Attestation: I personally reviewed and interpreted this EKG as follows: Interpretation: No Acute Injury Pattern Comments: Atrial fibrillation with a rate of 90 bpm. QTC of 472. PACs. <Dr. Mehul Saab MD - Last Filed: 09/05/20 21:15> [facility] Lab Data Labs: Laboratory Results - last 24 hr 09/05/20 09/05/20 09/05/20 21:30 21:30 21:30 WBC 16.2 H RBC 4.98 Hgb 13.7 Hct 43.5 MCV 87.3 MCH 27.5 MCHC 31.5 L RDW Std Deviation 56.7 H RDW Coeff of Zulay 17.7 H Plt Count 164 MPV 10.5 Immature Gran % (Auto) 0.700 Neut % (Auto) 83.4 H Lymph % (Auto) 5.1 L [place] % (Auto) 10.4 H Eos % (Auto) 0.2 Baso % (Auto) 0.2 Absolute Neuts (auto) 13.5 H Absolute Lymphs (auto) 0.83 Nucleated RBC % 0 PT INR Sodium 131 L Potassium 3.8 Chloride 97 L Carbon Dioxide 25.0 Anion Gap 9 BUN 41 H Creatinine 2.10 H Estim Creat Clear Calc 41.36 Est GFR (MDRD) Af Amer 41 L Est GFR (MDRD) Non-Af 34 L BUN/Creatinine Ratio 19.5 Glucose 285 H Lactic Acid Calcium 8.4 L Magnesium 2.3 Troponin I 0.067 H B-Natriuretic Peptide 152.0 H 09/05/20 09/05/20 21:30 21:30 WBC RBC Hgb Hct MCV MCH MCHC RDW Std Deviation RDW Coeff of Zulay Plt Count MPV Immature Gran % (Auto) Neut % (Auto) Lymph % (Auto) [place] % (Auto) Eos % (Auto) Baso % (Auto) Absolute Neuts (auto) Absolute Lymphs (auto) Nucleated RBC % PT 27.1 H INR 2.6 Sodium Potassium Chloride Carbon Dioxide Anion Gap BUN Creatinine Estim Creat Clear Calc Est GFR (MDRD) Af Amer Est GFR (MDRD) Non-Af BUN/Creatinine Ratio Glucose Lactic Acid 1.9 Calcium Magnesium Troponin I B-Natriuretic Peptide Radiography Diagnostic Testing: Radiology Impression Chest X-Ray 09/05/20 21:43 IMPRESSION: No acute findings. Mild cardiomegaly. Electronically Signed: Shamar Alberts MD at 22:39 EDT Tel , Service support , Discharge Plan Triage Chief Complaint: Shortness of Breath ED Provider: Jose Cole Dx/Rx/DC Orders Clinical Impression: Acute exacerbation of CHF (congestive heart failure), Elevated troponin, Acute dyspnea, BENJI (acute kidney injury) Prescriptions: No Action tramadol 50 MG tablet 50 mg PO Q4H PRN (Reason: Pain) RF: 0 aspirin 81 MG tablet 81 mg PO DAILY@0800 Qty: 30 RF: 0 ramipril 2.5 MG capsule 2.5 mg PO BID RF: 0 warfarin 5 MG tablet 5 mg PO DAILY RF: 0 insulin aspart U-100 100 UNITS/ML insulin pen 0 units subcut TIDCM PRN (Reason: blood glucose ) RF: 0 insulin glargine 100 UNIT/ML insulin pen 45 unit SQ BID RF: 0 isosorbide mononitrate 60 MG tablet 60 mg PO BID Qty: 120 RF: 0 clopidogrel 75 MG tablet 75 mg PO DAILY Qty: 60 RF: 0 rosuvastatin 40 MG tablet 40 mg PO QHS RF: 0 furosemide 40 MG tablet 40 mg PO DAILY PRN (Reason: edema) RF: 0 [facility] [[facility]] - Disposition Patient Disposition: Acute Care Hospital [facility]
[2020-09-05] MEDS: Morphine 4 MG/ML Syringe IV (21:24)
--- NOTE | 2020-09-05 21:43 | RAD_ITS ---
STUDY: X-RAY CHEST REASON FOR EXAM: Male, 65 years old. Chest pain. TECHNIQUE: AP COMPARISON: 11/10/2018 CXR FINDINGS: No evidence of pneumonia, pulmonary edema, pneumothorax or pleural effusion. Cardiac silhouette, hilar and mediastinal contours with no acute findings. Mild cardiomegaly. Sternotomy wires. Atherosclerosis of the thoracic aorta. Degenerative osseous changes with no acute osseous abnormality. RAD/Chest 1 View (Portable) IMPRESSION: No acute findings. Mild cardiomegaly. Electronically Signed: Shamar Alberts MD at 22:39 EDT Tel , Service support ,
[2020-09-05 21:56] LABS: Absolute Lymphocyte Count 0.83 X10^3/uL (0.83-4.51); Absolute Neutrophil Count 13.5 X10^3/uL (2.0-7.7); Basophil# 0.04 X10^3/uL; Basophil% 0.2 % (0-1); Eosinophil# 0.04 X10^3/uL; Eosinophils% 0.2 % (0-5); Hematocrit 43.5 % (40-54); Hemoglobin 13.7 g/dL (13.0-16.5); Lymphocyte # 0.83 X10^3/ul (0.83-4.51); Lymphocyte % 5.1 % (19-41); Mean Corp Hgb Conc 31.5 g/dL (32-36); Mean Corpuscular Hgb 27.5 pg (27.0-32.0); Mean Corpuscular Volume 87.3 fL (80-94); Mean Platelet Vol. 10.5 fl (6.2-12.0); Monocyte# 1.69 X10^3/uL; Monocyte% 10.4 % (0-10); NRBC Flagged by Analyzer 0 % (0-5); Neutrophil # 13.46 X10^3/uL (2.7-7.7); Neutrophil % 83.4 % (47-70); POSITIVE DIFFERENTIAL YES; Platelet Count 164 K/mm3 (150-450); RBC Distribution Width CV 17.7 % (11.6-14.6); RBC Distribution Width SD 56.7 fl (35.1-43.9); Red Blood Count 4.98 M/mm3 (4.6-6.2); White Blood Count 16.2 K/mm3 (4.4-11.0)
[2020-09-05 21:57] LABS: Differential Indicated SCAN CRITERIA MET
[2020-09-05 22:16] LABS: Anion Gap 9 (5-15); BUN 41 mg/dL (7-18); BUN/Creat Ratio 19.5 RATIO (10-20); Calcium,Total 8.4 mg/dL (8.5-10.1); Chloride 97 mmol/L (98-107); EST Glomerular Filtration Rate 34 mL/min (>60); Est Glom Filt Rate - Afr Amer 41 mL/min (>60); Estimated Creatinine Clearance 41.36 ml/min; Glucose 285 mg/dL (74-106); Magnesium 2.3 mg/dL (1.6-2.6); Potassium 3.8 mmol/L (3.5-5.1); Sodium Level 131 mmol/L (136-145)
--- NOTE | 2020-09-05 22:21 | NUR.TO.PHY ---
Patient positive for sepsis screening with HR, respiration rate, labs for creat and WBC. Patient states the morphin started to work but pain returning and a 9 again. Reported all to Dr Cole.
[2020-09-05] MEDS: HYDROmorphone 0.5 MG/0.5 ML SYRINGE IV (22:34)
[2020-09-05 22:43] LABS: International Normalized Ratio 2.6; Prothrombin Time (Protime)PT. 27.1 SECONDS (11.7-14.9)
[2020-09-05 22:55] LABS: Lactic Acid 1.9 mmol/L (0.4-1.9)
[2020-09-05] MEDS: Furosemide 40 MG/4 ML Vial IV (23:24)
[2020-09-05] MEDS: Aspirin 81 MG TAB.CHEW 324 MG PO (23:24)
--- NOTE | 2020-09-05 23:44 | PCM.HP.STD ---
Documented by User: JEANNE Cook 09/06/20 00:17 HPI - General General Date of Admission: 09/05/20 HPI Narrative TAMEKA MARTEL, is a 65 M who presents with complaints of shortness of breath. Patient states his shortness of breath began on Friday and has increasingly become worse. Patient states that he is also noted a increase in swelling in his bilateral lower extremities. Patient states shortness of breath gets worse with activity and better with rest. Patient reports a history of congestive heart failure. Patient complains of shortness of breath, fatigue. Patient denies fever, chills, chest pain, nausea, vomiting, diarrhea, constipation. 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 Home Medications tramadol 50 mg PO Q4H PRN 07/30/17 [History Last Taken 09/02/20 12:00] aspirin 81 mg PO DAILY@0800 #30 tab 04/18/18 [Rx Last Taken 09/05/20 09:00] insulin aspart U-100 0 units SUBCUT TIDCM PRN 11/10/18 [History Last Taken 04/10/20] insulin glargine 45 unit SQ BID 11/10/18 [History Last Taken 09/04/20 22:00] ramipril 2.5 mg PO DAILY 11/10/18 [History Last Taken 09/05/20 09:00] warfarin 5 mg PO DAILY 11/10/18 [History Last Taken 09/04/20 21:00] clopidogrel 75 mg PO DAILY #60 tab 11/14/18 [Rx Last Taken 09/05/20 09:00] isosorbide mononitrate 60 mg PO BID #120 tab 11/14/18 [Rx Last Taken 09/05/20 09:00] furosemide 40 mg PO DAILY PRN 04/10/20 [History Last Taken 09/05/20 20:00] rosuvastatin 40 mg PO QHS 11/30/20 [History Last Taken 09/04/20 22:00] Allergy/AdvReac Type Severity Reaction Status Date / Time perfume AdvReac Shortness Verified 09/05/20 20:55 of breath Family History (Updated 09/06/20 @ 00:07 by Gia Estrada) Father Hypertension Brother Cancer Other Diabetes Surgical History History of coronary artery bypass graft x 3 History of coronary artery stent placement Social History (Updated 09/06/20 @ 00:23 by Gia Estrada) adopted: No household members: spouse housing: house number of children: 1 financial difficulty paying for basics: not applicable service: Yes current occupational status: retired current occupational exposures/hazards: No pets and animals: Yes (2 dogs 1 cat) leisure activities: music and reading Smoking Status: Never smoker alcohol intake: current alcohol intake frequency: holidays/special occasions only substance use type: does not use Prior Cardiac Testing/Procedures Prior Cardiac Testing/Procedures: Stenting and CABG ROS Constitutional Constitutional: Reports systems reviewed and no addt'l complaints, except as documented, fatigue and weight gain Eyes Eyes: Reports systems reviewed and no addt'l complaints, except as documented ENT HEENT: Reports systems reviewed and no addt'l complaints, except as documented Cardiovascular Cardiovascular: Reports dyspnea on exertion, fatigue, leg edema and weight gain Respiratory/Chest Respiratory/Chest: Reports dyspnea on exertion; Denies cough, hemoptysis or wheezing Gastrointestinal Gastrointestinal: Denies abdominal pain, nausea or vomiting Genitourinary Genitourinary: Denies burning urination or dysuria Musculoskeletal Musculoskeletal: Reports back pain and joint stiffness Integumentary Integumentary: Reports dry skin Neurologic Neurologic: Reports none; Denies dizziness, numbness or syncope Psychiatric Psychiatric: Reports none Endocrine Endocrinology: Reports none Hematologic/Lymphatic Hematologic/Lymphatic: Reports easy bleeding, easy bruising and other Details: Patient chronically anticoagulated Allergic/Immunologic Allergic/Immunologic: Reports none Vital Signs Vital Signs Vital Signs: 09/05/20 20:53 09/05/20 21:31 09/05/20 21:34 Temperature 99.2 F H 99.1 F Temperature Source Temporal Oral Pulse Rate 82 95 95 Respiratory Rate 20 H 23 H 23 H Respiratory Effort Blood Pressure 192/106 H 144/79 H 144/79 H Blood Pressure Mean 134 100 100 Pulse Ox 94 96 94 Oxygen Delivery Method Room Air Room Air Room Air 09/05/20 21:37 09/05/20 22:19 09/05/20 23:00 Temperature 98.7 F 98.8 F Temperature Source Oral Oral Pulse Rate 94 92 Respiratory Rate 30 H 21 H Respiratory Effort Short of Breath Blood Pressure 144/79 H 144/78 H Blood Pressure Mean 100 100 Pulse Ox 94 92 Oxygen Delivery Method Room Air Room Air Room Air 09/05/20 23:15 09/05/20 23:27 Temperature 98.8 F 98.8 F Temperature Source Oral Oral Pulse Rate 85 74 Respiratory Rate 25 H 26 H Respiratory Effort Blood Pressure 144/79 H 144/88 H Blood Pressure Mean 100 106 Pulse Ox 93 96 Oxygen Delivery Method Room Air Physical Exam Const alert, oriented x3 and no apparent distress General Appearance: cooperative and comfortable Orientation / Consciousness: awake Exam Limitations: no limitations Nutritional Appearance: obese morbidly obese HEENT normocephalic, head/scalp atraumatic and hearing grossly normal bilaterally Eyes PERRL, EOMs intact bilaterally and conjunctivae normal Neck full ROM, no lymphadenopathy and supple Lymph Lymphatic: no lymphadenopathy noted Resp normal respiratory effort Effort and Inspection: able to speak in complete sentences, symmetric chest movement and tachypneic Auscultation: rales bilateral base and mid Cardio regular rate, S1 normal heart sound and S2 normal heart sound Rhythm: abnormal rhythm irregularly irregular Peripheral Pulses: pulses 2+ throughout GI normal to inspection, nondistended, normoactive bowel sounds, soft to palpation and non-tender no CVA tenderness Back/Spine no CVA tenderness, normal ROM and normal to inspection Extremity normal to inspection, full ROM and normal capillary refill Peripheral Pulses: Yes pulses 2+ throughout Skin no rashes or lesions noted General Skin Exam: dry skin Neuro oriented x3, CN's II-XII intact bilaterally and moves all extremities Psych mental status grossly normal, thought process normal, cooperative, affect normal, speech normal and activity/motor behavior normal Lab / Micro Data Result Diagrams: 09/05/20 21:30 09/05/20 21:30 Labs: Laboratory Results - last 24 hr 09/05/20 09/05/20 09/05/20 21:30 21:30 21:30 WBC 16.2 H RBC 4.98 Hgb 13.7 Hct 43.5 MCV 87.3 MCH 27.5 MCHC 31.5 L RDW Std Deviation 56.7 H RDW Coeff of Zulay 17.7 H Plt Count 164 MPV 10.5 Immature Gran % (Auto) 0.700 Neut % (Auto) 83.4 H Lymph % (Auto) 5.1 L Dougherty % (Auto) 10.4 H Eos % (Auto) 0.2 Baso % (Auto) 0.2 Absolute Neuts (auto) 13.5 H Absolute Lymphs (auto) 0.83 Nucleated RBC % 0 PT INR Sodium 131 L Potassium 3.8 Chloride 97 L Carbon Dioxide 25.0 Anion Gap 9 BUN 41 H Creatinine 2.10 H Estim Creat Clear Calc 41.36 Est GFR (MDRD) Af Amer 41 L Est GFR (MDRD) Non-Af 34 L BUN/Creatinine Ratio 19.5 Glucose 285 H Lactic Acid Calcium 8.4 L Magnesium 2.3 Troponin I 0.067 H B-Natriuretic Peptide 152.0 H 09/05/20 09/05/20 21:30 21:30 WBC RBC Hgb Hct MCV MCH MCHC RDW Std Deviation RDW Coeff of Zulay Plt Count MPV Immature Gran % (Auto) Neut % (Auto) Lymph % (Auto) Dougherty % (Auto) Eos % (Auto) Baso % (Auto) Absolute Neuts (auto) Absolute Lymphs (auto) Nucleated RBC % PT 27.1 H INR 2.6 Sodium Potassium Chloride Carbon Dioxide Anion Gap BUN Creatinine Estim Creat Clear Calc Est GFR (MDRD) Af Amer Est GFR (MDRD) Non-Af BUN/Creatinine Ratio Glucose Lactic Acid 1.9 Calcium Magnesium Troponin I B-Natriuretic Peptide Micro: Microbiology 09/05/20 21:30 SARS-CoV-2 Antigen (Rapid) - Final Nasal Secretion Rhythm Strip Rhythm Strip: A-fib Rate: 90 Ectopy: PAC(s) Radiology Impression Chest X-Ray 09/05/20 21:43 IMPRESSION: No acute findings. Mild cardiomegaly. Electronically Signed: Shamar Alberts MD at 22:39 EDT Tel , Service support , Assessment & Plan Assessment/Plan (1) Acute exacerbation of CHF (congestive heart failure): Status: Chronic Code(s): I50.9 - Heart failure, unspecified Plan: -Lasix 40 mg IV twice daily -Strict I&O -Trend CMP daily for evaluation of electrolytes -O2 per protocol for exertional dyspnea -1500 mL fluid restriction -Felix wraps to bilateral legs and elevate extremities when in bed (2) Elevated troponin: Status: Acute Code(s): R77.8 - Other specified abnormalities of plasma proteins Plan: -Likely related to CHF exacerbation -will trend cardiac enzymes (3) Acute dyspnea: Status: Acute Code(s): R06.00 - Dyspnea, unspecified Plan: -Secondary to CHF exacerbation -O2 per protocol (4) BENJI (acute kidney injury): Status: Acute Code(s): N17.9 - Acute kidney failure, unspecified Plan: -CMP daily to evaluate kidney function -Acute kidney injury superimposed on stage IIIa chronic kidney failure (5) Afib: Status: Chronic Code(s): I48.91 - Unspecified atrial fibrillation Plan: -Continue warfarin -PT/INR daily (6) Anticoagulant long-term use: Status: Chronic Code(s): Z79.01 - retirement (current) use of anticoagulants Plan: -See above (7) Hypertension: Status: Chronic Code(s): I10 - Essential (primary) hypertension Plan: -Continue home regimen of isosorbide -Hold ramipril due to acute kidney injury (8) Obesity (BMI 35.0-39.9 without comorbidity): Status: Chronic Code(s): E66.9 - Obesity, unspecified Plan: -Encourage lifestyle modifications -Nutrition consulted (9) Diabetes: Status: Chronic Code(s): E11.9 - Type 2 diabetes mellitus without complications Plan: -AC at bedtime blood sugars with sliding scale insulin ordered -Continue Lantus 45 units twice daily (10) CAD (coronary artery disease): Status: Chronic Code(s): I25.10 - Atherosclerotic heart disease of [place] coronary artery without angina pectoris Plan: -Continue Plavix (11) CKD (chronic kidney disease) stage 3, GFR 30-59 ml/min: Status: Chronic Plan: -Admit to PCU for cardiac monitoring -BMP, CBC, PT/INR daily -Cardiac calorie controlled diet ordered with fluid restriction of 1500 mL -Daily weights -VSA per protocol -Graduated pain management treatment plan in place -Blood cultures pending, obtained in ER. DVT Prophylaxis-none indicated, patient chronically anticoagulated, INR therapeutic. This patient was seen by JEANNE Cook under the supervision of Dr. Saab. Documented by User: Dr. 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 Home Medications tramadol 50 mg PO Q4H PRN 07/30/17 [History Last Taken 09/02/20 12:00] aspirin 81 mg PO DAILY@0800 #30 tab 04/18/18 [Rx Last Taken 09/05/20 09:00] insulin aspart U-100 0 units SUBCUT TIDCM PRN 11/10/18 [History Last Taken 04/10/20] insulin glargine 45 unit SQ BID 11/10/18 [History Last Taken 09/04/20 22:00] ramipril 2.5 mg PO DAILY 11/10/18 [History Last Taken 09/05/20 09:00] warfarin 5 mg PO DAILY 11/10/18 [History Last Taken 09/04/20 21:00] clopidogrel 75 mg PO DAILY #60 tab 11/14/18 [Rx Last Taken 09/05/20 09:00] isosorbide mononitrate 60 mg PO BID #120 tab 11/14/18 [Rx Last Taken 09/05/20 09:00] furosemide 40 mg PO DAILY PRN 04/10/20 [History Last Taken 09/05/20 20:00] rosuvastatin 40 mg PO QHS 04/10/20 [History Last Taken 09/04/20 22:00] Allergy/AdvReac Type Severity Reaction Status Date / Time perfume AdvReac Shortness Verified 09/05/20 20:55 of breath Family History (Updated 09/06/20 @ 00:07 by Gia Estrada) Father Hypertension Brother Cancer Other Diabetes Surgical History History of coronary artery bypass graft x 3 History of coronary artery stent placement Social History (Updated 09/06/20 @ 00:23 by Gia Estrada) adopted: No household members: spouse housing: house number of children: 1 financial difficulty paying for basics: not applicable service: Yes current occupational status: retired current occupational exposures/hazards: No pets and animals: Yes (2 dogs 1 cat) leisure activities: music and reading Smoking Status: Never smoker alcohol intake: current alcohol intake frequency: holidays/special occasions only substance use type: does not use Lab / Micro Data Result Diagrams: 09/05/20 21:30 09/05/20 21:30 Patient with a significant history of heart failure with reduced ejection fraction; 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 Shortness of breath is at rest and with exertion. Associated with symptoms is fatigue. Alert and oriented x3 Heart sounds S1-S2 present, irregularly irregular Lungs with mild rales Abdomen bowel sounds present soft nontender nondistended Left foot with amputation of metatarsal; right foot with amputation multiple digits. Acute Exacerbation of heart failure with reduced ejection fraction Echocardiogram on 04/12/2020 showed ejection fraction of 45%. Mild tricuspid valve insufficiency. Pulmonary artery systolic pressure was 34 mmHg. Left atrium was moderately enlarged. Right atrium was mildly enlarged. Mild focal aortic valve calcifications. Place on monitored bed on PCU Weight on admission to the floor; and then daily Strict I&O's CXR independently reviewed confirms cardiomegaly BNP 152 Diuresis with Lasix 40 mg IV twice daily Monitor electrolytes and renal function Trend blood pressure Titrate diuretics and heart failure/blood pressure medications with blood pressure. Kerlix roll and felix wrap to bilateral lower extremities Fluid restriction of 1500 mls daily Cardiac diet CAD status post CABG Aspirin and Plavix continued Lipitor continued Elevated troponin Likely secondary to demand ischemia from CHF Trend troponin. Aspirin; Plavix; Imdur and Lipitor continued. Atrial fibrillation Stable INR is therapeutic. Coumadin continued. Trend INR BENJI on CKD stage IIIa CKD Likely from Diabetic nephropathy and hypertensive nephrosclerosis Baseline creatinine of 1.65 Creatinine on admission was 2.10. AK like secondary to cardiorenal syndrome IV Lasix as above Trend BMP. Diabetes mellitus Patient with hyperglycemia on presentation Basal insulin continued . Accu-Chek QA [facility] with correction scale insulin ordered. Hypertension Blood pressure is stable in regard to his age. Imdur continued Trend blood pressure and adjust blood pressure medications as necessary Debility PT and OT to work with patients DVT prophylaxis Not indicated since patient is on Coumadin and INR is therapeutic. Coumadin continued. Inpatient E&M: [id number] Init Hosp L3
[2020-09-06] VITALS (10 sets, daily range): BP systolic 120–154; BP diastolic 50–95; PULSE 70–90; RESP 16–18; TEMP 36.4–37.2; O2SAT 94–95; BMI 35.5
[2020-09-06 01:26] LABS: Bedside Glucose 284 mg/dL (70-110)
--- NOTE | 2020-09-06 04:03 | NURSING ---
DR PHELPS NOTIFIED OF PT C/O PAIN 02/18 TO RT SHOULDER REFUSES TO TAKE TRAMADOL OR TYLENOL. DR PHELPS STATES HE IS NOT GOING TO CHANGE HIS PAIN MEDICATION AT THIS TIME. BUT OK'D USE OF HEATING PAD.
[2020-09-06 05:37] LABS: Absolute Lymphocyte Count 0.88 X10^3/uL (0.83-4.51); Absolute Neutrophil Count 13.1 X10^3/uL (2.0-7.7); Basophil# 0.05 X10^3/uL; Basophil% 0.3 % (0-1); Eosinophil# 0.05 X10^3/uL; Eosinophils% 0.3 % (0-5); Hematocrit 45.2 % (40-54); Hemoglobin 13.8 g/dL (13.0-16.5); Lymphocyte # 0.88 X10^3/ul (0.83-4.51); Lymphocyte % 5.5 % (19-41); Mean Corp Hgb Conc 30.5 g/dL (32-36); Mean Corpuscular Hgb 27.1 pg (27.0-32.0); Mean Corpuscular Volume 88.8 fL (80-94); Mean Platelet Vol. 10.4 fl (6.2-12.0); Monocyte# 1.66 X10^3/uL; Monocyte% 10.5 % (0-10); NRBC Flagged by Analyzer 0 % (0-5); Neutrophil # 13.12 X10^3/uL (2.7-7.7); Neutrophil % 82.7 % (47-70); POSITIVE DIFFERENTIAL YES; Platelet Count 154 K/mm3 (150-450); RBC Distribution Width CV 17.5 % (11.6-14.6); RBC Distribution Width SD 57.6 fl (35.1-43.9); Red Blood Count 5.09 M/mm3 (4.6-6.2); White Blood Count 15.9 K/mm3 (4.4-11.0)
[2020-09-06 05:46] LABS: International Normalized Ratio 2.9; Prothrombin Time (Protime)PT. 29.2 SECONDS (11.7-14.9)
[2020-09-06 05:52] LABS: Differential Indicated SCAN CRITERIA MET
[2020-09-06 05:58] LABS: Anion Gap 10 (5-15); BUN 44 mg/dL (7-18); BUN/Creat Ratio 19.8 RATIO (10-20); Calcium,Total 8.1 mg/dL (8.5-10.1); Chloride 98 mmol/L (98-107); Creatinine, Serum 2.22 mg/dL (0.70-1.30); EST Glomerular Filtration Rate 32 mL/min (>60); Est Glom Filt Rate - Afr Amer 38 mL/min (>60); Estimated Creatinine Clearance 39.12 ml/min; Glucose 261 mg/dL (74-106); Potassium 3.7 mmol/L (3.5-5.1); Sodium Level 131 mmol/L (136-145)
[2020-09-06 06:11] LABS: Differential Comment SCANNED
[2020-09-06] MEDS: Insulin Lispro 100 UNIT/ML INSULN.PEN SC ×4 (06:40→22:10)
[2020-09-06 06:45] LABS: Bedside Glucose 244 mg/dL (70-110)
--- NOTE | 2020-09-06 09:30 | NURSING ---
Pt c/o pain in right shoulder. Offered ordered PRN medications and non-pharmacological interventions to promote comfort. Pt refused stating tramadol exacerbates the pain and Tylenol made him have a stomach ulcer. Educated pt on tramadol/Tylenol and current pain management plan which includes PRN Tylenol/tramadol along with PT/OT. While this RN was providing education, pt closed his eyes as if he were sleeping and when RN stopped speaking for a few moments he stated yeah I am paying attention, I just closed my eyes. Pt requesting stronger medication like what they gave in ED. MD & PAPER BALER aware. Pt agreed to try tramadol at this time. Ice pack applied to site and pt given warm blanket for comfort.
[2020-09-06] MEDS: Isosorbide Mononitrate 60 MG Tablet PO ×2 (09:33→21:45)
[2020-09-06] MEDS: Aspirin E.C. 81 MG Tablet PO (09:33)
[2020-09-06] MEDS: traMADol 50 MG Tablet PO ×2 (09:33→21:49)
[2020-09-06] MEDS: 0.9% Saline Lock 10 ML Syringe IV ×2 (09:33→17:15)
[2020-09-06] MEDS: Clopidogrel Bisulfate 75 MG Tablet PO (09:33)
[2020-09-06] MEDS: Furosemide 40 MG/4 ML Vial IV ×2 (09:34→17:15)
--- NOTE | 2020-09-06 09:50 | NURSING ---
Pt mentioned he uses a CPAP at home. RN informed pt that he can bring in home unit to use if he would like.
--- NOTE | 2020-09-06 10:49 | PCM.PN.HOSP ---
Documented by User: Jackie Farrar NP, [employer] 09/06/20 11:07 Subjective Subjective: Patient seen and examined. States shortness of breath has improved however continues to have dyspnea with conversation and with movement. Complains of right shoulder pain. States he fell into his hospital bed at home and has had right shoulder pain since that time. Denies chest pain. Denies other associated symptoms or complaints. Objective Data Objective Data Vital Signs: Vital Signs Temp Pulse Resp BP Pulse Ox 98.6 F 70 18 145/88 H 95 09/06/20 09:20 09/06/20 09:20 09/06/20 09:20 09/06/20 09:20 09/06/20 09:20 Oxygen Delivery Method Room Air Weight: 284 lb 6.341 oz Body Mass Index (BMI) 35.5 Finger Stick Blood Glucose 184 Intake & Output: Intake and Output for Last 24 Hours 09/04/20 09/05/20 09/06/20 23:59 23:59 23:59 Intake Total 150 / 150 Output Total 300 / 300 Balance -150 / -150 Lab / Micro Data Result Diagrams: 09/06/20 05:28 09/06/20 05:28 Labs: Laboratory Results - last 24 hr 09/05/20 09/05/20 09/05/20 21:30 21:30 21:30 WBC 16.2 H RBC 4.98 Hgb 13.7 Hct 43.5 MCV 87.3 MCH 27.5 MCHC 31.5 L RDW Std Deviation 56.7 H RDW Coeff of Zulay 17.7 H Plt Count 164 MPV 10.5 Immature Gran % (Auto) 0.700 Neut % (Auto) 83.4 H Lymph % (Auto) 5.1 L Villalba % (Auto) 10.4 H Eos % (Auto) 0.2 Baso % (Auto) 0.2 Absolute Neuts (auto) 13.5 H Absolute Lymphs (auto) 0.83 Nucleated RBC % 0 Differential Comment Diff Path Review May foll PT INR Sodium 131 L Potassium 3.8 Chloride 97 L Carbon Dioxide 25.0 Anion Gap 9 BUN 41 H Creatinine 2.10 H Estim Creat Clear Calc 41.36 Est GFR (MDRD) Af Amer 41 L Est GFR (MDRD) Non-Af 34 L BUN/Creatinine Ratio 19.5 Glucose 285 H Lactic Acid Calcium 8.4 L Magnesium 2.3 Troponin I 0.067 H B-Natriuretic Peptide 152.0 H POC Glucose 09/05/20 09/05/20 09/06/20 21:30 21:30 01:17 WBC RBC Hgb Hct MCV MCH MCHC RDW Std Deviation RDW Coeff of Zulay Plt Count MPV Immature Gran % (Auto) Neut % (Auto) Lymph % (Auto) Villalba % (Auto) Eos % (Auto) Baso % (Auto) Absolute Neuts (auto) Absolute Lymphs (auto) Nucleated RBC % Differential Comment Diff Path Review PT 27.1 H INR 2.6 Sodium Potassium Chloride Carbon Dioxide Anion Gap BUN Creatinine Estim Creat Clear Calc Est GFR (MDRD) Af Amer Est GFR (MDRD) Non-Af BUN/Creatinine Ratio Glucose Lactic Acid 1.9 Calcium Magnesium Troponin I B-Natriuretic Peptide POC Glucose 284 H 09/06/20 09/06/20 09/06/20 02:40 05:28 05:28 WBC 15.9 H RBC 5.09 Hgb 13.8 Hct 45.2 MCV 88.8 MCH 27.1 MCHC 30.5 L RDW Std Deviation 57.6 H RDW Coeff of Zulay 17.5 H Plt Count 154 MPV 10.4 Immature Gran % (Auto) 0.700 Neut % (Auto) 82.7 H Lymph % (Auto) 5.5 L Villal[place] % (Auto) 10.5 H Eos % (Auto) 0.3 Baso % (Auto) 0.3 Absolute Neuts (auto) 13.1 H Absolute Lymphs (auto) 0.88 Nucleated RBC % 0 Differential Comment SCANNED Diff Path Review May foll PT 29.2 H INR 2.9 Sodium Potassium Chloride Carbon Dioxide Anion Gap BUN Creatinine Estim Creat Clear Calc Est GFR (MDRD) Af Amer Est GFR (MDRD) Non-Af BUN/Creatinine Ratio Glucose Lactic Acid Calcium Magnesium Troponin I 0.054 H B-Natriuretic Peptide POC Glucose 09/06/20 09/06/20 09/06/20 05:28 05:28 06:39 WBC RBC Hgb Hct MCV MCH MCHC RDW Std Deviation RDW Coeff of Zulay Plt Count MPV Immature Gran % (Auto) Neut % (Auto) Lymph % (Auto) Villalba % (Auto) Eos % (Auto) Baso % (Auto) Absolute Neuts (auto) Absolute Lymphs (auto) Nucleated RBC % Differential Comment Diff Path Review PT INR Sodium 131 L Potassium 3.7 Chloride 98 Carbon Dioxide 23.0 Anion Gap 10 BUN 44 H Creatinine 2.22 H Estim Creat Clear Calc 39.12 Est GFR (MDRD) Af Amer 38 L Est GFR (MDRD) Non-Af 32 L BUN/Creatinine Ratio 19.8 Glucose 261 H Lactic Acid Calcium 8.1 L Magnesium Troponin I 0.068 H B-Natriuretic Peptide POC Glucose 244 H 09/06/20 08:24 WBC RBC Hgb Hct MCV MCH MCHC RDW Std Deviation RDW Coeff of Zulay Plt Count MPV Immature Gran % (Auto) Neut % (Auto) Lymph % (Auto) Villalba % (Auto) Eos % (Auto) Baso % (Auto) Absolute Neuts (auto) Absolute Lymphs (auto) Nucleated RBC % Differential Comment Diff Path Review PT INR Sodium Potassium Chloride Carbon Dioxide Anion Gap BUN Creatinine Estim Creat Clear Calc Est GFR (MDRD) Af Amer Est GFR (MDRD) Non-Af BUN/Creatinine Ratio Glucose Lactic Acid Calcium Magnesium Troponin I 0.072 H B-Natriuretic Peptide POC Glucose Micro: Microbiology 09/05/20 21:30 Nasal Secretion SARS-CoV-2 Antigen (Rapid) - Final Radiography Diagnostic Testing: Radiology Impression Chest X-Ray 09/05/20 21:43 IMPRESSION: No acute findings. Mild cardiomegaly. Electronically Signed: Shamar Alberts MD at 22:39 EDT Tel , Service support , Rhythm Strip Rhythm Strip: A-fib Rate: 90 Ectopy: PAC(s) Physical Exam Const alert, oriented x3 and no apparent distress HEENT moist oral mucous membranes Head and Scalp: normocephalic Eyes PERRL, EOMs intact bilaterally and conjunctivae normal Neck no lymphadenopathy Resp normal respiratory effort Auscultation: rales bilateral base Cardio regular rate, regular rhythm and no murmurs Peripheral Pulses: pulses 2+ throughout GI normal to inspection, nondistended, normoactive bowel sounds Extremity normal to inspection General Extremity: edema bilateral lower extremity Details: mild Peripheral Pulses: Yes pulses 2+ throughout Skin no rashes or lesions noted Skin Narrative: Bilateral lower extremity hyperpigmentation and stasis dermatitis. Psych affect normal Assessment & Plan Assessment/Plan (1) Acute exacerbation of CHF (congestive heart failure): Status: Chronic Code(s): I50.9 - Heart failure, unspecified (2) Elevated troponin: Status: Acute Code(s): R77.8 - Other specified abnormalities of plasma proteins (3) BENJI (acute kidney injury): Status: Acute Code(s): N17.9 - Acute kidney failure, unspecified (4) Afib: Status: Chronic Code(s): I48.91 - Unspecified atrial fibrillation (5) CAD (coronary artery disease): Status: Chronic Code(s): I25.10 - Atherosclerotic heart disease of [place] coronary artery without angina pectoris Plan: 1. Acute heart failure with reduced ejection fraction-BNP mildly elevated. Chest x-ray without acute findings. Echocardiogram April 2020 demonstrated an EF of 45%. Oxygen stable on room air. Continue IV Lasix. Strict I&O. Daily weight. Walking pulse ox prior to discharge. 2. Indeterminate troponin-suspect demand ischemia related to #1. EKG without acute ST-T changes. 3. Acute kidney injury on chronic kidney disease stage IIIa-likely BENJI due to cardiorenal syndrome. Continue with diuresis. Trend BMP. 4. Paroxysmal atrial fibrillation-rate controlled. Continue Coumadin. Not on rate control regimen. 5. CAD with history of CABG-denies chest pain. Continue aspirin, Plavix, statin, Imdur. 6. Type 2 diabetes [id number] with sliding scale insulin. 7. Hypertension-stable, on Imdur 8. Hyperlipidemia-continue statin. DVT prophylaxis-Coumadin This patient was seen by JEANNE Henderson under the supervision of Dr. Aguiar Documented by User: Dr. Adrián Aguiar MD 09/06/20 16:09 Objective Data Lab / Micro Data Result Diagrams: 09/06/20 05:28 09/06/20 05:28 Addendum: Dr. Kotsonis I personally examined the patient and reviewed the chart. I agree with the above. 65-year-old male who presented to the hospital with shortness of breath which started on Friday and has increasingly become worse. He said he also noticed increased swelling in his lower extremities. He is currently on room air does have episodes of dyspnea with ambulation as well as conversation. He also complains of right shoulder pain, he says that he has a hospital bed at home and he fell into the railing and hurt his shoulder. He had an echo in April 2020 with an EF of 45% and pulmonary artery systolic pressure of 34 mmHg. No need to repeat his echo currently, will continue with IV Lasix and will obtain a shoulder x-ray for further clarification. Inpatient E&M: [id number] Subs Hosp L2
--- NOTE | 2020-09-06 12:00 | CASEMGMT ---
RN LAURA DELI CUTTER SLICER CM to room to meet with patient for initial transition planning/care coordination assessment. JO-ANN SANCHEZ introduced self and role at [facility]. Pt voices understanding and consents to assessment at this time. Pt resting in bed in no distress at this time. Pt is A/O at this time and answers all questions appropriately. Care providers, pharmacy, and demographics verified/updated at this time. [facility] [place] [facility] will go to [place]. Pt states he would still like to get established w/new PCP locally (not through [facility]). (He was interested in this in Apr, when he was @ [facility], but states did not f/u w/getting established w/one yet). He was provided with another list of local PCP's at this time. Specialists: Sees several specialists @ [facility] Preferred Pharmacy: [facility] for short-term prescriptions. VA for long-term Insurance: [facility], [place] benefits. Discussed option to transfer to [facility]. Pt wishes to remain @ [facility] and declines to tranfer. Declination to transfer form reviewed w/pt, pt signed form, copy made and placed on chart and original given to pt. Prescription Benefit: VA only Living Will/HPOA: does not have LW or HCPOA. He states a clerk telegraph service friend is working on this and he declines wanting further info. LNOK: Sig other, Perez. Daughter, Joy Phan. Living Arrangements: Lives w/Perez, in a lower level apartment w/ramp entrance. Independent with ADL's and manages his own medications and appts. Perez does most home mgmt tasks. They do grocery shopping together. Transportation: Pt does not drive at this time d/t cataract surgery. Perez provides transportation. DME: has the following DME: Hospital bed, lift chair, electric scooter, rollator, quad cane, CPAP, shower chair, glucometer. HHC/SNF: Hx HHC in the past but does not remember name of agency. No hx of SNF. Pt wishes to return home and has no concerns with going home at time of discharge. He denies need for HHC. Pt made aware, if in the future, he would like HHC or therapy, to discuss this with his PCP or [facility]. He voices understanding. Also discussed CCN at this time and pt declines this at this time and pt declines needing any OP therapy as well. Pt wishes to return home and states has no concerns with going home at time of discharge. CM to follow for any discharge planning/needs. Pt voices no concerns/needs at this time. Advised pt to ask for CM if any questions/concerns/needs arise. Voices understanding. PLAN: Home w/signif other, Perez, and discharge plans in place. Kulwant SARABIAN RN CM
[2020-09-06 12:34] LABS: Pathologist Review Reviewed
[2020-09-06 12:34] LABS: Pathologist Review Reviewed
[2020-09-06 12:46] LABS: Bedside Glucose 214 mg/dL (70-110)
[2020-09-06] MEDS: Lidocaine 5% Patch 1 PATCH TOPICAL (14:26)
--- NOTE | 2020-09-06 15:16 | CASEMGMT ---
Pt screened with [facility] Palliative Screening Tool due to Strata 3, pt did not meet criteria.
--- NOTE | 2020-09-06 16:30 | RAD_ITS ---
STUDY: X-RAY - RIGHT SHOULDER REASON FOR EXAM: Male, 65 years old. Shoulder pain after fall TECHNIQUE: 2 view(s) of the shoulder. COMPARISON: November 15, 2018 chest x-ray FINDINGS: Normal glenohumeral articulation. There is degenerative arthrosis of the acromioclavicular joint without inferior osseous spur formation. Normal acromion. Normal humeral head and visualized proximal humerus. The soft tissue structures are unremarkable. The nonspecific increased interstitial markings within the right upper lobe which may represent atelectasis. RAD/Shoulder min 2 Views IMPRESSION: Minimal degenerative change. No visualized acute fracture. Electronically Signed: Stella Torres MD at 1:11 EDT Tel , Service support ,
[2020-09-06 17:31] LABS: Bedside Glucose 227 mg/dL (70-110)
--- NOTE | 2020-09-06 18:59 | NURSING ---
Pt refused REGINO wraps to bilateral LE. Educated pt on why REGINO wraps were ordered, pt stated yeah but they are annoying. I know my body.
[2020-09-06] MEDS: Atorvastatin Calcium 80 MG Tablet PO (21:45)
[2020-09-06] MEDS: MELATONIN 3 MG TABLET PO (21:50)
[2020-09-06 22:46] LABS: Bedside Glucose 247 mg/dL (70-110)
[2020-09-07] VITALS (7 sets, daily range): BP systolic 142–146; BP diastolic 61–69; PULSE 62–87; RESP 16–18; TEMP 36.8–37; O2SAT 92–96
[2020-09-07 06:35] LABS: Bedside Glucose 115 mg/dL (70-110)
[2020-09-07 06:41] LABS: Hematocrit 44.7 % (40-54); Hemoglobin 13.7 g/dL (13.0-16.5); Mean Corp Hgb Conc 30.6 g/dL (32-36); Mean Corpuscular Hgb 26.4 pg (27.0-32.0); Mean Corpuscular Volume 86.1 fL (80-94); Mean Platelet Vol. 9.9 fl (6.2-12.0); Platelet Count 169 K/mm3 (150-450); RBC Distribution Width CV 17.5 % (11.6-14.6); RBC Distribution Width SD 55.4 fl (35.1-43.9); Red Blood Count 5.19 M/mm3 (4.6-6.2); White Blood Count 14.3 K/mm3 (4.4-11.0)
[2020-09-07 06:53] LABS: International Normalized Ratio 4.1
--- NOTE | 2020-09-07 07:01 | NURSING ---
DR YEPEZ NOTIFIED OF INR OF 4.1 ORDER TO HOLD COUMADIN RECEIVED.
[2020-09-07 07:07] LABS: Anion Gap 9 (5-15); BUN 50 mg/dL (7-18); BUN/Creat Ratio 21.6 RATIO (10-20); Calcium,Total 8.3 mg/dL (8.5-10.1); Chloride 97 mmol/L (98-107); Creatinine, Serum 2.31 mg/dL (0.70-1.30); EST Glomerular Filtration Rate 30 mL/min (>60); Est Glom Filt Rate - Afr Amer 37 mL/min (>60); Glucose 87 mg/dL (74-106); Potassium 3.1 mmol/L (3.5-5.1); Sodium Level 133 mmol/L (136-145)
--- NOTE | 2020-09-07 09:47 | CASEMGMT ---
Returned call to [place] transfer center, [place], received vm. Left message that pt is to dc today and to call back for any further needs.
--- NOTE | 2020-09-07 09:49 | DCINST_ITS ---
Discharge Instructions Outpatient Procedure Reason For Visit: HEART FAILURE WITH REDUCED EF EXACERBATION Diet Discharge Diet: No restrictions Activity Discharge Activity: Return to Normal Activity Follow Up Care Please Follow Up With: [facility] When: Within the next 2 weeks Test Results: Test results from this visit will be discussed in further detail at your follow-up appointment, if applicable. Discharge Plan Admission Admit Date/Time: 09/05/20 23:16 Primary Reason for Your Visit: Acute Kidney Injury and Acute CHF exacerbation Attending Provider: Adrián Aguiar Primary Care Provider: [facility] Instructions Patient Instructions: ED Chest Pain, Noncardiac Discharge Orders/Prescriptions Prescriptions: Continued tramadol 50 MG tablet 50 mg PO Q4H PRN (Reason: Pain) RF: 0 aspirin 81 MG tablet 81 mg PO DAILY@0800 Qty: 30 RF: 0 ramipril 2.5 MG capsule 2.5 mg PO DAILY RF: 0 warfarin 5 MG tablet 5 mg PO DAILY RF: 0 insulin aspart U-100 100 UNITS/ML insulin pen 0 units subcut TIDCM PRN (Reason: blood glucose ) RF: 0 insulin glargine 100 UNIT/ML insulin pen 45 unit SQ BID RF: 0 isosorbide mononitrate 60 MG tablet 60 mg PO BID Qty: 120 RF: 0 clopidogrel 75 MG tablet 75 mg PO DAILY Qty: 60 RF: 0 rosuvastatin 40 MG tablet 40 mg PO QHS RF: 0 furosemide 40 MG tablet 40 mg PO DAILY PRN (Reason: edema) RF: 0 Referrals: [place] [Primary Care Provider] - Disposition Patient Disposition: Home, self care
--- NOTE | 2020-09-07 09:53 | DS.PCM_ITS ---
Documented by User: Ortega CENTENO 09/07/20 10:05 Providers Date of Admission: 09/05/20 Primary Care Physician: MD Hospital Reason For Visit: HEART FAILURE WITH REDUCED EF EXACERBATION Diagnosis Discharge Diagnosis (1) Acute exacerbation of CHF (congestive heart failure): Status: Chronic Code(s): I50.9 - Heart failure, unspecified (2) Elevated troponin: Status: Acute Code(s): R77.8 - Other specified abnormalities of plasma proteins (3) BENJI (acute kidney injury): Status: Acute Code(s): N17.9 - Acute kidney failure, unspecified (4) Afib: Status: Chronic Code(s): I48.91 - Unspecified atrial fibrillation (5) CAD (coronary artery disease): Status: Chronic Code(s): I25.10 - Atherosclerotic heart disease of [place] coronary artery without angina pectoris Medications at Discharge Home Medications tramadol 50 mg PO Q4H PRN 07/30/17 aspirin 81 mg PO DAILY@0800 #30 tab 04/18/18 insulin aspart U-100 0 units SUBCUT TIDCM PRN 11/10/18 insulin glargine 45 unit SQ BID 11/10/18 ramipril 2.5 mg PO DAILY 11/10/18 warfarin 5 mg PO DAILY 11/10/18 clopidogrel 75 mg PO DAILY #60 tab 11/14/18 isosorbide mononitrate 60 mg PO BID #120 tab 11/14/18 furosemide 40 mg PO DAILY PRN 04/10/20 rosuvastatin 40 mg PO QHS 04/10/20 Hospital Course Summary of Care Provided Minutes Spent on Discharge: 35 Hospital Course: 1) Acute heart failure with reduced ejection fraction BNP mildly elevated. Chest x-ray without acute findings. Echocardiogram April 2020 demonstrated an EF of 45%, additional echocardiogram not indicated at this time. Home Lasix continued on discharge. 2) Indeterminate troponin-suspect demand ischemia related to #1. EKG without acute ST-T changes. 3) Acute kidney injury on chronic kidney disease stage IIIa Likely BENJI due to cardiorenal syndrome. Home Lasix continued. 4) Paroxysmal atrial fibrillation-rate controlled. Not on rate control regimen and does not desire to initiate on discharge. Continue home Coumadin. INR supratherapeutic on discharge, patient reports that his INR has been elevated r ecently and that he has been working with the [facility] regarding this problem. Does not wish to alter his Coumadin dose at this time. 5) CAD with history of CABG-denies chest pain. Continue aspirin, Plavix, statin, Imdur on discharge. 6) Type 2 diabetes mellitus Continue home insulin regimen. 7. Hypertension Stable, continue Imdur on discharge. 8. Hyperlipidemia Continue statin. This patient was seen by JACOBO Ugalde under the supervision of Dr. Guerrero. Physical Exam Const alert, oriented x3 and no apparent distress General Appearance: cooperative and comfortable Orientation / Consciousness: awake Exam Limitations: no limitations Nutritional Appearance: obese morbidly obese HEENT normocephalic, head/scalp atraumatic, hearing grossly normal bilaterally and moist oral mucous membranes Eyes PERRL, EOMs intact bilaterally and conjunctivae normal Neck full ROM, no lymphadenopathy and supple Lymph Lymphatic: no lymphadenopathy noted Resp normal respiratory effort Effort and Inspection: able to speak in complete sentences, symmetric chest movement and tachypneic Auscultation: rales bilateral base Cardio regular rate, regular rhythm, S1 normal heart sound, S2 normal heart sound and no murmurs Rhythm: abnormal rhythm irregularly irregular Peripheral Pulses: pulses 2+ throughout GI normal to inspection, nondistended, normoactive bowel sounds, soft to palpation and non-tender no CVA tenderness Back/Spine no CVA tenderness, normal ROM and normal to inspection Extremity normal to inspection, full ROM and normal capillary refill General Extremity: edema bilateral lower extremity Details: mild Peripheral Pulses: Yes pulses 2+ throughout Skin no rashes or lesions noted Skin Narrative: Bilateral lower extremity hyperpigmentation and stasis dermatitis. General Skin Exam: dry skin Neuro oriented x3, CN's II-XII intact bilaterally and moves all extremities Psych mental status grossly normal, thought process normal, cooperative, affect normal, speech normal and activity/motor behavior normal ABG / Lab / Microbiology Data Result Diagrams: 09/07/20 06:15 09/07/20 06:15 Laboratory: Laboratory Results - last 24 hr 09/05/20 09/06/20 09/06/20 21:30 05:28 11:41 WBC RBC Hgb Hct MCV MCH MCHC RDW Std Deviation RDW Coeff of Zulay Plt Count MPV Diff Path Review Reviewed Reviewed PT INR Sodium Potassium Chloride Carbon Dioxide Anion Gap BUN Creatinine Estim Creat Clear Calc Est GFR (MDRD) Af Amer Est GFR (MDRD) Non-Af BUN/Creatinine Ratio Glucose Calcium POC Glucose 214 H 09/06/20 09/06/20 09/07/20 17:12 22:09 06:15 WBC RBC Hgb Hct MCV MCH MCHC RDW Std Deviation RDW Coeff of Zulay Plt Count MPV Diff Path Review PT 39.0 H INR 4.1 H* Sodium Potassium Chloride Carbon Dioxide Anion Gap BUN Creatinine Estim Creat Clear Calc Est GFR (MDRD) Af Amer Est GFR (MDRD) Non-Af BUN/Creatinine Ratio Glucose Calcium POC Glucose 227 H 247 H 09/07/20 09/07/20 09/07/20 06:15 06:15 06:30 WBC 14.3 H RBC 5.19 Hgb 13.7 Hct 44.7 MCV 86.1 MCH 26.4 L MCHC 30.6 L RDW Std Deviation 55.4 H RDW Coeff of Zulay 17.5 H Plt Count 169 MPV 9.9 [address] Review PT INR Sodium 133 L Potassium 3.1 L Chloride 97 L Carbon Dioxide 27.0 Anion Gap 9 BUN 50 H Creatinine 2.31 H Estim Creat Clear Calc 37.60 Est GFR (MDRD) Af Amer 37 L Est GFR (MDRD) Non-Af 30 L BUN/Creatinine Ratio 21.6 H Glucose 87 Calcium 8.3 L POC Glucose 115 H Microbiology: Microbiology 09/05/20 21:30 Nasal Secretion SARS-CoV-2 Antigen (Rapid) - Final Radiography Diagnostic Testing: Radiology Impression Shoulder X-Ray 09/06/20 16:30 IMPRESSION: Minimal degenerative change. No visualized acute fracture. Electronically Signed: Stella Torres MD at 1:11 EDT Tel , Service support , D/C Instructions Discharge Diet: No restrictions Discharge Activity: Return to Normal Activity Please [facility] With: [facility] When: Within the next 2 weeks Meaningful Use Info Meaningful Use Diagnoses (Choose all that apply): None applicable and CHF CHF REGINO/ARB ordered at discharge?: Yes Documented LVEF (%): 45 Discharge Plan Admission Admit Date/Time: 09/05/20 23:16 Primary Reason for Your Visit: Acute Kidney Injury and Acute CHF exacerbation Attending Provider: Adrián Aguiar Primary Care Provider: [facility] Instructions Patient Instructions: ED Chest Pain, Noncardiac Discharge Orders/Prescriptions Prescriptions: Continued tramadol 50 MG tablet 50 mg PO Q4H PRN (Reason: Pain) RF: 0 aspirin 81 MG tablet 81 mg PO DAILY@0800 Qty: 30 RF: 0 ramipril 2.5 MG capsule 2.5 mg PO DAILY RF: 0 warfarin 5 MG tablet 5 mg PO DAILY RF: 0 insulin aspart U-100 100 UNITS/ML insulin pen 0 units subcut TIDCM PRN (Reason: blood glucose ) RF: 0 insulin glargine 100 UNIT/ML insulin pen 45 unit SQ BID RF: 0 isosorbide mononitrate 60 MG tablet 60 mg PO BID Qty: 120 RF: 0 clopidogrel 75 MG tablet 75 mg PO DAILY Qty: 60 RF: 0 rosuvastatin 40 MG tablet 40 mg PO QHS RF: 0 furosemide 40 MG tablet 40 mg PO DAILY PRN (Reason: edema) RF: 0 Referrals: [facility],[place] [Primary Care Provider] - Disposition Patient Disposition: Home, self care Documented by User: Dr. Adrián Aguiar MD 09/07/20 15:29 Providers Date of Admission: 09/05/20 Reason For Visit: HEART FAILURE WITH REDUCED EF EXACERBATION Medications at Discharge Home Medications tramadol 50 mg PO Q4H PRN 07/30/17 aspirin 81 mg PO DAILY@0800 #30 tab 04/18/18 insulin aspart U-100 0 units SUBCUT TIDCM PRN 11/10/18 insulin glargine 45 unit SQ BID 11/10/18 ramipril 2.5 mg PO DAILY 11/10/18 warfarin 5 mg PO DAILY 11/10/18 clopidogrel 75 mg PO DAILY #60 tab 11/14/18 isosorbide mononitrate 60 mg PO BID #120 tab 11/14/18 furosemide 40 mg PO DAILY PRN 04/10/20 rosuvastatin 40 mg PO QHS 04/10/20 ABG / Lab / Microbiology Data Result Diagrams: 09/07/20 06:15 09/07/20 06:15 Discharge Plan Admission Admit Date/Time: 09/05/20 23:16 Primary Reason for Your Visit: Acute Kidney Injury and Acute CHF exacerbation Attending Provider: Adrián Aguiar Primary Care Provider: [facility] Instructions Patient Instructions: ED Chest Pain, Noncardiac Discharge Orders/Prescriptions Prescriptions: Continued tramadol 50 MG tablet 50 mg PO Q4H PRN (Reason: Pain) RF: 0 aspirin 81 MG tablet 81 mg PO DAILY@0800 Qty: 30 RF: 0 ramipril 2.5 MG capsule 2.5 mg PO DAILY RF: 0 warfarin 5 MG tablet 5 mg PO DAILY RF: 0 insulin aspart U-100 100 UNITS/ML insulin pen 0 units subcut TIDCM PRN (Reason: blood glucose ) RF: 0 insulin glargine 100 UNIT/ML insulin pen 45 unit SQ BID RF: 0 isosorbide mononitrate 60 MG tablet 60 mg PO BID Qty: 120 RF: 0 clopidogrel 75 MG tablet 75 mg PO DAILY Qty: 60 RF: 0 rosuvastatin 40 MG tablet 40 mg PO QHS RF: 0 furosemide 40 MG tablet 40 mg PO DAILY PRN (Reason: edema) RF: 0 Referrals: [facility] [Primary Care Provider] - Disposition Patient Disposition: Home, self care Addendum: Dr. Aguiar I personally examined the patient and reviewed the chart. I agree with the above. 65-year-old male who presented to the hospital with shortness of breath which started on Friday and has increasingly become worse. He said he also noticed increased swelling in his lower extremities. He is currently on room air does have episodes of dyspnea with ambulation as well as conversation. He also complains of right shoulder pain, he says that he has a hospital bed at [facility] and he fell into the railing and hurt his shoulder. He had an echo in April 2020 with an EF of 45% and pulmonary artery systolic pressure of 34 mmHg. No need to repeat his echo currently, will continue with IV Lasix and will obtain a shoulder x-ray for further clarification. 09/07/2020: Doing much better today, feels much better. He had his x-ray of his right shoulder which was negative for fracture or dislocation and he states that his right shoulder pain is much improved. I discussed with him the plan for discharge today and to continue taking his Lasix as well as his follow-up appointments with cardiology and his PCP. He expressed understanding of the ris k and benefits of going home and would like to go home today. Inpatient E&M: 28022 Disch Hosp
[2020-09-07] MEDS: Potassium Chloride Oral Tablet 20 MEQ 60 MEQ PO (10:25)
[2020-09-07] MEDS: Aspirin E.C. 81 MG Tablet PO (10:25)
[2020-09-07] MEDS: Isosorbide Mononitrate 60 MG Tablet PO (10:26)
[2020-09-07] MEDS: Clopidogrel Bisulfate 75 MG Tablet PO (10:26)
--- NOTE | 2020-09-07 11:28 | PHA.DC.MR ---
Pharmacy Service has performed discharge medication reconciliation for this patient. No new medications at time of discharge. Medications reviewed are from previously reported home medications. Home Medications tramadol 50 mg PO Q4H PRN 07/30/17 aspirin 81 mg PO DAILY@0800 #30 tab 04/18/18 insulin aspart U-100 0 units SUBCUT TIDCM PRN 11/10/18 insulin glargine 45 unit SQ BID 11/10/18 ramipril 2.5 mg PO DAILY 11/10/18 warfarin 5 mg PO DAILY 11/10/18 clopidogrel 75 mg PO DAILY #60 tab 11/14/18 isosorbide mononitrate 60 mg PO BID #120 tab 11/14/18 furosemide 40 mg PO DAILY PRN 04/10/20 rosuvastatin 40 mg PO QHS 04/10/20 The patient's discharge medication list was reviewed for discrepancies and discrepancies were resolved.
[2020-09-07 11:55] LABS: Bedside Glucose 81 mg/dL (70-110)
== END 2020-09-07 13:31 | disposition home or self-care (01) | DRG 291 ==
LOC: ED 23:15 → PCU 23:57
PROVIDERS: Nurse Practitioner Family; Admitting Provider Hospitalist; Emergency Provider Emergency Medicine; Visit Provider Family Medicine
DX: I13.0 Hypertensive heart and chronic kidney disease with heart failure and stage 1 through stage 4 chronic kidney disease, or unspecified chronic kidney disease (principal); I50.23 Acute on chronic systolic (congestive) heart failure; N17.9 Acute kidney failure, unspecified; I24.8 Other forms of acute ischemic heart disease; M25.511 Pain in right shoulder; I25.10 Atherosclerotic heart disease of native coronary artery without angina pectoris; N18.31 Chronic kidney disease, stage 3a; E11.65 Type 2 diabetes mellitus with hyperglycemia; E11.22 Type 2 diabetes mellitus with diabetic chronic kidney disease; I48.0 Paroxysmal atrial fibrillation; E78.5 Hyperlipidemia, unspecified; E66.01 Morbid (severe) obesity due to excess calories; Z79.01 Long term (current) use of anticoagulants; Z95.1 Presence of aortocoronary bypass graft; Z79.4 Long term (current) use of insulin; Z68.35 Body mass index [BMI] 35.0-35.9, adult; E11.51 Type 2 diabetes mellitus with diabetic peripheral angiopathy without gangrene; Z79.02 Long term (current) use of antithrombotics/antiplatelets; Z79.82 Long term (current) use of aspirin; Z82.49 Family history of ischemic heart disease and other diseases of the circulatory system; Z95.5 Presence of coronary angioplasty implant and graft
CPT/HCPCS: 36415; 71045; 73030; 80048; 82962; 83605; 83735; 83880; 84484; 85025; 85027; 85610; 87040; 87426; 93005; 97802; 99285; A4216; J1940

== ENCOUNTER 2020-09-09 09:28 | Inpatient (IN) | payer OTHER, MEDICARE, SELFPAY ==
[2020-09-06] VITALS: BMI 35.5
[2020-09-09] VITALS (16 sets, daily range): BP systolic 106–164; BP diastolic 56–96; PULSE 87–96; RESP 18–30; TEMP 36.6–37.4; O2SAT 92–96; BMI 35.9; BMI 35.0
--- NOTE | 2020-09-09 09:53 | RAD_ITS ---
STUDY: X-RAY CHEST REASON FOR EXAM: Male, 65 years old. SOB TECHNIQUE: AP COMPARISON: 09/05/2020 FINDINGS: EKG leads project over the chest. Sternal wires and mediastinal surgical clips compatible with prior CABG. Small right pleural effusion has increased in size since prior study. Underlying atelectasis or infiltrate suspected. No pneumothorax. There is mild cardiac enlargement. Sternal wires and mediastinal surgical clips compatible with prior CABG. Normal visualized pulmonary arteries. There is atherosclerotic calcification of the aortic arch with tortuosity. No acute bony process. There is no demonstrated abnormality of the visualized soft tissue structures of the upper abdomen. RAD/Chest 1 View (Portable) IMPRESSION: Small right pleural effusion has increased in volume. Underlying atelectasis or infiltrate. Electronically Signed: Henry Durand MD ([place]) at 10:47 EDT , Service support ,
--- NOTE | 2020-09-09 09:55 | EKG12_ITS ---
Test Reason : WEAKNESS Blood Pressure : / mmHG Vent. Rate : 091 BPM Atrial Rate : 098 BPM P-R Int : 000 ms QRS Dur : 100 ms QT Int : 342 ms P-R-T Axes : 000 103 -88 degrees QTc Int : 420 ms Atrial fibrillation with premature ventricular or aberrantly conducted complexes Nonspecific T wave abnormality Abnormal ECG Confirmed by ESTUARDO GARCIA, FANNY ([id number]), editor dictionary TATIANA DU ([id number]) on 09/12/2020 11:04:56 AM Referred By: MEENAKSHI Confirmed By:FANNY MARTE MD
[2020-09-09] MEDS: Morphine 4 MG/ML Syringe IV (10:10)
[2020-09-09] MEDS: Ondansetron 4 MG/2 ML Vial IV (10:11)
[2020-09-09 10:26] LABS: Absolute Lymphocyte Count 0.81 X10^3/uL (0.83-4.51); Absolute Neutrophil Count 22.9 X10^3/uL (2.0-7.7); Basophil# 0.07 X10^3/uL; Basophil% 0.3 % (0-1); Eosinophil# 0.07 X10^3/uL; Eosinophils% 0.3 % (0-5); Hematocrit 43.4 % (40-54); Hemoglobin 13.7 g/dL (13.0-16.5); Lymphocyte # 0.81 X10^3/ul (0.83-4.51); Lymphocyte % 3.1 % (19-41); Mean Corp Hgb Conc 31.6 g/dL (32-36); Mean Corpuscular Hgb 26.6 pg (27.0-32.0); Mean Corpuscular Volume 84.3 fL (80-94); Mean Platelet Vol. 9.7 fl (6.2-12.0); Monocyte# 1.63 X10^3/uL; Monocyte% 6.3 % (0-10); NRBC Flagged by Analyzer 0 % (0-5); Neutrophil # 22.86 X10^3/uL (2.7-7.7); Neutrophil % 87.6 % (47-70); POSITIVE DIFFERENTIAL YES; Platelet Count 211 K/mm3 (150-450); RBC Distribution Width CV 17.6 % (11.6-14.6); RBC Distribution Width SD 54.3 fl (35.1-43.9); Red Blood Count 5.15 M/mm3 (4.6-6.2); White Blood Count 26.1 K/mm3 (4.4-11.0)
[2020-09-09 10:28] LABS: Differential Indicated SCAN CRITERIA MET
[2020-09-09 10:32] LABS: International Normalized Ratio 6.5
[2020-09-09 10:33] LABS: Partial Thromboplast Time 64.2 Seconds (24.1-36.2)
--- NOTE | 2020-09-09 10:38 | ED.RN ---
LAB CALLED CRITICAL OF INR 6.5. DR BECERRA
--- NOTE | 2020-09-09 10:41 | EDS_ITS ---
HPI History of Present Illness Chief Complaint: Weakness Narrative Narrative: Patient is a poor informant. He reports that he had been admitted the hospital and discharged September 07 and was feeling improved. However, he reports it is back again. When asked what he means by this he reports that he has black stool that began yesterday. It is occurred 2-3 times in his diarrhea. States this is similar to April 2020. He had endoscopy at that time that showed an ulcer. He has not had a recent colonoscopy. On review of systems patient complains of generalized weakness. He denies any fever or chills. No chest pain, shortness of breath, cough, abdominal pain, nausea, vomiting, or other complaints. 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 Home Medications tramadol 50 mg PO Q4H PRN 07/30/17 [History Last Taken 09/02/20 12:00] aspirin 81 mg PO DAILY@0800 #30 tab 04/18/18 [Rx Last Taken 09/05/20 09:00] insulin aspart U-100 0 units SUBCUT TIDCM PRN 11/10/18 [History Last Taken 04/10/20] insulin glargine 45 unit SQ BID 11/10/18 [History Last Taken 09/04/20 22:00] ramipril 2.5 mg PO DAILY 11/10/18 [History Last Taken 09/05/20 09:00] warfarin 5 mg PO DAILY 11/10/18 [History Last Taken 09/04/20 21:00] clopidogrel 75 mg PO DAILY #60 tab 11/14/18 [Rx Last Taken 09/05/20 09:00] isosorbide mononitrate 60 mg PO BID #120 tab 11/14/18 [Rx Last Taken 09/05/20 09:00] furosemide 40 mg PO DAILY PRN 04/10/20 [History Last Taken 09/05/20 20:00] rosuvastatin 40 mg PO QHS 04/10/20 [History Last Taken 09/04/20 22:00] Allergy/AdvReac Type Severity Reaction Status Date / Time perfume AdvReac Shortness Verified 09/05/20 20:55 of breath Family History Father Hypertension Brother Cancer Other Diabetes Surgical History History of coronary artery bypass graft x 3 History of coronary artery stent placement Social History adopted: No household members: spouse housing: house number of children: 1 current occupational status: retired current occupational exposures/hazards: No pets and animals: Yes (2 dogs 1 cat) leisure activities: music and reading Smoking Status: Never smoker alcohol intake: current alcohol intake frequency: holidays/special occasions only substance use type: does not use ROS ROS ED Constitutional Constitutional ED: Denies chills, fever(s) or sweats Eyes Eyes: Denies change in vision ENT ENT ED: Denies sore throat Cardiovascular Cardiovascular: Denies chest pain Respiratory/Chest Respiratory/Chest: Denies cough, dyspnea or dyspnea on exertion Gastrointestinal Gastrointestinal: Reports diarrhea and melena; Denies abdominal pain, nausea or vomiting Genitourinary Genitourinary ED: Denies dysuria or urinary frequency Musculoskeletal Musculoskeletal: Denies myalgias Integumentary Denies rash Neurologic Neurologic: Reports weakness; Denies headache(s) or paresthesias EXAM Physical Exam Const Vital Signs: 09/09/20 09:28 09/09/20 09:55 09/09/20 10:14 Temperature 99.1 F Temperature Source Oral Pulse Rate 87 95 Pulse Rate [Lying] 96 Pulse Rate [Sitting] 96 Respiratory Rate 30 H 30 H Respiratory Effort Normal Respiratory Pattern Normal Blood Pressure 116/56 L 115/68 Blood Pressure [Lying] 106/73 Blood Pressure [Sitting] 113/78 Blood Pressure Mean 76 83 Blood Pressure Mean [Lying] 84 Blood Pressure Mean [Sitting] 89 Pulse Ox 92 94 Oxygen Delivery Method Room Air Room Air Oxygen Flow Rate (L/min) 2 09/09/20 11:00 Temperature Temperature Source Pulse Rate 93 Pulse Rate [Lying] Pulse Rate [Sitting] Respiratory Rate 30 H Respiratory Effort Respiratory Pattern Blood Pressure 134/67 H Blood Pressure [Lying] Blood Pressure [Sitting] Blood Pressure Mean 89 Blood Pressure Mean [Lying] Blood Pressure Mean [Sitting] Pulse Ox 93 Oxygen Delivery Method Nasal Cannula Oxygen Flow Rate (L/min) 2 Positive well nourished and well developed General Appearance ED: well developed HEENT Reports normocephalic and head/scalp atraumatic Eyes PERRL Neck no lymphadenopathy, supple and no JVD General: Negative for tenderness Resp normal respiratory effort and clear to auscultation bilaterally Cardio no murmurs Cardio Narrative: Irregularly irregular rhythm with a 2 out of 6 systolic murmur GI normal to inspection, nondistended, normoactive bowel sounds GI Narrative: Mild diffuse tenderness to palpation. No guarding, rebound, or peritoneal signs. Palpation: soft Back/Spine Back/Spine Narrative: Nontender. Extremity General Extremety ED: Negative for edema or tenderness General Extremity: Negative for edema Neuro oriented x3, CN's II-XII intact bilaterally and no sensory deficits noted Sensorium / Orientation: alert Motor Exam: strength 5/5 throughout Psych mental status grossly normal Skin no rashes or lesions noted MDM MDM MDM Narrative Medical decision making narrative: Patient had an IV placed. He was given morphine and Zofran IV. He was given 2 units of FFP and 10 mg of vitamin K IV. He was given Protonix IV. Patient was unable to stand for orthostatic vital signs. However, his blood pressures remained stable while here. Patient's total bilirubin is 5.8. However, it has been 3.2?6.3 since April 2020. Treatment plan: Patient will be discussed with the hospitalist and admitted for further evaluation and treatment. The patient was also discussed with Dr. Collins. The patient was discussed with Dr. Harper. Hold aspirin due to upper gi bleed. INR is suprathearapeuticc. Po Lab Data Attestation: I reviewed the patient's lab results. Labs: Laboratory Results - last 24 hr 09/09/20 09/09/20 09/09/20 10:05 10:05 10:05 WBC 26.1 H RBC 5.15 Hgb 13.7 Hct 43.4 MCV 84.3 MCH 26.6 L MCHC 31.6 L RDW Std Deviation 54.3 H RDW Coeff of [place] 17.6 H Plt Count 211 MPV 9.7 Immature Gran % (Auto) 2.400 H Neut % (Auto) 87.6 H Lymph % (Auto) 3.1 L [place] % (Auto) 6.3 Eos % (Auto) 0.3 Baso % (Auto) 0.3 Absolute Neuts (auto) 22.9 H Absolute Lymphs (auto) 0.81 L Nucleated RBC % 0 [address] Review May foll PT 56.0 H INR 6.5 H* APTT 64.2 H Sodium 127 L Potassium 3.1 L Chloride 92 L Carbon Dioxide 24.0 Anion Gap 11 BUN 49 H Creatinine 2.47 H Estim Creat Clear Calc 35.16 Est GFR (MDRD) Af Amer 34 L Est GFR (MDRD) Non-Af 28 L BUN/Creatinine Ratio 19.8 Glucose 101 Lactic Acid Calcium 7.9 L Total Bilirubin 5.80 H AST 154 H ALT 67 H Alkaline Phosphatase 540 H Troponin I 1.650 H* B-Natriuretic Peptide Total Protein 7.0 Albumin 2.4 L Globulin 4.6 H Albumin/Globulin Ratio 0.5 L Lipase 52 L Blood Type Antibody Screen 09/09/20 09/09/20 09/09/20 10:05 10:05 10:05 WBC RBC Hgb Hct MCV MCH MCHC RDW Std Deviation RDW Coeff of [place] Plt Count MPV Immature Gran % (Auto) Neut % (Auto) Lymph % (Auto) [place] % (Auto) Eos % (Auto) Baso % (Auto) Absolute Neuts (auto) Absolute Lymphs (auto) Nucleated RBC % Diff Path Review PT INR APTT Sodium Potassium Chloride Carbon Dioxide Anion Gap BUN Creatinine Estim Creat Clear Calc Est GFR (MDRD) Af Amer Est GFR (MDRD) Non-Af BUN/Creatinine Ratio Glucose Lactic Acid 2.0 Calcium Total Bilirubin AST ALT Alkaline Phosphatase Troponin I B-Natriuretic Peptide 341.2 H Total Protein Albumin Globulin Albumin/Globulin Ratio Lipase Blood Type A NEGATIVE Antibody Screen NEGATIVE Radiography Diagnostic Testing: Radiology Impression Chest X-Ray 09/09/20 09:53 IMPRESSION: Small right pleural effusion has increased in volume. Underlying atelectasis or infiltrate. Electronically Signed: Henry Durand MD ([place]) at 10:47 EDT , Service support , EKG Initial EKG: Interpretation: Atrial Fibrillation and Non-Specific ST Changes Critical Care Time Critical care time (excluding procedures): 30-74 minutes, Discussing w/Patient &/or Family/Distribution Estimator, Discussing w/Consultants and Performing Direct Patient Care at Bedside Discharge Plan Triage Chief Complaint: Weakness ED Provider: Vazquez [place] Dx/Rx/DC Orders Clinical Impression: Acute upper gastrointestinal bleeding, CKD (chronic kidney disease) stage 3, GFR 30-59 ml/min, Elevated troponin, Supratherapeutic INR, Jaundice Prescriptions: No Action tramadol 50 MG tablet 50 mg PO Q4H PRN (Reason: Pain) RF: 0 aspirin 81 MG tablet 81 mg PO DAILY@0800 Qty: 30 RF: 0 ramipril 2.5 MG capsule 2.5 mg PO DAILY RF: 0 warfarin 5 MG tablet 5 mg PO DAILY RF: 0 insulin aspart U-100 100 UNITS/ML insulin pen 0 units subcut TIDCM PRN (Reason: blood glucose ) RF: 0 insulin glargine 100 UNIT/ML insulin pen 45 unit SQ BID RF: 0 isosorbide mononitrate 60 MG tablet 60 mg PO BID Qty: 120 RF: 0 clopidogrel 75 MG tablet 75 mg PO DAILY Qty: 60 RF: 0 rosuvastatin 40 MG tablet 40 mg PO QHS RF: 0 furosemide 40 MG tablet 40 mg PO DAILY PRN (Reason: edema) RF: 0 [facility] [Primary Care Provider] -
[2020-09-09 10:47] LABS: ALB/GLOB Ratio 0.5 RATIO (0.9-2.4); AST(SGOT) 154 U/L (15-37); Alanine Aminotransfer ALT/SGPT 67 U/L (16-61); Albumin, Serum 2.4 g/dL (3.2-5.0); Alkaline Phosphatase 540 U/L (45-117); Anion Gap 11 (5-15); BUN 49 mg/dL (7-18); BUN/Creat Ratio 19.8 RATIO (10-20); Calcium,Total 7.9 mg/dL (8.5-10.1); Chloride 92 mmol/L (98-107); Creatinine, Serum 2.47 mg/dL (0.70-1.30); EST Glomerular Filtration Rate 28 mL/min (>60); Est Glom Filt Rate - Afr Amer 34 mL/min (>60); Estimated Creatinine Clearance 35.16 ml/min; Globulin 4.6 g/dL (2.2-4.2); Glucose 101 mg/dL (74-106); Lipase 52 U/L (73-393); Potassium 3.1 mmol/L (3.5-5.1); Sodium Level 127 mmol/L (136-145)
[2020-09-09 10:57] LABS: BNP,B-Type NATRIURETIC PEPTIDE 341.2 pg/mL (0-100)
--- NOTE | 2020-09-09 11:06 | ED.RN ---
LEFT MESSAGE WITH FOSTER ORTIZ THAT PT IS PENDING ADMISSION
[2020-09-09 14:14] LABS: Reflex Lactate? Y
[2020-09-09 15:23] LABS: Lactic Acid 1.8 mmol/L (0.4-1.9)
--- NOTE | 2020-09-09 17:42 | NURSING ---
This RN called and updated the pt's daughter, Joy via phone.
--- NOTE | 2020-09-09 19:29 | PCM.CONS.B ---
Consult Date of Consult: 09/09/20 CC: rectal bleeding HPI: 65 y/o WM presents with complaint of rectal bleeding. He has had episodes before. He had undergone EGD in April of last year with no significant findings. he denies previous colonoscopy. He denies colon cancer in the family He denies abdominal pain. He presents with INR of 6, he is on chronic coumadin for CAF. 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 Past Surgical History: EGD Medications: tramadol 50 mg PO Q4H PRN 07/30/17 [History Last Taken 09/02/20 12:00] aspirin 81 mg PO DAILY@0800 #30 tab 04/18/18 [Rx Last Taken 09/05/20 09:00] insulin aspart U-100 0 units SUBCUT TIDCM PRN 11/10/18 [History Last Taken 04/10/20] insulin glargine 45 unit SQ BID 11/10/18 [History Last Taken 09/04/20 22:00] ramipril 2.5 mg PO DAILY 11/10/18 [History Last Taken 09/05/20 09:00] warfarin 5 mg PO DAILY 11/10/18 [History Last Taken 09/04/20 21:00] clopidogrel 75 mg PO DAILY #60 tab 11/14/18 [Rx Last Taken 09/05/20 09:00] isosorbide mononitrate 60 mg PO BID #120 tab 11/14/18 [Rx Last Taken 09/05/20 09:00] furosemide 40 mg PO DAILY PRN 04/10/20 [History Last Taken 09/05/20 20:00] rosuvastatin 40 mg PO QHS 04/10/20 [History Last Taken 09/04/20 22:00] Allergies: Has no known drug allergies Social history: TOB use denies Review of Systems: General - denies fevers, denies weight loss, denies anorexia Cardiovascular denies chest pain Pulmonary denies shortness of breath, denies coughing up blood Gastrointestinal as per HP Neurological denies seizures Genitourinary denies blood in urines Hematological on coumadin Skin denies rashes Musculoskeletal denies Endocrine denies diabetes Psychological denies hallucinations Physical examination: Vital signs Ht: 6'3 Wt: 280# Temp 98.5F HR 77 RR 14 General WD/WN WM in no apparent distress, alert and oriented, not septic appearing HEENT Normocephalic. EOM intact with sclera clear and no icterus noted. Neck is supple Lungs normal respiratory excursion. No labored breathing noted, such as retractions. No cough heard Heart . irregular Abdomen soft and benign. . Extremities no pitting edema noted. . Genitourinary/Rectal deferred Skin normal skin integrity. Neurological .non focal Psychological normal affect, patient is calm and appropriate Impression: melena rectal bleeding DIscussion/Plan: I have discussed the above with the patient. I have offered the patient the procedure of upper and lower endoscopy. I have explained the procedure to the patient. I have counseled the patient as to the risks of the procedure, including but not limited to: infection, bleeding, perforation of the GI tract, inability to complete the procedure, injury to any intraabdominal organs, complications of anesthesia, etc. the patient understands. He agrees to proceed. Will plan this for tomorrow - time TBD. - need to check INR I have answered all questions to the patient?s satisfaction and the patient has no further questions.
[2020-09-09] MEDS: Magnesium Citrate 300 ML PO (20:11)
--- NOTE | 2020-09-09 21:00 | NURSING ---
PATIENT REFUSING TO WEAR CPAP HERE
--- NOTE | 2020-09-09 21:23 | HP.PCM.HOS_ITS ---
HPI - General General Date of Admission: 09/09/20 HPI Narrative TAMEKA MARTEL, is a 65 M who presents to the hospital with GI bleed. He states that when he left the hospital he was feeling fine and went home and overnight between 09/08/2020 and 09/09/2020, he had 2-3 bouts of black diarrhea. His hemoglobin is stable however his INR is elevated to 6.5. Denies any significant abdominal pain. He denies any chest pain or shortness of breath however his troponin is elevated as is his renal function. In discussion with cardiology they felt that given the fact that he is supratherapeutic and his troponins are not rising since he came in that the GI bleed has precedence. Of note he also has a leukocytosis of unknown origin, given the diarrhea will send for fecal occult blood as well as C. difficile and enteric pathogens. [facility] Medical History (Updated 09/10/20 @ 12:[address] 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 Home Medications tramadol 50 mg PO Q4H PRN 07/30/17 [History Last Taken 09/02/20 12:00] aspirin 81 mg PO DAILY@0800 #30 tab 04/18/18 [Rx Last Taken 09/05/20 09:00] insulin aspart U-100 0 units SUBCUT TIDCM PRN 11/10/18 [History Last Taken 04/10/20] insulin glargine 45 unit SQ BID 11/10/18 [History Last Taken 09/04/20 22:00] ramipril 2.5 mg PO DAILY 11/10/18 [History Last Taken 09/05/20 09:00] warfarin 5 mg PO DAILY 11/10/18 [History Last Taken 09/04/20 21:00] clopidogrel 75 mg PO DAILY #60 tab 11/14/18 [Rx Last Taken 09/05/20 09:00] isosorbide mononitrate 60 mg PO BID #120 tab 11/14/18 [Rx Last Taken 09/05/20 09:00] furosemide 40 mg PO DAILY PRN 04/10/20 [History Last Taken 09/05/20 20:00] rosuvastatin 40 mg PO QHS 04/10/20 [History Last Taken 09/04/20 22:00] Allergy/AdvReac Type Severity Reaction Status Date / Time perfume AdvReac Shortness Verified 09/05/20 20:55 of breath Family History Father Hypertension Brother Cancer Other Diabetes Surgical History History of cholecystectomy History of coronary artery bypass graft x 3 History of coronary artery stent placement Hx of CABG Social History adopted: No household members: spouse housing: house number of children: 1 current occupational status: retired current occupational exposures/hazards: No pets and animals: Yes (2 dogs 1 cat) leisure activities: music and reading Smoking Status: Never smoker alcohol intake: current alcohol intake frequency: holidays/special occasions only substance use type: does not use ROS Constitutional Constitutional: Denies chills or fever(s) Eyes Eyes: Denies change in vision ENT HEENT: Denies sore throat Cardiovascular Cardiovascular: Denies chest pain Respiratory/Chest Respiratory/Chest: Denies cough, dyspnea, dyspnea on exertion or shortness of breath at rest Gastrointestinal Gastrointestinal: Reports diarrhea and melena; Denies abdominal pain, nausea or vomiting Genitourinary Genitourinary: Denies dysuria or urinary frequency Musculoskeletal Musculoskeletal: Denies myalgias Integumentary Integumentary: Denies rash Neurologic Neurologic: Reports weakness; Denies headache(s) or paresthesias Vital Signs Vital Signs Vital Signs: 09/09/20 09:28 09/09/20 09:55 09/09/20 10:14 Temperature 99.1 F Temperature Source Oral Pulse Rate 87 95 Pulse Rate [Lying] 96 Pulse Rate [Sitting] 96 Pulse Strength Respiratory Rate 30 H 30 H Respiratory Effort Normal Respiratory Depth Respiratory Pattern Normal Blood Pressure 116/56 L 115/68 Blood Pressure [Lying] 106/73 Blood Pressure [Sitting] 113/78 Blood Pressure Mean 76 83 Blood Pressure Mean [Lying] 84 Blood Pressure Mean [Sitting] 89 Blood Pressure Source Blood Pressure Position Blood Pressure Location Pulse Ox 92 94 Oxygen Delivery Method Room Air Room Air Oxygen Flow Rate (L/min) 2 09/09/20 11:00 09/09/20 12:11 09/09/20 12:26 Temperature 99.2 F H 99.4 F H Temperature Source Oral Oral Pulse Rate 93 91 89 Pulse Rate [Lying] Pulse Rate [Sitting] Pulse Strength Respiratory Rate 30 H 25 H 26 H Respiratory Effort Respiratory Depth Respiratory Pattern Blood Pressure 134/67 H 122/87 H 164/96 H Blood Pressure [Lying] Blood Pressure [Sitting] Blood Pressure Mean 89 98 118 Blood Pressure Mean [Lying] Blood Pressure Mean [Sitting] Blood Pressure Source Monitor Monitor Blood Pressure Position Supine Supine Blood Pressure Location Right Arm Right Arm Pulse Ox 93 96 94 Oxygen Delivery Method Nasal Cannula Nasal Cannula Nasal Cannula Oxygen Flow Rate (L/min) 2 2 2 09/09/20 13:07 09/09/20 13:37 09/09/20 14:07 Temperature 98.0 F 98.6 F Temperature Source Oral Oral Pulse Rate 90 90 96 Pulse Rate [Lying] Pulse Rate [Sitting] Pulse Strength Respiratory Rate 18 18 Respiratory Effort Respiratory Depth Respiratory Pattern Blood Pressure 148/73 H 122/88 H Blood Pressure [Lying] Blood Pressure [Sitting] Blood Pressure Mean 98 99 Blood Pressure Mean [Lying] Blood Pressure Mean [Sitting] Blood Pressure Source Monitor Monitor Blood Pressure Position Semi-Fowlers Semi-Fowlers Blood Pressure Location Right Arm Right Arm Pulse Ox 96 92 Oxygen Delivery Method Nasal Cannula Room Air Oxygen Flow Rate (L/min) 2 09/09/20 14:23 09/09/20 15:00 09/09/20 15:37 Temperature 98.5 F 98.0 F Temperature Source Oral Oral Pulse Rate 89 88 94 Pulse Rate [Lying] Pulse Rate [Sitting] Pulse Strength Respiratory Rate 18 18 Respiratory Effort Respiratory Depth Respiratory Pattern Blood Pressure 125/96 H 128/77 H Blood Pressure [Lying] Blood Pressure [Sitting] Blood Pressure Mean 105 94 Blood Pressure Mean [Lying] Blood Pressure Mean [Sitting] Blood Pressure Source Monitor Monitor Blood Pressure Position Semi-Fowlers Semi-Fowlers Blood Pressure Location Right Arm Right Arm Pulse Ox 94 96 Oxygen Delivery Method Nasal Cannula Nasal Cannula Oxygen Flow Rate (L/min) 2 2 09/09/20 18:40 09/09/20 18:46 09/09/20 20:01 Temperature Temperature Source Pulse Rate 94 Pulse Rate [Lying] Pulse Rate [Sitting] Pulse Strength Respiratory Rate Respiratory Effort Normal Non-Labored Short of Breath Respiratory Depth Normal Respiratory Pattern Normal Blood Pressure Blood Pressure [Lying] Blood Pressure [Sitting] Blood Pressure Mean Blood Pressure Mean [Lying] Blood Pressure Mean [Sitting] Blood Pressure Source Blood Pressure Position Blood Pressure Location Pulse Ox 96 Oxygen Delivery Method Nasal Cannula Nasal Cannula Oxygen Flow Rate (L/min) 2 2 09/09/20 20:44 09/09/20 20:45 Temperature 97.8 F Temperature Source Oral Pulse Rate 89 Pulse Rate [Lying] Pulse Rate [Sitting] Pulse Strength Weak (1+) Respiratory Rate 24 H Respiratory Effort Normal Non-Labored Respiratory Depth Normal Respiratory Pattern Tachypnea Blood Pressure 130/60 H Blood Pressure [Lying] Blood Pressure [Sitting] Blood Pressure Mean 83 Blood Pressure Mean [Lying] Blood Pressure Mean [Sitting] Blood Pressure Source Monitor Blood Pressure Position Semi-Fowlers Blood Pressure Location Right Arm Pulse Ox 95 Oxygen Delivery Method Nasal Cannula Nasal Cannula Oxygen Flow Rate (L/min) 2 2 Physical Exam Const alert and no apparent distress General Appearance: cooperative HEENT normocephalic and moist oral mucous membranes Eyes PERRL, EOMs intact bilaterally and conjunctivae normal Neck no lymphadenopathy, supple and no JVD Resp normal respiratory effort and clear to auscultation bilaterally Auscultation: Negative for crackles, rales, rhonchi or wheezes GI soft to palpation, non-tender and non-distended; Negative for hepatosplenomegaly Extremity no clubbing, cyanosis or edema Skin no rashes or lesions noted Neuro moves all extremities and no focal motor deficits Psych affect normal Lab / Micro Data Result Diagrams: 09/10/20 05:13 09/10/20 05:13 Labs: Laboratory Results - last 24 hr 09/09/20 09/09/20 09/09/20 10:05 10:05 10:05 WBC 26.1 H RBC 5.15 Hgb 13.7 Hct 43.4 MCV 84.3 MCH 26.6 L MCHC 31.6 L RDW Std Deviation 54.3 H RDW Coeff of Zulay 17.6 H Plt Count 211 MPV 9.7 Immature Gran % (Auto) 2.400 H Neut % (Auto) 87.6 H Lymph % (Auto) 3.1 L [place] % (Auto) 6.3 Eos % (Auto) 0.3 Baso % (Auto) 0.3 Absolute Neuts (auto) 22.9 H Absolute Lymphs (auto) 0.81 L Nucleated RBC % 0 Diff Path Review May foll PT 56.0 H INR 6.5 H* APTT 64.2 H Sodium 127 L Potassium 3.1 L Chloride 92 L Carbon Dioxide 24.0 Anion Gap 11 BUN 49 H Creatinine 2.47 H Estim Creat Clear Calc 35.16 Est GFR (MDRD) Af Amer 34 L Est GFR (MDRD) Non-Af 28 L BUN/Creatinine Ratio 19.8 Glucose 101 Lactic Acid Calcium 7.9 L Total Bilirubin 5.80 H AST 154 H ALT 67 H Alkaline Phosphatase 540 H Troponin I 1.650 H* B-Natriuretic Peptide Total Protein 7.0 Albumin 2.4 L Globulin 4.6 H Albumin/Globulin Ratio 0.5 L Lipase 52 L Blood Type Antibody Screen 09/09/20 09/09/20 09/09/20 10:05 10:05 10:05 WBC RBC Hgb Hct MCV MCH MCHC RDW Std Deviation RDW Coeff of Zulay Plt Count MPV Immature Gran % (Auto) Neut % (Auto) Lymph % (Auto) [place] % (Auto) Eos % (Auto) Baso % (Auto) Absolute Neuts (auto) Absolute Lymphs (auto) Nucleated RBC % Diff Path Review PT INR APTT Sodium Potassium Chloride Carbon Dioxide Anion Gap BUN Creatinine Estim Creat Clear Calc Est GFR (MDRD) Af Amer Est GFR (MDRD) Non-Af BUN/Creatinine Ratio Glucose Lactic Acid 2.0 Calcium Total Bilirubin AST ALT Alkaline Phosphatase Troponin I B-Natriuretic Peptide 341.2 H Total Protein Albumin Globulin Albumin/Globulin Ratio Lipase Blood Type A NEGATIVE Antibody Screen NEGATIVE 09/09/20 09/09/20 09/09/20 14:45 16:49 19:57 WBC RBC Hgb Hct MCV MCH MCHC RDW Std Deviation RDW Coeff of Zulay Plt Count MPV Immature Gran % (Auto) Neut % (Auto) Lymph % (Auto) [place] % (Auto) Eos % (Auto) Baso % (Auto) Absolute Neuts (auto) Absolute Lymphs (auto) Nucleated RBC % Diff Path Review PT INR APTT Sodium Potassium Chloride Carbon Dioxide Anion Gap BUN Creatinine Estim Creat Clear Calc Est GFR (MDRD) Af Amer Est GFR (MDRD) Non-Af BUN/Creatinine Ratio Glucose Lactic Acid 1.8 Calcium Total Bilirubin AST ALT Alkaline Phosphatase Troponin I 1.480 H* 1.500 H* B-Natriuretic Peptide Total Protein Albumin Globulin Albumin/Globulin Ratio Lipase Blood Type Antibody Screen Radiology Impression Chest X-Ray 09/09/20 09:53 IMPRESSION: Small right pleural effusion has increased in volume. Underlying atelectasis or infiltrate. Electronically Signed: Henry Durand MD ([facility]) at 10:47 EDT , Service support , Assessment & Plan Assessment/Plan (1) Acute upper gastrointestinal bleeding: Status: Acute Code(s): K92.2 - Gastrointestinal hemorrhage, unspecified Plan: Denies any hematemesis but does notice his diarrhea stool is black. INR was reversed in the ER will proceed with general surgery evaluation for possible scope (2) Elevated troponin: Status: Acute Code(s): R77.8 - Other specified abnormalities of plasma proteins Plan: For right now he is denying any increase shortness of breath or chest pain therefore we will hold off on cardiology consult and continue to trend troponins maintaining his oxygen sats on 2 to 3 L. (3) BENJI (acute kidney injury): Status: Acute Code(s): N17.9 - Acute kidney failure, unspecified Plan: Creatinine is slightly elevated compared to when he was discharged given his recent admission for heart failure will be very conservative with IV fluids (4) Supratherapeutic INR: Status: Acute Code(s): R79.1 - Abnormal coagulation profile Plan: Corrected in ED with FFP and vitamin K (5) Leukocytosis: Status: Acute Code(s): D72.829 - Elevated white blood cell count, unspecified Plan: Unsure as to the etiology, will obtain a C. difficile and enteric stool pathogen.Also obtain a UA also obtain a UA for evaluation. (6) Stage 3b chronic kidney disease: Status: Acute Code(s): N18.32 - Chronic kidney disease, stage 3b Plan: CAD, hypertension, hyperlipidemia, type 2 diabetes, A. fib her chronic medical conditions which complicate his care. His home medications were continued where appropriate Visit Charges Inpatient E&M: 70135 Init Hosp L3
[2020-09-09] MEDS: Potassium Chloride Oral Tablet 20 MEQ 40 MEQ PO (21:33)
--- NOTE | 2020-09-09 22:37 | NURSING ---
BLOOD SUGAR LOW GAVE ORANGE JUICE WILL CONTINUE TO MONITOR.
[2020-09-09 22:51] LABS: Bedside Glucose 57 mg/dL (70-110)
[2020-09-09 22:55] LABS: Bedside Glucose 64 mg/dL (70-110)
[2020-09-09] MEDS: Dextrose 50%-Water 25 GM/50 ML DISP.SYRIN IV (23:20)
[2020-09-09] MEDS: 0.9% Saline Lock 10 ML Syringe IV (23:20)
[2020-09-10] VITALS (12 sets, daily range): BP systolic 106–124; BP diastolic 46–72; PULSE 79–91; RESP 18–24; TEMP 36.2–36.9; O2SAT 94–97
[2020-09-10 00:21] LABS: Bedside Glucose 135 mg/dL (70-110)
[2020-09-10 03:11] LABS: Bedside Glucose 102 mg/dL (70-110)
[2020-09-10 05:05] LABS: Bedside Glucose 94 mg/dL (70-110)
[2020-09-10 05:24] LABS: Absolute Lymphocyte Count 0.63 X10^3/uL (0.83-4.51); Absolute Neutrophil Count 18.8 X10^3/uL (2.0-7.7); Basophil# 0.07 X10^3/uL; Basophil% 0.3 % (0-1); Hematocrit 42.2 % (40-54); Hemoglobin 13.6 g/dL (13.0-16.5); Lymphocyte # 0.63 X10^3/ul (0.83-4.51); Mean Corp Hgb Conc 32.2 g/dL (32-36); Mean Corpuscular Hgb 27.3 pg (27.0-32.0); Mean Corpuscular Volume 84.7 fL (80-94); Mean Platelet Vol. 10.1 fl (6.2-12.0); Monocyte# 1.23 X10^3/uL; Monocyte% 5.8 % (0-10); NRBC Flagged by Analyzer 0 % (0-5); Neutrophil # 18.83 X10^3/uL (2.7-7.7); Neutrophil % 89.1 % (47-70); Platelet Count 183 K/mm3 (150-450); RBC Distribution Width CV 17.9 % (11.6-14.6); RBC Distribution Width SD 55.1 fl (35.1-43.9); Red Blood Count 4.98 M/mm3 (4.6-6.2); White Blood Count 21.2 K/mm3 (4.4-11.0)
[2020-09-10 05:34] LABS: International Normalized Ratio 1.7; Prothrombin Time (Protime)PT. 18.9 SECONDS (11.7-14.9)
[2020-09-10 05:41] LABS: ALB/GLOB Ratio 0.5 RATIO (0.9-2.4); AST(SGOT) 151 U/L (15-37); Alanine Aminotransfer ALT/SGPT 60 U/L (16-61); Albumin, Serum 2.3 g/dL (3.2-5.0); Alkaline Phosphatase 516 U/L (45-117); Anion Gap 11 (5-15); BUN 56 mg/dL (7-18); BUN/Creat Ratio 16.7 RATIO (10-20); Calcium,Total 7.8 mg/dL (8.5-10.1); Chloride 93 mmol/L (98-107); Creatinine, Serum 3.35 mg/dL (0.70-1.30); EST Glomerular Filtration Rate 20 mL/min (>60); Est Glom Filt Rate - Afr Amer 24 mL/min (>60); Estimated Creatinine Clearance 25.92 ml/min; Globulin 4.3 g/dL (2.2-4.2); Glucose 85 mg/dL (74-106); Magnesium 2.4 mg/dL (1.6-2.6); Potassium 3.9 mmol/L (3.5-5.1); Protein, Total 6.6 g/dL (6.4-8.2); Sodium Level 127 mmol/L (136-145)
[2020-09-10] MEDS: Dextrose 10%-Water 250 ML 40 ML IV ×3 (06:18→16:28)
[2020-09-10 08:50] LABS: Bedside Glucose 90 mg/dL (70-110)
[2020-09-10] MEDS: traMADol 50 MG Tablet PO ×2 (09:20→16:28)
--- NOTE | 2020-09-10 09:39 | PCM.PN.SRG ---
Subjective Subjective: Patient denies abdominal pain Has noted no blood in stools Poor outcome from prep - still with brown solid fecal material complaint of right shoulder pain Objective Data Objective Data Vital Signs: Vital Signs Temp Pulse Resp BP Pulse Ox 98.4 F 86 20 H 124/72 H 97 09/10/20 08:47 09/10/20 08:47 09/10/20 08:47 09/10/20 08:47 09/10/20 08:47 Oxygen Flow Rate (L/min) 2 Oxygen Delivery Method Nasal Cannula Weight: 280 lb 10.375 oz Body Mass Index (BMI) 35.0 Finger Stick Blood Glucose 67 Intake & Output: Intake and Output for Last 24 Hours 09/08/20 09/09/20 09/10/20 23:59 23:59 23:59 Intake Total 1336 / 1336 Output Total 275 / 275 Balance 1061 / 1061 Lab / Micro Data Result Diagrams: 09/10/20 05:13 09/10/20 05:13 Labs: Laboratory Results - last 24 hr 09/09/20 09/09/20 09/09/20 10:05 10:05 10:05 WBC 26.1 H RBC 5.15 Hgb 13.7 Hct 43.4 MCV 84.3 MCH 26.6 L MCHC 31.6 L RDW Std Deviation 54.3 H RDW Coeff of Zulay 17.6 H Plt Count 211 MPV 9.7 Immature Gran % (Auto) 2.400 H Neut % (Auto) 87.6 H Lymph % (Auto) 3.1 L [place] % (Auto) 6.3 Eos % (Auto) 0.3 Baso % (Auto) 0.3 Absolute Neuts (auto) 22.9 H Absolute Lymphs (auto) 0.81 L Nucleated RBC % 0 Diff Path Review September foll PT 56.0 H INR 6.5 H* APTT 64.2 H Sodium 127 L Potassium 3.1 L Chloride 92 L Carbon Dioxide 24.0 Anion Gap 11 BUN 49 H Creatinine 2.47 H Estim Creat Clear Calc 35.16 Est GFR (MDRD) Af Amer 34 L Est GFR (MDRD) Non-Af 28 L BUN/Creatinine Ratio 19.8 Glucose 101 Lactic Acid Calcium 7.9 L Magnesium Total Bilirubin 5.80 H AST 154 H ALT 67 H Alkaline Phosphatase 540 H Troponin I 1.650 H* B-Natriuretic Peptide Total Protein 7.0 Albumin 2.4 L Globulin 4.6 H Albumin/Globulin Ratio 0.5 L Lipase 52 L POC Glucose Blood Type Antibody Screen 09/09/20 09/09/20 09/09/20 10:05 10:05 10:05 WBC RBC Hgb Hct MCV MCH MCHC RDW Std Deviation RDW Coeff of Zulay Plt Count MPV Immature Gran % (Auto) Neut % (Auto) Lymph % (Auto) [place] % (Auto) Eos % (Auto) Baso % (Auto) Absolute Neuts (auto) Absolute Lymphs (auto) Nucleated RBC % Diff Path Review PT INR APTT Sodium Potassium Chloride Carbon Dioxide Anion Gap BUN Creatinine Estim Creat Clear Calc Est GFR (MDRD) Af Amer Est GFR (MDRD) Non-Af BUN/Creatinine Ratio Glucose Lactic Acid 2.0 Calcium Magnesium Total Bilirubin AST ALT Alkaline Phosphatase Troponin I B-Natriuretic Peptide 341.2 H Total Protein Albumin Globulin Albumin/Globulin Ratio Lipase POC Glucose Blood Type A NEGATIVE Antibody Screen NEGATIVE 09/09/20 09/09/20 09/09/20 14:45 16:49 19:57 WBC RBC Hgb Hct MCV MCH MCHC RDW Std Deviation RDW Coeff of Zulay Plt Count MPV Immature Gran % (Auto) Neut % (Auto) Lymph % (Auto) [place] % (Auto) Eos % (Auto) Baso % (Auto) Absolute Neuts (auto) Absolute Lymphs (auto) Nucleated RBC % Diff Path Review PT INR APTT Sodium Potassium Chloride Carbon Dioxide Anion Gap BUN Creatinine Estim Creat Clear Calc Est GFR (MDRD) Af Amer Est GFR (MDRD) Non-Af BUN/Creatinine Ratio Glucose Lactic Acid 1.8 Calcium Magnesium Total Bilirubin AST ALT Alkaline Phosphatase Troponin I 1.480 H* 1.500 H* B-Natriuretic Peptide Total Protein Albumin Globulin Albumin/Globulin Ratio Lipase POC Glucose Blood Type Antibody Screen 09/09/20 09/09/20 09/09/20 22:26 22:31 22:51 WBC RBC Hgb Hct MCV MCH MCHC RDW Std Deviation RDW Coeff of Zulay Plt Count MPV Immature Gran % (Auto) Neut % (Auto) Lymph % (Auto) [place] % (Auto) Eos % (Auto) Baso % (Auto) Absolute Neuts (auto) Absolute Lymphs (auto) Nucleated RBC % Diff Path Review PT INR APTT Sodium Potassium Chloride Carbon Dioxide Anion Gap BUN Creatinine Estim Creat Clear Calc Est GFR (MDRD) Af Amer Est GFR (MDRD) Non-Af BUN/Creatinine Ratio Glucose Lactic Acid Calcium Magnesium Total Bilirubin AST ALT Alkaline Phosphatase Troponin I 1.740 H* B-Natriuretic Peptide Total Protein Albumin Globulin Albumin/Globulin Ratio Lipase POC Glucose 57 L 64 L Blood Type Antibody Screen 09/10/20 09/10/20 09/10/20 00:13 03:06 04:57 WBC RBC Hgb Hct MCV MCH MCHC RDW Std Deviation RDW Coeff of Zulay Plt Count MPV Immature Gran % (Auto) Neut % (Auto) Lymph % (Auto) [place] % (Auto) Eos % (Auto) Baso % (Auto) Absolute Neuts (auto) Absolute Lymphs (auto) Nucleated RBC % Diff Path Review PT INR APTT Sodium Potassium Chloride Carbon Dioxide Anion Gap BUN Creatinine Estim Creat Clear Calc Est GFR (MDRD) Af Amer Est GFR (MDRD) Non-Af BUN/Creatinine Ratio Glucose Lactic Acid Calcium Magnesium Total Bilirubin AST ALT Alkaline Phosphatase Troponin I B-Natriuretic Peptide Total Protein Albumin Globulin Albumin/Globulin Ratio Lipase POC Glucose 135 H 102 94 Blood Type Antibody Screen 09/10/20 09/10/20 09/10/20 05:13 05:13 05:13 WBC 21.2 H RBC 4.98 Hgb 13.6 Hct 42.2 MCV 84.7 MCH 27.3 MCHC 32.2 RDW Std Deviation 55.1 H RDW Coeff of Zulay 17.9 H Plt Count 183 MPV 10.1 Immature Gran % (Auto) 1.800 H Neut % (Auto) 89.1 H Lymph % (Auto) 3.0 L [place] % (Auto) 5.8 Eos % (Auto) 0.0 Baso % (Auto) 0.3 Absolute Neuts (auto) 18.8 H Absolute Lymphs (auto) 0.63 L Nucleated RBC % 0 Diff Path Review PT 18.9 H INR 1.7 APTT Sodium 127 L Potassium 3.9 Chloride 93 L Carbon Dioxide 23.0 Anion Gap 11 BUN 56 H Creatinine 3.35 H Estim Creat Clear Calc 25.92 Est GFR (MDRD) Af Amer 24 L Est GFR (MDRD) Non-Af 20 L BUN/Creatinine Ratio 16.7 Glucose 85 Lactic Acid Calcium 7.8 L Magnesium 2.4 Total Bilirubin 6.70 H AST 151 H ALT 60 Alkaline Phosphatase 516 H Troponin I B-Natriuretic Peptide Total Protein 6.6 Albumin 2.3 L Globulin 4.3 H Albumin/Globulin Ratio 0.5 L Lipase POC Glucose Blood Type Antibody Screen 09/10/20 08:43 WBC RBC Hgb Hct MCV MCH MCHC RDW Std Deviation RDW Coeff of Zulay Plt Count MPV Immature Gran % (Auto) Neut % (Auto) Lymph % (Auto) [place] % (Auto) Eos % (Auto) Baso % (Auto) Absolute Neuts (auto) Absolute Lymphs (auto) Nucleated RBC % Diff Path Review PT INR APTT Sodium Potassium Chloride Carbon Dioxide Anion Gap BUN Creatinine Estim Creat Clear Calc Est GFR (MDRD) Af Amer Est GFR (MDRD) Non-Af BUN/Creatinine Ratio Glucose Lactic Acid Calcium Magnesium Total Bilirubin AST ALT Alkaline Phosphatase Troponin I B-Natriuretic Peptide Total Protein Albumin Globulin Albumin/Globulin Ratio Lipase POC Glucose 90 Blood Type Antibody Screen Micro: Microbiology 09/10/20 00:20 Stool Enteric Bacteriology - Final 09/10/20 00:20 Stool C. difficile DNA Amplification - Final 09/09/20 00:20 Stool Stool Occult Blood (MADDIE) - Final Occult Blood Positive Radiography Diagnostic Testing: Radiology Impression Chest X-Ray 09/09/20 09:53 IMPRESSION: Small right pleural effusion has increased in volume. Underlying atelectasis or infiltrate. Electronically Signed: Henry Durand MD ([place]) at 10:47 EDT , Service support , Physical Exam Const no apparent distress Resp normal respiratory effort GI soft to palpation
[2020-09-10] MEDS: Bisacodyl 5 MG Tablet PO (09:59)
[2020-09-10 11:36] LABS: Bedside Glucose 108 mg/dL (70-110)
--- NOTE | 2020-09-10 12:28 | CON.PCM.CA_ITS ---
HPI Consult Data Date of Consult: 09/10/20 HPI Narrative HPI Narrative: TAMEKA MARTEL, is a 65 M who presents [facility] Medical History (Updated 09/10/20 @ 12:[address] 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 Home Medications tramadol 50 mg PO Q4H PRN 07/30/17 [History Last Taken 09/02/20 12:00] aspirin 81 mg PO DAILY@0800 #30 tab 04/18/18 [Rx Last Taken 09/05/20 09:00] insulin aspart U-100 0 units SUBCUT TIDCM PRN 11/10/18 [History Last Taken 04/10/20] insulin glargine 45 unit SQ BID 11/10/18 [History Last Taken 09/04/20 22:00] ramipril 2.5 mg PO DAILY 11/10/18 [History Last Taken 09/05/20 09:00] warfarin 5 mg PO DAILY 11/10/18 [History Last Taken 09/04/20 21:00] clopidogrel 75 mg PO DAILY #60 tab 11/14/18 [Rx Last Taken 09/05/20 09:00] isosorbide mononitrate 60 mg PO BID #120 tab 11/14/18 [Rx Last Taken 09/05/20 09:00] furosemide 40 mg PO DAILY PRN 04/10/20 [History Last Taken 09/05/20 20:00] rosuvastatin 40 mg PO QHS 04/10/20 [History Last Taken 09/04/20 22:00] Allergy/AdvReac Type Severity Reaction Status Date / Time perfume AdvReac Shortness Verified 09/05/20 20:55 of breath Family History Father Hypertension Brother Cancer Other Diabetes Surgical History History of cholecystectomy History of coronary artery bypass graft x 3 History of coronary artery stent placement Hx of CABG Social History adopted: No household members: spouse housing: house number of children: 1 current occupational status: retired current occupational exposures/hazards: No pets and animals: Yes (2 dogs 1 cat) leisure activities: music and reading Smoking Status: Never smoker alcohol intake: current alcohol intake frequency: holidays/special occasions only substance use type: does not use ROS Constitutional Constitutional: Denies chills or fever(s) Eyes Eyes: Denies change in vision ENT HEENT: Denies sore throat Cardiovascular Cardiovascular: Denies chest pain Respiratory/Chest Respiratory/Chest: Denies cough, dyspnea, dyspnea on exertion or shortness of breath at rest Gastrointestinal Gastrointestinal: Reports diarrhea and melena; Denies abdominal pain, nausea or vomiting Genitourinary Genitourinary: Denies dysuria or urinary frequency Musculoskeletal Musculoskeletal: Denies myalgias Integumentary Integumentary: Denies rash Neurologic Neurologic: Reports weakness; Denies headache(s) or paresthesias Physical Exam Const alert and oriented x3 Orientation / Consciousness: awake Eyes PERRL Neck supple and no JVD Chest inspection of chest normal Chest: midline sternotomy incision Resp normal respiratory effort and clear to auscultation bilaterally Cardio Cardio Narrative: Underlying cardiac rhythm atrial fibrillation, with controlled ventricular rate and infrequent PVCs. GI normal to inspection, nondistended, normoactive bowel sounds and soft to palpation Neuro oriented x3, CN's II-XII intact bilaterally, moves all extremities and no focal motor deficits
--- NOTE | 2020-09-10 12:32 | PCM.CONS.C ---
Assessment & Plan Assessment/Plan (1) Supratherapeutic INR: Status: Acute Code(s): R79.1 - Abnormal coagulation profile (2) Elevated troponin: Status: Acute Code(s): R77.8 - Other specified abnormalities of plasma proteins (3) BENJI (acute kidney injury): Status: Acute Code(s): N17.9 - Acute kidney failure, unspecified (4) Acute upper gastrointestinal bleeding: Status: Acute Code(s): K92.2 - Gastrointestinal hemorrhage, unspecified (5) Stage 3b chronic kidney disease: Status: Acute Code(s): N18.32 - Chronic kidney disease, stage 3b (6) Afib: Status: Chronic Code(s): I48.91 - Unspecified atrial fibrillation Qualifiers: Atrial fibrillation type: longstanding persistent Qualified Code(s): I48.11 - Longstanding persistent atrial fibrillation (7) CAD (coronary artery disease): Status: Chronic Code(s): I25.10 - Atherosclerotic heart disease of [place] coronary artery without angina pectoris Qualifiers: Coronary Disease-Associated Artery/Lesion type: bypass graft, autologous vein Associated angina: without angina Qualified Code(s): I25.810 - Atherosclerosis of coronary artery bypass graft(s) without angina pectoris (8) Diabetes: Status: Chronic Code(s): E11.9 - Type 2 diabetes mellitus without complications Qualifiers: Diabetes mellitus type: type 2 Diabetes mellitus [facility] insulin use: with terminal clerk use Diabetes mellitus complication status: with other specified complication Qualified Code(s): E11.69 - Type 2 diabetes mellitus with other specified complication; Z79.4 - terminal clerk (current) use of insulin (9) Hypertension: Status: Chronic Code(s): I10 - Essential (primary) hypertension Qualifiers: Hypertension type: essential hypertension Qualified Code(s): I10 - Essential (primary) hypertension (10) Anticoagulant long-term use: Status: Chronic Code(s): Z79.01 - terminal clerk (current) use of anticoagulants (11) Acute systolic (congestive) heart failure: Status: Chronic Code(s): I50.21 - Acute systolic (congestive) heart failure (12) PVD (peripheral vascular disease): Status: Chronic Code(s): I73.9 - Peripheral vascular disease, unspecified Plan: 65-year-old patient, with extensive cardiac history, usually follow-up with the [facility] facility Had CAD with CABG, x3, coronary artery stents x2 Patient has multiple medical comorbidities with diabetes, hypertension, peripheral vascular disease, CAD and also had longstanding history of atrial fibrillation and was on anticoagulation with warfarin in addition to dual antiplatelet therapy with Plavix and aspirin on this admission patient had upper GI bleed with a stable hemoglobin and hematocrit, however he had a supratherapeutic INR 6.5 which is trending down. Cardiac consultation requested as he has mild elevation of cardiac biomarker with mild elevated high sensitive troponin. Patient has no active symptoms of chest pain, Recommendation and plan; 1. From cardiac standpoint we will hold current medication which include warfarin and the dual antiplatelet 2. Resume the rest of his cardiac medication, isosorbide mononitrate and rosuvastatin for hyperlipidemia. 3. Patient is scheduled to undergo upper and lower GI endoscopy tomorrow afternoon 4. We will evaluate by echocardiogram to assess his LV systolic function 5. We will continue to monitor and follow-up clinically during this admission. 6. The mild elevation of cardiac biomarkers is secondary to type II AL with acute on chronic renal insufficiency. HPI Consult Data Date of Consult: 09/10/20 HPI Narrative HPI Narrative: TAMEKA MARTEL, is a 65 M who presents [facility] Medical History (Updated 09/10/20 @ 12:[address] 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 Home Medications tramadol 50 mg PO Q4H PRN 07/30/17 [History Last Taken 09/02/20 12:00] aspirin 81 mg PO DAILY@0800 #30 tab 04/18/18 [Rx Last Taken 09/05/20 09:00] insulin aspart U-100 0 units SUBCUT TIDCM PRN 11/10/18 [History Last Taken 04/10/20] insulin glargine 45 unit SQ BID 11/10/18 [History Last Taken 09/04/20 22:00] ramipril 2.5 mg PO DAILY 11/10/18 [History Last Taken 09/05/20 09:00] warfarin 5 mg PO DAILY 11/10/18 [History Last Taken 09/04/20 21:00] clopidogrel 75 mg PO DAILY #60 tab 11/14/18 [Rx Last Taken 09/05/20 09:00] isosorbide mononitrate 60 mg PO BID #120 tab 11/14/18 [Rx Last Taken 09/05/20 09:00] furosemide 40 mg PO DAILY PRN 04/10/20 [History Last Taken 09/05/20 20:00] rosuvastatin 40 mg PO QHS 04/10/20 [History Last Taken 09/04/20 22:00] Allergy/AdvReac Type Severity Reaction Status Date / Time perfume AdvReac Shortness Verified 09/05/20 20:55 of breath Family History Father Hypertension Brother Cancer Other Diabetes Surgical History History of cholecystectomy History of coronary artery bypass graft x 3 History of coronary artery stent placement Hx of CABG Social History adopted: No household members: spouse housing: house number of children: 1 current occupational status: retired current occupational exposures/hazards: No pets and animals: Yes (2 dogs 1 cat) leisure activities: music and reading Smoking Status: Never smoker alcohol intake: current alcohol intake frequency: holidays/special occasions only substance use type: does not use ROS Constitutional Constitutional: Denies chills or fever(s) Eyes Eyes: Denies change in vision ENT HEENT: Denies sore throat Cardiovascular Cardiovascular: Denies chest pain Respiratory/Chest Respiratory/Chest: Denies cough, dyspnea, dyspnea on exertion or shortness of breath at rest Gastrointestinal Gastrointestinal: Reports diarrhea and melena; Denies abdominal pain, nausea or vomiting Genitourinary Genitourinary: Denies dysuria or urinary frequency Musculoskeletal Musculoskeletal: Denies myalgias Integumentary Integumentary: Denies rash Neurologic Neurologic: Reports weakness; Denies headache(s) or paresthesias Physical Exam Const alert and oriented x3 Orientation / Consciousness: awake Eyes PERRL Neck supple and no JVD Chest inspection of chest normal Chest: midline sternotomy incision Resp normal respiratory effort and clear to auscultation bilaterally Cardio Cardio Narrative: Underlying cardiac rhythm atrial fibrillation, with controlled ventricular rate and infrequent PVCs. GI normal to inspection, nondistended, normoactive bowel sounds and soft to palpation Neuro oriented x3, CN's II-XII intact bilaterally, moves all extremities and no focal motor deficits
--- NOTE | 2020-09-10 13:10 | PCM.PN.HOSP ---
Subjective Subjective: Continues denies any worsening shortness of breath or chest pain. He had more episodes of diarrhea and an enteric stool and C. difficile were sent both of which were negative. Overnight he did have episodes of hypoglycemia and is placed on D10 at 40 cc/h Objective Data Objective Data Vital Signs: Vital Signs Temp Pulse Resp BP Pulse Ox 98.4 F 91 20 H 124/72 H 97 09/10/20 08:47 09/10/20 10:47 09/10/20 08:47 09/10/20 08:47 09/10/20 08:47 Oxygen Flow Rate (L/min) 2 Oxygen Delivery Method Nasal Cannula Weight: 280 lb 10.375 oz Body Mass Index (BMI) 35.0 Finger Stick Blood Glucose 67 Intake & Output: Intake and Output for Last 24 Hours 09/09/20 09/10/20 09/11/20 03:59 03:59 03:59 Intake Total 1336 / 1336 604 / 604 Output Total 275 / 275 Balance 1061 / 1061 604 / 604 Lab / Micro Data Result Diagrams: 09/10/20 05:13 09/10/20 05:13 Labs: Laboratory Results - last 24 hr 09/09/20 09/09/20 09/09/20 14:45 16:49 19:57 WBC RBC Hgb Hct MCV MCH MCHC RDW Std Deviation RDW Coeff of [place]ul[place] Plt Count MPV Immature Gran % (Auto) Neut % (Auto) Lymph % (Auto) [place] % (Auto) Eos % (Auto) Baso % (Auto) Absolute Neuts (auto) Absolute Lymphs (auto) Nucleated RBC % PT INR Sodium Potassium Chloride Carbon Dioxide Anion Gap BUN Creatinine Estim Creat Clear Calc Est GFR (MDRD) Af Amer Est GFR (MDRD) Non-Af BUN/Creatinine Ratio Glucose Lactic Acid 1.8 Calcium Magnesium Total Bilirubin AST ALT Alkaline Phosphatase Troponin I 1.480 H* 1.500 H* Total Protein Albumin Globulin Albumin/Globulin Ratio POC Glucose 09/09/20 09/09/20 09/09/20 22:26 22:31 22:51 WBC RBC Hgb Hct MCV MCH MCHC RDW Std Deviation RDW Coeff of [place] Plt Count MPV Immature Gran % (Auto) Neut % (Auto) Lymph % (Auto) [place] % (Auto) Eos % (Auto) Baso % (Auto) Absolute Neuts (auto) Absolute Lymphs (auto) Nucleated RBC % PT INR Sodium Potassium Chloride Carbon Dioxide Anion Gap BUN Creatinine Estim Creat Clear Calc Est GFR (MDRD) Af Amer Est GFR (MDRD) Non-Af BUN/Creatinine Ratio Glucose Lactic Acid Calcium Magnesium Total Bilirubin AST ALT Alkaline Phosphatase Troponin I 1.740 H* Total Protein Albumin Globulin Albumin/Globulin Ratio POC Glucose 57 L 64 L 09/10/20 09/10/20 09/10/20 00:13 03:06 04:57 WBC RBC Hgb Hct MCV MCH MCHC RDW Std Deviation RDW Coeff of [place] Plt Count MPV Immature Gran % (Auto) Neut % (Auto) Lymph % (Auto) [place] % (Auto) Eos % (Auto) Baso % (Auto) Absolute Neuts (auto) Absolute Lymphs (auto) Nucleated RBC % PT INR Sodium Potassium Chloride Carbon Dioxide Anion Gap BUN Creatinine Estim Creat Clear Calc Est GFR (MDRD) Af Amer Est GFR (MDRD) Non-Af BUN/Creatinine Ratio Glucose Lactic Acid Calcium Magnesium Total Bilirubin AST ALT Alkaline Phosphatase Troponin I Total Protein Albumin Globulin Albumin/Globulin Ratio POC Glucose 135 H 102 94 09/10/20 09/10/20 09/10/20 05:13 05:13 05:13 WBC 21.2 H RBC 4.98 Hgb 13.6 Hct 42.2 MCV 84.7 MCH 27.3 MCHC 32.2 RDW Std Deviation 55.1 H RDW Coeff of [place] 17.9 H Plt Count 183 MPV 10.1 Immature Gran % (Auto) 1.800 H Neut % (Auto) 89.1 H Lymph % (Auto) 3.0 L [place] % (Auto) 5.8 Eos % (Auto) 0.0 Baso % (Auto) 0.3 Absolute Neuts (auto) 18.8 H Absolute Lymphs (auto) 0.63 L Nucleated RBC % 0 PT 18.9 H INR 1.7 Sodium 127 L Potassium 3.9 Chloride 93 L Carbon Dioxide 23.0 Anion Gap 11 BUN 56 H Creatinine 3.35 H Estim Creat Clear Calc 25.92 Est GFR (MDRD) Af Amer 24 L Est GFR (MDRD) Non-Af 20 L BUN/Creatinine Ratio 16.7 Glucose 85 Lactic Acid Calcium 7.8 L Magnesium 2.4 Total Bilirubin 6.70 H AST 151 H ALT 60 Alkaline Phosphatase 516 H Troponin I Total Protein 6.6 Albumin 2.3 L Globulin 4.3 H Albumin/Globulin Ratio 0.5 L POC Glucose 09/10/20 09/10/20 08:43 11:29 WBC RBC Hgb Hct MCV MCH MCHC RDW Std Deviation RDW Coeff of [place] Plt Count MPV Immature Gran % (Auto) Neut % (Auto) Lymph % (Auto) [place] % (Auto) Eos % (Auto) Baso % (Auto) Absolute Neuts (auto) Absolute Lymphs (auto) Nucleated RBC % PT INR Sodium Potassium Chloride Carbon Dioxide Anion Gap BUN Creatinine Estim Creat Clear Calc Est GFR (MDRD) Af Amer Est GFR (MDRD) Non-Af BUN/Creatinine Ratio Glucose Lactic Acid Calcium Magnesium Total Bilirubin AST ALT Alkaline Phosphatase Troponin I Total Protein Albumin Globulin Albumin/Globulin Ratio POC Glucose 90 108 Micro: Microbiology 09/10/20 00:20 Stool Enteric Bacteriology - Final 09/10/20 00:20 Stool C. difficile DNA Amplification - Final 09/09/20 00:20 Stool Stool Occult Blood (MADDIE) - Final Occult Blood Positive Physical Exam Const alert and no apparent distress General Appearance: cooperative HEENT normocephalic and moist oral mucous membranes Eyes PERRL, EOMs intact bilaterally and conjunctivae normal Neck no lymphadenopathy, supple and no JVD Resp normal respiratory effort and clear to auscultation bilaterally Auscultation: Negative for crackles, rales, rhonchi or wheezes GI soft to palpation, non-tender and non-distended; Negative for hepatosplenomegaly Extremity no clubbing, cyanosis or edema Skin no rashes or lesions noted Neuro moves all extremities and no focal motor deficits Psych affect normal Assessment & Plan Assessment/Plan (1) Acute upper gastrointestinal bleeding: Status: Acute Code(s): K92.2 - Gastrointestinal hemorrhage, unspecified Plan: Denies any hematemesis but does notice his diarrhea stool is black. INR was reversed in the ER will proceed with general surgery evaluation for possible scope Plan for colonoscopy and EGD tomorrow at noon (2) Elevated troponin: Status: Acute Code(s): R77.8 - Other specified abnormalities of plasma proteins Plan: For right now he is denying any increase shortness of breath or chest pain therefore we will hold off on cardiology consult and continue to trend troponins maintaining his oxygen sats on 2 to 3 L. Given the fact that his troponin has remained elevated and olayinka to 1.7, will consult cardiology (3) BENJI (acute kidney injury): Status: Acute Code(s): N17.9 - Acute kidney failure, unspecified Plan: Creatinine is slightly elevated compared to when he was discharged given his recent admission for heart failure will be very conservative with IV fluids Renal lyles has worsened significantly from 2.47 to 3.34, will evaluate with urine studies (4) Supratherapeutic INR: Status: Acute Code(s): R79.1 - Abnormal coagulation profile Plan: Corrected in ED with FFP and vitamin K (5) Leukocytosis: Status: Acute Code(s): D72.829 - Elevated white blood cell count, unspecified Plan: Unsure as to the etiology, C. difficile and enteric stool pathogens were negative. We will proceed with a UA both for evaluation of his BENJI as well as for this leukocytosis despite him being afebrile. Of note chest x-ray did show a slight worsening in his right pleural effusion potentially infiltrate if UA is normal potentially initiate empiric antibiotic therapy (6) Stage 3b chronic kidney disease: Status: Acute Code(s): N18.32 - Chronic kidney disease, stage 3b Plan: CAD, hypertension, hyperlipidemia, type 2 diabetes, A. fib are chronic medical conditions which complicate his care. His home medications were continued where appropriate Visit Charges Inpatient E&M: 67545 Subs Hosp L2
--- NOTE | 2020-09-10 13:12 | ECHOCS_ITS ---
Reason For Study: S/P NC Procedure This was a 2D Doppler, Color Flow transthoracic echocardiogram. The study was technically difficult. Exam performed portable in patient room. Left Ventricle Normal LV size. Mild concentric left ventricular hypertrophy. The estimated ejection fraction is 45 %. There is borderline global hypokinesis of the left ventricle. Right Ventricle Normal RV size. Normal systolic function. Atria The left atrium is mildly enlarged. Normal right atrium. Mitral Valve Mitral valve not well visualized. Tricuspid Valve Normal tricuspid valve. Mild tricuspid valve insufficiency. Pulmonary artery systolic pressure is 26 mmHg. Aortic Valve The aortic valve is not well visualized. Pulmonic Valve The pulmonic valve is not well visualized. Great Vessels Normal aortic root. Pericardium/Pleural No pericardial effusion. Medication Diluted definity 3ml given slow IV push to enhance endocardial definition. MMode/2D Measurements & Calculations LVIDd: 4.6 cm IVSd: 1.2 cm Ao root diam: 3.5 cm LVIDs: 3.9 cm LVPWd: 1.2 cm FS: 14.7 % LAV(MOD-bp): 55.2 ml LA A4 area: 21.9 cm2 LA dimension(2D): 4.4 cm LAV(MOD-bp) Indexed: 21.8 ml/m2 LAV(MOD-sp2): 42.9 ml LAV(MOD-sp4): 54.5 ml RA A4 area: 19.8 cm2 Doppler Measurements & Calculations MV E max bernadine: 85.6 cm/sec Ao V2 max: 108.1 cm/sec LV V1 max: 92.8 cm/sec Ao max P.7 mmHg LV V1 max P.4 mmHg PA V2 max: 68.6 cm/sec TR max bernadine: 234.3 cm/sec TR max P.0 mmHg ECHO/Echo Complete W/ Contrast Interpretation Summary Normal LV size. Mild concentric left ventricular hypertrophy. The estimated ejection fraction is 45 %. Contrast injection was performed. Compared to previous study, the left ventricu lar systolic function is the same.. Ordering Physician: Paula Harper Performed By: Dale Bullock RCS
--- NOTE | 2020-09-10 15:58 | CPS ---
SMI at bedside. Pt sleeping start on hold
[2020-09-10 17:06] LABS: Bedside Glucose 141 mg/dL (70-110)
[2020-09-10 18:44] LABS: Mucous, Urine 0 SEEN /hpf (<or=2+); Squamous Epithelial Cells - UA 0 SEEN /hpf (0-5)
[2020-09-10 18:47] LABS: Color, Urine Yellow (Yellow); Glucose, Dipstick Normal (Normal); Ketone-Dipstick 5 mg/dl (Negative); Leukocyte Esterase-Dipstick 25 /ul (Negative); Nitrite-Dipstick Positive (Negative); Occult Blood-Urine 150 /ul (Negative); Protein-Dipstick 100 mg/dl (Negative); Urine Clarity Cloudy (Clear); Urine Urobilinogen 4 mg/dl (Normal)
[2020-09-10 18:52] LABS: Urine Bilirubin Dipstick 3 mg/dL (Negative)
[2020-09-10] MEDS: Dextrose 5%/0.9% NaCl 1,000 ML 75 ML IV (19:00)
[2020-09-10 19:02] LABS: Bacteria 1+ /hpf (None Seen); Red Blood Cells-Urine 0-5 SEEN /hpf (0-5); White Blood Cells 0-5 SEEN /hpf (0-5)
[2020-09-10 19:33] LABS: Urine Chloride < 10 mmol/L (Not Establ.); Urine Sodium 6 mmol/L (Not Establ.)
[2020-09-10 19:40] LABS: Osmolality, Urine 325 mOsm/KG
[2020-09-10] MEDS: Atorvastatin Calcium 80 MG Tablet PO (21:10)
[2020-09-10] MEDS: Isosorbide Mononitrate 60 MG Tablet PO (21:10)
[2020-09-10 22:01] LABS: Bedside Glucose 151 mg/dL (70-110)
[2020-09-11] VITALS (14 sets, daily range): BP systolic 62–126; BP diastolic 38–73; PULSE 77–89; RESP 15–18; TEMP 36.2–36.7; O2SAT 92–95; BMI 35.9
--- NOTE | 2020-09-11 | COLBX_PTH ---
PATIENT: TAMEKA MARTEL LOC: [facility] U#:[id number] AGE/SX: 65/M ROOM: ICU03 RE09/09/[address]: Dr. Brendon Guevara MD : 1955 BED: 1 DIS: 09/14/2020 SPEC #: [id number] RECD: 09/11/20 13:36 STATUS: BIANCA REQ #: [id number] ROCHELLE: 09/11/20 00:[address]: Nicolasa Collins DEPT: SURGICAL PATHOLOGY RECD BY: Richy Saavedra ENTERED: 09/11/20 13:36 SP TYPE: COLON BX OTHR DR: MD Dr. Paula Ascencio MD Dr. Linda Wang, MD Dr. Nicholas F Kotsonis, MD [facility] Tissues: COLON BIOPSY Procedures: Surgery Specimen Level IV Comments: @ Ordering doctor for SUIV edited from to @ by CHACE at 09/11/20 1408 @ Submitting doctor edited from to @ by CHACE at 09/11/20 1408 HEADER OPERATION: Colonoscopy, EGD ([facility] [place] PRE-OP DIAGNOSIS: GI bleed TISSUE SUBMITTED: Left colon polyps MICROSCOPIC DIAGNOSIS Left colon polyps, biopsy: Fragments of tubular adenoma. CHIO:juani 09/12/2020 MICROSCOPIC DESCRIPTION Slides are reviewed. GROSS DESCRIPTION Received in fixative is one container labeled with the patient's name and designated left colon polyps. The specimen consists of two pieces of suresh-pink polyp measuring 1 x 1 x 0.5 cm and 0.6 x 0.5 x 0.2 cm. The larger polyp is bisected. The entire specimen is submitted in one cassette. / CHIO:juani 09/11/20 TC:1 CPT: 54569
[2020-09-11 06:05] LABS: Bedside Glucose 185 mg/dL (70-110)
[2020-09-11 06:50] LABS: International Normalized Ratio 1.9; Prothrombin Time (Protime)PT. 20.7 SECONDS (11.7-14.9)
[2020-09-11 07:06] LABS: Anion Gap 12 (5-15); BUN 74 mg/dL (7-18); BUN/Creat Ratio 14.1 RATIO (10-20); Calcium,Total 7.4 mg/dL (8.5-10.1); Chloride 90 mmol/L (98-107); Creatinine, Serum 5.25 mg/dL (0.70-1.30); EST Glomerular Filtration Rate 12 mL/min (>60); Est Glom Filt Rate - Afr Amer 14 mL/min (>60); Estimated Creatinine Clearance 16.54 ml/min; Glucose 185 mg/dL (74-106); Sodium Level 124 mmol/L (136-145)
[2020-09-11 10:40] LABS: Bedside Glucose 165 mg/dL (70-110)
--- NOTE | 2020-09-11 11:22 | PCM.PN.HOSP ---
Documented by User: Ortega CENTENO 09/11/20 15:34 Subjective Subjective: Patient is a 65-year-old male who is resting in bed, alert and oriented x3. Patient reports improvement in symptoms from yesterday although still reports shortness of breath. Denies chest pain, palpitations, fever, chills, N/V/D. Objective Data Objective Data Vital Signs: Vital Signs Temp Pulse Resp BP Pulse Ox 97.5 F L 84 15 110/54 L 93 09/11/20 10:06 09/11/20 10:06 09/11/20 10:06 09/11/20 10:06 09/11/20 10:06 Oxygen Flow Rate (L/min) 2 Oxygen Delivery Method Nasal Cannula Weight: 287 lb 11.252 oz Body Mass Index (BMI) 35.9 Finger Stick Blood Glucose 67 Intake & Output: Intake and Output for Last 24 Hours 09/09/20 09/10/20 09/11/20 23:59 23:59 23:59 Intake Total 1336 / 1336 1108.67 / 1258.67 1031.25 / 1031.25 Output Total 275 / 275 175 / 175 Balance 1061 / 1061 933.67 / 1083.67 1031.25 / 1031.25 Lab / Micro Data Result Diagrams: 09/10/20 05:13 09/11/20 06:10 Labs: Laboratory Results - last 24 hr 09/10/20 09/10/20 09/10/20 11:29 16:20 18:30 PT INR Sodium Potassium Chloride Carbon Dioxide Anion Gap BUN Creatinine Estim Creat Clear Calc Est GFR (MDRD) Af Amer Est GFR (MDRD) Non-Af BUN/Creatinine Ratio Glucose Calcium Urine Color Yellow Urine Clarity Cloudy Urine pH 5.0 Ur Specific [place] 1.020 Urine Protein 100 H Urine Glucose (UA) Normal Urine Ketones 5 H Urine Occult Blood 150 H Urine Nitrite Positive H Urine Bilirubin 3 H Urine Urobilinogen 4 H Ur Leukocyte Esterase 25 H Urine RBC 0-5 SEEN Urine WBC 0-5 SEEN Ur Squamous Epith Cells 0 SEEN Urine Bacteria 1+ Urine Mucus 0 SEEN Urine Osmolality Ur Random Sodium Urine Potassium Urine Chloride POC Glucose 108 141 H 09/10/20 09/10/20 09/11/20 18:30 21:08 06:01 PT INR Sodium Potassium Chloride Carbon Dioxide Anion Gap BUN Creatinine Estim Creat Clear Calc Est GFR (MDRD) Af Amer Est GFR (MDRD) Non-Af BUN/Creatinine Ratio Glucose Calcium Urine Color Urine Clarity Urine pH Ur Specific [place] Urine Protein Urine Glucose (UA) Urine Ketones Urine Occult Blood Urine Nitrite Urine Bilirubin Urine Urobilinogen Ur Leukocyte Esterase Urine RBC Urine WBC Ur Squamous Epith Cells Urine Bacteria Urine Mucus Urine Osmolality 325 Ur Random Sodium 6 Urine Potassium 43.0 Urine Chloride < 10 POC Glucose 151 H 185 H 09/11/20 09/11/20 09/11/20 06:10 06:10 10:34 PT 20.7 H INR 1.9 Sodium 124 L Potassium 4.0 Chloride 90 L Carbon Dioxide 22.0 Anion Gap 12 BUN 74 H Creatinine 5.25 H Estim Creat Clear Calc 16.54 Est GFR (MDRD) Af Amer 14 L Est GFR (MDRD) Non-Af 12 L BUN/Creatinine Ratio 14.1 Glucose 185 H Calcium 7.4 L Urine Color Urine Clarity Urine pH Ur Specific [place] Urine Protein Urine Glucose (UA) Urine Ketones Urine Occult Blood Urine Nitrite Urine Bilirubin Urine Urobilinogen Ur Leukocyte Esterase Urine RBC Urine WBC Ur Squamous Epith Cells Urine Bacteria Urine Mucus Urine Osmolality Ur Random Sodium Urine Potassium Urine Chloride POC Glucose 165 H Micro: Microbiology 09/10/20 19:15 Interface Orders SARS-CoV-2 Antigen (Rapid) - Final 09/10/20 00:20 Stool Enteric Bacteriology - Final 09/10/20 00:20 Stool C. difficile DNA Amplification - Final 09/09/20 00:20 Stool Stool Occult Blood (MADDIE) - Final Occult Blood Positive Radiography Diagnostic Testing: Radiology Impression Echocardiogram 09/10/20 13:12 Interpretation Summary Normal LV size. Mild concentric left ventricular hypertrophy. The estimated ejection fraction is 45 %. Contrast injection was performed. Compared to previous study, the left ventricular systolic function is the same.. Ordering Physician: Belal, Farouk Performed By: Dale Bullock RCS Physical Exam Narrative See subjective. Const alert, oriented x3 and no apparent distress HEENT head/scalp atraumatic Head and Scalp: normocephalic Eyes EOMs intact bilaterally Neck no lymphadenopathy, supple and no JVD Resp normal respiratory effort and clear to auscultation bilaterally Cardio regular rate, regular rhythm, no murmurs and no JVD GI normal to inspection, nondistended, normoactive bowel sounds, soft to palpation and non-tender Extremity full ROM Skin no rashes or lesions noted and no wounds Neuro CN's II-XII intact bilaterally Psych affect normal Assessment & Plan Assessment/Plan (1) Acute upper gastrointestinal bleeding: Status: Acute Code(s): K92.2 - Gastrointestinal hemorrhage, unspecified (2) Elevated troponin: Status: Acute Code(s): R77.8 - Other specified abnormalities of plasma proteins (3) BENJI (acute kidney injury): Status: Acute Code(s): N17.9 - Acute kidney failure, unspecified (4) Supratherapeutic INR: Status: Acute Code(s): R79.1 - Abnormal coagulation profile (5) Leukocytosis: Status: Acute Code(s): D72.829 - Elevated white blood cell count, unspecified (6) Stage 3b chronic kidney disease: Status: Acute Code(s): N18.32 - Chronic kidney disease, stage 3b Plan: 1) acute upper gastrointestinal bleeding. INR 1.7, made therapeutic in ED.Hemoglobin 13.6. Vital signs stable; BP 110/54. No evidence of hemodynamic compromise. Plan; colonoscopy and EGD scheduled for 09/11/2020 at noon. 2) elevated troponin On my exam today denies any chest pain, shortness of breath and palpitations, lower extremity pain/swelling. Echocardiogram from 09/10/2020 demonstrated normal left ventricular size, mild LVH, estimated EF of 45%. Cardiology following. Plan; hold warfarin and dual antiplatelet therapy, resume isosorbide mononitrate and rosuvastatin. 3) BENJI Creatinine elevated at 5.25. Plan; nephrology consult ordered, continue gentle IV hydration. 4) supratherapeutic INR INR currently 1.7. Plan; hold warfarin and dual antiplatelet therapy. 5) leukocytosis Unclear etiology. Enteric stool panel negative. Patient afebrile. Of note chest x-ray did show a slight worsening in his right pleural effusion potentially infiltrate if UA is normal potentially initiate empiric antibiotic therapy. Plan; continue to monitor CBC, UA ordered. 6) CKD stage III Plan; nephrology consult ordered. DVT prophylaxis - Coumadin held Patient seen by Ortega Davila PA-C, under the supervision of Dr. Scott. Documented by User: Dr. Jv Scott MD 09/11/20 15:43 Objective Data Lab / Micro Data Result Diagrams: 09/10/20 05:13 09/11/20 06:10 Assessment & Plan Addt'l Comments This patient was seen in conjunction with Ortega Davila PA-C. I have independently interviewed and examined the patient and reviewed pertinent historical, laboratory, and other data. Please refer to Ortega Davila PA-C's note for details of this patient's presentation, findings, and recommendations. I have reviewed Ortega Davila PA-C's note and concur with documented findings. In brief, patient is a 65-year-old gentleman admitted with GI bleed consultation placed to general surgery for endoscopic evaluation. Patient has had worsening kidney function following his admission Physical Examination: GENERAL: cooperative HEENT: Atraumatic; EYES; Anicteric, Normal Conjunctiva NECK; supple, normal thyroid, RESPIRATORY: Diminished to auscultation CARDIOVASCULAR: Regular S1 S2, GI: soft, normoactive bowel sounds, NEURO: Awake; no lateralizing signs. SKIN: No Rash PSYCH; Flat affect Assessment: 1. GI bleed 2. Paroxysmal A. fib 3. Acute kidney injury superimposed on chronic kidney disease stage IV 4. Coronary artery disease 5. Congestive heart failure with preserved ejection fraction 6. Essential hypertension 7. Diabetes mellitus type 2 8. Peripheral vascular disease 9. TIAs 10. Obstructive sleep apnea Recommendations: 1. I have discussed the results of my overview and impressions with the patient 2. Options for management were reviewed Visit Charges Inpatient E&M: 43938 Subs Hosp L3
--- NOTE | 2020-09-11 12:56 | OP.EGD_ITS ---
Patient Name: Chase Phan Procedure Date: 09/11/2020 11:27 AM Date of : 1955 Age: 65 Procedure: Upper GI endoscopy Indications: Melena Providers: Nicolasa Collins MD Medicines: See the Anesthesia note for documentation of the administered medications Patient Profile: Refer to note in patient chart for documentation of history and physical. Complications: No immediate complications. Procedure: Pre-Anesthesia Assessment: - see anesthesia note After obtaining informed consent, the endoscope was passed under direct vision. Throughout the procedure, the patient's blood pressure, pulse, and oxygen saturations were monitored continuously. The gastroscope was introduced through the mouth, and advanced to the second part of duodenum. The upper GI endoscopy was accomplished without difficulty. The patient tolerated the procedure well. Scope In: 12:08:10 PM Scope Out: 12:10:54 PM Total Procedure Duration Time 0 hours 2 minutes 44 seconds Findings: The first portion of the duodenum and second portion of the duodenum were normal. The entire examined stomach was normal. A small hiatal hernia was present. Impression: - Normal first portion of the duodenum and second portion of the duodenum. - Normal stomach. - Small hiatal hernia. - No specimens collected. Recommendation: - Return patient to hospital [facility] for ongoing care. - Resume previous diet. - Continue present medications. Procedure Code(s): --- Professional --- 99210, Esophagogastroduodenoscopy, flexible, transoral; diagnostic, including collection of specimen(s) by brushing or washing, when performed (separate procedure) Diagnosis Code(s): --- Professional --- K44.9, Diaphragmatic hernia without obstruction or gangrene K92.1, Melena (includes Hematochezia) CPT copyright 2017 [employer] [employer]. All rights reserved. The codes documented in this report are preliminary and upon inflatable buildings laminator review may be revised to meet current compliance requirements. MD Nicolasa Goddard MD 09/11/2020 12:55:37 PM This report has been signed electronically. Number of Addenda: 0 Note Initiated On: 09/11/2020 11:27 AM
--- NOTE | 2020-09-11 12:56 | OP.CCLET_ITS ---
09/11/2020 [facility] Re : Upper GI endoscopy procedure for [facility] This procedure was performed on Friday, September 11, 2020. My impressions and recommendations are as follows: Impressions : - Normal first portion of the duodenum and second portion of the duodenum. - Normal stomach. - Small hiatal hernia. - No specimens collected. Recommendations : - Return patient to hospital [facility] for ongoing care. - Resume previous diet. - Continue present medications. My findings are described in the full procedure note, which is enclosed. If I can be of further assistance, please feel free to contact me at Doctor phone number(s): , Work: . Sincerely, MD Nicolasa Goddard MD 09/11/2020 12:55:37 PM This report has been signed electronically.
--- NOTE | 2020-09-11 12:58 | OP.CCLET_ITS ---
09/11/2020 [facility] Re : Colonoscopy procedure for [facility] This procedure was performed on Friday, September 11, 2020. My impressions and recommendations are as follows: Impressions : - Preparation of the colon was poor. - Non-bleeding external and internal hemorrhoids. - One 5 to 15 mm polyp in the descending colon, removed with a hot snare. Resected and retrieved. Recommendations : - Repeat colonoscopy date to be determined after pending pathology results are reviewed for surveillance based on pathology results. - Follow up visit via telemedicine with Liz Harper PA-C to discuss results. Call to set this up, thank you - Continue present medications. My findings are described in the full procedure note, which is enclosed. If I can be of further assistance, please feel free to contact me at Doctor phone number(s): , Work: . Sincerely, MD Nicolasa Goddard MD 09/11/2020 12:58:07 PM This report has been signed electronically.
--- NOTE | 2020-09-11 12:58 | OP.COLON_ITS ---
Patient Name: Chase Phna Procedure Date: 09/11/2020 12:12 PM Date of : 1955 Age: 65 Procedure: Colonoscopy Indications: Melena, Rectal bleeding Providers: Nicolasa Collins MD Medicines: See the Anesthesia note for documentation of the administered medications Patient Profile: Refer to note in patient chart for documentation of history and physical. Last Colonoscopy: none. The patient's first colonoscopy is today. Complications: No immediate complications. Procedure: Pre-Anesthesia Assessment: - see anesthesia note After I obtained informed consent, the scope was passed under direct vision. Throughout the procedure, the patient's blood pressure, pulse, and oxygen saturations were monitored continuously. The pediatric colonoscope was introduced through the anus and advanced to the cecum, identified by the appendiceal orifice, IC valve and transillumination. The colonoscopy was performed without difficulty. The patient tolerated the procedure well. The quality of the bowel preparation was poor. Scope In: 12:14:26 PM Scope Withdrawal Time 0 hours 26 minutes 20 seconds Scope Out: 12:51:21 PM Total Procedure Duration Time 0 hours 36 minutes 55 seconds Findings: The perianal and digital rectal examinations were normal. Non-bleeding external and internal hemorrhoids were found. A 5 to 15 mm polyp was found in the descending colon. The polyp was pedunculated. The polyp was removed with a hot snare. Resection and retrieval were complete. Verification of patient identification for the specimen was done by the nurse. Estimated blood loss was minimal. Impression: - Preparation of the colon was poor. - Non-bleeding external and internal hemorrhoids. - One 5 to 15 mm polyp in the descending colon, removed with a hot snare. Resected and retrieved. Recommendation: - Repeat colonoscopy date to be determined after pending pathology results are reviewed for surveillance based on pathology results. - Follow up visit via telemedicine with Liz Harper PA-C to discuss results. Call to set this up, thank you - Continue present medications. Procedure Code(s): --- Professional --- 46610, Colonoscopy, flexible; with removal of tumor(s), polyp(s), or other lesion(s) by snare technique Diagnosis Code(s): --- Professional --- K64.8, Other hemorrhoids D12.4, Benign neoplasm of descending colon K92.1, Melena (includes Hematochezia) K62.5, Hemorrhage of anus and rectum CPT copyright 2017 [employer] [place] [employer]. All rights reserved. The codes documented in this report are preliminary and upon radial router operator review may be revised to meet current compliance requirements. MD Nicolasa Goddard MD 09/11/2020 12:58:07 PM This report has been signed electronically. Number of Addenda: 0 Note Initiated On: 09/11/2020 12:12 PM
--- NOTE | 2020-09-11 12:59 | PCM.PN.BLA ---
Progress Note Poor colon cleansing preparation left colon polyp noted no evidence of GI bleeding throughout upper and lower endoscopy visual limits can start regular diet
[2020-09-11 13:44] LABS: Pathologist Review Reviewed
[2020-09-11] MEDS: Isosorbide Mononitrate 60 MG Tablet PO ×2 (14:33→21:38)
--- NOTE | 2020-09-11 16:01 | CASEMGMT ---
JO-ANN CM Readmission Note Previous Admission: 09/05/20-09/07/20 Diagnosis: Acute heart failure with reduced EF Pt on RA at dc, continued home lasix, denied need for HHC. DC Disposition: Home with family support Current Admission Presentation: GI Bleed, NSTEMI Pt presented to ER with black stools. Pt admitted with stable H&H but supratherapeutic INR of 6.5. Pt had upper and lower endoscopies this date. JO-ANN CM in to pt room. Pt states he took his meds as ordered after last hospitalization. Pt very tired from endoscopy. He states he feels he would need some HHC d/t feeling weak. CM to follow. Will check back with pt in the morning to further discuss dc planning. DC PLAN: Home with HHC.
[2020-09-11] MEDS: 0.9% Normal Saline 1,000 ML 150 ML IV ×2 (16:41→22:38)
[2020-09-11 17:21] LABS: Bedside Glucose 188 mg/dL (70-110)
[2020-09-11] MEDS: traMADol 50 MG Tablet PO (18:06)
[2020-09-11] MEDS: 0.9% Saline Lock 10 ML Syringe IV (18:07)
[2020-09-11] MEDS: Atorvastatin Calcium 80 MG Tablet PO (21:37)
[2020-09-11] MEDS: Insulin Lispro 100 UNIT/ML INSULN.PEN SC (21:38)
[2020-09-11 21:50] LABS: Bedside Glucose 196 mg/dL (70-110)
[2020-09-12] VITALS (11 sets, daily range): BP systolic 92–125; BP diastolic 34–45; PULSE 69–84; RESP 15–18; TEMP 36.1–36.7; O2SAT 92–96
[2020-09-12] MEDS: oxyCODONE 5 MG Tablet PO ×3 (00:43→22:08)
[2020-09-12] MEDS: Acetaminophen 325 MG Tablet 650 MG PO (00:44)
[2020-09-12] MEDS: 0.9% Normal Saline 1,000 ML 150 ML IV ×3 (06:12→19:57)
[2020-09-12] MEDS: Insulin Lispro 100 UNIT/ML INSULN.PEN SC ×3 (06:20→21:26)
[2020-09-12 06:26] LABS: Absolute Lymphocyte Count 0.72 X10^3/uL (0.83-4.51); Absolute Neutrophil Count 16.5 X10^3/uL (2.0-7.7); Basophil# 0.15 X10^3/uL; Basophil% 0.8 % (0-1); Eosinophil# 0.05 X10^3/uL; Eosinophils% 0.3 % (0-5); Hematocrit 34.9 % (40-54); Hemoglobin 11.8 g/dL (13.0-16.5); Lymphocyte # 0.72 X10^3/ul (0.83-4.51); Lymphocyte % 3.7 % (19-41); Mean Corp Hgb Conc 33.8 g/dL (32-36); Mean Corpuscular Hgb 31.1 pg (27.0-32.0); Mean Corpuscular Volume 91.8 fL (80-94); Mean Platelet Vol. 11.3 fl (6.2-12.0); Monocyte# 1.29 X10^3/uL; Monocyte% 6.7 % (0-10); NRBC Flagged by Analyzer 0 % (0-5); Neutrophil % 85.5 % (47-70); Platelet Count 150 K/mm3 (150-450); RBC Distribution Width CV 18.8 % (11.6-14.6); RBC Distribution Width SD 63.7 fl (35.1-43.9); White Blood Count 19.3 K/mm3 (4.4-11.0)
[2020-09-12 06:48] LABS: International Normalized Ratio 1.6; Prothrombin Time (Protime)PT. 18.7 SECONDS (11.7-14.9)
[2020-09-12 07:00] LABS: Bedside Glucose 196 mg/dL (70-110)
[2020-09-12 07:00] LABS: Anion Gap 14 (5-15); BUN 85 mg/dL (7-18); BUN/Creat Ratio 13.4 RATIO (10-20); Calcium,Total 7.1 mg/dL (8.5-10.1); Chloride 91 mmol/L (98-107); Creatinine, Serum 6.34 mg/dL (0.70-1.30); EST Glomerular Filtration Rate 9 mL/min (>60); Est Glom Filt Rate - Afr Amer 11 mL/min (>60); Glucose 166 mg/dL (74-106); Potassium 5.2 mmol/L (3.5-5.1); Sodium Level 120 mmol/L (136-145)
--- NOTE | 2020-09-12 08:11 | US_ITS ---
STUDY: RENAL ULTRASOUND - COMPLETE REASON FOR EXAM: Male, 65 years old. Elevated creatinine TECHNIQUE: Ultrasound evaluation of the kidneys was performed with real-time and static sue-scale imaging. COMPARISON: Comparison is made with prior study dated 04/23/2014. FINDINGS: RIGHT KIDNEY: Normal location of the right kidney, which is normal in size. The right kidney measures 12.2 cm x 6.5 cm x 6.5 cm. There is a normal cortex of the right kidney. The renal cortex measures 1.7 cm. There is no right renal mass or cyst. There are no right renal calculi. There is no right hydronephrosis. DISTAL RIGHT URETER: There is non-visualization of the distal right ureter. There is no demonstrated right ureterovesical junction calculus. There is no demonstrated right ureteral jet. LEFT KIDNEY: Normal location of the left kidney, which is normal in size. The left kidney measures 12 cm x 6.5 cm x 6.6 cm. There is a normal cortex of the left kidney. The renal cortex measures 1.4 cm. There is no left renal mass or cyst. There are no left renal calculi. There is no left hydronephrosis. DISTAL LEFT URETER: There is non-visualization of the distal left ureter. There is no demonstrated left ureterovesical junction calculus. There is no demonstrated left ureteral jet. BLADDER: A AMIN catheter is seen within the urinary bladder. The bladder is empty at this time. US/Kidney and Bladder IMPRESSION: Normal ultrasound of the kidneys. Electronically Signed: Edvin Juarez MD at 14:42 EDT , Service support ,
--- NOTE | 2020-09-12 09:43 | PCM.CONS.R ---
Assessment & Plan Assessment/Plan (1) BENJI (acute kidney injury): Status: Acute Code(s): N17.9 - Acute kidney failure, unspecified Plan: creatinine 2.7 on 09/09 progressed to 5.25 today. Urine sodium 6 suggestive of cardiorenal syndrome or dehydration. Recently hospitalized and discharged on 09/05 to 09/07 with creatinine low 2's. Currently with poor urine output, started on iv fluids. Hypotensive episode yesterday. May have ATN. Discussed with pt may need dialysis if unresponsive to iv fluids. Will need to watch for CHF with hx ischemic CMP EF 45%. (2) GI bleed: Status: Acute Code(s): K92.2 - Gastrointestinal hemorrhage, unspecified Qualifiers: GI bleed type/associated pathology: unspecified gastrointestinal hemorrhage type Qualified Code(s): K92.2 - Gastrointestinal hemorrhage, unspecified Plan: s/p endoscopy. Hgb stable (3) Supratherapeutic INR: Status: Acute Code(s): R79.1 - Abnormal coagulation profile Plan: on warfarin, plavix, ASA at home. (4) Hyperkalemia: Status: Acute Code(s): E87.5 - Hyperkalemia Plan: Kk 5.2 follow low K renal dient (5) Hyponatremia: Status: Acute Code(s): E87.1 - Hypo-osmolality and hyponatremia Plan: sodium 120 suspect due to dehydration, excess ADH secretion (6) Afib: Status: Chronic Code(s): I48.91 - Unspecified atrial fibrillation Qualifiers: Atrial fibrillation type: longstanding persistent Qualified Code(s): I48.11 - Longstanding persistent atrial fibrillation Plan: cardio mgmt (7) Diabetes: Status: Chronic Code(s): E11.9 - Type 2 diabetes mellitus without complications Qualifiers: Diabetes mellitus complication status: with other specified complication Diabetes 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 BP stable now (9) CAD (coronary artery disease): Status: Chronic Code(s): I25.10 - Atherosclerotic heart disease of [place] coronary artery without angina pectoris Qualifiers: Associated angina: without angina Coronary Disease-Associated Artery/Lesion type: bypass graft, autologous vein Qualified Code(s): I25.810 - Atherosclerosis of coronary artery bypass graft(s) without angina pectoris Plan: NSTEMI with positive troponins, cardio consulted (10) PVD (peripheral vascular disease): Status: Chronic Code(s): I73.9 - Peripheral vascular disease, unspecified Plan: s/p bypass, toe amputation (11) Stage 3a chronic kidney disease: Status: Chronic Code(s): N18.31 - Chronic kidney disease, stage 3a Plan: baseline creatinine 1.5-2.0 eGFR 52cc/min based on review of prior labs from [place]. Check UPCR, renal US (12) Diabetic nephropathy associated with diabetes mellitus due to underlying condition: Status: Acute Code(s): E08.21 - Diabetes mellitus due to underlying condition with diabetic nephropathy Plan: quantitate urine protein/cr ratio (13) Leukocytosis: Status: Acute Code(s): D72.829 - Elevated white blood cell count, unspecified Plan: WBC elevated, cx no growth so far, afebrile (14) Metabolic acidosis: Status: Acute Code(s): E87.2 - Acidosis Plan: recommend sodium bicarb 2 amps iv HPI Consult Data Date of Consult: 09/13/20 HPI Narrative HPI Narrative: TAMEKA MARTEL, is a 65 M who [facility] for GI bleed with elevated INR of 6.5 on plavix, warfarin and ASA. He underwent endoscopy both upper and lower without obvious source for bleeding. Hgb 11.8g today. Consulted for BENJI. Creatinine 2.1 on admit 09/05 during last hospitalization for CHF progressed to 2.7 on 09/09 readmission. Creatinine now 5.25 today. Potassium 5.2 with low sodium 120 and metabolic acidosis bicarb 15. BP dropped in the 60's on 09/11 receiving iv fluids with NSS. He has leukocytosis without fever. Urine sodium 6 on 09/10, urine chloride <10. PMH for CAD with CABG, x3, coronary artery stents x2, DM type2, hypertension, peripheral vascular disease, CAD, CHF, and atrial fibrillation. Cardiology consulted for abnormal troponins with chest pain. Troponin 1.74, BNP 341 on 09/09. 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 Home Medications tramadol 50 mg PO Q4H PRN 07/30/17 [History Last Taken 09/02/20 12:00] aspirin 81 mg PO DAILY@0800 #30 tab 04/18/18 [Rx Last Taken 09/05/20 09:00] insulin aspart U-100 0 units SUBCUT TIDCM PRN 11/10/18 [History Last Taken 04/10/20] insulin glargine 45 unit SQ BID 11/10/18 [History Last Taken 09/04/20 22:00] ramipril 2.5 mg PO DAILY 11/10/18 [History Last Taken 09/05/20 09:00] warfarin 5 mg PO DAILY 11/10/18 [History Last Taken 09/04/20 21:00] clopidogrel 75 mg PO DAILY #60 tab 11/14/18 [Rx Last Taken 09/05/20 09:00] isosorbide mononitrate 60 mg PO BID #120 tab 11/14/18 [Rx Last Taken 09/05/20 09:00] furosemide 40 mg PO DAILY PRN 04/10/20 [History Last Taken 09/05/20 20:00] rosuvastatin 40 mg PO QHS 04/10/20 [History Last Taken 09/04/20 22:00] Allergy/AdvReac Type Severity Reaction Status Date / Time perfume AdvReac Shortness Verified 09/05/20 20:55 of breath Family History Father Hypertension Brother Cancer Other Diabetes Surgical History History of cholecystectomy History of coronary artery bypass graft x 3 History of coronary artery stent placement Hx of CABG Social History adopted: No household members: spouse housing: house number of children: 1 current occupational status: retired current occupational exposures/hazards: No pets and animals: Yes (2 dogs 1 cat) leisure activities: music and reading Smoking Status: Never smoker alcohol intake: current alcohol intake frequency: holidays/special occasions only substance use type: does not use ROS Review of Systems ROS Unobtainable: other Details: shortness of breath with conversation Constitutional Constitutional: Denies chills, fever(s) or malaise Eyes Eyes: Denies loss of vision ENT HEENT: Denies epistaxis Cardiovascular Cardiovascular: Denies chest pain Respiratory/Chest Respiratory/Chest: Reports shortness of breath at rest; Denies hemoptysis Gastrointestinal Gastrointestinal: Reports melena and rectal bleeding; Denies diarrhea, nausea or vomiting Genitourinary Genitourinary: Reports anuria; Denies flank pain Musculoskeletal Musculoskeletal: Reports back pain Integumentary Integumentary: Reports other; Denies rash Neurologic Neurologic: Reports weakness Psychiatric Psychiatric: Reports anxiety and depression Hematologic/Lymphatic Hematologic/Lymphatic: Reports anemia and easy bleeding Physical Exam Const alert and oriented x3 Constitutional Narrative: poor historian, chart reviewed. Mild tachypnea with conversation General Appearance: well developed and anxious Nutritional Appearance: obese HEENT normocephalic HEENT Narrative: dry mucus membranes Eyes PERRL Neck no JVD Resp clear to auscultation bilaterally Cardio Cardio Narrative: afib Rhythm: abnormal rhythm irregularly irregular GI non-tender and non-distended Auscultation: hypoactive bowel sounds Palpation: soft Narrative: urine output minimal, no smith placed Back/Spine Thoracic Spine / Upper Back: paraspinal muscle spasm Extremity Negative for no clubbing, cyanosis or edema Skin Skin Narrative: skin hyperpigmentation BLE chronic changes Neuro Neuro Narrative: poor, limited historian. Chart reviewed Sensorium / Orientation: awake and alert Psych cooperative Lab / Micro Data Result Diagrams: 09/13/20 06:20 09/13/20 07:10 Labs: Laboratory Results - last 24 hr 09/09/20 09/11/20 09/11/20 10:05 10:34 16:47 WBC RBC Hgb Hct MCV MCH MCHC RDW Std Deviation RDW Coeff of Zulay Plt Count MPV Immature Gran % (Auto) Neut % (Auto) Lymph % (Auto) [place] % (Auto) Eos % (Auto) Baso % (Auto) Absolute Neuts (auto) Absolute Lymphs (auto) Nucleated RBC % Diff Path Review Reviewed PT INR Sodium Potassium Chloride Carbon Dioxide Anion Gap BUN Creatinine Estim Creat Clear Calc Est GFR (MDRD) Af Amer Est GFR (MDRD) Non-Af BUN/Creatinine Ratio Glucose Calcium Magnesium POC Glucose 165 H 188 H 09/11/20 09/12/20 09/12/20 21:28 05:54 05:54 WBC 19.3 H RBC 3.80 L Hgb 11.8 L Hct 34.9 L MCV 91.8 D MCH 31.1 MCHC 33.8 RDW Std Deviation 63.7 H RDW Coeff of Zulay 18.8 H Plt Count 150 MPV 11.3 Immature Gran % (Auto) 3.000 H Neut % (Auto) 85.5 H Lymph % (Auto) 3.7 L [place] % (Auto) 6.7 Eos % (Auto) 0.3 Baso % (Auto) 0.8 Absolute Neuts (auto) 16.5 H Absolute Lymphs (auto) 0.72 L Nucleated RBC % 0 Diff Path Review PT 18.7 H INR 1.6 Sodium Potassium Chloride Carbon Dioxide Anion Gap BUN Creatinine Estim Creat Clear Calc Est GFR (MDRD) Af Amer Est GFR (MDRD) Non-Af BUN/Creatinine Ratio Glucose Calcium Magnesium POC Glucose 196 H 09/12/20 09/12/20 05:54 06:17 WBC RBC Hgb Hct MCV MCH MCHC RDW Std Deviation RDW Coeff of Zulay Plt Count MPV Immature Gran % (Auto) Neut % (Auto) Lymph % (Auto) [place] % (Auto) Eos % (Auto) Baso % (Auto) Absolute Neuts (auto) Absolute Lymphs (auto) Nucleated RBC % Diff Path Review PT INR Sodium 120 L Potassium 5.2 H Chloride 91 L Carbon Dioxide 15.0 L Anion Gap 14 BUN 85 H Creatinine 6.34 H Estim Creat Clear Calc 13.70 Est GFR (MDRD) Af Amer 11 L Est GFR (MDRD) Non-Af 9 L BUN/Creatinine Ratio 13.4 Glucose 166 H Calcium 7.1 L Magnesium 3.0 H POC Glucose 196 H
[2020-09-12] MEDS: Isosorbide Mononitrate 60 MG Tablet PO ×2 (10:46→21:26)
--- NOTE | 2020-09-12 11:59 | PN.HOSP_ITS ---
Documented by User: Ortega CENTENO 09/12/20 12:11 Objective Data Objective Data Vital Signs: Vital Signs Temp Pulse Resp BP Pulse Ox 97.5 F L 78 15 125/44 H 94 09/12/20 08:03 09/12/20 11:18 09/12/20 08:03 09/12/20 08:03 09/12/20 08:03 Oxygen Flow Rate (L/min) 3 Oxygen Delivery Method Nasal Cannula Weight: 293 lb 3.437 oz Body Mass Index (BMI) 35.9 Finger Stick Blood Glucose 67 Intake & Output: Intake and Output for Last 24 Hours 09/10/20 09/11/20 09/12/20 23:59 23:59 23:59 Intake Total 1108.67 / 1258.67 2493.75 / 2493.75 1000 / 1000 Output Total 175 / 175 0 / 0 Balance 933.67 / 1083.67 2493.75 / 2493.75 1000 / 1000 Lab / Micro Data Result Diagrams: 09/12/20 05:54 09/12/20 05:54 Labs: Laboratory Results - last 24 hr 09/09/20 09/11/20 09/11/20 10:05 16:47 21:28 WBC RBC Hgb Hct MCV MCH MCHC RDW Std Deviation RDW Coeff of Zulay Plt Count MPV Immature Gran % (Auto) Neut % (Auto) Lymph % (Auto) [place] % (Auto) Eos % (Auto) Baso % (Auto) Absolute Neuts (auto) Absolute Lymphs (auto) Nucleated RBC % Diff Path Review Reviewed PT INR Sodium Potassium Chloride Carbon Dioxide Anion Gap BUN Creatinine Estim Creat Clear Calc Est GFR (MDRD) Af Amer Est GFR (MDRD) Non-Af BUN/Creatinine Ratio Glucose Calcium Magnesium POC Glucose 188 H 196 H 09/12/20 09/12/20 09/12/20 05:54 05:54 05:54 WBC 19.3 H RBC 3.80 L Hgb 11.8 L Hct 34.9 L MCV 91.8 D MCH 31.1 MCHC 33.8 RDW Std Deviation 63.7 H RDW Coeff of Zulay 18.8 H Plt Count 150 MPV 11.3 Immature Gran % (Auto) 3.000 H Neut % (Auto) 85.5 H Lymph % (Auto) 3.7 L [place] % (Auto) 6.7 Eos % (Auto) 0.3 Baso % (Auto) 0.8 Absolute Neuts (auto) 16.5 H Absolute Lymphs (auto) 0.72 L Nucleated RBC % 0 [address] Review PT 18.7 H INR 1.6 Sodium 120 L Potassium 5.2 H Chloride 91 L Carbon Dioxide 15.0 L Anion Gap 14 BUN 85 H Creatinine 6.34 H Estim Creat Clear Calc 13.70 Est GFR (MDRD) Af Amer 11 L Est GFR (MDRD) Non-Af 9 L BUN/Creatinine Ratio 13.4 Glucose 166 H Calcium 7.1 L Magnesium 3.0 H POC Glucose 09/12/20 06:17 WBC RBC Hgb Hct MCV MCH MCHC RDW Std Deviation RDW Coeff of Zulay Plt Count MPV Immature Gran % (Auto) Neut % (Auto) Lymph % (Auto) [place] % (Auto) Eos % (Auto) Baso % (Auto) Absolute Neuts (auto) Absolute Lymphs (auto) Nucleated RBC % Diff Path Review PT INR Sodium Potassium Chloride Carbon Dioxide Anion Gap BUN Creatinine Estim Creat Clear Calc Est GFR (MDRD) Af Amer Est GFR (MDRD) Non-Af BUN/Creatinine Ratio Glucose Calcium Magnesium POC Glucose 196 H Micro: Microbiology 09/10/20 19:15 Interface Orders SARS-CoV-2 Antigen (Rapid) - Final 09/10/20 00:20 Stool Enteric Bacteriology - Final 09/10/20 00:20 Stool C. difficile DNA Amplification - Final 09/09/20 00:20 Stool Stool Occult Blood (MADDIE) - Final Occult Blood Positive Assessment & Plan Assessment/Plan (1) Acute upper gastrointestinal bleeding: Status: Acute Code(s): K92.2 - Gastrointestinal hemorrhage, unspecified (2) Elevated troponin: Status: Acute Code(s): R77.8 - Other specified abnormalities of plasma proteins (3) BENJI (acute kidney injury): Status: Acute Code(s): N17.9 - Acute kidney failure, unspecified (4) Supratherapeutic INR: Status: Acute Code(s): R79.1 - Abnormal coagulation profile (5) Leukocytosis: Status: Acute Code(s): D72.829 - Elevated white blood cell count, unspecified (6) Stage 3b chronic kidney disease: Status: Acute Code(s): N18.32 - Chronic kidney disease, stage 3b Plan: 1) acute upper gastrointestinal bleeding. No evidence of GI bleeding visualized throughout upper and lower endoscopy. Of note, left colon polyp noted, biopsied and sent to pathology. INR 1.7, made therapeutic in ED.Hemoglobin 13.6. Vital signs stable; BP 110/54. No evidence of hemodynamic compromise. Plan; continue to monitor CBC and for any evidence of hemodynamic compromise. 2) elevated troponin On my exam today denies any chest pain, shortness of breath and palpitations, lower extremity pain/swelling. Echocardiogram from 09/11/2020 demonstrated normal left ventricular size, mild LVH, estimated EF of 45%. Cardiology following. Pl an; hold warfarin and dual antiplatelet therapy, resume isosorbide mononitrate and rosuvastatin. 3) BENJI Creatinine continues to elevate, currently 6.34. Patient is also not voiding any urine and his hyponatremic with a sodium of 120. Nephrology consulted; recommend catheter placement and attempt to help patient avoid, if still no voiding may consider dialysis. Plan; kidney and bladder ultrasound ordered to assess for obstructive uropathy, [place] catheter placed today, anticipate need for dialysis if patient continues to not void. 4) supratherapeutic INR INR currently 1.7. Plan; hold warfarin and dual antiplatelet therapy. 5) leukocytosis Unclear etiology. Enteric stool panel negative. Patient afebrile. Of note chest x-ray did show a slight worsening in his right pleural effusion pot entially infiltrate if UA is normal potentially initiate empiric antibiotic therapy. Plan; continue to monitor CBC, UA ordered. 6) CKD stage III Plan; nephrology consult ordered. DVT prophylaxis - Coumadin held Patient seen by Ortega Davila PA-C, under the supervision of Dr. Scott. Documented by User: Dr. Jv Scott MD 09/12/20 14:06 Objective Data Lab / Micro Data Result Diagrams: 09/12/20 05:54 09/12/20 05:54 Assessment & Plan Addt'l Comments This patient was seen in conjunction with Ortega Davila PA-C. I have independently interviewed and examined the patient and reviewed pertinent historical, laboratory, and other data. Please refer to Ortega Davila PA-C's note for details of this patient's presentation, findings, and recommendations. I have reviewed Ortega Davila PA-C's note and concur with documented findings. In brief, patient is a 65-year-old gentleman admitted with GI bleed consultation placed to general surgery for endoscopic evaluation. Patient has had worsening kidney function following his admission 09/12/2020; patient underwent endoscopic evaluation the day prior EGD was unremarkable, colonoscopy was reported to be poor prep had a polyp which was removed and sent for biopsy. Patient has experienced worsening kidney function with significantly decreased urine output. A kidney ultrasound was ordered for subsequent evaluation and consultation placed to nephrology Case discussed with Dr. Lavern Graham. Physical Examination: GENERAL: cooperative HEENT: Atraumatic; EYES; Anicteric, Normal Conjunctiva NECK; supple, normal thyroid, RESPIRATORY: Diminished to auscultation CARDIOVASCULAR: Regular S1 S2, GI: soft, normoactive bowel sounds, NEURO: Awake; no lateralizing signs. SKIN: No Rash PSYCH; Flat affect Assessment: 1. GI bleed 2. Paroxysmal A. fib 3. Acute kidney injury superimposed on chronic kidney disease stage IV 4. Coronary artery disease 5. Congestive heart failure with preserved ejection fraction 6. Essential hypertension 7. Diabetes mellitus type 2 8. Peripheral vascular disease 9. TIAs 10. Obstructive sleep apnea Recommendations: 1. I have discussed the results of my overview and impressions with the patient 2. Options for management were reviewed Visit Charges Inpatient E&M: [id number] [facility] L3
[2020-09-12 12:02] LABS: Protein, Urine (Random) 554.3 mg/dL (<11.9); Protein:Creat Ratio 2217 mg/g CRE (0-200); Urine Sodium 15 mmol/L (Not Establ.)
[2020-09-12 12:06] LABS: Bedside Glucose 161 mg/dL (70-110)
--- NOTE | 2020-09-12 15:01 | CASEMGMT ---
JO-ANN SANCHEZ in to pt room as he expressed interest in HHC at dc yesterday. Female at bedside, pt lying with eyes closed in no distress. Patient was provided a list of HHC providers including quality and resource use data and consistent with the patient?s preferred geographic region, medical needs, and insurance network. Pt unable to keep eyes open. JO-ANN SANCHEZ to follow for choice of HHC and need.
[2020-09-12] MEDS: Sodium Bicarbonate 8.4% 50 ML Syringe 50 MEQ IV (16:16)
[2020-09-12 16:51] LABS: Bedside Glucose 187 mg/dL (70-110)
[2020-09-12] MEDS: Atorvastatin Calcium 80 MG Tablet PO (21:26)
[2020-09-12] MEDS: 0.9% Saline Lock 10 ML Syringe IV (21:29)
--- NOTE | 2020-09-12 21:31 | EX.PCM.CON.S ---
Assessment & Plan Assessment/Plan (1) Diabetic nephropathy associated with diabetes mellitus due to underlying condition: Status: Acute Code(s): E08.21 - Diabetes mellitus due to underlying condition with diabetic nephropathy (2) BENJI (acute kidney injury): Status: Acute Code(s): N17.9 - Acute kidney failure, unspecified (3) Leukocytosis: Status: Acute Code(s): D72.829 - Elevated white blood cell count, unspecified (4) Supratherapeutic INR: Status: Acute Code(s): R79.1 - Abnormal coagulation profile (5) Elevated LFTs: Status: Acute Code(s): R79.89 - Other specified abnormal findings of blood chemistry Plan: Did discuss with patient the procedure of placing a temporary dialysis catheter versus a tunneled dialysis catheter. Discussed that nephrology decided that he would need dialysis would take a look at his labs tomorrow to see what his white blood cell count is doing. There is concern of placing a permanent catheter with the elevated white blood cell count without knowing the etiology as it could have increased risk of infection. Patient was agreeable with plan await nephrology's decision. Patient will be on clears after midnight and anticoagulation is held. Patient previously had a supra therapeutic INR however anticoagulation has been held and is currently 1.7 today. Patient also has had some elevated liver functions while in the hospital unsure etiology Sri Ortiz M.D. Pager: [phone] [facility] [address] [place] [address], [address] [place] [address] Office: [phone] HPI Consult Data Date of Consult: 09/13/20 HPI Narrative HPI Narrative: TAMEKA MARTEL, is a 65 M who initially presented to the hospital due to melena/GI bleed. Patient underwent an EGD and colonoscopy by Dr. Collins no obvious source of bleeding was found. While patient has been in hospital patient has acute on chronic kidney disease and going making minimal urine. Patient's creatinine is 6.35 today. Nephrology is following currently giving IV fluids see if this would help. Patient had an ultrasound of the kidneys which were normal. Consult for request for dialysis catheter. Patient does have a white blood cell count currently 19 had previously gone up to 26 unknown etiology. Patient is normally on warfarin as well as Plavix which are both on hold currently. 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 complication Home Medications tramadol 50 mg PO Q4H PRN 07/30/17 [History Last Taken 09/02/20 12:00] aspirin 81 mg PO DAILY@0800 #30 tab 04/18/18 [Rx Last Taken 09/05/20 09:00] insulin aspart U-100 0 units SUBCUT TIDCM PRN 11/10/18 [History Last Taken 04/10/20] insulin glargine 45 unit SQ BID 11/10/18 [History Last Taken 09/04/20 22:00] ramipril 2.5 mg PO DAILY 11/10/18 [History Last Taken 09/05/20 09:00] warfarin 5 mg PO DAILY 11/10/18 [History Last Taken 09/04/20 21:00] clopidogrel 75 mg PO DAILY #60 tab 11/14/18 [Rx Last Taken 09/05/20 09:00] isosorbide mononitrate 60 mg PO BID #120 tab 11/14/18 [Rx Last Taken 09/05/20 09:00] furosemide 40 mg PO DAILY PRN 04/10/20 [History Last Taken 09/05/20 20:00] rosuvastatin 40 mg PO QHS 04/10/20 [History Last Taken 09/04/20 22:00] Allergy/AdvReac Type Severity Reaction Status Date / Time perfume AdvReac Shortness Verified 09/05/20 20:55 of breath Family History Father Hypertension Brother Cancer Other Diabetes Surgical History History of cholecystectomy History of coronary artery bypass graft x 3 History of coronary artery stent placement Hx of CABG Social History adopted: No household members: spouse housing: house number of children: 1 current occupational status: retired current occupational exposures/hazards: No pets and animals: Yes (2 dogs 1 cat) leisure activities: music and reading Smoking Status: Never smoker alcohol intake: current alcohol intake frequency: holidays/special occasions only substance use type: does not use ROS Constitutional Constitutional: Reports daytime sleepiness ENT HEENT: Denies dysphagia Cardiovascular Cardiovascular: Denies chest pain Respiratory/Chest Respiratory/Chest: Denies shortness of breath at rest Gastrointestinal Gastrointestinal: Reports melena; Denies abdominal pain, constipation, diarrhea, heartburn or hematemesis Genitourinary Genitourinary: Denies burning urination Musculoskeletal Musculoskeletal: Denies joint pain Integumentary Integumentary: Denies rash Neurologic Neurologic: Denies focal weakness Endocrine Endocrinology: Denies cold intolerance Hematologic/Lymphatic Hematologic/Lymphatic: Reports anemia, easy bleeding and easy bruising Physical Exam Const alert, oriented x3 and no apparent distress HEENT normocephalic and head/scalp atraumatic Neck supple Chest Chest Narrative: Inspection of upper chest normal Resp normal respiratory effort Cardio regular rate GI soft to palpation, non-tender and non-distended Palpation: Negative for guarding Extremity Extremity Narrative: Bilateral lower extremity venous stasis changes Neuro CN's II-XII intact bilaterally Psych mental status grossly normal Lab / Micro Data Result Diagrams: 09/13/20 06:20 09/13/20 07:10 Labs: Laboratory Results - last 24 hr 09/11/20 09/12/20 09/12/20 21:28 05:54 05:54 WBC 19.3 H RBC 3.80 L Hgb 11.8 L Hct 34.9 L MCV 91.8 D MCH 31.1 MCHC 33.8 RDW Std Deviation 63.7 H RDW Coeff of Zulay 18.8 H Plt Count 150 MPV 11.3 Immature Gran % (Auto) 3.000 H Neut % (Auto) 85.5 H Lymph % (Auto) 3.7 L [place] % (Auto) 6.7 Eos % (Auto) 0.3 Baso % (Auto) 0.8 Absolute Neuts (auto) 16.5 H Absolute Lymphs (auto) 0.72 L Nucleated RBC % 0 PT 18.7 H INR 1.6 Sodium Potassium Chloride Carbon Dioxide Anion Gap BUN Creatinine Estim Creat Clear Calc Est GFR (MDRD) Af Amer Est GFR (MDRD) Non-Af BUN/Creatinine Ratio Glucose Calcium Magnesium U Random Total Protein Ur Random Sodium Urine Creatinine Protein/Creatinin Ratio POC Glucose 196 H 09/12/20 09/12/20 09/12/20 05:54 06:17 11:20 WBC RBC Hgb Hct MCV MCH MCHC RDW Std Deviation RDW Coeff of Zulay Plt Count MPV Immature Gran % (Auto) Neut % (Auto) Lymph % (Auto) [place] % (Auto) Eos % (Auto) Baso % (Auto) Absolute Neuts (auto) Absolute Lymphs (auto) Nucleated RBC % PT INR Sodium 120 L Potassium 5.2 H Chloride 91 L Carbon Dioxide 15.0 L Anion Gap 14 BUN 85 H Creatinine 6.34 H Estim Creat Clear Calc 13.70 Est GFR (MDRD) Af Amer 11 L Est GFR (MDRD) Non-Af 9 L BUN/Creatinine Ratio 13.4 Glucose 166 H Calcium 7.1 L Magnesium 3.0 H U Random Total Protein 554.3 H Ur Random Sodium 15 Urine Creatinine 250.00 Protein/Creatinin Ratio 2217 H POC Glucose 196 H 09/12/20 09/12/20 12:03 16:26 WBC RBC Hgb Hct MCV MCH MCHC RDW Std Deviation RDW Coeff of Zulay Plt Count MPV Immature Gran % (Auto) Neut % (Auto) Lymph % (Auto) [place] % (Auto) Eos % (Auto) Baso % (Auto) Absolute Neuts (auto) Absolute Lymphs (auto) Nucleated RBC % PT INR Sodium Potassium Chloride Carbon Dioxide Anion Gap BUN Creatinine Estim Creat Clear Calc Est GFR (MDRD) Af Amer Est GFR (MDRD) Non-Af BUN/Creatinine Ratio Glucose Calcium Magnesium U Random Total Protein Ur Random Sodium Urine Creatinine Protein/Creatinin Ratio POC Glucose 161 H 187 H Radiology Impression Renal Ultrasound 09/12/20 08:11 IMPRESSION: Normal ultrasound of the kidneys. Electronically Signed: Edvin Juarez MD at 14:42 EDT , Service support , Charges/Coding Visit Charges Inpatient E&M: 00605 Init Hosp L3
[2020-09-12 21:51] LABS: Bedside Glucose 185 mg/dL (70-110)
[2020-09-13] VITALS (58 sets, daily range): BP systolic 64–122; BP diastolic 28–67; PULSE 60–80; RESP 16–70; TEMP 36.1–36.6; O2SAT 90–100
[2020-09-13] MEDS: 0.9% Normal Saline 1,000 ML 150 ML IV (03:01)
[2020-09-13] MEDS: Acetaminophen 325 MG Tablet 650 MG PO (05:43)
--- NOTE | 2020-09-13 05:55 | EKG12_ITS ---
Test Reason : AM EKG Blood Pressure : / mmHG Vent. Rate : 072 BPM Atrial Rate : 061 BPM P-R Int : 000 ms QRS Dur : 106 ms QT Int : 442 ms P-R-T Axes : 000 109 -41 degrees QTc Int : 483 ms Atrial fibrillation Septal infarct , age undetermined Abnormal ECG Confirmed by ESTUARDO GARCIA, FANNY ([id number]), editor in chief TATIANA DU ([id number]) on 09/14/2020 9:07:09 AM Referred By: ESTEPHANIA Confirmed By:FANNY MARTE MD
[2020-09-13 06:28] LABS: Hematocrit 43.3 % (40-54); Hemoglobin 13.3 g/dL (13.0-16.5); Mean Corp Hgb Conc 30.7 g/dL (32-36); Mean Corpuscular Volume 87.8 fL (80-94); Mean Platelet Vol. 11.3 fl (6.2-12.0); POSITIVE COUNT YES; POSITIVE DIFFERENTIAL YES; POSITIVE MORPHOLOGY YES; Platelet Count 206 K/mm3 (150-450); RBC Distribution Width CV 19.1 % (11.6-14.6); RBC Distribution Width SD 61.1 fl (35.1-43.9); Red Blood Count 4.93 M/mm3 (4.6-6.2); White Blood Count 25.9 K/mm3 (4.4-11.0)
[2020-09-13 06:29] LABS: Differential Indicated MANUAL DIFF
[2020-09-13 06:38] LABS: International Normalized Ratio 3.5; Prothrombin Time (Protime)PT. 34.7 SECONDS (11.7-14.9)
--- NOTE | 2020-09-13 06:42 | EKG12_ITS ---
Test Reason : UNRESPONSIVE Blood Pressure : / mmHG Vent. Rate : 070 BPM Atrial Rate : 076 BPM P-R Int : 000 ms QRS Dur : 110 ms QT Int : 418 ms P-R-T Axes : 000 109 -31 degrees QTc Int : 451 ms Atrial fibrillation with premature ventricular or aberrantly conducted complexes Septal infarct , age undetermined Abnormal ECG When compared with ECG of 13-SEP-2020 04:39, MANUAL COMPARISON REQUIRED, DATA IS UNCONFIRMED Confirmed by BHARAT GARCIA, TIFFANY ([id number]), newspaper photo editor TATIANA DU ([id number]) on 09/18/2020 1:31:25 PM Referred By: Confirmed By:JERROD NICHOLSON MD
[2020-09-13 06:45] LABS: Bedside Glucose 169 mg/dL (70-110)
[2020-09-13 06:46] LABS: Metamyelocyte 5 % (0-1); Myelocyte 1 % (0-0); Neutrophil-Band 2 % (0-5); Neutrophil-Segmented 81 % (47-70); Total Cells Counted 100 (MANUAL DIFF)
[2020-09-13 06:47] LABS: Absolute Neutrophil Count 21.6 X10^3/uL (2.0-7.7); Lymphocyte 6 % (19-41); Monocyte 5 % (0-10); Platelet Estimate ADEQUATE (ADEQ); Red Cell Morphology NORM C+C NORMAL (NORM C&C)
--- NOTE | 2020-09-13 06:50 | CON.PCM.CC_ITS ---
Assessment & Plan Assessment/Plan (1) Metabolic acidosis: Status: Acute Code(s): E87.2 - Acidosis (2) Elevated LFTs: Status: Acute Code(s): R79.89 - Other specified abnormal findings of blood chemistry (3) Acute hypoxemic respiratory failure: Status: Acute Code(s): J96.01 - Acute respiratory failure with hypoxia (4) Encephalopathy: Status: Acute Code(s): G93.40 - Encephalopathy, unspecified Plan: RECOMMENDATIONS: 1. Place central venous catheter and initiate vasopressor support to maintain hemodynamic stability. 2. Place temporary hemodialysis catheter in preparation for dialysis support. 3. Start empiric antimicrobials. 4. Obtain blood, urine and sputum cultures. Check lactate level. 5. Obtain arterial blood gas and chest x-ray. 6. Obtain stat CT head. 7. Hold sedating medications pending improvement in mentation. 8. Obtain liver ultrasound. Check GGT. 9. Start appropriate GI prophylaxis. IMPRESSIONS: 1. Acute hypoxemic respiratory failure It is unclear to me this morning what exactly precipitated the patient's acute respiratory event. The patient was notably bradycardic during this episode. Therefore, a cardiac etiology is a possibility. In addition, acute CVA would also be another consideration. The patient was emergently intubated for airway protection. There does not appear to be a significant pulmonary infiltrate on chest imaging. Regardless, the patient will be initiated on broad-spectrum antimicrobials and sputum culture will be obtained. The patient will be continued on assist control mode of mechanical ventilation, with plans to wean FiO2 to maintain saturations at or above 90%. Sedating medications will be withheld pending improvement in the patient's mentation. 2. Encephalopathy Unclear precipitating etiology. Acute CVA is a concern. Stat CT head has been ordered. ABG did not reveal acute CO2 retention. However, the patient does have significant metabolic derangements, which could also be contributing to his encephalopathy as well. Again, sedating medications will be withheld for now pending improvement in his mentation. 3. Septic shock Although an exact source of infection has not yet declared itself, there is certainly concern for evolving septic shock, given the patient's hypotension, elevated white count and multisystem organ dysfunction. Therefore, the patient will be pancultured and broad-spectrum antimicrobials initiated. Central venous catheter will be placed and vasopressor support will be initiated to maintain a mean arterial pressure at or above 65 mmHg. 4. Acute on chronic kidney disease/metabolic acidosis The patient has had notable worsening in his renal function over the course of his hospitalization. Nephrology is currently following to assist with medical management. At the current time, there are plans for a temporary hemodialysis catheter to be placed to facilitate dialysis later today. I am hopeful for improvement in his metabolic derangements with dialysis support. 5. GI bleed The patient initially presented to the hospital with melanotic stools and concerns for gastrointestinal blood loss. Stool for occult blood was positive. However, the patient did have a supratherapeutic INR at presentation. This has improved with subsequent hospital days. Upper and lower endoscopy did not reveal any focal source of bleeding. The patient's hemoglobin has remained stable. I would recommend that we continue to monitor his H&H and transfuse if hemoglobin drops below 7 g/dL. The patient will be started on once daily PPI therapy. 6. Supratherapeutic INR The patient presented with a supratherapeutic INR which improved with Coumadin discontinuation. However, this morning, the patient's INR was once again noted to be elevated. I am concerned that this may be secondary to his underlying liver dysfunction. We will continue to monitor clinically for now. 7. History of coronary artery disease status post CABG Continue primary medical management as noted above. Hold antihypertensives given hemodynamic instability. 8. Abnormal liver function/hyperbilirubinemia The patient's liver function also appears to have worsened over the course of this hospitalization. The patient appears jaundiced with hyperbilirubinemia. The exact etiology for his underlying hepatic derangements or not clear. Orders for GGT and liver ultrasound have been placed. 9. History of peripheral vascular disease/diabetes mellitus/hypertension/hyperlipidemia/obesity Complicates care, management, recovery and prognosis. Continue to hold anti hypertensives, given tenuous hemodynamic status. TIME: 90 minutes of critical care time, inclusive of procedures, was spent addressing the patient's acute hypoxemic respiratory failure, encephalopathy, acute on chronic kidney disease, metabolic acidosis, supratherapeutic INR, abnormal liver function, hyperbilirubinemia, review of all data and collaboration with the care team. ([id number]) HPI Consult Data Date of Consult: 09/14/20 HPI Narrative Reason for Consultation: Acute Hypoxemic Respiratory Failure, Encephalopathy HPI Narrative: The patient is a 65-year-old male, with a history as outlined below, who initially presented to the emergency department on September 09 with complaints of generalized malaise, weakness and melanotic stool. History pertinent to his hospitalization was obtained primarily via chart review, as the patient is currently intubated and sedated. The patient did have an elevated INR to 6.5 on presentation. He does have a known history of coronary artery disease status post CABG along with peripheral vascular disease and atrial fibrillation on chronic systemic anticoagulation. The patient was evaluated by both cardiology and general surgery. Echocardiogram completed on September 11 revealed normal LV size with an ejection fraction of 45%. There was borderline global h ypokinesis of the LV with a pulmonary artery systolic pressure estimated to be 26 mmHg. Upper and lower endoscopy were performed without any stigmata of bleeding. During the patient's hospitalization, the patient's renal function has continued to worsen. On presentation, the patient had a creatinine of 2.47, which has increased to 7.6 this morning. The patient was initially being maintained on supplemental fluids per nephrology recommendations. On the morning of September 13, I responded to a rapid response alarm in the progressive care unit after the patient became bradycardic with a heart rate in the 40s and subsequently became unresponsive. On my arrival, the patient was nonresponsive with agonal respirations. CODE STATUS was confirmed to be full code. Therefore, the patient was emergently intubated. EKG was obtained which revealed atrial fibrillation. The patient was subsequently transferred to the medical intensive care unit, where he was noted to be hypotensive. Therefore, a central venous catheter was placed and the patient was started on vasopressor support. The patient also had hemodialysis catheter placed by general surgery in preparation for dialysis. Intubation Indication: Impending respiratory failure Consent was obtained from: Procedure was done emergently The patient was placed in the appropriate sniffing position. Preoxygenated s edation via [id number] was provided for a minimum of 3 minutes. The patient had continuous cardiac as well as pulse oximetry monitoring during the procedure. Procedure sedation was provided by the administration of 20 mg of etomidate. Direct laryngoscopy was then performed using a number 4 MAC blade, which revealed a grade 2 view. A 7.5 mm endotracheal tube was visualized advancing between the cords to the level of 22 cm at the lip. The stylette was then removed and discarded. Tube placement was confirmed by fogging in the tube along with equal and bilateral breath sounds. Colorimetric change was visualized on the CO2 meter. The cuff was then inflated and the tube secured using a commercially available device. A good pulse oximetry waveform was seen on the monitor throughout the procedure. A portable chest x-ray has been ordered to confirm appropriate placement. The patient tolerated the procedure well. 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 without complication Home Medications tramadol 50 mg PO Q4H PRN 07/30/17 [History Last Taken 09/02/20 12:00] aspirin 81 mg PO DAILY@0800 #30 tab 04/18/18 [Rx Last Taken 09/05/20 09:00] insulin aspart U-100 0 units SUBCUT TIDCM PRN 11/10/18 [History Last Taken 04/10/20] insulin glargine 45 unit SQ BID 11/10/18 [History Last Taken 09/04/20 22:00] ramipril 2.5 mg PO DAILY 11/10/18 [History Last Taken 09/05/20 09:00] warfarin 5 mg PO DAILY 11/10/18 [History Last Taken 09/04/20 21:00] clopidogrel 75 mg PO DAILY #60 tab 11/14/18 [Rx Last Taken 09/05/20 09:00] isosorbide mononitrate 60 mg PO BID #120 tab 11/14/18 [Rx Last Taken 09/05/20 09:00] furosemide 40 mg PO DAILY PRN 04/10/20 [History Last Taken 09/05/20 20:00] rosuvastatin 40 mg PO QHS 04/10/20 [History Last Taken 09/04/20 22:00] Allergy/AdvReac Type Severity Reaction Status Date / Time perfume AdvReac Shortness Verified 09/05/20 20:55 of breath Family History Father Hypertension Brother Cancer Other Diabetes Surgical History History of cholecystectomy History of coronary artery bypass graft x 3 History of coronary artery stent placement Hx of CABG Social History adopted: No household members: spouse housing: house number of children: 1 current occupational status: retired current occupational exposures/hazards: No pets and animals: Yes (2 dogs 1 cat) leisure activities: music and reading Smoking Status: Never smoker alcohol intake: current alcohol intake frequency: holidays/special occasions only substance use type: does not use ROS Review of Systems ROS Unobtainable: due to encephalopathy Physical Exam Const Constitutional Narrative: The patient is now intubated, sedated and mechanically ventilated. HEENT normocephalic and head/scalp atraumatic Mouth: endotracheal tube in place and OG tube in place Eyes PERRL and EOMs intact bilaterally Sclera: sclera abnormal Positive for bilateral Neck General: CVC in place Resp Auscultation: diminished lung sounds; Negative for rales, rhonchi or wheezes Cardio S1 normal heart sound and S2 normal heart sound Rhythm: abnormal rhythm GI soft to palpation and non-tender Extremity General Extremity: amputation and edema Skin General Skin Exam: venous stasis and dermatitis Neuro Neuro Narrative: No focal neurological deficits. Currently sedated on the ventilator. Lab / Micro Data Result Diagrams: 09/14/20 05:15 09/14/20 05:15 Labs: Laboratory Results - last 24 hr 09/12/20 09/12/20 09/12/20 05:54 06:17 11:20 WBC RBC Hgb Hct MCV MCH MCHC RDW Std Deviation RDW Coeff of Zulay Plt Count MPV Neut % (Auto) Absolute Neuts (auto) Absolute Lymphs (auto) Total Counted Neutrophils % (Manual) Band Neutrophils % Lymphocytes % (Manual) Monocytes % (Manual) Metamyelocytes % Myelocytes % Diff Path Review Platelet Estimate RBC Morphology PT INR Sodium 120 L Potassium 5.2 H Chloride 91 L Carbon Dioxide 15.0 L Anion Gap 14 BUN 85 H Creatinine 6.34 H Estim Creat Clear Calc 13.70 Est GFR (MDRD) Af Amer 11 L Est GFR (MDRD) Non-Af 9 L BUN/Creatinine Ratio 13.4 Glucose 166 H Calcium 7.1 L Magnesium 3.0 H U Random Total Protein 554.3 H Ur Random Sodium 15 Urine Creatinine 250.00 Protein/Creatinin Ratio 2217 H POC Glucose 196 H 09/12/20 09/12/20 09/12/20 12:03 16:26 21:25 WBC RBC Hgb Hct MCV MCH MCHC RDW Std Deviation RDW Coeff of Zulay Plt Count MPV Neut % (Auto) Absolute Neuts (auto) Absolute Lymphs (auto) Total Counted Neutrophils % (Manual) Band Neutrophils % Lymphocytes % (Manual) Monocytes % (Manual) Metamyelocytes % Myelocytes % Diff Path Review Platelet Estimate RBC Morphology PT INR Sodium Potassium Chloride Carbon Dioxide Anion Gap BUN Creatinine Estim Creat Clear Calc Est GFR (MDRD) Af Amer Est GFR (MDRD) Non-Af BUN/Creatinine Ratio Glucose Calcium Magnesium U Random Total Protein Ur Random Sodium Urine Creatinine Protein/Creatinin Ratio POC Glucose 161 H 187 H 185 H 09/13/20 09/13/20 09/13/20 06:20 06:20 06:23 WBC 25.9 H RBC 4.93 Hgb 13.3 Hct 43.3 MCV 87.8 MCH 27.0 MCHC 30.7 L D RDW Std Deviation 61.1 H RDW Coeff of Zulay 19.1 H Plt Count 206 MPV 11.3 Neut % (Auto) Not Reportable Absolute Neuts (auto) 21.6 H Absolute Lymphs (auto) 1.60 Total Counted 100 Neutrophils % (Manual) 81 H Band Neutrophils % 2 Lymphocytes % (Manual) 6 L Monocytes % (Manual) 5 Metamyelocytes % 5 H Myelocytes % 1 H Diff Path Review May foll Platelet Estimate ADEQUATE RBC Morphology NORM C+C PT 34.7 H INR 3.5 Sodium Potassium Chloride Carbon Dioxide Anion Gap BUN Creatinine Estim Creat Clear Calc Est GFR (MDRD) Af Amer Est GFR (MDRD) Non-Af BUN/Creatinine Ratio Glucose Calcium Magnesium U Random Total Protein Ur Random Sodium Urine Creatinine Protein/Creatinin Ratio POC Glucose 169 H Radiology Impression Renal Ultrasound 09/12/20 08:11 IMPRESSION: Normal ultrasound of the kidneys. Electronically Signed: Edvin Juarez MD at 14:42 EDT , Service support , Charges/Coding Procedures Pulmonary 9xxxx: [id number] Critical care first hour [facility] [employer] [facility] Hospitalists' Procedures Procedures: 86148 Critial Care Addl 30 Min
--- NOTE | 2020-09-13 06:53 | RAD_ITS ---
STUDY: X-RAY CHEST REASON FOR EXAM: Male, 65 years old. Acute Respiratory Failure TECHNIQUE: AP COMPARISON: 09/13/2020 FINDINGS: Endotracheal tube is present with the tip terminating 5.3 cm above the robina (approximately T2 level). EKG leads project over the chest. Lungs are underexpanded with similar small volume right pleural effusion. There appears to be atelectasis of the right lung base, not substantially changed. There is no demonstrated pleural abnormality. Normal size heart. Normal mediastinum and adithya. Normal visualized pulmonary arteries. Normal visualized aortic arch and descending thoracic aorta. No acute bony process. There is no demonstrated abnormality of the visualized soft tissue structures of the upper abdomen. RAD/Chest 1 View (Portable) IMPRESSION: 1. Endotracheal tube terminates at approximately T2 level. 2. Stable small right pleural effusion with underlying atelectasis. Electronically Signed: Henry Durand MD ([place]) at 8:02 EDT , Service support ,
[2020-09-13 07:00] LABS: Albumin, Serum 2.1 g/dL (3.2-5.0); Anion Gap 14 (5-15); BUN 91 mg/dL (7-18); BUN/Creat Ratio 12.1 RATIO (10-20); Chloride 94 mmol/L (98-107); Creatinine, Serum 7.49 mg/dL (0.70-1.30); EST Glomerular Filtration Rate 8 mL/min (>60); Est Glom Filt Rate - Afr Amer 9 mL/min (>60); Glucose 178 mg/dL (74-106); Phosphorus 8.1 mg/dL (2.5-4.9); Potassium 4.8 mmol/L (3.5-5.1); Sodium Level 125 mmol/L (136-145)
[2020-09-13] MEDS: Propofol 10MG/Ml 1,000 MG/100 ML Bottle 8 MG CONT INF (07:10)
--- NOTE | 2020-09-13 07:18 | RAD_ITS ---
STUDY: X-RAY CHEST REASON FOR EXAM: Male, 65 years old. OG placement TECHNIQUE: AP COMPARISON: 09/09/2020 FINDINGS: Endotracheal tube is present with the tip terminating 6.8 cm above the robina (approximately T2 level). EKG leads project over the chest. Orogastric tube is identified extending to the left upper abdomen/stomach. Lungs are underexpanded with similar small volume right pleural effusion. There appears to be atelectasis of the right lung base, not substantially changed. There is no demonstrated pleural abnormality. Normal size heart. Normal mediastinum and adithya. Normal visualized pulmonary arteries. Normal visualized aortic arch and descending thoracic aorta. No acute bony process. There is no demonstrated abnormality of the visualized soft tissue structures of the upper abdomen. RAD/Chest 1 View (Portable) IMPRESSION: 1. Endotracheal tube terminates at approximately T2 level. 2. Stable small right pleural effusion with underlying atelectasis/infiltrate. Electronically Signed: Henry Durand MD ([facility]) at 8:03 EDT , Service support ,
--- NOTE | 2020-09-13 07:34 | NURSING ---
Dr Ovalles at bedside, CXR obtained for ETT placement & OGT placement. Both in good position per MD.
--- NOTE | 2020-09-13 07:38 | NURSING ---
At 06:20 patient tele alarmed bradycardia 40s. On the way to assess pt SHIPS OR [employer]ARGES LOADER called and stated pt not responding. Upon entrance pt not responding but pulse present called HOUSING ASSISTANT. See paper flow sheet in chart. Joesph Lauren Rn
[2020-09-13] MEDS: Etomidate 20 MG/10 ML Vial IV (07:43)
[2020-09-13 07:45] LABS: ALB/GLOB Ratio 0.4 RATIO (0.9-2.4); AST(SGOT) 148 U/L (15-37); Alanine Aminotransfer ALT/SGPT 60 U/L (16-61); Alkaline Phosphatase 821 U/L (45-117); Anion Gap 14 (5-15); BUN 91 mg/dL (7-18); BUN/Creat Ratio 11.9 RATIO (10-20); Chloride 94 mmol/L (98-107); Creatinine, Serum 7.66 mg/dL (0.70-1.30); EST Glomerular Filtration Rate 8 mL/min (>60); Est Glom Filt Rate - Afr Amer 9 mL/min (>60); Estimated Creatinine Clearance 11.34 ml/min; Globulin 4.5 g/dL (2.2-4.2); Glucose 180 mg/dL (74-106); Potassium 5.2 mmol/L (3.5-5.1); Protein, Total 6.5 g/dL (6.4-8.2); Sodium Level 126 mmol/L (136-145)
--- NOTE | 2020-09-13 07:56 | US_ITS ---
STUDY: ABDOMINAL ULTRASOUND - RIGHT UPPER QUADRANT REASON FOR VISIT: Male, 65 years old Elevated transaminase/bilirubin TECHNIQUE: Ultrasound evaluation of the right upper quadrant was performed with real-time and static mattson-scale imaging. TECHNICAL QUALITY: Adequate. COMPARISON: None. FINDINGS: Liver: The liver is enlarged and measures 21 cm. There is a heterogeneous echogenicity of the liver. There is a starry night appearance of the portal triads. Arthritis should be ruled out. The bile ducts are within normal limits. There is hepatic color flow. The direction of portal flow is hepatopetal. There is no demonstrated mass lesion. Gallbladder: The patient is status post cholecystectomy. Common Bile Duct (C.B.D.): The common bile duct measures 5 mm. Pancreas: Normal size of the head, body and tail of the pancreas. There is increased echogenicity of the pancreas. There is no demonstrated pancreatic mass or cyst. Right Kidney: Normal size of the right kidney. The right kidney measures 11.4 cm x 6.3 cm x 5.7 cm. Normal renal cortex. The right cortex measures 1.7 cm. There is no demonstrated renal mass or cyst. There is no right hydronephrosis. US/Liver IMPRESSION: Hepatomegaly and heterogeneous echotexture of the liver. There is a starry night appearance of the liver suggestive of possible hepatitis. Electronically Signed: Edvin Juarez MD at 14:10 EDT , Service support ,
--- NOTE | 2020-09-13 08:02 | CPS ---
Tube advanced from [address] Ovalles
--- NOTE | 2020-09-13 08:19 | RAD_ITS ---
STUDY: X-RAY CHEST REASON FOR EXAM: Male, 65 years old. Central line placement TECHNIQUE: Single AP portable view of the chest. COMPARISON: Comparison is made with prior study dated 09/13/2020 at 7:05 AM. FINDINGS: An endotracheal tube is in situ. The tip is at 4.4 cm proximally robina. Nasogastric tube is seen with the tip below the left hemidiaphragm. A left-sided internal jugular venous catheter is seen with the tip at the junction of the superior vena cava and left brachiocephalic vein. Small right pleural effusion with right basilar atelectasis. There is no demonstrated pleural abnormality. Sternal cerclage wires and vascular clips are present from a prior sternotomy and coronary artery bypass graft procedure (CABG). Cardiomegaly. Normal mediastinum and adithya. Normal visualized pulmonary arteries. Normal visualized aortic arch and descending thoracic aorta. Normal visualized thoracic spine. Normal visualized ribs, clavicles, and shoulders. There is no demonstrated abnormality of the visualized soft tissue structures of the upper abdomen. RAD/CXR for Line Placement IMPRESSION: The left central line is at the junction of the superior vena cava and left brachiocephalic vein. The remainder of examination is unchanged. Electronically Signed: Edvin Juarez MD at 8:57 EDT , Service support ,
--- NOTE | 2020-09-13 08:29 | PCM.OP.BLANK ---
Operative Report Date of Procedure: 09/13/20 Central line placement procedure note Indication: IV access/hemodynamic instability/vasoactive medications Procedure: A time-out was completed to verify correct patient, indication, medication allergies, procedure, coagulation studies, informed consent signed, and equipment needed. The patient was placed in the supine position for a central line placement to the left IJ vein. The patients left neck was prepped using chlorhexidine and a full body sterile drape was applied. 1% lidocaine was used to anesthetize the surrounding skin. A 7fr 20 cm blue guard triple lumen catheter introduced into the internal jugular vein using the modified Seldinger technique with the assistance of ultrasound. The catheter was threaded smoothly over the guidewire, the guidewire was removed easily, nonpulsatile blood returned. All ports were aspirated of air and flushed with sterile saline. The catheter was sutured in place and covered with an occlusive dressing impregnated with chlorhexidine. Post-procedure: The patient tolerated the procedure well. Vital signs remained stable. EBL 5cc. No complications. Chest X Ray ordered to confirm tip placement and the absence of pneumothorax. Procedures Hospitalists Procedures: [id number] Insert Non-tunnel CV Cath
[2020-09-13 08:50] LABS: Allen Test Positive; Base Excess -14 mmol/L (-2 to +2); Blood Gas Specimen Type ART; FI02 100; Mode AC; O2 Delivery Device Adult Vent; PEEP 8; PO2 130 mmHG (75-100); RR 14; SITE R Radial; SO2 98 % (95-99); Total Carbon Dioxide 15 mmol/L; Vt 450; pH 7.23 (7.35-7.45)
[2020-09-13 09:38] LABS: GGTP 78 U/L (15-85)
--- NOTE | 2020-09-13 10:14 | PN.RENAL_ITS ---
Subjective Subjective: transferred to ICU, intubated this morning, hypotensive on pressors. Creatinine rising, urine output poor. GS consulted for temp dialysis catheter placement. Leukocytosis worse, afebrile. Blood cx sent. INR elevated at 3.5 with elevated LFT's, jaundiced. Objective Data Objective Data Vital Signs: Vital Signs Temp Pulse Resp BP Pulse Ox 98 F 63 26 H 101/41 L 99 09/13/20 03:16 09/13/20 06:50 09/13/20 06:50 09/13/20 03:16 09/13/20 08:20 Oxygen Flow Rate (L/min) 2 Oxygen Delivery Method Nasal Cannula Weight: 133 kg Body Mass Index (BMI) 35.9 Finger Stick Blood Glucose 67 Intake & Output: Intake and Output for Last 24 Hours 09/11/20 09/12/20 09/13/20 23:59 23:59 23:59 Intake Total 2493.75 / 2493.75 3640 / 3640 1000 / 1000 Output Total 50 / 50 0 / 0 Balance 2493.75 / 2493.75 3590 / 3590 1000 / 1000 Lab / Micro Data Result Diagrams: 09/13/20 06:20 09/13/20 07:10 Labs: Laboratory Results - last 24 hr 09/12/20 09/12/20 09/12/20 11:20 12:03 16:26 WBC RBC Hgb Hct MCV MCH MCHC RDW Std Deviation RDW Coeff of Zulay Plt Count MPV Neut % (Auto) Absolute Neuts (auto) Absolute Lymphs (auto) Total Counted Neutrophils % (Manual) Band Neutrophils % Lymphocytes % (Manual) Monocytes % (Manual) Metamyelocytes % Myelocytes % Diff Path Review Platelet Estimate RBC Morphology PT INR Sodium Potassium Chloride Carbon Dioxide Anion Gap BUN Creatinine Estim Creat Clear Calc Est GFR (MDRD) Af Amer Est GFR (MDRD) Non-Af BUN/Creatinine Ratio Glucose Calcium Phosphorus Magnesium Total Bilirubin GGT AST ALT Alkaline Phosphatase Troponin I Total Protein Albumin Globulin Albumin/Globulin Ratio U Random Total Protein 554.3 H Ur Random Sodium 15 Urine Creatinine 250.00 Protein/Creatinin Ratio 2217 H POC Glucose 161 H 187 H 09/12/20 09/13/20 09/13/20 21:25 06:20 06:20 WBC 25.9 H RBC 4.93 Hgb 13.3 Hct 43.3 MCV 87.8 MCH 27.0 MCHC 30.7 L D RDW Std Deviation 61.1 H RDW Coeff of Zulay 19.1 H Plt Count 206 MPV 11.3 Neut % (Auto) Not Reportable Absolute Neuts (auto) 21.6 H Absolute Lymphs (auto) 1.60 Total Counted 100 Neutrophils % (Manual) 81 H Band Neutrophils % 2 Lymphocytes % (Manual) 6 L Monocytes % (Manual) 5 Metamyelocytes % 5 H Myelocytes % 1 H Diff Path Review May foll Platelet Estimate ADEQUATE RBC Morphology NORM C+C PT 34.7 H INR 3.5 Sodium Potassium Chloride Carbon Dioxide Anion Gap BUN Creatinine Estim Creat Clear Calc Est GFR (MDRD) Af Amer Est GFR (MDRD) Non-Af BUN/Creatinine Ratio Glucose Calcium Phosphorus Magnesium Total Bilirubin GGT AST ALT Alkaline Phosphatase Troponin I Total Protein Albumin Globulin Albumin/Globulin Ratio U Random Total Protein Ur Random Sodium Urine Creatinine Protein/Creatinin Ratio POC Glucose 185 H 09/13/20 09/13/20 09/13/20 06:20 06:20 06:23 WBC RBC Hgb Hct MCV MCH MCHC RDW Std Deviation RDW Coeff of Zulay Plt Count MPV Neut % (Auto) Absolute Neuts (auto) Absolute Lymphs (auto) Total Counted Neutrophils % (Manual) Band Neutrophils % Lymphocytes % (Manual) Monocytes % (Manual) Metamyelocytes % Myelocytes % Diff Path Review Platelet Estimate RBC Morphology PT INR Sodium 125 L Potassium 4.8 Chloride 94 L Carbon Dioxide 17.0 L Anion Gap 14 BUN 91 H Creatinine 7.49 H* Estim Creat Clear Calc 11.60 Est GFR (MDRD) Af Amer 9 L Est GFR (MDRD) Non-Af 8 L BUN/Creatinine Ratio 12.1 Glucose 178 H Calcium 7.0 L Phosphorus 8.1 H Magnesium Total Bilirubin GGT 78 AST ALT Alkaline Phosphatase Troponin I Total Protein Albumin 2.1 L Globulin Albumin/Globulin Ratio U Random Total Protein Ur Random Sodium Urine Creatinine Protein/Creatinin Ratio POC Glucose 169 H 09/13/20 07:10 WBC RBC Hgb Hct MCV MCH MCHC RDW Std Deviation RDW Coeff of Zulay Plt Count MPV Neut % (Auto) Absolute Neuts (auto) Absolute Lymphs (auto) Total Counted Neutrophils % (Manual) Band Neutrophils % Lymphocytes % (Manual) Monocytes % (Manual) Metamyelocytes % Myelocytes % Diff Path Review Platelet Estimate RBC Morphology PT INR Sodium 126 L Potassium 5.2 H Chloride 94 L Carbon Dioxide 18.0 L Anion Gap 14 BUN 91 H Creatinine 7.66 H* Estim Creat Clear Calc 11.34 Est GFR (MDRD) Af Amer 9 L Est GFR (MDRD) Non-Af 8 L BUN/Creatinine Ratio 11.9 Glucose 180 H Calcium 7.0 L Phosphorus 9.0 H* Magnesium 3.0 H Total Bilirubin 11.10 H GGT AST 148 H ALT 60 Alkaline Phosphatase 821 H Troponin I 0.895 H* Total Protein 6.5 Albumin 2.0 L Globulin 4.5 H Albumin/Globulin Ratio 0.4 L U Random Total Protein Ur Random Sodium Urine Creatinine Protein/Creatinin Ratio POC Glucose Micro: Microbiology 09/10/20 19:15 Interface Orders SARS-CoV-2 Antigen (Rapid) - Final 09/10/20 00:20 Stool Enteric Bacteriology - Final 09/10/20 00:20 Stool C. difficile DNA Amplification - Final 09/09/20 00:20 Stool Stool Occult Blood (MADDIE) - Final Occult Blood Positive ABG Data ABG results: ABG 09/13/20 07:58 Specimen Type ART Sample Site R Radial pH 7.23 L Bicarbonate Actual 14.0 L Total CO2 15 Base Excess -14 L O2 Saturation 98 O2 % 100 ABG pCO2 33.0 L ABG pO2 130 H [employer] Test Positive Respiration Rate 14 O2 Delivery Device Adult Vent Vent Mode AC Tidal Volume 450 POC PEEP 8 Radiography Diagnostic Testing: Radiology Impression Renal Ultrasound 09/12/20 08:11 IMPRESSION: Normal ultrasound of the kidneys. Electronically Signed: Edvin Juarez MD at 14:42 EDT , Service support , Chest X-Ray 09/13/20 06:53 IMPRESSION: 1. Endotracheal tube terminates at approximately T2 level. 2. Stable small right pleural effusion with underlying atelectasis. Electronically Signed: Henry Durand MD ([facility]) at 8:02 EDT , Service support , Chest X-Ray 09/13/20 07:18 IMPRESSION: 1. Endotracheal tube terminates at approximately T2 level. 2. Stable small right pleural effusion with underlying atelectasis/infiltrate. Electronically Signed: Henry Durand MD ([facility]) at 8:03 EDT , Service support , Chest X-Ray 09/13/20 08:19 IMPRESSION: The left central line is at the junction of the superior vena cava and left brachiocephalic vein. The remainder of examination is unchanged. Electronically Signed: Edvin Juarez MD at 8:57 EDT , Service support , Physical Exam Narrative eyes open on vent, answer yes/no questions. HEENT HEENT Narrative: icteric Eyes Eyes Narrative: icteric Resp clear to auscultation bilaterally Resp Narrative: on vent Cardio no murmurs and no rub Cardio Narrative: afib GI non-tender and non-distended Palpation: soft Extremity General Extremity: Negative for edema Neuro Neuro Narrative: responsive to yes/no questions on vent Sensorium / Orientation: awake Psych cooperative Assessment & Plan Assessment/Plan (1) BENJI (acute kidney injury): Status: Acute Code(s): N17.9 - Acute kidney failure, unspecified Plan: creatinine worse to 7.66. Start dialysis today with temp RIJ catheter. Remains anuric. BENJI due to hepatorenal syndrome with elevated liver enzymes. 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 renal US unremarkable. Underlying diabetic nephropathy with UPCR 2.2g (4) Diabetic nephropathy associated with diabetes mellitus due to underlying condition: Status: Acute Code(s): E08.21 - Diabetes mellitus due to underlying condition with diabetic nephropathy Plan: urine protein/cr ratio 2.2g/g (5) GI bleed: Status: Acute Code(s): K92.2 - Gastrointestinal hemorrhage, unspecified Qualifiers: GI bleed type/associated pathology: unspecified gastrointestinal hemorrhage type Qualified Code(s): K92.2 - Gastrointestinal hemorrhage, unspecified Plan: s/p endoscopy. Hgb stable (6) Supratherapeutic INR: Status: Acute Code(s): R79.1 - Abnormal coagulation profile Plan: INR elevated with liver failure (7) Hyperkalemia: Status: Acute Code(s): E87.5 - Hyperkalemia Plan: Kk 5.2 follow low K renal diet. Correct with dialysis (8) Hyponatremia: Status: Acute Code(s): E87.1 - Hypo-osmolality and hyponatremia Plan: sodium 120 suspect due to dehydration, excess ADH secretion (9) Afib: Status: Chronic Code(s): I48.91 - Unspecified atrial fibrillation Qualifiers: Atrial fibrillation type: longstanding persistent Qualified Code(s): I48.11 - Longstanding persistent atrial fibrillation Plan: cardio mgmt (10) Diabetes: Status: Chronic Code(s): E11.9 - Type 2 diabetes mellitus without complications Qualifiers: Diabetes mellitus complication status: with other specified complication Diabetes mellitus predatory animal exterminator insulin use: with predatory animal exterminator use Diabetes mellitus type: type 2 Qualified Code(s): E11.69 - Type 2 diabetes mellitus with other specified complication; Z79.4 - MCFP (current) use of insulin Plan: on insulin at home. UPCR 2.2g/g (11) Hypertension: Status: Chronic Code(s): I10 - Essential (primary) hypertension Qualifiers: Hypertension type: essential hypertension Qualified Code(s): I10 - Essential (primary) hypertension Plan: hypotensive on pressors now (12) CAD (coronary artery disease): Status: Chronic Code(s): I25.10 - Atherosclerotic heart disease of [place] coronary artery without angina pectoris Qualifiers: Associated angina: without angina Coronary Disease-Associated Artery/Lesion type: bypass graft, autologous vein Qualified Code(s): I25.810 - Atherosclerosis of coronary artery bypass graft(s) without angina pectoris Plan: NSTEMI with positive troponins, cardio consulted (13) PVD (peripheral vascular disease): Status: Chronic Code(s): I73.9 - Peripheral vascular disease, unspecified Plan: s/p bypass, toe amputation (14) Leukocytosis: Status: Acute Code(s): D72.829 - Elevated white blood cell count, unspecified Plan: WBC elevated, cx no growth so far, afebrile (15) Metabolic acidosis: Status: Acute Code(s): E87.2 - Acidosis Plan: correct with dialysis
--- NOTE | 2020-09-13 10:25 | CASEMGMT ---
Social Work Listed phone numbers for Significant Other Perez Echeverria and Daughter Joy Phan are not working. BRITTANY spoke with Danya Roach, a friend listed on demo sheet, to obtain correct phone numbers. Danya has no information on Joy Phan but correct phone number for Perez Echeverria is [phone]. Call placed to Perez who confirms she is pt significant other and that pt does not have a health care POA. SW inquired about pt children. Joy Phan is pt only child and Perez states she will look for a working phone number for Joy and call this SW back. Nursing updated and to call Perez with medical update. RUDY Puckett
--- NOTE | 2020-09-13 10:45 | RAD_ITS ---
STUDY: X-RAY CHEST REASON FOR EXAM: Male, 65 years old. Temp dialysis catheter placement -- portable TECHNIQUE: Single AP portable view of the chest. COMPARISON: Comparison is made with prior study done earlier today at 8:25 AM. FINDINGS: A right-sided temporary dialysis catheter has been placed. The tip is at the junction of the superior vena cava and right atrium. The remainder of the examination is unchanged. RAD/CXR for Line Placement IMPRESSION: The tip of the dialysis catheter is at the junction of the superior vena cava and right atrium. The remainder of the examination is unchanged. Electronically Signed: Edvin Juarez MD at 11:10 EDT , Service support ,
--- NOTE | 2020-09-13 10:48 | OP.PCM_ITS ---
Report of Operation Date of Procedure: 09/13/20 Pre-Operative Diagnosis: Acute on chronic kidney failure Post-Operative Diagnosis: Same Surgery/Procedure Performed:: Insertion of right IJ temporary dialysis catheter Type of Anesthesia: Local Estimated Blood Loss (mL): < 10 cc Description of Procedure: Procedure: A time-out was completed to verify correct patient, indication, medication allergies, procedure, coagulation studies, informed consent signed-this was not emergent procedure but did discuss procedure with patient previously and he was agreeable, and equipment needed-had to use 20 cm straight [employer] as the rest of them are on back order. The patient was placed in the supine position for a central line placement to the right IJ vein. The patients right neck was prepped using chlorhexidine and a full body sterile drape was applied. 1% lidocaine was used to anesthetize the surrounding skin. A [employer] Elite 12 [place] x 20 cm (ref [id number] lot [id number]) Temporary hemodialysis catheter introduced into the internal jugular vein using the modified Seldinger technique with the assistance of ultrasound. The site was dilated up twice in a stepwise fashion. The catheter was threaded smoothly over the guidewire, the guidewire was removed easily, nonpulsatile blood returned. All ports were aspirated of air and flushed with sterile saline Then flushed with 1:10,000 heparin 1.3 mL to each port. The catheter was sutured in place and also secured at 16 at the neck incision and covered with an occlusive dressing impregnated with chlorhexidine. Chest x-ray ordered Grafts/Implants Used: [employer] Elite 12 [place] x 20 cm (ref [id number] lot [id number]) Complications none
--- NOTE | 2020-09-13 10:51 | PCM.PN.SRG ---
Subjective Subjective: Events noted overnight/this morning. Patient's creatinine has continued to increase will need dialysis. Objective Data Objective Data Vital Signs: Vital Signs Temp Pulse Resp BP Pulse Ox 98 F 63 26 H 101/41 L 99 09/13/20 03:16 09/13/20 06:50 09/13/20 06:50 09/13/20 03:16 09/13/20 08:20 Oxygen Flow Rate (L/min) 2 Oxygen Delivery Method Nasal Cannula Weight: 293 lb 3.437 oz Body Mass Index (BMI) 35.9 Finger Stick Blood Glucose 67 Intake & Output: Intake and Output for Last 24 Hours 09/11/20 09/12/20 09/13/20 23:59 23:59 23:59 Intake Total 2493.75 / 2493.75 3640 / 3640 1000 / 1000 Output Total 50 / 50 0 / 0 Balance 2493.75 / 2493.75 3590 / 3590 1000 / 1000 Lab / Micro Data Result Diagrams: 09/13/20 06:20 09/13/20 07:10 Labs: Laboratory Results - last 24 hr 09/12/20 09/12/20 09/12/20 11:20 12:03 16:26 WBC RBC Hgb Hct MCV MCH MCHC RDW Std Deviation RDW Coeff of Zulay Plt Count MPV Neut % (Auto) Absolute Neuts (auto) Absolute Lymphs (auto) Total Counted Neutrophils % (Manual) Band Neutrophils % Lymphocytes % (Manual) Monocytes % (Manual) Metamyelocytes % Myelocytes % Diff Path Review Platelet Estimate RBC Morphology PT INR Sodium Potassium Chloride Carbon Dioxide Anion Gap BUN Creatinine Estim Creat Clear Calc Est GFR (MDRD) Af Amer Est GFR (MDRD) Non-Af BUN/Creatinine Ratio Glucose Calcium Phosphorus Magnesium Total Bilirubin GGT AST ALT Alkaline Phosphatase Troponin I Total Protein Albumin Globulin Albumin/Globulin Ratio U Random Total Protein 554.3 H Ur Random Sodium 15 Urine Creatinine 250.00 Protein/Creatinin Ratio 2217 H POC Glucose 161 H 187 H 09/12/20 09/13/20 09/13/20 21:25 06:20 06:20 WBC 25.9 H RBC 4.93 Hgb 13.3 Hct 43.3 MCV 87.8 MCH 27.0 MCHC 30.7 L D RDW Std Deviation 61.1 H RDW Coeff of Zulay 19.1 H Plt Count 206 MPV 11.3 Neut % (Auto) Not Reportable Absolute Neuts (auto) 21.6 H Absolute Lymphs (auto) 1.60 Total Counted 100 Neutrophils % (Manual) 81 H Band Neutrophils % 2 Lymphocytes % (Manual) 6 L Monocytes % (Manual) 5 Metamyelocytes % 5 H Myelocytes % 1 H Diff Path Review May foll Platelet Estimate ADEQUATE RBC Morphology NORM C+C PT 34.7 H INR 3.5 Sodium Potassium Chloride Carbon Dioxide Anion Gap BUN Creatinine Estim Creat Clear Calc Est GFR (MDRD) Af Amer Est GFR (MDRD) Non-Af BUN/Creatinine Ratio Glucose Calcium Phosphorus Magnesium Total Bilirubin GGT AST ALT Alkaline Phosphatase Troponin I Total Protein Albumin Globulin Albumin/Globulin Ratio U Random Total Protein Ur Random Sodium Urine Creatinine Protein/Creatinin Ratio POC Glucose 185 H 09/13/20 09/13/20 09/13/20 06:20 06:20 06:23 WBC RBC Hgb Hct MCV MCH MCHC RDW Std Deviation RDW Coeff of Zulay Plt Count MPV Neut % (Auto) Absolute Neuts (auto) Absolute Lymphs (auto) Total Counted Neutrophils % (Manual) Band Neutrophils % Lymphocytes % (Manual) Monocytes % (Manual) Metamyelocytes % Myelocytes % Diff Path Review Platelet Estimate RBC Morphology PT INR Sodium 125 L Potassium 4.8 Chloride 94 L Carbon Dioxide 17.0 L Anion Gap 14 BUN 91 H Creatinine 7.49 H* Estim Creat Clear Calc 11.60 Est GFR (MDRD) Af Amer 9 L Est GFR (MDRD) Non-Af 8 L BUN/Creatinine Ratio 12.1 Glucose 178 H Calcium 7.0 L Phosphorus 8.1 H Magnesium Total Bilirubin GGT 78 AST ALT Alkaline Phosphatase Troponin I Total Protein Albumin 2.1 L Globulin Albumin/Globulin Ratio U Random Total Protein Ur Random Sodium Urine Creatinine Protein/Creatinin Ratio POC Glucose 169 H 09/13/20 07:10 WBC RBC Hgb Hct MCV MCH MCHC RDW Std Deviation RDW Coeff of Zulay Plt Count MPV Neut % (Auto) Absolute Neuts (auto) Absolute Lymphs (auto) Total Counted Neutrophils % (Manual) Band Neutrophils % Lymphocytes % (Manual) Monocytes % (Manual) Metamyelocytes % Myelocytes % Diff Path Review Platelet Estimate RBC Morphology PT INR Sodium 126 L Potassium 5.2 H Chloride 94 L Carbon Dioxide 18.0 L Anion Gap 14 BUN 91 H Creatinine 7.66 H* Estim Creat Clear Calc 11.34 Est GFR (MDRD) Af Amer 9 L Est GFR (MDRD) Non-Af 8 L BUN/Creatinine Ratio 11.9 Glucose 180 H Calcium 7.0 L Phosphorus 9.0 H* Magnesium 3.0 H Total Bilirubin 11.10 H GGT AST 148 H ALT 60 Alkaline Phosphatase 821 H Troponin I 0.895 H* Total Protein 6.5 Albumin 2.0 L Globulin 4.5 H Albumin/Globulin Ratio 0.4 L U Random Total Protein Ur Random Sodium Urine Creatinine Protein/Creatinin Ratio POC Glucose Micro: Microbiology 09/10/20 19:15 Interface Orders SARS-CoV-2 Antigen (Rapid) - Final 09/10/20 00:20 Stool Enteric Bacteriology - Final 09/10/20 00:20 Stool C. difficile DNA Amplification - Final 09/09/20 00:20 Stool Stool Occult Blood (MADDIE) - Final Occult Blood Positive ABG Data ABG results: ABG 09/13/20 07:58 Specimen Type ART Sample Site R Radial pH 7.23 L Bicarbonate Actual 14.0 L Total CO2 15 Base Excess -14 L O2 Saturation 98 O2 % 100 ABG pCO2 33.0 L ABG pO2 130 H Kodak Test Positive Respiration Rate 14 O2 Delivery Device Adult Vent Vent Mode AC Tidal Volume 450 POC PEEP 8 Radiography Diagnostic Testing: Radiology Impression Renal Ultrasound 09/12/20 08:11 IMPRESSION: Normal ultrasound of the kidneys. Electronically Signed: Edvin Juarez MD at 14:42 EDT , Service support , Chest X-Ray 09/13/20 06:53 IMPRESSION: 1. Endotracheal tube terminates at approximately T2 level. 2. Stable small right pleural effusion with underlying atelectasis. Electronically Signed: Henry Durand MD (Brooks) at 8:02 EDT , Service support , Chest X-Ray 09/13/20 07:18 IMPRESSION: 1. Endotracheal tube terminates at approximately T2 level. 2. Stable small right pleural effusion with underlying atelectasis/infiltrate. Electronically Signed: Henry Durand MD (Brooks) at 8:03 EDT , Service support , Chest X-Ray 09/13/20 08:19 IMPRESSION: The left central line is at the junction of the superior vena cava and left brachiocephalic vein. The remainder of examination is unchanged. Electronically Signed: Edvin Juarez MD at 8:57 EDT , Service support , Physical Exam Const Constitutional Narrative: Patient is intubated sedated but able to nod in response to questions and follow commands. Neck Neck Narrative: Left IJ triple-lumen catheter had been placed this morning. GI soft to palpation and non-tender Inspection: abdominal distention Assessment & Plan Assessment/Plan (1) Diabetic nephropathy associated with diabetes mellitus due to underlying condition: Status: Acute Code(s): E08.21 - Diabetes mellitus due to underlying condition with diabetic nephropathy (2) BENJI (acute kidney injury): Status: Acute Code(s): N17.9 - Acute kidney failure, unspecified (3) Leukocytosis: Status: Acute Code(s): D72.829 - Elevated white blood cell count, unspecified (4) Supratherapeutic INR: Status: Acute Code(s): R79.1 - Abnormal coagulation profile (5) Jaundice: Status: Acute Code(s): R17 - Unspecified jaundice (6) Elevated LFTs: Status: Acute Code(s): R79.89 - Other specified abnormal findings of blood chemistry Plan: Patient's creatinine was up to 7.66, INR also increased to 3.5, patient's total bilirubin was also 11, AST is 148, Alk Phos is 821. Unknown etiology of elevated liver functions. Temperory dialysis catheter was placed at bedside. Previously did discuss with this procedure with patient who is agreeable to proceed depending on labs this morning. Patient was unresponsive this morning currently he is following commands but is intubated and sedated. Sri Ortiz M.D. Pager: [phone] [facility] [address] [place] [address], [facility], [address] [place], [place] [address] Office: [phone] Visit Charges Inpatient E&M: 38916 Subs Hosp L2
[2020-09-13 12:26] LABS: Pathologist Review Reviewed
--- NOTE | 2020-09-13 12:29 | CASEMGMT ---
Late entry for 09/12/20 RN CM in to pt room, [facility]. Pt signed decl[facility] form. [facility].
[2020-09-13] MEDS: 0.9% Saline Lock 10 ML Syringe IV ×3 (12:31→18:32)
[2020-09-13 12:52] LABS: Lactic Acid 3.1 mmol/L (0.4-1.9)
--- NOTE | 2020-09-13 12:57 | CASEMGMT ---
RN CM NOTE: Call placed to [facility] to inquire if they have contact info for pt's daughter, Joy. Message left w/medical records department for return call. Phone number for this RN CM provided. Awaiting return call. Kulwant MANRIQUE RN CM
--- NOTE | 2020-09-13 13:17 | PCM.RX.CS ---
Consult Pharmacy has been consulted to manage selected antiobiotic: Vancomycin Type of Consult: New start Suspected Infection: Sepsis Labs: Sodium 126 mmol/L (136-145) L 09/13/20 07:10 Potassium 5.2 mmol/L (3.5-5.1) H 09/13/20 07:10 Chloride 94 mmol/L (98-107) L 09/13/20 07:10 Carbon Dioxide 18.0 mmol/L (21.0-32.0) L 09/13/20 07:10 Anion Gap 14 (5-15) 09/13/20 07:10 BUN 91 mg/dL (7-18) H 09/13/20 07:10 Creatinine 7.66 mg/dL (0.70-1.30) H* 09/13/20 07:10 Est GFR (MDRD) Af Amer 9 mL/min (>60) L 09/13/20 07:10 Est GFR (MDRD) Non-Af 8 mL/min (>60) L 09/13/20 07:10 BUN/Creatinine Ratio 11.9 RATIO (10-20) 09/13/20 07:10 Glucose 180 mg/dL (74-106) H 09/13/20 07:10 Microbiology: Microbiology 09/13/20 09:40 Sputum, Induced/Lukens Gram Stain - Final 09/10/20 19:15 Interface Orders SARS-CoV-2 Antigen (Rapid) - Final 09/10/20 00:20 Stool Enteric Bacteriology - Final 09/10/20 00:20 Stool C. difficile DNA Amplification - Final 09/09/20 00:20 Stool Stool Occult Blood (MADDIE) - Final Occult Blood Positive Goal Trough: 15-20 mcg/mL Pharmacy Plan for Drug Dosing: NEW START IV VANCOMYCIN Consulting Physician: TREVER Indication: SEPSIS Goal Trough: 15-20 SrCr: 7.66 - STARTING HD TODAY CrCl: 13.6 ML/MIN USING ADJ BW - STARTING HD TODAY Comments: PATIENT WILL BE STARTING HD TODAY. HD SCHEDULE HAS NOT BEEN ESTABLISHED. Vancomycin Dose: 2000 MG LOADING DOSE ORDERED FOR TODAY AFTER HD. WILL NEED TO CHECK IN MORNING IF PATIENT IS HAVING HD 5/6 AND ENTER DOSE AND LEVEL. Pending Level: NO LEVEL ENTERED, UNSURE OF HD SCHEDULE Pharmacy Service will continue to monitor and adjust dosing as required.
--- NOTE | 2020-09-13 13:36 | CASEMGMT ---
Social Work Pt significant other in to visit patient. SW met with Perez, significant other. SW did explain that pt medical decision maker is legally pt daughter Joy Phan since pt does not have a HCPOA. Perez states that Joy is pt only daughter. Pt does have three siblings Tolu Phan in [place], Francisco Phan in [place] and a sister in [place]. Perez is agreeable to look for phone numbers of dgt and brother Tolu and notify SW in the event medical decisions need to be made. RUDY Puckett>
--- NOTE | 2020-09-13 14:46 | CASEMGMT ---
JO-ANN SANCHEZ NOTE: Pt qualifies for a Palliative referral per the [facility] palliative screening tool at this time. Dr Guevara made aware and states would like to talk to pt's significant other re: Palliative care. Referral not made at this time. Kulwant MANRIQUE RN CM
--- NOTE | 2020-09-13 15:59 | PN.HOSP_ITS ---
Objective Data Objective Data Vital Signs: Vital Signs Temp Pulse Resp BP Pulse Ox 97.4 F L 77 16 98/54 L 97 09/13/20 12:00 09/13/20 15:00 09/13/20 15:00 09/13/20 15:00 09/13/20 15:00 Oxygen Flow Rate (L/min) 2 Oxygen Delivery Method Mechanical Ventilator Weight: 293 lb 3.437 oz Body Mass Index (BMI) 35.9 Finger Stick Blood Glucose 67 Intake & Output: Intake and Output for Last 24 Hours 09/11/20 09/12/20 09/13/20 23:59 23:59 23:59 Intake Total 2493.75 / 2493.75 3640 / 3640 1785.03 / 1785.03 Output Total 50 / 50 0 / 0 Balance 2493.75 / 2493.75 3590 / 3590 1785.03 / 1785.03 Lab / Micro Data Result Diagrams: 09/13/20 06:20 09/13/20 07:10 Labs: Laboratory Results - last 24 hr 09/12/20 09/12/20 09/13/20 16:26 21:25 06:20 WBC RBC Hgb Hct MCV MCH MCHC RDW Std Deviation RDW Coeff of Zulay Plt Count MPV Neut % (Auto) Absolute Neuts (auto) Absolute Lymphs (auto) Total Counted Neutrophils % (Manual) Band Neutrophils % Lymphocytes % (Manual) Monocytes % (Manual) Metamyelocytes % Myelocytes % Diff Path Review Platelet Estimate RBC Morphology PT 34.7 H INR 3.5 Sodium Potassium Chloride Carbon Dioxide Anion Gap BUN Creatinine Estim Creat Clear Calc Est GFR (MDRD) Af Amer Est GFR (MDRD) Non-Af BUN/Creatinine Ratio Glucose Lactic Acid Calcium Phosphorus Magnesium Total Bilirubin GGT AST ALT Alkaline Phosphatase Troponin I Total Protein Albumin Globulin Albumin/Globulin Ratio POC Glucose 187 H 185 H 09/13/20 09/13/20 09/13/20 06:20 06:20 06:20 WBC 25.9 H RBC 4.93 Hgb 13.3 Hct 43.3 MCV 87.8 MCH 27.0 MCHC 30.7 L D RDW Std Deviation 61.1 H RDW Coeff of Zulay 19.1 H Plt Count 206 MPV 11.3 Neut % (Auto) Not Reportable Absolute Neuts (auto) 21.6 H Absolute Lymphs (auto) 1.60 Total Counted 100 Neutrophils % (Manual) 81 H Band Neutrophils % 2 Lymphocytes % (Manual) 6 L Monocytes % (Manual) 5 Metamyelocytes % 5 H Myelocytes % 1 H Diff Path Review Reviewed Platelet Estimate ADEQUATE RBC Morphology NORM C+C PT INR Sodium 125 L Potassium 4.8 Chloride 94 L Carbon Dioxide 17.0 L Anion Gap 14 BUN 91 H Creatinine 7.49 H* Estim Creat Clear Calc 11.60 Est GFR (MDRD) Af Amer 9 L Est GFR (MDRD) Non-Af 8 L BUN/Creatinine Ratio 12.1 Glucose 178 H Lactic Acid Calcium 7.0 L Phosphorus 8.1 H Magnesium Total Bilirubin GGT 78 AST ALT Alkaline Phosphatase Troponin I Total Protein Albumin 2.1 L Globulin Albumin/Globulin Ratio POC Glucose 09/13/20 09/13/20 09/13/20 06:23 07:10 12:10 WBC RBC Hgb Hct MCV MCH MCHC RDW Std Deviation RDW Coeff of Zulay Plt Count MPV Neut % (Auto) Absolute Neuts (auto) Absolute Lymphs (auto) Total Counted Neutrophils % (Manual) Band Neutrophils % Lymphocytes % (Manual) Monocytes % (Manual) Metamyelocytes % Myelocytes % Diff Path Review Platelet Estimate RBC Morphology PT INR Sodium 126 L Potassium 5.2 H Chloride 94 L Carbon Dioxide 18.0 L Anion Gap 14 BUN 91 H Creatinine 7.66 H* Estim Creat Clear Calc 11.34 Est GFR (MDRD) Af Amer 9 L Est GFR (MDRD) Non-Af 8 L BUN/Creatinine Ratio 11.9 Glucose 180 H Lactic Acid 3.1 H* Calcium 7.0 L Phosphorus 9.0 H* Magnesium 3.0 H Total Bilirubin 11.10 H GGT AST 148 H ALT 60 Alkaline Phosphatase 821 H Troponin I 0.895 H* Total Protein 6.5 Albumin 2.0 L Globulin 4.5 H Albumin/Globulin Ratio 0.4 L POC Glucose 169 H Micro: Microbiology 09/13/20 09:40 Sputum, Induced/Lukens Gram Stain - Final 09/10/20 19:15 Interface Orders SARS-CoV-2 Antigen (Rapid) - Final 09/10/20 00:20 Stool Enteric Bacteriology - Final 09/10/20 00:20 Stool C. difficile DNA Amplification - Final 09/09/20 00:20 Stool Stool Occult Blood (MADDIE) - Final Occult Blood Positive ABG Data ABG results: ABG 09/13/20 07:58 Specimen Type ART Sample Site R Radial pH 7.23 L Bicarbonate Actual 14.0 L Total CO2 15 Base Excess -14 L O2 Saturation 98 O2 % 100 ABG pCO2 33.0 L ABG pO2 130 H Kodak Test Positive Respiration Rate 14 O2 Delivery Device Adult Vent Vent Mode AC Tidal Volume 450 POC PEEP 8 Radiography Diagnostic Testing: Radiology Impression Chest X-Ray 09/13/20 06:53 IMPRESSION: 1. Endotracheal tube terminates at approximately T2 level. 2. Stable small right pleural effusion with underlying atelectasis. Electronically Signed: Henry Durand MD (Brooks) at 8:02 EDT , Service support , Chest X-Ray 09/13/20 07:18 IMPRESSION: 1. Endotracheal tube terminates at approximately T2 level. 2. Stable small right pleural effusion with underlying atelectasis/infiltrate. Electronically Signed: Henry Duradn MD (Brooks) at 8:03 EDT , Service support , Liver Ultrasound 09/13/20 07:56 IMPRESSION: Hepatomegaly and heterogeneous echotexture of the liver. There is a starry night appearance of the liver suggestive of possible hepatitis. Electronically Signed: Edvin Juarez MD at 14:10 EDT , Service support , Chest X-Ray 09/13/20 08:19 IMPRESSION: The left central line is at the junction of the superior vena cava and left brachiocephalic vein. The remainder of examination is unchanged. Electronically Signed: Edvin Juarez MD at 8:57 EDT , Service support , Chest X-Ray 09/13/20 10:45 IMPRESSION: The tip of the dialysis catheter is at the junction of the superior vena cava and right atrium. The remainder of the examination is unchanged. Electronically Signed: Edvin Juarez MD at 11:10 EDT , Service support , Assessment & Plan Assessment/Plan (1) BENJI (acute kidney injury): (2) Acute upper gastrointestinal bleeding: (3) Jaundice: (4) Afib: QUALIFIERS: Atrial fibrillation type: longstanding persistent Qualified Code(s): I48.11 - Longstanding persistent atrial fibrillation (5) Encephalopathy: (6) Acute hypoxemic respiratory failure: (7) Elevated LFTs: (8) Metabolic acidosis: PLAN: Assessment/Plan 1. Acute hypoxic respiratory failure: Patient had rapid response in the morning and patient was bradycardic, heart rate in 40s patient was unresponsive with agonal breathing. Patient was emergently intubated. 2 acute upper gastrointestinal bleeding. Patient had upper and lower endoscopy. Left colon polypectomy was done. H&H 13.3/43. 3. Hypotension probably cardiogenic shock, coronary artery status post CABG, a cute on chronic systolic heart failure: Started on vessel pressure through the left CVC catheter. Patient received IV fluid secondary to BENJI. Echocardiogram from 09/11/2020 demonstrated normal left ventricular size, mild LVH, estimated EF of 45%. Cardiology following. Plan; hold warfarin and dual an tiplatelet therapy, resume isosorbide mononitrate and rosuvastatin. Warfarin on hold. Antihypertensive medications on hold due to shock. Patient has supratherapeutic INR therefore Coumadin on hold 4. BENJI on CKD stage IIIa with hyponatremia and hyperkalemia: Creatinine continues to climb high. BUN/creatinine 91/7.66, sodium 126, K5.2. Dialysis catheter was placed by surgeon and plan for dialysis today 5) acute encephalopathy probably metabolic due to hypotension and hypoxia: Patient also has leukocytosis. Chest x-ray shows small right pleural effusion with underlying atelectasis and infiltrate. Empirically started on IV Zosyn. 6. Hyperbilirubinemia with elevated transaminases: GGT normal. Total bili was 3.2 in April 2020, increased to 11.1. ALT 60, AST 148. Liver ultrasound shows hepatomegaly and heterogeneous echogenicity suggestive of nonspecific hepatitis probably metabolic in nature Other multiple comorbidities include peripheral arterial disease, diabetes mellitus type 2, hypertension, dyslipidemia, obesity, obstructive sleep apnea: Multiple comorbidities Clinical Impression(s) from Imaging Studies Echocardiogram 09/10/20 13:12 Interpretation Summary Normal LV size. Mild concentric left ventricular hypertrophy. The estimated ejection fraction is 45 %. Contrast injection was performed. Compared to previous study, the left ventricular systolic function is the same.. _ Renal Ultrasound 09/12/20 08:11 IMPRESSION: Normal ultrasound of the kidneys. Chest X-Ray 09/13/20 07:18 IMPRESSION: 1. Endotracheal tube terminates at approximately T2 level. 2. Stable small right pleural effusion with underlying atelectasis/infiltrate. Electronically Signed: Henry Durand MD (Brooks) at 8:03 EDT , Service support , Liver Ultrasound 09/13/20 07:56 IMPRESSION: Hepatomegaly and heterogeneous echotexture of the liver. There is a starry night appearance of the liver suggestive of possible hepatitis. Chest X-Ray 09/13/20 08:19 IMPRESSION: The left central line is at the junction of the superior vena cava and left brachiocephalic vein. The remainder of examination is unchanged. Electronically Signed: Edvin Juarez MD at 8:57 EDT , Service support , Chest X-Ray 09/13/20 10:45 IMPRESSION: The tip of the dialysis catheter is at the junction of the superior vena cava and right atrium. The remainder of the examination is unchanged. Electronically Signed: Edvin Juarez MD at 11:10 EDT , Service support , Visit Charges Inpatient E&M: 52706 Subs Hosp L3
[2020-09-13 16:19] LABS: Reflex Lactate? Y
--- NOTE | 2020-09-13 16:36 | DIALYSIS ---
First hemodialysis tx completed x 3 hours without complications. Pt tolerated tx well. No fluid removed. CVC good flow from both ports. Hepatitis labs drawn and sent while on dialysis. Verbal report given to JO-ANN Bowles post tx. Next dialysis tx 09/14/20
[2020-09-13 18:10] LABS: Bedside Glucose 149 mg/dL (70-110)
[2020-09-13] MEDS: Chlorhexidine 15 ML PO (21:43)
[2020-09-13] MEDS: Atorvastatin Calcium 80 MG Tablet PO (21:43)
[2020-09-13 22:50] LABS: Lactic Acid 3.2 mmol/L (0.4-1.9)
[2020-09-13 22:58] LABS: CPK Total, Creatine Kinase 117 U/L (39-308); Triglycerides 183 mg/dL
[2020-09-14] VITALS (60 sets, daily range): BP systolic 0–118; BP diastolic 0–99; PULSE 0–78; RESP 0–23; TEMP 35.9–37.6; O2SAT 86–99
[2020-09-14 00:41] LABS: Bedside Glucose 103 mg/dL (70-110)
[2020-09-14 05:30] LABS: Hematocrit 38.6 % (40-54); Hemoglobin 12.2 g/dL (13.0-16.5); Mean Corp Hgb Conc 31.6 g/dL (32-36); Mean Corpuscular Hgb 26.9 pg (27.0-32.0); Mean Corpuscular Volume 85.2 fL (80-94); Mean Platelet Vol. 10.3 fl (6.2-12.0); POSITIVE COUNT YES; POSITIVE DIFFERENTIAL YES; POSITIVE MORPHOLOGY YES; Platelet Count 214 K/mm3 (150-450); RBC Distribution Width CV 19.5 % (11.6-14.6); Red Blood Count 4.53 M/mm3 (4.6-6.2); White Blood Count 27.3 K/mm3 (4.4-11.0)
[2020-09-14 05:36] LABS: Differential Indicated MANUAL DIFF
[2020-09-14 05:40] LABS: Bedside Glucose 96 mg/dL (70-110)
--- NOTE | 2020-09-14 05:52 | CT_ITS ---
We are attempting to reach an attending provider to discuss findings. An addendum with communication details will be sent when the communication is complete. STUDY: CT BRAIN WITHOUT CONTRAST REASON FOR EXAM: Male, 65 years old. unresponsive -- stroke alert RADIATION DOSAGE (If Supplied By Facility): CTDIvol = ( 44.99 ) mGy, DLP = ( 779.84 ) mGycm TECHNIQUE: Transaxial CT imaging of the brain was performed without administration of intravenous contrast material. Individualized dose optimization techniques were used for this CT. COMPARISON: No relevant priors. FINDINGS: Normal soft tissue structures. Normal calvarium. Normal size ventricles and extra-axial spaces for the patient''s age. There are areas of decreased attenuation within the white matter tracts of the supratentorial brain, consistent with microvascular disease changes. Normal basal ganglia and thalami. Normal brainstem. Normal cerebellum. There is no intracranial hemorrhage. There are no findings of an acute ischemic infarction. Normal visualized paranasal sinuses. CT/Brain/Head without Contrast IMPRESSION: Chronic involutional changes of the brain. Electronically Signed: Guanako Gibson MD at 6:29 EDT Tel , Service support ,
--- NOTE | 2020-09-14 05:52 | CT_ITS ---
We are attempting to reach an attending provider to discuss findings. An addendum with communication details will be sent when the communication is complete. STUDY: CTA HEAD AND NECK WITH CONTRAST REASON FOR EXAM: Male, 65 years old. unresponsive -- stroke alert RADIATION DOSAGE (If Supplied By Facility): CTDIvol = ( 33 ) mGy, DLP = ( 854.09 ) mGycm TECHNIQUE: CT angiography was performed with a multi-detector CT scanner. Data acquisition was obtained from the skull base through the vertex following intravenous administration of IV 100mL Isovue-370. MIP images were reconstructed from the axial data set. Post-processing of the angiographic images was performed, with multiplanar reformation and 3D reconstruction. Individualized dose optimization techniques were used for this CT. COMPARISON: No relevant priors. FINDINGS: Normal bilateral petrous carotid arteries. Normal right cavernous carotid artery with a normal supraclinoid bifurcation. Normal left cavernous carotid artery with a normal supraclinoid bifurcation. Normal right A1 segments of the anterior cerebral artery. Normal left A1 segments of the anterior cerebral artery. Normal intact anterior communicating artery (ACOM). Normal bilateral A2 segments of the anterior cerebral arteries. Multiple areas of ifve-wr-aoxjkieq narrowing are noted in the M2 and M3 segments of the right and left MCA most likely due to atherosclerosis. There is non-visualization of the right posterior communicating artery (PCOM). There is non-visualization of the left posterior communicating artery (PCOM). Normal bilateral vertebral arteries. There is irregular narrowing of the basilar artery with maximal stenosis is estimated at 50%. The visualized bilateral superior cerebellar (SCA) arteries are normal. Normal bilateral P1, P2 and visualized P3 segments of the posterior cerebral arteries. There is no demonstrated aneurysm of the [place]. There is no demonstrated abnormality of the visualized brain. AORTIC ARCH: Normal visualized aortic arch. Normal origins of the brachiocephalic, left common carotid, and left subclavian arteries. RIGHT CAROTID ARTERIES: Normal right common carotid artery (CCA). Normal right common carotid bulb. Normal origin of the right internal carotid (ICA) artery without a hemodynamically significant stenosis. Normal visualized cervical portion of the right internal carotid artery. Normal origin of the right external carotid artery (ECA). LEFT CAROTID ARTERIES: Normal left common carotid artery (CCA). There is extensive atherosclerotic plaque formation with severe narrowing of the carotid bulb with a hemodynamically significant stenosis. There is moderate atherosclerotic plaque formation of the origin of the left internal carotid artery with an estimated stenosis of 50-69% stenosis. Normal visualized cervical portion of the left internal carotid artery. Normal origin of the left external carotid artery (ECA). VERTEBRAL ARTERIES: The left vertebral artery is occluded at its origin. There is mild atherosclerosis changes at the origin of the right vertebral artery without significant stenosis. There is possibly a stent in the segment V4 of the right vertebral artery appears patent. The degree of stenosis calculation is in accordance with NASCET criteria. 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 Severe atherosclerotic disease are identified the heart are all with 50-69% stenosis at the origin of the right ICA. There is occlusion and the left vertebral artery at its origin. There is possibly a stent in the segment V4 of the right vertebral artery appears patent. There is irregular narrowing of the basilar artery with maximal stenosis is estimated at 50%. Multiple areas of ugyi-mg-dnmwrkul narrowing are noted in the M2 and M3 segments of the right and left MCA most likely due to atherosclerosis. Electronically Signed: Guanako Gibson MD at 6:58 EDT Tel , Service support ,
--- NOTE | 2020-09-14 06:02 | PN.CC_ITS ---
Subjective Subjective: The patient was seen and examined at the bedside this morning. Events from the last 24 hours have been reviewed. Although the patient is currently afebrile, he is still requiring a high amount of vasopressor requir ement to maintain hemodynamic stability. This morning, at approximately 0530, the patient became a acutely nonresponsive. The patient was previously only on fentanyl and was alert and able to interact appropriately. His sedating medication was discontinued completely. Orders for blood gas were entered. Code stroke was initiated. The patient's ventilator requirement remains minimal with an FiO2 of 30%. The patient did undergo a 3-hour dialysis session yesterday with no net fluid removal. The patient's white count remains elevated this morning at 27,000. Of note, the patient's CT head from yesterday was canceled, as following transfer to the ICU and with invasive mechanical ventilatory support, the patient's mentation improved. In fact, the patient was alert and able to follow commands appropriately. Arterial Line Indication: Hemodynamic Monitoring A time-out was completed verifying correct patient, procedure, site, positioning, and special equipment if applicable. Kodak's test was performed to ensure adequate perfusion. The patient's right wrist was prepped and draped in the sterile fashion. An 18-gauge arrow arterial line was introduced into the right radial artery. The catheter was threaded over the guidewire and the needle was removed with the appropriate pulsatile blood return. The catheter was then sutured in place to the skin and a sterile dressing applied. Perfusion to the extremity distal to the point of catheter insertion was checked and found to be adequate. ULTRASOUND GUIDANCE STATEMENT (Vascular Access): I perform ultrasound image acquisition and interpretation for needle placement during this procedure. The vessel was identified and found to be free of thrombosis by compression technique. A safe point of entry was marked at the skin and then angle for access was determined. The needle was guided by obtaining free-flowing fluid and by real-time visualization. Objective Data Objective Data The patient's most recent lab work, culture data and imaging studies have all been personally reviewed. Liver ultrasound revealed findings concerning for possible hepatitis. Surface echocardiogram revealed an ejection fraction of 45%. Pulmonary artery systolic pressure was estimated to be 26 mmHg. Preliminary blood cultures from September 13 revealed gram-negative rods. Urine and sputum cultures are pending. Vital Signs: Vital Signs Temp Pulse Resp BP Pulse Ox 96.9 F L 78 16 99/34 L 94 09/14/20 00:00 09/14/20 03:15 09/14/20 03:15 09/14/20 03:15 09/14/20 03:15 Oxygen Flow Rate (L/min) 2 Oxygen Delivery Method Mechanical Ventilator Weight: 308 lb 10.354 oz Body Mass Index (BMI) 35.9 Finger Stick Blood Glucose 67 Intake & Output: Intake and Output for Last 24 Hours 09/12/20 09/13/20 09/14/20 23:59 23:59 23:59 Intake Total 3640 / 3640 2932.56 / 3091.36 343.88 / 343.88 Output Total 50 / 50 7 / 7 0 / 0 Balance 3590 / 3590 2925.56 / 3084.36 343.88 / 343.88 Lab / Micro Data Attestation: I reviewed the patient's lab results. Result Diagrams: 09/14/20 05:15 09/14/20 05:15 Labs: Laboratory Results - last 24 hr 09/13/20 09/13/20 09/13/20 06:20 06:20 06:20 WBC 25.9 H RBC 4.93 Hgb 13.3 Hct 43.3 MCV 87.8 MCH 27.0 MCHC 30.7 L D RDW Std Deviation 61.1 H RDW Coeff of [place] 19.1 H Plt Count 206 MPV 11.3 Neut % (Auto) Not Reportable Absolute Neuts (auto) 21.6 H Absolute Lymphs (auto) 1.60 Total Counted 100 Neutrophils % (Manual) 81 H Band Neutrophils % 2 Lymphocytes % (Manual) 6 L Monocytes % (Manual) 5 Metamyelocytes % 5 H Myelocytes % 1 H Diff Path Review Reviewed Platelet Estimate ADEQUATE RBC Morphology NORM C+C PT 34.7 H INR 3.5 Sodium 125 L Potassium 4.8 Chloride 94 L Carbon Dioxide 17.0 L Anion Gap 14 BUN 91 H Creatinine 7.49 H* Estim Creat Clear Calc 11.60 Est GFR (MDRD) Af Amer 9 L Est GFR (MDRD) Non-Af 8 L BUN/Creatinine Ratio 12.1 Glucose 178 H Lactic Acid Calcium 7.0 L Phosphorus 8.1 H Magnesium Total Bilirubin GGT AST ALT Alkaline Phosphatase Total Creatine Kinase Troponin I Total Protein Albumin 2.1 L Globulin Albumin/Globulin Ratio Triglycerides POC Glucose 09/13/20 09/13/20 09/13/20 06:20 06:23 07:10 WBC RBC Hgb Hct MCV MCH MCHC RDW Std Deviation RDW Coeff of [place] Plt Count MPV Neut % (Auto) Absolute Neuts (auto) Absolute Lymphs (auto) Total Counted Neutrophils % (Manual) Band Neutrophils % Lymphocytes % (Manual) Monocytes % (Manual) Metamyelocytes % Myelocytes % Diff Path Review Platelet Estimate RBC Morphology PT INR Sodium 126 L Potassium 5.2 H Chloride 94 L Carbon Dioxide 18.0 L Anion Gap 14 BUN 91 H Creatinine 7.66 H* Estim Creat Clear Calc 11.34 Est GFR (MDRD) Af Amer 9 L Est GFR (MDRD) Non-Af 8 L BUN/Creatinine Ratio 11.9 Glucose 180 H Lactic Acid Calcium 7.0 L Phosphorus 9.0 H* Magnesium 3.0 H Total Bilirubin 11.10 H GGT 78 AST 148 H ALT 60 Alkaline Phosphatase 821 H Total Creatine Kinase Troponin I 0.895 H* Total Protein 6.5 Albumin 2.0 L Globulin 4.5 H Albumin/Globulin Ratio 0.4 L Triglycerides POC Glucose 169 H 09/13/20 09/13/20 09/13/20 12:10 15:25 18:01 WBC RBC Hgb Hct MCV MCH MCHC RDW Std Deviation RDW Coeff of [place] Plt Count MPV Neut % (Auto) Absolute Neuts (auto) Absolute Lymphs (auto) Total Counted Neutrophils % (Manual) Band Neutrophils % Lymphocytes % (Manual) Monocytes % (Manual) Metamyelocytes % Myelocytes % Diff Path Review Platelet Estimate RBC Morphology PT INR Sodium Potassium Chloride Carbon Dioxide Anion Gap BUN Creatinine Estim Creat Clear Calc Est GFR (MDRD) Af Amer Est GFR (MDRD) Non-Af BUN/Creatinine Ratio Glucose Lactic Acid 3.1 H* Calcium Phosphorus Magnesium Total Bilirubin GGT AST ALT Alkaline Phosphatase Total Creatine Kinase 117 Troponin I Total Protein Albumin Globulin Albumin/Globulin Ratio Triglycerides 183 POC Glucose 149 H 09/13/20 09/14/20 09/14/20 21:30 00:28 05:15 WBC 27.3 H RBC 4.53 L Hgb 12.2 L Hct 38.6 L MCV 85.2 MCH 26.9 L MCHC 31.6 L RDW Std Deviation 61.0 H RDW Coeff of [place] 19.5 H Plt Count 214 MPV 10.3 Neut % (Auto) Not Reportable Absolute Neuts (auto) Absolute Lymphs (auto) Total Counted Neutrophils % (Manual) Band Neutrophils % Lymphocytes % (Manual) Monocytes % (Manual) Metamyelocytes % Myelocytes % Diff Path Review Platelet Estimate RBC Morphology PT INR Sodium Potassium Chloride Carbon Dioxide Anion Gap BUN Creatinine Estim Creat Clear Calc Est GFR (MDRD) Af Amer Est GFR (MDRD) Non-Af BUN/Creatinine Ratio Glucose Lactic Acid 3.2 H* Calcium Phosphorus Magnesium Total Bilirubin GGT AST ALT Alkaline Phosphatase Total Creatine Kinase Troponin I Total Protein Albumin Globulin Albumin/Globulin Ratio Triglycerides POC Glucose 103 09/14/20 05:35 WBC RBC Hgb Hct MCV MCH MCHC RDW Std Deviation RDW Coeff of [place] Plt Count MPV Neut % (Auto) Absolute Neuts (auto) Absolute Lymphs (auto) Total Counted Neutrophils % (Manual) Band Neutrophils % Lymphocytes % (Manual) Monocytes % (Manual) Metamyelocytes % Myelocytes % Diff Path Review Platelet Estimate RBC Morphology PT INR Sodium Potassium Chloride Carbon Dioxide Anion Gap BUN Creatinine Estim Creat Clear Calc Est GFR (MDRD) Af Amer Est GFR (MDRD) Non-Af BUN/Creatinine Ratio Glucose Lactic Acid Calcium Phosphorus Magnesium Total Bilirubin GGT AST ALT Alkaline Phosphatase Total Creatine Kinase Troponin I Total Protein Albumin Globulin Albumin/Globulin Ratio Triglycerides POC Glucose 96 Micro: Microbiology 09/13/20 09:10 Blood Culture (Wb) - Central Line Blood Culture - Preliminary 09/13/20 09:30 Blood Culture (Wb) - Anticubital Left Blood Culture - Preliminary 09/13/20 09:40 Sputum, Induced/[place] Gram Stain - Final 09/10/20 19:15 Interface Orders SARS-CoV-2 Antigen (Rapid) - Final 09/10/20 00:20 Stool Enteric Bacteriology - Final 09/10/20 00:20 Stool C. difficile DNA Amplification - Final 09/09/20 00:20 Stool Stool Occult Blood (MADDIE) - Final Occult Blood Positive ABG Data ABG results: ABG 09/13/20 07:58 Specimen Type ART Sample Site R Radial pH 7.23 L Bicarbonate Actual 14.0 L Total CO2 15 Base Excess -14 L O2 Saturation 98 O2 % 100 ABG pCO2 33.0 L ABG pO2 130 H Kodak Test Positive Respiration Rate 14 O2 Delivery Device Adult Vent Vent Mode AC Tidal Volume 450 POC PEEP 8 Radiography Diagnostic Testing: Radiology Impression Chest X-Ray 09/13/20 06:53 IMPRESSION: 1. Endotracheal tube terminates at approximately T2 level. 2. Stable small right pleural effusion with underlying atelectasis. Electronically Signed: Henry Durand MD ([place]) at 8:02 EDT , Service support , Chest X-Ray 09/13/20 07:18 IMPRESSION: 1. Endotracheal tube terminates at approximately T2 level. 2. Stable small right pleural effusion with underlying atelectasis/infiltrate. Electronically Signed: Henry Durand MD ([place]) at 8:03 EDT , Service support , Liver Ultrasound 09/13/20 07:56 IMPRESSION: Hepatomegaly and heterogeneous echotexture of the liver. There is a starry night appearance of the liver suggestive of possible hepatitis. Electronically Signed: Edvin Juarez MD at 14:10 EDT , Service support , Chest X-Ray 09/13/20 08:19 IMPRESSION: The left central line is at the junction of the superior vena cava and left brachiocephalic vein. The remainder of examination is unchanged. Electronically Signed: Edvin Juarez MD at 8:57 EDT , Service support , Chest X-Ray 09/13/20 10:45 IMPRESSION: The tip of the dialysis catheter is at the junction of the superior vena cava and right atrium. The remainder of the examination is unchanged. Electronically Signed: Edvin Juarez MD at 11:10 EDT , Service support , Physical Exam Const Constitutional Narrative: The patient remains intubated and mechanically ventilated. He is currently nonresponsive to verbal and tactile stimulation. HEENT normocephalic and head/scalp atraumatic Mouth: endotracheal tube in place and OG tube in place Eyes Eyes Narrative: Unequal pupillary reflex Sclera: sclera abnormal Positive for bilateral Neck General: CVC in place Resp Auscultation: diminished lung sounds; Negative for rales, rhonchi or wheezes Cardio S1 normal heart sound and S2 normal heart sound Rhythm: abnormal rhythm GI soft to palpation and non-tender Extremity General Extremity: amputation and edema Skin General Skin Exam: venous stasis and dermatitis Neuro Neuro Narrative: The patient is currently comatose and nonresponsive. Assessment & Plan Assessment/Plan (1) Encephalopathy: (2) Acute hypoxemic respiratory failure: (3) Elevated LFTs: (4) Metabolic acidosis: (5) Supratherapeutic INR: (6) Septic shock: (7) Acute on chronic kidney failure: PLAN: RECOMMENDATIONS: 1. Obtain stat CT head and CTA head and neck. 2. Obtain repeat arterial blood gas. 3. Continue Levophed and vasopressin. Add Roberto Carlos-Synephrine and stress dose steroids. 4. Continue antimicrobials as ordered. 5. Discontinue all sedating medications. 6. Hold on dialysis today given tenuous hemodynamics and clinical status. 7. Repeat liver function profile. 8. Give fluid bolus. 9. Goals of care discussion with the patient's daughter. IMPRESSIONS: 1. Acute hypoxemic respiratory failure It is unclear to me what exactly precipitated the patient's acute respiratory event. The patient was notably bradycardic during this episode. Therefore, a cardiac etiology is a possibility. In addition, acute CVA would also be another consideration. The patient was emergently intubated for airway protection. There does not appear to be a significant pulmonary infiltrate on chest imaging. Regardless, the patient will be initiated on broad-spectrum antimicrobials. The patient will be continued on assist control mode of mechanical ventilation, with plans to wean FiO2 to maintain saturations at or above 90%. Sedating medications will continue to be withheld. 2. Encephalopathy Unclear precipitating etiology. Acute CVA is a concern. Stat CT head and CTA head neck have been ordered. ABG did not reveal acute CO2 retention. However, the patient does have significant metabolic derangements, which could also be contributing to his encephalopathy as well. Again, sedating medications will be withheld for now pending improvement in his mentation. 3. Gram-negative septic shock The patient did have positive blood cultures with gram-negative rods. Unclear if this represents hematogenous spread from a urinary or pulmonary source of infection. The patient has gone on to develop refractory septic shock with multisystem organ failure and is decompensating rapidly. He is currently on 3 pressors in an attempt to maintain hemodynamic stability. Stress dose steroids have been ordered. Plan to continue aggressive measures, pending further conversation with the patient's daughter regarding goals of care. 4. Acute on chronic kidney disease/metabolic acidosis The patient has had notable worsening in his renal function over the course of his hospitalization. Nephrology is currently following to assist with medical management. At the current time, there are plans to hold on further dialysis as the patient is too clinically unstable. 5. GI bleed The patient initially presented to the hospital with melanotic stools and concerns for gastrointestinal blood loss. Stool for occult blood was positive. However, the patient did have a supratherapeutic INR at presentation. This has improved with subsequent hospital days. Upper and lower endoscopy did not reveal any focal source of bleeding. The patient's hemoglobin has remained stable. I would recommend that we continue to monitor his H&H and transfuse if hemoglobin drops below 7 g/dL. The patient will be continued on once daily PPI therapy. 6. Supratherapeutic INR The patient presented with a supratherapeutic INR which improved with Coumadin discontinuation. However, this morning, the patient's INR was once again noted to be elevated. I am concerned that this may be secondary to his underlying liver dysfunction. We will continue to monitor clinically for now. 7. History of coronary artery disease status post CABG Continue primary medical management as noted above. Hold antihypertensives given hemodynamic instability. 8. Abnormal liver function/hyperbilirubinemia The patient's liver function also appears to have worsened over the course of this hospitalization. The patient appears jaundiced with hyperbilirubinemia. The exact etiology for his underlying hepatic derangements or not clear. Liver ultrasound did reveal findings concerning for possible hepatitis. Repeat hepatic function profile is currently pending. 9. History of peripheral vascular disease/diabetes mellitus/hypertens ion/hyperlipidemia/obesity Complicates care, management, recovery and prognosis. Continue to hold antihypertensives, given tenuous hemodynamic status. TIME: 42 minutes of critical care time, inclusive of procedures, was spent addressing the patient's acute hypoxemic respiratory failure, encephalopathy, septic shock, acute on chronic kidney disease, metabolic acidosis, supratherapeutic INR, abnormal liver function, hyperbilirubinemia, review of all data and collaboration with the care team. ([id number]) Procedures Pulmonary 9xxxx: [id number] Critical care first hour
[2020-09-14 06:07] LABS: Anion Gap 13 (5-15); BUN 64 mg/dL (7-18); BUN/Creat Ratio 10.2 RATIO (10-20); Calcium,Total 6.2 mg/dL (8.5-10.1); Chloride 95 mmol/L (98-107); Creatinine, Serum 6.27 mg/dL (0.70-1.30); EST Glomerular Filtration Rate 10 mL/min (>60); Est Glom Filt Rate - Afr Amer 12 mL/min (>60); Estimated Creatinine Clearance 13.85 ml/min; Glucose 90 mg/dL (74-106); Potassium 4.2 mmol/L (3.5-5.1); Sodium Level 129 mmol/L (136-145)
[2020-09-14 06:09] LABS: Absolute Neutrophil Count 24.6 X10^3/uL (2.0-7.7); Lymphocyte 4 % (19-41); Metamyelocyte 3 % (0-1); Monocyte 3 % (0-10); Neutrophil-Band 2 % (0-5); Neutrophil-Segmented 88 % (47-70); Platelet Estimate ADEQUATE (ADEQ); Red Cell Morphology NORM C+C NORMAL (NORM C&C); Total Cells Counted 100 (MANUAL DIFF)
[2020-09-14 06:15] LABS: Prothrombin Time (Protime)PT. 45.5 SECONDS (11.7-14.9)
--- NOTE | 2020-09-14 06:43 | TELEMED_ITS ---
[facility] Tele[facility] has confirmed receipt of a request for visit. This document confirms receipt of the order initiating the consult. To find the results of the consultation, please view the patient's reports for the scanned Telemed Consult.
--- NOTE | 2020-09-14 07:00 | NURSING ---
Respiratory came to this nurse at 0520 and stated that the patient no longer has a gag reflex and is unresponsive. This nurse went to the bedside to assess patient. No gag reflex or other reflexes present, pupils non reactive and checked with 2nd RN. Patient unresponsive to sternal rub. Last known well was at 0445 when this nurse was in patient room to suction his ETT, patient interactive with this nurse and had a gag reflex at that time. Blood sugar 96. Fentanyl shut off at 0525. Dr. Saab paged at 0535. While on the phone with Dr. Kaiser villar arrived to the floor to assess patient. He gave verbal order for CT Brain without contrast, CTA head and neck with contrast, and ABG. Also wanted stroke alert called so scans would be done immediately. Stroke alert called at 0550. Dr. Villar remained at bedside, levo at max rate of 30, Dr. Villar gave order to start vasopressin. Vasopressin initiated immediately at 0603. Respiratory therapist present and attempted to obtain ABG without success, Dr. Villar stated to take patient to CT and obtain ABG upon return to the unit. Patient transported to CT with 2 RNs and respiratory therapist at 0605. Upon completion of CT scan patient returned to ICU and was placed in ICU bed 3. Patient noted to open his eyes but not following simple commands. Map noted to be in the 50's but SBP 111. Dr. Villar notified and he stated to keep SBP >90. Dr. Villar in the room to assess patient at 0645
[2020-09-14] MEDS: 0.9% Normal Saline 1,000 ML 999 ML IV (07:15)
--- NOTE | 2020-09-14 07:25 | NURSING ---
attempted to call daughterJoy with no answer. Message left to return phone call
[2020-09-14 07:26] LABS: Allen Test Positive; Base Excess -9 mmol/L (-2 to +2); Bicarbonate 16.6 mmol/L (22-26); FI02 35; Mode AC; O2 Delivery Device ET Tube; PEEP 5; PO2 35 mmHG (75-100); RR 16; SITE L Radial; SO2 64 % (95-99); Total Carbon Dioxide 18 mmol/L; Vt 450; pCO2 30.3 mmHg (35-45); pH 7.35 (7.35-7.45)
--- NOTE | 2020-09-14 07:49 | DIALYSIS ---
Received orders from Dr. Graham for a 3 hours tx. Pt is unstable. While rinsing my HD machine, the pt became to unstable for tx per Dr. Ovalles. Dr Graham was notified.
[2020-09-14] MEDS: Chlorhexidine 15 ML PO (08:00)
[2020-09-14 08:17] LABS: Hepatitis B Surface Antibody Non-Reactive; Hepatitis B Surface Antigen Non-Reactive (Nonreactive); Hepatitis C Antibody Non-Reactive (Nonreactive)
[2020-09-14] MEDS: 0.9% Saline Lock 10 ML Syringe IV (08:34)
--- NOTE | 2020-09-14 09:05 | PN.RENAL_ITS ---
Subjective Subjective: on vent, less responsive, hypotensive requiring multiple pressors. Dialysis on hold. Overall prognosis poor. Objective Data Objective Data Vital Signs: Vital Signs Temp Pulse Resp BP Pulse Ox 96.7 F L 75 17 89/38 L 95 09/14/20 04:00 09/14/20 07:00 09/14/20 07:00 09/14/20 08:33 09/14/20 07:00 Oxygen Flow Rate (L/min) 2 Oxygen Delivery Method Mechanical Ventilator Weight: 140 kg Body Mass Index (BMI) 35.9 Finger Stick Blood Glucose 96 Intake & Output: Intake and Output for Last 24 Hours 09/12/20 09/13/20 09/14/20 23:59 23:59 23:59 Intake Total 3640 / 3640 2932.56 / 3091.36 590.34 / 590.34 Output Total 50 / 50 7 / 7 0 / 0 Balance 3590 / 3590 2925.56 / 3084.36 590.34 / 590.34 Lab / Micro Data Result Diagrams: 09/14/20 05:15 09/14/20 05:15 Labs: Laboratory Results - last 24 hr 09/13/20 09/13/20 09/13/20 06:20 06:20 12:10 WBC RBC Hgb Hct MCV MCH MCHC RDW Std Deviation RDW Coeff of Zulay Plt Count MPV Neut % (Auto) Absolute Neuts (auto) Absolute Lymphs (auto) Total Counted Neutrophils % (Manual) Band Neutrophils % Lymphocytes % (Manual) Monocytes % (Manual) Metamyelocytes % Diff Path Review Reviewed Platelet Estimate RBC Morphology PT INR Sodium Potassium Chloride Carbon Dioxide Anion Gap BUN Creatinine Estim Creat Clear Calc Est GFR (MDRD) Af Amer Est GFR (MDRD) Non-Af BUN/Creatinine Ratio Glucose Lactic Acid 3.1 H* Calcium GGT 78 Ammonia Total Creatine Kinase Triglycerides Hep Bs Antigen Hep Bs Antibody Hepatitis C Antibody POC Glucose 09/13/20 09/13/20 09/13/20 15:20 15:25 18:01 WBC RBC Hgb Hct MCV MCH MCHC RDW Std Deviation RDW Coeff of Zulay Plt Count MPV Neut % (Auto) Absolute Neuts (auto) Absolute Lymphs (auto) Total Counted Neutrophils % (Manual) Band Neutrophils % Lymphocytes % (Manual) Monocytes % (Manual) Metamyelocytes % Diff Path Review Platelet Estimate RBC Morphology PT INR Sodium Potassium Chloride Carbon Dioxide Anion Gap BUN Creatinine Estim Creat Clear Calc Est GFR (MDRD) Af Amer Est GFR (MDRD) Non-Af BUN/Creatinine Ratio Glucose Lactic Acid Calcium GGT Ammonia Total Creatine Kinase 117 Triglycerides 183 Hep Bs Antigen Non-Reactive Hep Bs Antibody Non-Reactive Hepatitis C Antibody Non-Reactive POC Glucose 149 H 09/13/20 09/14/20 09/14/20 21:30 00:28 05:15 WBC 27.3 H RBC 4.53 L Hgb 12.2 L Hct 38.6 L MCV 85.2 MCH 26.9 L MCHC 31.6 L RDW Std Deviation 61.0 H RDW Coeff of Zulay 19.5 H Plt Count 214 MPV 10.3 Neut % (Auto) Not Reportable Absolute Neuts (auto) 24.6 H Absolute Lymphs (auto) 1.10 Total Counted 100 Neutrophils % (Manual) 88 H Band Neutrophils % 2 Lymphocytes % (Manual) 4 L Monocytes % (Manual) 3 Metamyelocytes % 3 H Diff Path Review May foll Platelet Estimate ADEQUATE RBC Morphology NORM C+C PT INR Sodium Potassium Chloride Carbon Dioxide Anion Gap BUN Creatinine Estim Creat Clear Calc Est GFR (MDRD) Af Amer Est GFR (MDRD) Non-Af BUN/Creatinine Ratio Glucose Lactic Acid 3.2 H* Calcium GGT Ammonia Total Creatine Kinase Triglycerides Hep Bs Antigen Hep Bs Antibody Hepatitis C Antibody POC Glucose 103 09/14/20 09/14/20 09/14/20 05:15 05:15 05:35 WBC RBC Hgb Hct MCV MCH MCHC RDW Std Deviation RDW Coeff of Zulay Plt Count MPV Neut % (Auto) Absolute Neuts (auto) Absolute Lymphs (auto) Total Counted Neutrophils % (Manual) Band Neutrophils % Lymphocytes % (Manual) Monocytes % (Manual) Metamyelocytes % Diff Path Review Platelet Estimate RBC Morphology PT 45.5 H INR 5.0 H* Sodium 129 L Potassium 4.2 Chloride 95 L Carbon Dioxide 21.0 Anion Gap 13 BUN 64 H Creatinine 6.27 H Estim Creat Clear Calc 13.85 Est GFR (MDRD) Af Amer 12 L Est GFR (MDRD) Non-Af 10 L BUN/Creatinine Ratio 10.2 Glucose 90 Lactic Acid Calcium 6.2 L* GGT Ammonia Total Creatine Kinase Triglycerides Hep Bs Antigen Hep Bs Antibody Hepatitis C Antibody POC Glucose 96 09/14/20 06:40 WBC RBC Hgb Hct MCV MCH MCHC RDW Std Deviation RDW Coeff of Zulay Plt Count MPV Neut % (Auto) Absolute Neuts (auto) Absolute Lymphs (auto) Total Counted Neutrophils % (Manual) Band Neutrophils % Lymphocytes % (Manual) Monocytes % (Manual) Metamyelocytes % Diff Path Review Platelet Estimate RBC Morphology PT INR Sodium Potassium Chloride Carbon Dioxide Anion Gap BUN Creatinine Estim Creat Clear Calc Est GFR (MDRD) Af Amer Est GFR (MDRD) Non-Af BUN/Creatinine Ratio Glucose Lactic Acid Calcium GGT Ammonia 26.0 Total Creatine Kinase Triglycerides Hep Bs Antigen Hep Bs Antibody Hepatitis C Antibody POC Glucose Micro: Microbiology 09/13/20 09:30 Blood Culture (Wb) - Anticubital Left Blood Culture - Preliminary 09/13/20 09:10 Blood Culture (Wb) - Central Line Blood Culture - Preliminary 09/13/20 09:40 Sputum, Induced/Lukens Gram Stain - Final 09/10/20 19:15 Interface Orders SARS-CoV-2 Antigen (Rapid) - Final 09/10/20 00:20 Stool Enteric Bacteriology - Final 09/10/20 00:20 Stool C. difficile DNA Amplification - Final 09/09/20 00:20 Stool Stool Occult Blood (MADDIE) - Final Occult Blood Positive ABG Data ABG results: ABG 09/14/20 07:19 Specimen Type ART Sample Site L Radial pH 7.35 Bicarbonate Actual 16.6 L Total CO2 18 Base Excess -9 L O2 Saturation 64 L O2 % 35 ABG pCO2 30.3 L ABG pO2 35 L* Kodak Test Positive Respiration Rate 16 O2 Delivery Device ET Tube Vent Mode AC Tidal Volume 450 POC PEEP 5 Crit Call To/Read Back Yes Radiography Diagnostic Testing: Radiology Impression Liver Ultrasound 09/13/20 07:56 IMPRESSION: Hepatomegaly and heterogeneous echotexture of the liver. There is a starry night appearance of the liver suggestive of possible hepatitis. Electronically Signed: Edvin Juarez MD at 14:10 EDT , Service support , Chest X-Ray 09/13/20 10:45 IMPRESSION: The tip of the dialysis catheter is at the junction of the superior vena cava and right atrium. The remainder of the examination is unchanged. Electronically Signed: Edvin Juarez MD at 11:10 EDT , Service support , Brain CT 09/14/20 05:52 IMPRESSION: Chronic involutional changes of the brain. Electronically Signed: Guanako Gibson MD at 6:29 EDT Tel , Service support , ADDENDUM: 09/14/20 0644 IMPRESSION: Chronic involutional changes of the brain. N.B. : The above information has been verbally conveyed by Guanako Gibson MD to SHAYNA CASTANO, on 09/14/2020 06:37:49 (ET). 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 Severe atherosclerotic disease are identified the heart are all with 50-69% stenosis at the origin of the right ICA. There is occlusion and the left vertebral artery at its origin. There is possibly a stent in the segment V4 of the right vertebral artery appears patent. There is irregular narrowing of the basilar artery with maximal stenosis is estimated at 50%. Multiple areas of [id number] narrowing are noted in the M2 and M3 segments of the right and left MCA most likely due to atherosclerosis. 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 Severe atherosclerotic disease are identified the heart are all with 50-69% stenosis at the origin of the right ICA. There is occlusion and the left vertebral artery at its origin. There is possibly a stent in the segment V4 of the right vertebral artery appears patent. There is irregular narrowing of the basilar artery with maximal stenosis is estimated at 50%. Multiple areas of [id number] narrowing are noted in the M2 and M3 segments of the right and left MCA most likely due to atherosclerosis. N.B. : The above information has been verbally conveyed by Guanako Gibson MD to Terry Ovalles;[phone], on 09/14/2020 07:02:07 (ET). Electronically Signed: Guanako Gibson MD at 6:58 EDT Tel , Service support , Physical Exam Const General Appearance: patient mechanically ventilated Orientation / Consciousness: lethargic Resp Resp Narrative: on vent Auscultation: rhonchi Cardio Cardio Narrative: afib GI non-tender and non-distended GI Narrative: obese Auscultation: hypoactive bowel sounds Palpation: soft; Negative for tense ascites Extremity Extremity Narrative: midl LE edema Skin Skin Narrative: no rash Neuro Neuro Narrative: unresponsive Assessment & Plan Assessment/Plan (1) BENJI (acute kidney injury): PLAN: dialysis yesterday. Hold today due to unstable BP while on pressors, overall prognosis poor. (2) Acute hypoxemic respiratory failure: PLAN: on vent (3) Diabetic nephropathy associated with diabetes mellitus due to underlying condition: PLAN: urine protein/cr ratio 2.2g/g (4) GI bleed: QUALIFIERS: GI bleed type/associated pathology: unspecified gastrointestinal hemorrhage type Qualified Code(s): K92.2 - Gastrointestinal hemorrhage, unspecified PLAN: s/p endoscopy. Hgb stable (5) Supratherapeutic INR: PLAN: INR elevated with liver failure (6) Hyperkalemia: PLAN: Corrected with dialysis (7) Hyponatremia: PLAN: sodium improving (8) Afib: QUALIFIERS: Atrial fibrillation type: longstanding persistent Qualified Code(s): I48.11 - Longstanding persistent atrial fibrillation PLAN: cardio mgmt (9) Diabetes: QUALIFIERS: Diabetes mellitus complication status: with other specified complication Diabetes mellitus meterman insulin use: with half-way use Diabetes mellitus type: type 2 Qualified Code(s): E11.69 - Type 2 diabetes mellitus with other specified complication; Z79.4 - superintendent terminal (current) use of insulin PLAN: on insulin at home. UPCR 2.2g/g (10) Hypertension: QUALIFIERS: Hypertension type: essential hypertension Qualified Code(s): I10 - Essential (primary) hypertension PLAN: hypotensive on pressors now (11) CAD (coronary artery disease): QUALIFIERS: Associated angina: without angina Coronary Disease- Associated Artery/Lesion type: bypass graft, autologous vein Qualified Code(s): I25.810 - Atherosclerosis of coronary artery bypass graft(s) without angina pectoris PLAN: NSTEMI with positive troponins, cardio consulted (12) PVD (peripheral vascular disease): PLAN: s/p bypass, toe amputation (13) Leukocytosis: PLAN: WBC elevated, cx GNR, on iv antibx, afebrile (14) Metabolic acidosis: PLAN: correct with dialysis
--- NOTE | 2020-09-14 09:51 | CASEMGMT ---
This RN CM participated in ICU multidisciplinary rounds. Pt is still on vent, maxed out on pressors at this time and unresponsive with no sedation. Per Dr. Ovalles, pt's family coming in today to discuss goals of care and dialysis to be held d/t low bp. Pt was a stroke alert last pm and per Carol RN, pt's pupils are unequal. CM/SW to follow. SStmishel BUSCH CM
--- NOTE | 2020-09-14 10:01 | CASEMGMT ---
Addendum entered by Flaquita Terry 09/14/20 10:09: Contact info for Nery at the [facility] [phone] ext [phone]. Leandro BUSCH CM Original Note: Message left with Nery at [facility] transfer center updating her on pt at this time. Leandro BUSCH CM
[2020-09-14] MEDS: Phenylephrine 40 mg/250 mL 0.9% NS 18.8 MG CONT INF (11:00)
[2020-09-14 11:23] LABS: AST(SGOT) 157 U/L (15-37); Alanine Aminotransfer ALT/SGPT 50 U/L (16-61); Albumin, Serum 1.7 g/dL (3.2-5.0); Alkaline Phosphatase 904 U/L (45-117); Bilirubin, Direct 8.35 mg/dL (0.00-0.30); Globulin 4.2 g/dL (2.2-4.2); Protein, Total 5.9 g/dL (6.4-8.2); Thyroid Stim Hormone (TSH) 2.45 uIU/mL (0.358-3.74)
--- NOTE | 2020-09-14 11:46 | CASEMGMT ---
Social Work SW attended pt rounds. Stroke alert called overnight. Pt is declining, family called in. Nursing was able to speak with pt daughter and update on pt condition. SW left VM for semiconductor wafers tester to visit patient. Pt significant other Perez and her Manager Mechanical Maintenance arrives at pt bedside. SW spent time with Perez offering support. Nursing made Perez aware of pt condition. SW will remain available for further needs. RUDY Puckett
[2020-09-14] MEDS: Hydrocortisone Sod Succinate 100 MG/2 ML Vial 50 MG IV (12:03)
[2020-09-14 12:15] LABS: Bedside Glucose 56 mg/dL (70-110)
--- NOTE | 2020-09-14 12:18 | PCM.PN.HOSP ---
Subjective Subjective: Seen and examined. Patient does not look good condition overall situation has worsened. In the morning he was on 2 vessel pressure and then late morning third vasopressin added. Patient is still unconscious unresponsive even though Steritapes have been turned off since yesterday. No urine output. Remains on vent support. Objective Data Objective Data General: Unconscious, unresponsive HEENT: Atraumatic, Normocephalic, pupils unequal, left slightly larger than right. No corneal reflex. Doll's eye not present. Not on sedating medications Oral: ETT and OG tube Neck: Supple, No JVD, Negative Carotid Bruits Lungs: Air entry diminished in bilateral lung bases. On vent support. Cardiovascular: Regular rate, Regular Rhythm, Normal S1, Normal S2, No murmurs Abdomen: Bowel Sounds sluggish, Soft, Non Tender, Non-Distended : No renal angle tenderness. No suprapubic tenderness. Extremities: Mild bilateral ankle edema, Capillary Refill Less than 3 Seconds Skin: No rashes, No breakdown Musculoskeletal: Left TMA, right 3 toes are missing. No Tenderness to Palpation of Joints or Extremities Neurological: Unconscious, unresponsive. On deep sternal rub, slight withdrawing of hand. Psych/Mental Status: Vital Signs: Vital Signs Temp Pulse Resp BP Pulse Ox 96.7 F L 68 19 H 89/38 L 93 09/14/20 04:00 09/14/20 09:15 09/14/20 09:15 09/14/20 10:00 09/14/20 09:15 Oxygen Flow Rate (L/min) 2 Oxygen Delivery Method Mechanical Ventilator Weight: 308 lb 10.354 oz Body Mass Index (BMI) 35.9 Finger Stick Blood Glucose 96 Intake & Output: Intake and Output for Last 24 Hours 09/12/20 09/13/20 09/14/20 23:59 23:59 23:59 Intake Total 3640 / 3640 2932.56 / 3091.36 751.83 / 751.83 Output Total 50 / 50 7 / 7 0 / 0 Balance 3590 / 3590 2925.56 / 3084.36 751.83 / 751.83 Lab / Micro Data Result Diagrams: 09/14/20 05:15 09/14/20 05:15 Labs: Laboratory Results - last 24 hr 09/13/20 09/13/20 09/13/20 06:20 12:10 15:20 WBC RBC Hgb Hct MCV MCH MCHC RDW Std Deviation RDW Coeff of Zulay Plt Count MPV Neut % (Auto) Absolute Neuts (auto) Absolute Lymphs (auto) Total Counted Neutrophils % (Manual) Band Neutrophils % Lymphocytes % (Manual) Monocytes % (Manual) Metamyelocytes % Diff Path Review Reviewed Platelet Estimate RBC Morphology PT INR Sodium Potassium Chloride Carbon Dioxide Anion Gap BUN Creatinine Estim Creat Clear Calc Est GFR (MDRD) Af Amer Est GFR (MDRD) Non-Af BUN/Creatinine Ratio Glucose Lactic Acid 3.1 H* Calcium Total Bilirubin Direct Bilirubin AST ALT Alkaline Phosphatase Ammonia Total Creatine Kinase Total Protein Albumin Globulin Triglycerides TSH Hep Bs Antigen Non-Reactive Hep Bs Antibody Non-Reactive Hepatitis C Antibody Non-Reactive POC Glucose 09/13/20 09/13/20 09/13/20 15:25 18:01 21:30 WBC RBC Hgb Hct MCV MCH MCHC RDW Std Deviation RDW Coeff of Zulay Plt Count MPV Neut % (Auto) Absolute Neuts (auto) Absolute Lymphs (auto) Total Counted Neutrophils % (Manual) Band Neutrophils % Lymphocytes % (Manual) Monocytes % (Manual) Metamyelocytes % Diff Path Review Platelet Estimate RBC Morphology PT INR Sodium Potassium Chloride Carbon Dioxide Anion Gap BUN Creatinine Estim Creat Clear Calc Est GFR (MDRD) Af Amer Est GFR (MDRD) Non-Af BUN/Creatinine Ratio Glucose Lactic Acid 3.2 H* Calcium Total Bilirubin Direct Bilirubin AST ALT Alkaline Phosphatase Ammonia Total Creatine Kinase 117 Total Protein Albumin Globulin Triglycerides 183 TSH Hep Bs Antigen Hep Bs Antibody Hepatitis C Antibody POC Glucose 149 H 09/14/20 09/14/20 09/14/20 00:28 05:15 05:15 WBC 27.3 H RBC 4.53 L Hgb 12.2 L Hct 38.6 L MCV 85.2 MCH 26.9 L MCHC 31.6 L RDW Std Deviation 61.0 H RDW Coeff of Zulay 19.5 H Plt Count 214 MPV 10.3 Neut % (Auto) Not Reportable Absolute Neuts (auto) 24.6 H Absolute Lymphs (auto) 1.10 Total Counted 100 Neutrophils % (Manual) 88 H Band Neutrophils % 2 Lymphocytes % (Manual) 4 L Monocytes % (Manual) 3 Metamyelocytes % 3 H Diff Path Review May foll Platelet Estimate ADEQUATE RBC Morphology NORM C+C PT INR Sodium 129 L Potassium 4.2 Chloride 95 L Carbon Dioxide 21.0 Anion Gap 13 BUN 64 H Creatinine 6.27 H Estim Creat Clear Calc 13.85 Est GFR (MDRD) Af Amer 12 L Est GFR (MDRD) Non-Af 10 L BUN/Creatinine Ratio 10.2 Glucose 90 Lactic Acid Calcium 6.2 L* Total Bilirubin Direct Bilirubin AST ALT Alkaline Phosphatase Ammonia Total Creatine Kinase Total Protein Albumin Globulin Triglycerides TSH Hep Bs Antigen Hep Bs Antibody Hepatitis C Antibody POC Glucose 103 09/14/20 09/14/20 09/14/20 05:15 05:15 05:35 WBC RBC Hgb Hct MCV MCH MCHC RDW Std Deviation RDW Coeff of Zulay Plt Count MPV Neut % (Auto) Absolute Neuts (auto) Absolute Lymphs (auto) Total Counted Neutrophils % (Manual) Band Neutrophils % Lymphocytes % (Manual) Monocytes % (Manual) Metamyelocytes % Diff Path Review Platelet Estimate RBC Morphology PT 45.5 H INR 5.0 H* Sodium Potassium Chloride Carbon Dioxide Anion Gap BUN Creatinine Estim Creat Clear Calc Est GFR (MDRD) Af Amer Est GFR (MDRD) Non-Af BUN/Creatinine Ratio Glucose Lactic Acid Calcium Total Bilirubin 10.40 H Direct Bilirubin 8.35 H AST 157 H ALT 50 Alkaline Phosphatase 904 H Ammonia Total Creatine Kinase Total Protein 5.9 L Albumin 1.7 L Globulin 4.2 Triglycerides TSH 2.45 Hep Bs Antigen Hep Bs Antibody Hepatitis C Antibody POC Glucose 96 09/14/20 09/14/20 06:40 12:13 WBC RBC Hgb Hct MCV MCH MCHC RDW Std Deviation RDW Coeff of Zulay Plt Count MPV Neut % (Auto) Absolute Neuts (auto) Absolute Lymphs (auto) Total Counted Neutrophils % (Manual) Band Neutrophils % Lymphocytes % (Manual) Monocytes % (Manual) Metamyelocytes % Diff Path Review Platelet Estimate RBC Morphology PT INR Sodium Potassium Chloride Carbon Dioxide Anion Gap BUN Creatinine Estim Creat Clear Calc Est GFR (MDRD) Af Amer Est GFR (MDRD) Non-Af BUN/Creatinine Ratio Glucose Lactic Acid Calcium Total Bilirubin Direct Bilirubin AST ALT Alkaline Phosphatase Ammonia 26.0 Total Creatine Kinase Total Protein Albumin Globulin Triglycerides TSH Hep Bs Antigen Hep Bs Antibody Hepatitis C Antibody POC Glucose 56 L Micro: Microbiology 09/13/20 09:30 Blood Culture (Wb) - Anticubital Left Blood Culture - Preliminary 09/13/20 09:10 Blood Culture (Wb) - Central Line Blood Culture - Preliminary 09/13/20 09:40 Sputum, Induced/Lukens Gram Stain - Final 09/10/20 19:15 Interface Orders SARS-CoV-2 Antigen (Rapid) - Final 09/10/20 00:20 Stool Enteric Bacteriology - Final 09/10/20 00:20 Stool C. difficile DNA Amplification - Final 09/09/20 00:20 Stool Stool Occult Blood (MADDIE) - Final Occult Blood Positive ABG Data ABG results: ABG 09/14/20 07:19 Specimen Type ART Sample Site L Radial pH 7.35 Bicarbonate Actual 16.6 L Total CO2 18 Base Excess -9 L O2 Saturation 64 L O2 % 35 ABG pCO2 30.3 L ABG pO2 35 L* Kodak Test Positive Respiration Rate 16 O2 Delivery Device ET Tube Vent Mode AC Tidal Volume 450 POC PEEP 5 Crit Call To/Read Back Yes Radiography Diagnostic Testing: Radiology Impression Liver Ultrasound 09/13/20 07:56 IMPRESSION: Hepatomegaly and heterogeneous echotexture of the liver. There is a starry night appearance of the liver suggestive of possible hepatitis. Electronically Signed: Edvin Juarez MD at 14:10 EDT , Service support , Brain CT 09/14/20 05:52 IMPRESSION: Chronic involutional changes of the brain. Electronically Signed: Guanako Gibson MD at 6:29 EDT Tel , Service support , ADDENDUM: 09/14/20 0644 IMPRESSION: Chronic involutional changes of the brain. N.B. : The above information has been verbally conveyed by Guanako Gibson MD to SHAYNA CASTANO, on 09/14/2020 06:37:49 (ET). 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 Severe atherosclerotic disease are identified the heart are all with 50-69% stenosis at the origin of the right ICA. There is occlusion and the left vertebral artery at its origin. There is possibly a stent in the segment V4 of the right vertebral artery appears patent. There is irregular narrowing of the basilar artery with maximal stenosis is estimated at 50%. Multiple areas of [id number]-rh-[id number] narrowing are noted in the M2 and M3 segments of the right and left MCA most likely due to atherosclerosis. 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 Severe atherosclerotic disease are identified the heart are all with 50-69% stenosis at the origin of the right ICA. There is occlusion and the left vertebral artery at its origin. There is possibly a stent in the segment V4 of the right vertebral artery appears patent. There is irregular narrowing of the basilar artery with maximal stenosis is estimated at 50%. Multiple areas of osfj-zu-oqrofszq narrowing are noted in the M2 and M3 segments of the right and left MCA most likely due to atherosclerosis. N.B. : The above information has been verbally conveyed by Guanako Gibson MD to Terry Ovalles;[phone], on 09/14/2020 07:02:07 (ET). Electronically Signed: Guanako Gibson MD at 6:58 EDT Tel , Service support , Assessment & Plan Assessment/Plan (1) BENJI (acute kidney injury): (2) Acute upper gastrointestinal bleeding: (3) Jaundice: (4) Afib: QUALIFIERS: Atrial fibrillation type: longstanding persistent Qualified Code(s): I48.11 - Longstanding persistent atrial fibrillation (5) Encephalopathy: (6) Acute hypoxemic respiratory failure: (7) Elevated LFTs: (8) Metabolic acidosis: PLAN: Assessment/Plan 1. Acute hypoxic respiratory failure: Patient had rapid response in the morning of 09/13 and patient was bradycardic, heart rate in 40s patient was unresponsive with agonal breathing. Patient was emergently intubated. 09/14: Repeat ABG today shows 7.35/30/35 on 35% FiO2, O2 saturation 64%. Corrected calcium 8.04. 2 gram-negative horace septic shock with bacteremia: Blood culture from 09/13 shows gram-negative horace, 3+ gram-positive cocci. Patient on IV vancomycin and Zosyn. 3. Acute upper gastrointestinal bleeding. Patient had upper and lower endoscopy. Left colon polypectomy was done. H&H 13.. Patient also has history of coronary artery disease, CABG, acute on chronic systolic heart failure. On 3 vasopressors. Patient had arterial line was put in right radial artery by log chipper. Blood pressure remains low, 89/38 even on 3 vasopressors. Leukocytosis is worsening. Echocardiogram from 09/11/2020 demonstrated normal left ventricular size, mild LVH, estimated EF of 45%. Plan; hold warfarin and dual antiplatelet therapy, resume isosorbide mononitrate and rosuvastatin. Warfarin on hold. Antihypertensive medications on hold due to shock. Patient has supratherapeutic INR therefore Coumadin on hold 4. BENJI on CKD stage IIIa with hyponatremia and hyperkalemia and next acid-base metabolic acidosis: Creatinine continues to climb high. BUN/creatinine 91/7.66, sodium 126, K5.2. Dialysis catheter was placed by surgeon and patient had dialysis on 09/13 5: Dialysis was hold because of tenuous blood pressure even on 3 vasopressors. Prognosis poor. Patient has non-anion gap metabolic acidosis and respiratory alkalosis. 5) acute encephalopathy probably metabolic due to hypotension and hypoxia with atherosclerotic disease of carotids and brain circulation: Patient also has leukocytosis. Chest x-ray shows small right pleural effusion with underlying atelectasis and infiltrate. Empirically started on IV Zosyn. 09/14: Patient suddenly got unresponsive at about 5:30 AM and code stroke was initiated. Patient had CTA head and neck done. CT angiogram shows occlusion of left ICA at its origin, 50 to 69% stenosis at origin of right ICA, occlusion of left vertebral artery at its origin irregular narrowing of basilar artery, stenosis 50%. Multiple areas of mild to moderate narrowing in the M2 M3 segment of right and left MCA suggestive of atherosclerosis. CT head shows normal sized ventricles, normal basal ganglia and thalami and brainstem and cerebellum. No ICH. No findings of acute ischemic infarction. 6. Hyperbilirubinemia with elevated transaminases: GGT normal. Total bili was 3.2 in April 2020, increased to 11.1. ALT 60, AST 148. Liver ultrasound shows hepatomegaly and heterogeneous echogenicity suggestive of nonspecific hepatitis probably intrahepatic cholestasis 09/14: TB 10.4, DB 8.35, AST 135, alkaline phosphatase 904 mainly direct hyperbilirubinemia suggestive of intrahepatic cholestasis Other multiple comorbidities include peripheral arterial disease, diabetes mellitus type 2, hypertension, dyslipidemia, obesity, obstructive sleep apnea: Multiple comorbidities Patient's family aware of poor prognosis. Patient's daughter is next to kin. Clinical Impression(s) from Imaging Studies Echocardiogram 09/10/20 13:12 Interpretation Summary Normal LV size. Mild concentric left ventricular hypertrophy. The estimated ejection fraction is 45 %. Contrast injection was performed. Compared to previous study, the left ventricular systolic function is the same.. _ Renal Ultrasound 09/12/20 08:11 IMPRESSION: Normal ultrasound of the kidneys. Chest X-Ray 09/13/20 07:18 IMPRESSION: 1. Endotracheal tube terminates at approximately T2 level. 2. Stable small right pleural effusion with underlying atelectasis/infiltrate. Electronically Signed: Henry Durand MD ([place]) at 8:03 EDT , Service support , Liver Ultrasound 09/13/20 07:56 IMPRESSION: Hepatomegaly and heterogeneous echotexture of the liver. There is a starry night appearance of the liver suggestive of possible hepatitis. Chest X-Ray 09/13/20 08:19 IMPRESSION: The left central line is at the junction of the superior vena cava and left brachiocephalic vein. The remainder of examination is unchanged. Electronically Signed: Edvin Juarez MD at 8:57 EDT , Service support , Chest X-Ray 09/13/20 10:45 IMPRESSION: The tip of the dialysis catheter is at the junction of the superior vena cava and right atrium. The remainder of the examination is unchanged. Electronically Signed: Edvin Juarez MD at 11:10 EDT , Service support , Visit Charges Inpatient E&M: [id number] Subs Hosp L3
[2020-09-14] MEDS: Dextrose 50%-Water 25 GM/50 ML DISP.SYRIN IV (12:27)
[2020-09-14 12:56] LABS: Pathologist Review Reviewed
--- NOTE | 2020-09-14 14:23 | CHAPLAIN ---
Type of Pastoral Visit _x__ Initial Visit _x__ Follow-up Visit ___ On-call Visit ___ General Patient Visit ___ Spiritual Assessment ___ Family Conference ___ Bereavement ___ Rapid Response ___ Code Blue ___ Other (describe below) Pastoral Care Referral From ___ Patient ___ Family ___ Nurse ___ Physician _x__ Linseed Oil Boiler ___ Dietary Aide Teacher ___ Other (describe below) Sacrament/Intervention ___ Active listening ___ Anointing ___ Religion ___ Bereavement ___ Communion ___ Ana María exploration ___ _x__ Life review _x__ Prayer ___ Reconciliation ___ Sacrament of Sick _x__ Supportive presence ___ Wedding ___ Other (describe below) Pastoral Comments responded to request from to meet with family members at bedside of patient who is not expected to live; pt is unresponsive; SO and fork assembler were present; gave time to hear some life review from these two; fork assembler led in a prayer around bed; offer of continuing availability and support given as needed; returned to unit later in the afternoon to see if support was needed; daughter had arrived; gave support to staff as they respond to patient and family needs.
--- NOTE | 2020-09-14 14:25 | NURSING ---
apneic, asystolic. Dr. Ovalles present
--- NOTE | 2020-09-14 14:50 | CASEMGMT ---
Social Work Pt daughter now present with patient. SW provided emotional support to daughter and pt significant other as pt condition declined. RUDY Puckett
--- NOTE | 2020-09-14 15:59 | EXP.PCM_ITS ---
Preliminary Cause of Acute hypoxic respiratory failure from septic shock Date of Admission: 09/09/20 Principle Diagnosis Problem List: Active and Suspected Problems (Updated 09/14/20 @ 06:[address] Terry Ovalles, DO) Septic shock (Acute) Encephalopathy (Acute) Acute hypoxemic respiratory failure (Acute) Elevated LFTs (Acute) Metabolic acidosis (Acute) Diabetic nephropathy associated with diabetes mellitus due to underlying condition (Acute) Hyponatremia (Acute) Hyperkalemia (Acute) Leukocytosis (Acute) GI bleed (Acute) Supratherapeutic INR (Acute) Elevated troponin (Acute) BENJI (acute kidney injury) (Acute) Acute upper gastrointestinal bleeding (Acute) Jaundice (Acute) Stage 3b chronic kidney disease (Acute) Assessment & Plan Assessment/Plan (1) Septic shock: (2) Encephalopathy: (3) Acute hypoxemic respiratory failure: (4) Acute on chronic kidney failure: PLAN: 1. Acute hypoxic respiratory failure due to septic shock 2. Gram-negative horace septic shock with bacteremia 3. Acute lower GI bleed 4. Acute kidney injury and CKD stage III, required hemodialysis 5. Acute encephalopathy probably metabolic due to hypotension and hypoxia with atherosclerotic disease of carotids and brain circulation 6. Hyperbilirubinemia with elevated transaminases Other multiple comorbid include peripheral artery disease, diabetes mellitus type 2, hypertension, dyslipidemia, sleep apnea. (5) GI bleed: QUALIFIERS: GI bleed type/associated pathology: unspecified gastrointestinal hemorrhage type Qualified Code(s): K92.2 - Gastrointestinal hemorrhage, unspecified Hospital Course This 65-year-old gentleman was readmitted after overnight discharged on 09/08 and came back on 09/09 with 2-3 bouts of black stool, lower GI bleed. Denied any chest pain or shortness of breath however his INR was elevated at 6.5. Troponins were slightly elevated and thought to be due to kidney dysfunction. Patient also had leukocytosis initially thought to be enteric pathogen but C. difficile and enteric pathogens were ruled out. GI was consulted. Nonbleeding external/internal hemorrhoids and 1 5 to 50 mm polyp in descending colon was removed. EGD was essentially unremarkable except small hiatal hernia. Hyperion Administrator saw the patient and Coumadin and antiplatelet agents were hold but other cardiac medications including sublingual nitrate and atorvastatin continued. Patient had rapid response with severe bradycardia on 09/13 and was unresponsive, unconscious with agonal breathing was emergently intubated. Subsequently patient was transferred to ICU. Patient was comanaged with model builder display, roll coverer, surgeon and restaurant hourly team member. Patient had left IJ CVC catheter and right hemodialysis catheter. Patient was started on vasopressor which was escalated to 3 vasopressors subsequently. Patient was also dialyzed on 09/13 but could not be dialyzed on 09/14 due to tenuous hemodynamics/BP even on 3 vasopressors. Patient was given also IV bolus. Patient also had sudden change in mental status/unresponsive at about 5:30 AM on 09/14/[address] head and CT angiogram head and neck was done. CT angiogram shows occlusion of left ICA at its origin, 50 to 69% stenosis at origin of right ICA, occlusion of left vertebral artery at its origin irregular narrowing of basilar artery, stenosis 50%. Multiple areas of mild to moderate narrowing in the M2 M3 segment of right and left MCA suggestive of atherosclerosis. CT head shows normal sized ventricles, normal basal ganglia and thalami and brainstem and cerebellum. No ICH. No findings of acute ischemic infarction. Patient also had cholestatic liver chemistry with elevated total bilirubin type of alkaline phosphatase suggestive of intrahepatic cholestasis/metabolic hepatitis. Patient has other comorbidities including peripheral arterial disease, diabetes mellitus type 2, hypertension, dyslipidemia, obstructive sleep apnea Patient finally at 1425 hrs. on 09/14/2020 Visit Charges Inpatient E&M: [id number] Disch Hosp
[2020-09-15 06:14] LABS: Blood Gas Specimen Type VEN
[2020-09-15 20:14] LABS: Hepatitis B Core Ab Total Negative (Negative)
== END 2020-09-14 14:25 | DRG 377 ==
LOC: ED 10:55 → PCU 12:43 → ICU 09-13 07:19
PROVIDERS: Anesthesiology; Internal Medicine; Internal Medicine Critical Care Medicine; Internal Medicine Nephrology; Surgery; Admitting Provider Family Medicine; Emergency Provider Emergency Medicine; Visit Provider Internal Medicine
PROC: 0DJD8ZZ Inspection of Lower Intestinal Tract, Via Natural or Artificial Opening Endoscopic (ICD-10-PCS; CPT 45378; principal; 2020-09-11 11:55)
DX: K92.1 Melena (principal); A41.50 Gram-negative sepsis, unspecified; R65.21 Severe sepsis with septic shock; J96.01 Acute respiratory failure with hypoxia; G93.41 Metabolic encephalopathy; I50.43 Acute on chronic combined systolic (congestive) and diastolic (congestive) heart failure; I21.A1 Myocardial infarction type 2; N17.9 Acute kidney failure, unspecified; I13.0 Hypertensive heart and chronic kidney disease with heart failure and stage 1 through stage 4 chronic kidney disease, or unspecified chronic kidney disease; I48.11 Longstanding persistent atrial fibrillation; E87.1 Hypo-osmolality and hyponatremia; E87.4 Mixed disorder of acid-base balance; E87.5 Hyperkalemia; K44.9 Diaphragmatic hernia without obstruction or gangrene; K64.4 Residual hemorrhoidal skin tags; K64.8 Other hemorrhoids; D12.4 Benign neoplasm of descending colon; I25.10 Atherosclerotic heart disease of native coronary artery without angina pectoris; E11.51 Type 2 diabetes mellitus with diabetic peripheral angiopathy without gangrene; E11.22 Type 2 diabetes mellitus with diabetic chronic kidney disease; E66.9 Obesity, unspecified; G47.33 Obstructive sleep apnea (adult) (pediatric); E78.5 Hyperlipidemia, unspecified; E11.649 Type 2 diabetes mellitus with hypoglycemia without coma; R79.1 Abnormal coagulation profile; K72.90 Hepatic failure, unspecified without coma; R00.1 Bradycardia, unspecified; N18.32 Chronic kidney disease, stage 3b; Z79.01 Long term (current) use of anticoagulants; Z79.899 Other long term (current) drug therapy; Z79.02 Long term (current) use of antithrombotics/antiplatelets; Z79.82 Long term (current) use of aspirin; Z79.4 Long term (current) use of insulin; Z95.1 Presence of aortocoronary bypass graft; Z68.35 Body mass index [BMI] 35.0-35.9, adult
CPT/HCPCS: 31500; 31720; 36415; 36600; 70450; 70496; 70498; 71045; 76705; 76770; 80048; 80053; 80069; 80076; 81001; 82140; 82274; 82436; 82550; 82570; 82803; 82962; 82977; 83605; 83690; 83735; 83880; 83935; 84100; 84133; 84156; 84300; 84443; 84478; 84484; 85025; 85610; 85730; 86704; 86706; 86803; 86850; 86900; 86901; 87040; 87070; 87077; 87086; 87088; 87186; 87205; 87340; 87426; 87493; 87506; 88305; 90937; 93005; 93306; 94002; 94003; 97163; 97166; 99251; 99285; J7030; J7040; J7050; P9017; Q9957; Q9967; A4216; C1752; C8929; G0257; G0463; J2405; J3010; J3490